=== PATIENT | male | born 1940 | race Caucasian/White ===

== ENCOUNTER → 2017-03-08 | Outpatient (CLI) | payer OTHER, MEDICARE ==
[~2017-03-08] MED LIST: ALBU1AER9 INH; ASPEC81 PO; ASTN; BECL0.3A INH; COEN100C3 PO; FRRS300 PO; FURO-85 PO; IPRA0.032 NAE; LEVO25TA5 PO; LOVA40TA4 PO; MAGN1TAB19 PO; METO25TA3 PO; MONT1TAB3 PO; NASOCORT PO; NITR0.4S UT; POTA10TA PO; WARF-280 PO
[2017-03-08 13:06] LABS: COMPLETE YES; EOS % 14.8 %; HEMATOCRIT 36.3 % (42-52); IG% 0.2 %; LYMPH % 19.6 %; LYMPH ABS # 1.17 K/uL (1.2-3.4); MEAN CELL VOLUME 85.6 fL (80-100); MEAN CORPUSCULAR HEMOGLOBIN 26.7 pg (25-34); MEAN CORPUSCULAR HGB CONC 31.1 g/dl (32-36); MEAN PLATELET VOLUME 8.7 fL (7.4-10.4); MONO % 10.2 %; NEUT % 55.2 %; PLATELET COUNT 164 K/uL (130-400); RED BLOOD COUNT 4.24 M/uL (4.7-6.1); WHITE BLOOD COUNT 5.96 K/uL (4.8-10.8)
[2017-03-08 13:35] LABS: ALT/SGPT 19 U/L (12-78); BLOOD UREA NITROGEN 32 mg/dl (7-18); BUN/CREATININE RATIO 24.8 (10-20); CARBON DIOXIDE 28 mmol/L (21-32); CHLORIDE 104 mmol/L (98-107); CHOLESTEROL 146 mg/dl (0-200); GLUCOSE 155 mg/dl (70-99); POTASSIUM 3.8 mmol/L (3.5-5.1); SODIUM 138 mmol/L (136-145); TRIGLYCERIDES 108 mg/dl (0-150); VERY LOW DENSITY LIPOPROT CALC 22 mg/dl
[2017-03-08 13:38] LABS: CALCIUM 8.8 mg/dl (8.5-10.1)
[2017-03-08 13:50] LABS: ESTIMATED AVERAGE GLUCOSE 154 mg/dl; HA1C FLAG Normal (Normal)
[2017-03-08 13:57] LABS: AST/SGOT 14 U/L (15-37); CHOLESTEROL/HDL RATIO 3.4; HDL CHOLESTEROL 43 mg/dl; LDL CHOLESTEROL CALCULATED 81 mg/dl; TOTAL IRON BINDING CAPACITY 220 mcg/dl (250-450)
== END ==
LOC: C.LABMFLN 15:33
PROVIDERS: ATTEND Family Medicine
DX: D64.9 Anemia, unspecified (principal); I25.10 Atherosclerotic heart disease of native coronary artery without angina pectoris; I48.91 Unspecified atrial fibrillation; E11.9 Type 2 diabetes mellitus without complications; I50.9 Heart failure, unspecified; E83.42 Hypomagnesemia; E03.9 Hypothyroidism, unspecified; Z12.5 Encounter for screening for malignant neoplasm of prostate

== ENCOUNTER → 2017-09-11 | Outpatient (CLI) | payer OTHER, MEDICARE ==
[2017-09-11 13:07] LABS: COMPLETE YES; EOS % 9.5 %; HEMATOCRIT 39.8 % (42-52); IG% 0.2 %; LYMPH % 19.5 %; LYMPH ABS # 1.03 K/uL (1.2-3.4); MEAN CELL VOLUME 86.5 fL (80-100); MEAN CORPUSCULAR HGB CONC 31.2 g/dl (32-36); MEAN PLATELET VOLUME 8.8 fL (7.4-10.4); MONO % 10.8 %; PLATELET COUNT 147 K/uL (130-400); WHITE BLOOD COUNT 5.28 K/uL (4.8-10.8)
[2017-09-11 13:12] LABS: ESTIMATED AVERAGE GLUCOSE 143 mg/dl; HA1C FLAG Normal (Normal)
[2017-09-11 13:59] LABS: BLOOD UREA NITROGEN 21 mg/dl (7-18); BUN/CREATININE RATIO 16.9 (10-20); CALCIUM 9.2 mg/dl (8.5-10.1); CARBON DIOXIDE 31 mmol/L (21-32); CHLORIDE 102 mmol/L (98-107); CREATININE 1.25 mg/dl (0.60-1.40); GLUCOSE 156 mg/dl (70-99); SODIUM 138 mmol/L (136-145)
== END | disposition home or self-care (01) ==
LOC: C.LABMFLN 08:28
PROVIDERS: ATTEND Family Medicine
DX: D64.9 Anemia, unspecified (principal); E11.9 Type 2 diabetes mellitus without complications; E03.9 Hypothyroidism, unspecified

== ENCOUNTER → 2017-10-10 | Outpatient (CLI) | payer OTHER, MEDICARE ==
[2017-10-10 18:27] LABS: COMPLETE YES; HEMATOCRIT 38.5 % (42-52); IG% 0.3 %; LYMPH ABS # 0.55 K/uL (1.2-3.4); MEAN CELL VOLUME 85.9 fL (80-100); MEAN CORPUSCULAR HEMOGLOBIN 27.2 pg (25-34); MEAN CORPUSCULAR HGB CONC 31.7 g/dl (32-36); MEAN PLATELET VOLUME 8.6 fL (7.4-10.4); MONO % 2.2 %; NEUT % 91.5 %; PLATELET COUNT 192 K/uL (130-400); RED BLOOD COUNT 4.48 M/uL (4.7-6.1); WHITE BLOOD COUNT 9.12 K/uL (4.8-10.8)
[2017-10-10 18:31] LABS: INR 2.3 (0.9-1.1); PROTHROMBIN TIME (PATIENT) 24.1 SECONDS (9.0-12.0)
== END | disposition home or self-care (01) ==
LOC: C.LABMFLN 15:41
PROVIDERS: ATTEND Family Medicine
DX: R04.0 Epistaxis (principal); R23.3 Spontaneous ecchymoses

== ENCOUNTER 2019-06-29 11:31 | Inpatient (IN) ==
[2019-06-29] MEDS ORDERED: ASPIRIN CHEW 324 MG PO STA (11:41)
[2019-06-29 12:02] LABS: Basophils # (auto) 0.01 K/uL (0-0.2); Basophils % (auto) 0.1 %; Eosinophils # (auto) 0.15 K/uL (0-0.5); Eosinophils % (auto) 1.4 %; Hematocrit (blood only) 39.1 % (42-52); Hemoglobin 12.1 g/dL (14.0-18.0); Immature Granulocytes # (auto) 0.11 K/uL (0.00-0.02); Lymphocytes # (auto) 1.37 K/uL (1.2-3.4); Lymphocytes % (auto) 12.5 %; Mean Corpuscular Hgb Conc 30.9 g/dL (32-36); Mean Corpuscular Volume 84.3 fL (80-100); Mean Platelet Volume 8.7 fL (7.4-10.4); Monocytes # (auto) 1.09 K/uL (0.11-0.59); Monocytes % (auto) 9.9 %; Neutrophils # (auto) 8.23 K/uL (1.4-6.5); Neutrophils % (auto) 75.1 %; Platelet Count 156 K/uL (130-400); RDW Coefficient of Variation 15.7 % (11.5-14.5); RDW Standard Deviation 47.7 fL (36.4-46.3); Red Blood Count 4.64 M/uL (4.7-6.1); White Blood Count 10.96 K/uL (4.8-10.8)
[2019-06-29 12:19] LABS: Albumin Level 2.9 gm/dl (3.4-5.0); Calcium 8.9 mg/dl (8.5-10.1); Creatinine Clr Calc Pharmacy 52.7 ml/min; Est GFR (African American) 65.6; Est GFR (Non-African American) 56.6; Magnesium 1.6 mg/dl (1.8-2.4); Potassium 3.5 mmol/L (3.5-5.1)
[2019-06-29 12:30] LABS: Albumin Globulin Ratio 0.8 (0.9-2); Bilirubin,Total 1.4 mg/dl (0.2-1); Globulin 3.9 gm/dl (2.5-4.0); Total Protein 6.8 gm/dl (6.4-8.2); Troponin I 0.082 ng/ml (0-0.045)
--- NOTE | 2019-06-29 12:36 | XRay Report ---
XR chest 2V routine CLINICAL HISTORY: Atypical chest pain COMPARISON STUDY: Noncontrast chest CT dated September 2018 FINDINGS: There are postsurgical changes of a midline sternotomy and bivalvular replacement. There is a left subclavian pacer/defibrillator present. The heart is enlarged. There is diffuse interstitial thickening. There is no lobar consolidation. There are no large pleural effusions.[There is a calcifi ed right upper lobe granuloma. IMPRESSION: Cardiomegaly and chronic interstitial thickening. No evidence of acute parenchymal consol idation. Electronically signed by: Arslan Queen M.D. 06/29/2019 12:35 PM
--- NOTE | 2019-06-29 12:53 | Emergency Department Note ---
Entered by Ana Frausto acting as a scribe for History of Present Illness General Chief complaint: Cardiac Assessment Time Seen by Provider: 06/29/19 11:36 Source: patient History of Present Illness Onset (ago): hour(s) 1 Location: chest Severity: similar to prior episodes Pain Consistency: + other (episode) Quality: + other (defibrillator discharge ) Associated symptoms: + other (positive now resolved abdominal pain); no shortness of breath The patient is a 79 year old male who presents to the Emergency Room with comp laints of an episode of defibrillator discharge that occurred about one hour prior to arrival. The patient states that this discharge is similar to a prior episode of discharge yesterday. He states that after the episode yesterday he went to the [facility] ED where he was told that his defibrillator discharged due to the patient being in Afib. The patient carlitos shortness of breath, and states that he had some now resolved abdominal pain prior to this episode. The patient states that he is on Coumadin and his level was 1.9 when leaving [facility] yesterday. Home Medications Home Medications Medication Instructions Recorded Confirmed Type nitroglycerin 0.4 mg sublingual 0.4 mg SL Q5M PRN #25 tab 06/17/19 06/29/19 Rx tablet potassium chloride ER 10 mEq 10 meq PO TID #270 tab 06/17/19 06/29/19 Rx tablet,extended release triamcinolone acetonide 0.1 % 1 appln TOPICAL BID PRN #80 gm 06/17/19 06/29/19 Rx topical cream warfarin 2.5 mg tablet 2.5 mg PO HS tab 06/23/19 06/29/19 History cefdinir 300 mg capsule 300 mg PO BID 5 Days #10 cap 06/27/19 06/29/19 Rx albuterol sulfate [ProAir HFA] 2 inh INHALATION DAILY PRN 06/29/19 06/29/19 History aspirin 81 mg PO QAM 06/29/19 06/29/19 History azelastine 2 sprays INTRANASAL DAILY PRN 06/29/19 06/29/19 History cetirizine 10 mg PO QAM 06/29/19 06/29/19 History coenzyme Q10 100 mg PO QAM 06/29/19 06/29/19 History ferrous sulfate 325 mg PO HS 06/29/19 06/29/19 History fluticasone furoate 1 puffs INHALATION DAILY PRN 06/29/19 06/29/19 History furosemide 20 mg PO DAILY PRN 06/29/19 06/29/19 History ipratropium-albuterol 3 ml INH QID PRN 06/29/19 06/29/19 History levothyroxine 75 mcg PO QAM 06/29/19 06/29/19 History lovastatin 40 mg PO HS 06/29/19 06/29/19 History magnesium oxide 400 mg PO QAM 06/29/19 06/29/19 History metformin 500 mg PO TIDM 06/29/19 06/29/19 History metoprolol succinate 12.5 mg PO HS 06/29/19 06/29/19 History metoprolol succinate 25 mg PO QAM 06/29/19 06/29/19 History prednisone 10 mg PO QAM 06/29/19 06/29/19 History pyridostigmine bromide 180 mg PO TID 06/29/19 06/29/19 History Allergies Allergy/AdvReac Type Severity Reaction Status Date / Time gabapentin Allergy Severe CONFUSION/D Verified 06/29/19 12:09 ISORIENTATI ON heparin Allergy Severe HIT Verified 06/29/19 12:09 Iodinated Contrast- Oral and Allergy Severe HIVES Verified 06/29/19 12:09 IV Dye Penicillins Allergy Intermediate HIVES Verified 06/29/19 12:09 prednisone Allergy Intermediate NAUSEA/VOMI Verified 06/29/19 12:09 TING shellfish derived Allergy Intermediate HIVES Verified 06/29/19 12:09 iodine Allergy Unknown TOLD BC OF Verified 06/29/19 12:09 IVP ALLERGY latex Allergy Verified 06/29/19 12:09 levofloxacin Allergy Verified 06/29/19 12:09 codeine AdvReac Unknown GI UPSET Verified 06/29/19 12:09 Latex2 -Systemic Allergic Allergy Intermediate ZEPEDA SKIN Uncoded 06/29/19 12:09 Response Past Med/Surg History Medical History Afib Surgical History History of aortic valve replacement History of appendectomy History of cholecystectomy History of excision of lesion face - malignant - 2.1-3cm Social History Preferred Language: Welsh marital status: Current Living Situation: Spouse Feels Safe at Home: Yes Smoking Status: Former smoker Hx Alcohol Use: Yes Review of Systems See HPI for pertinent positives & negatives. and A total of 10 systems reviewed and were otherwise negative Physical Exam Vital Signs Vital Signs - 24 hr 06/29/19 11:31 Temperature 36.6 C Temperature Source Oral Sepsis Recent Fever Within 48 Hours No Sepsis New/Unexplained Change in Mental Status No Sepsis Action Taken by Nursing No Action Required Pulse Rate 94 H Pulse Rhythm Regular Respiratory Rate 16 Respiratory Effort / Characteristics Non-Labored Respiratory Depth Normal Respiratory Pattern Regular Blood Pressure 139/94 Blood Pressure Mean 109 Pulse Oximetry 95 Oxygen Delivery Method Room Air GENERAL: He is oriented to person, place, and time. He appears well-developed and well-nourished. He does not appear distressed. HENT: Exam performed. - Head: Normocephalic and atraumatic. - Right Ear: External ear normal. No mastoid tenderness. - Left Ear: External ear normal. No mastoid tenderness. - Mouth/Throat: The oropharynx is clear and moist. No trismus in the jaw. No dental abscesses or uvula swelling. No oropharyngeal exudate or tonsillar abscesses. EYES: Conjunctivae and EOM are normal. Pupils are equal, round, and reactive to light. Right eye exhibits no discharge. Left eye exhibits no discharge. No scleral icterus. NECK: Normal range of motion. Neck supple. No JVD present. No spinous process tenderness present. No carotid bruit present. No rigidity. No tracheal deviation and normal range of motion present. No Brudzinski's sign and no Kernig's sign noted. CV: Normal rate, regular rhythm, normal heart sounds and intact distal pulses. There is no peripheral edema. Palpable radial pulses bue. PULM/CHEST: Effort normal and breath sounds normal. No respiratory distress. No stridor. He has no wheezes. He has no rales. - Chest Wall: He exhibits no tenderness. ABD: The abdomen is soft. Bowel sounds are normal. He has no distension. No mass is present. There is no tenderness. There is no rebound, no guarding, no Chaidez's sign and no tenderness at McBurney's point. Rovsig negative. MUSC/SKEL: Normal range of motion. There is no peripheral edema, tenderness or deformity. LYMPH: No cervical adenopathy. NEURO: He is alert and oriented to person, place, and time. He has normal strength. No cranial nerve deficit or sensory deficit. Coordination and gait normal. GCS eye subscore is 4. GCS verbal subscore is 5. GCS motor subscore is 6. Cerebellar tests wnl. SKIN: Skin is warm and dry. He is not diaphoretic. Ecchymosis over the bilateral upper and lower extremities. PSYCH: He has a normal mood and affect. Behavior is normal. Judgment and thought content normal. Course 1137: Past medical records reviewed. The patient was evaluated in room C9. A com plete history and physical exam was performed. 1211: George the renal case manager was able to access the results from [facility] yesterday. Per the note, [facility] spoke with a [employer] represe ntative who states that the patient had Afib which caused the shock. Lab work was performed which showed a troponin of 43 (the range is 0-22) and an INR of 1.96. 1232: The patient's vital signs are stable. His labs show a troponin of 0.082 which is thought to be due to the patient's defibrillator going off. I discussed the case with Dr. Menjivar Cardiology who states that the patient could be discharged and go up on the Metoprolol to 50mg Q AM and 25 mg Q PM, or the patient can be brought in for inpatient observation to further evaluate him. I discussed these options with the patient and his at bedside, and they both state that they prefer to be further evaluated as they do not feel safe with the patient going home. I discussed the case with Dr. N[facility] Hospitalist who accepts the patient for further evaluation. Administered Medications Discontinued Medications Aspirin (Aspirin) 324 mg PO NOW STA Stop: 06/29/19 11:42 Last Admin: 06/29/19 11:57 Dose: 243 mg Documented by: [id number] Medical Decision Making Medical Records Attestation: I reviewed the patient's medical records. Home Medications Current Medication List: was personally reviewed by me Laboratory Data Attestation: I reviewed the patient's lab results. Result diagrams: 06/29/19 11:47 06/29/19 11:47 Lab Results 06/29/19 06/29/19 Range/Units 11:47 11:47 WBC 10.96 H (4.8-10.8) K/uL RBC 4.64 L (4.7-6.1) M/uL Hgb 12.1 L (14.0-18.0) g/dL Hct 39.1 L (42-52) % MCV 84.3 (80-100) fL MCH 26.1 (25-34) pg MCHC 30.9 L (32-36) g/dL RDW Std Deviation 47.7 H (36.4-46.3) fL RDW Coeff of Jonathan 15.7 H (11.5-14.5) % Plt Count 156 (130-400) K/uL MPV 8.7 (7.4-10.4) fL Immature Gran % (Auto) 1.0 % Neut % (Auto) 75.1 % Lymph % (Auto) 12.5 % [place] % (Auto) 9.9 % Eos % (Auto) 1.4 % Baso % (Auto) 0.1 % Immature Gran # (Auto) 0.11 H (0.00-0.02) K/uL Neut # (Auto) 8.23 H (1.4-6.5) K/uL Lymph # (Auto) 1.37 (1.2-3.4) K/uL [place] # (Auto) 1.09 H (0.11-0.59) K/uL Eos # (Auto) 0.15 (0-0.5) K/uL Baso # (Auto) 0.01 (0-0.2) K/uL Sodium 143 (136-145) mmol/L Potassium 3.5 (3.5-5.1) mmol/L Chloride 107 (98-107) mmol/L Carbon Dioxide 32 (21-32) mmol/L Anion Gap 4.0 (3-11) BUN 25 H (7-18) mg/dl Creatinine 1.21 (0.6-1.4) mg/dl Est Cr Clr Drug Dosing 52.7 ml/min Est GFR ( Amer) 65.6 Est GFR (Non-Af Amer) 56.6 BUN/Creatinine Ratio 21.0 H (10-20) Glucose 121 H (70-99) mg/dl Calcium 8.9 (8.5-10.1) mg/dl Magnesium 1.6 L (1.8-2.4) mg/dl Total Bilirubin 1.4 H (0.2-1) mg/dl AST 30 (15-37) U/L ALT 76 (12-78) U/L Alkaline Phosphatase 68 (45-117) U/L Troponin I 0.082 H* (0-0.045) ng/ml Total Protein 6.8 (6.4-8.2) gm/dl Albumin 2.9 L (3.4-5.0) gm/dl Globulin 3.9 (2.5-4.0) gm/dl Albumin/Globulin Ratio 0.8 L (0.9-2) Lipase 316 (73-393) U/L Imaging Data Radiologist's Impression: Radiology results as stated below per my review and the radiologist's interpretation: XR chest 2V routine CLINICAL HISTORY: Atypical chest pain COMPARISON STUDY: Noncontrast chest CT dated September 2018 FINDINGS: There are postsurgical changes of a midline sternotomy and bivalvular replacement. There is a left subclavian pacer/defibrillator present. The heart is enlarged. There is diffuse interstitial thickening. There is no lobar consolidation. There are no large pleural effusions.[There is a calcified right upper lobe granuloma. IMPRESSION: Cardiomegaly and chronic interstitial thickening. No evidence of acute parenchymal consolidation. Electronically signed by: Arslan Queen M.D. 06/29/2019 12:35 PM ECG Data Attestation: I personally reviewed and interpreted this ECG as follows: Indication: other (arrhythmia) Rate (beats per minute): 94 Rhythm: other (paced rhythm ) Findings: + other (QRS 116; QTC 492) and + paced rhythm; no PAC, no PVC and no ectopy Blood Pressure Blood Pressure Findings: Elevated blood pressure Blood Pressure Disposition: further management by hospitalist FABI Narrative 1137: Past medical records reviewed. The patient was evaluated in room C9. A complete history and physical exam was performed. 1211: George the renal case manager was able to access the results from [facility] yesterday. Per the note, [facility] spoke with a [employer] regional sales representative who states that the patient had Afib which caused the shock. Lab work was performed which showed a troponin of 43 (the range is 0-22) and an INR of 1.96. 1232: The patient's vital signs are stable. His labs show a troponin of 0.082 which is thought to be due to the patient's defibrillator going off. I discussed the case with Dr. Menjivar Cardiology who states that the patient could be discharged and go up on the Metoprolol to 50mg Q AM and 25 mg Q PM, or the patient can be brought in for inpatient observation to further evaluate him. I discussed these options with the patient and his at bedside, and they both state that they prefer to be further evaluated as they do not feel safe with the patient going home. [facility] the patient for further evaluation. Impression & Plan Palpitations Discharge Plan Visit Data Chief Complaint: Cardiac Assessment ED Provider: Wally Meier Discharge Problem: Palpitations Patient Disposition: Being Evaluated by Hospitalist Forms Stand Alone Forms: My [facility] Prescriptions Prescriptions: No Action nitroglycerin 0.4 mg tablet, sublingual 0.4 mg SL Q5M PRN (Reason: chest pain) Qty: 25 RF: 3 potassium chloride 10 mEq tablet extended release 10 meq PO TID Qty: 270 RF: 3 triamcinolone acetonide 0.1 % cream 1 appln topical BID PRN (Reason: skin irritation) Qty: 80 RF: 11 warfarin 2.5 mg tablet 2.5 mg PO HS RF: 0 cefdinir 300 mg capsule 300 mg PO BID 5 Days Qty: 10 RF: 0 metoprolol succinate 25 mg tablet extended release 24 hr 12.5 mg PO HS RF: 0 albuterol sulfate [ProAir HFA] 90 mcg/actuation HFA aerosol inhaler 2 inh inhalation DAILY PRN (Reason: Shortness Of Breath Or Wheezing) RF: 0 metformin 500 mg tablet 500 mg PO TIDM RF: 0 prednisone 10 mg tablet 10 mg PO QAM RF: 0 ipratropium-albuterol 0.5 mg-3 mg(2.5 mg base)/3 mL solution for nebulization 3 ml INH QID PRN (Reason: Shortness Of Breath Or Wheezing) RF: 0 cetirizine 10 mg tablet 10 mg PO QAM RF: 0 lovastatin 40 mg tablet 40 mg PO HS RF: 0 aspirin 81 mg tablet,delayed release (DR/EC) 81 mg PO QAM RF: 0 magnesium oxide 400 mg (241.3 mg magnesium) tablet 400 mg PO QAM RF: 0 levothyroxine 50 mcg tablet 75 mcg PO QAM RF: 0 ferrous sulfate 325 mg (65 mg iron) tablet 325 mg PO HS RF: 0 pyridostigmine bromide 60 mg tablet 180 mg PO TID RF: 0 furosemide 20 mg tablet 20 mg PO DAILY PRN (Reason: Edema) RF: 0 metoprolol succinate 25 mg tablet extended release 24 hr 25 mg PO QAM RF: 0 azelastine 137 mcg (0.1 %) aerosol,spray 2 sprays intranasal DAILY PRN (Reason: Congestion) RF: 0 coenzyme Q10 100 mg capsule 100 mg PO QAM RF: 0 fluticasone furoate 100 mcg/actuation blister with device 1 puffs inhalation DAILY PRN (Reason: Shortness Of Breath Or Wheezing) RF: 0 Referrals Referrals: Thad Patrick MD [Primary Care Provider] - The scribe's documentation has been prepared under my direction and personally reviewed by me in its entirety. I confirm that the note above accurately reflects all work, treatment, procedures, and medical decision making performed by me.
[2019-06-29 13:34] LABS: INR 1.9 (0.9-1.1); Prothrombin Time 18.2 Seconds (9.0-12.0)
[2019-06-29] MEDS ORDERED: POTASSIUM CHLORIDE 20 MEQ TABCR PO STA (13:46)
[2019-06-29] MEDS ORDERED: WARFARIN SOD 1 MG TAB PO STA (13:50)
[2019-06-29] MEDS ORDERED: ALBUT/IPRATROP 3MG/0.5MG NEB 3 ML VIAL ONE (14:55)
[2019-06-29] MEDS: CETIRIZINE HCL 10 MG TABLET PO SCH (15:19)
[2019-06-29] MEDS: FLUTICASONE PROPIONATE NA SPR 16 GM BTL SCH (15:19)
--- NOTE | 2019-06-29 15:23 | History & Physical Report ---
Date of Service June 29, 2019 Assessment & Plan (1) Palpitations: Admit to PCU on telemetry Vital signs every 4 hours Continue ceftriaxone and azithromycin for pneumonia Consult cardiology for defibrillator discharges Neb treatments every 4 hours as needed Continue warfarin and to give another dose of warfarin to make patient therapeutic Patient would need to bridge with heparin Elevated troponin to 0.89 Patient reports no chest pain Trend down troponins with EKGs DVT prophylaxis heparin and warfarin CT of the head Full code Present on Admission?: Yes (2) Hypertension: Patient's blood pressure this time is little bit lower hold home medication Present on Admission?: Yes (3) Congestive heart failure: Continue furosemide 20 mg p.o. as needed TTE pending Continue nitroglycerin 0.4 mg sublingual Continue metoprolol succinate 12.5 mg p.o. nightly Continue metoprolol succinate 25 mg p.o. every morning Present on Admission?: Yes (4) COPD (chronic obstructive pulmonary disease): Continue ipratropium albuterol 4 times daily as needed, Continue fluticasone for rate 1 puff inhalation daily Continue cetirizine 10 mg p.o. every morning for seasonal allergies continue azelastine 2 sprays intranasally as needed Present on Admission?: Yes (5) Hyperlipidemia: Continue pravastatin 40 mg p.o. 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 Patient states that this discharge is similar to the prior episode of discharge yesterday. This reason patient went yesterday [facility] where he was told that his liver defibrillator discharges due to being in A. fib's. Patient is on warfarin. Patient denies shortness of breath and stated that he had some abdominal pain which resolved. Patient states that he is on Coumadin and his level is 1.9 when he left the lab was down yesterday. Patient also said that he is just recuperating from episode of pneumonia for which patient was at [facility] where he was treated for acute bronchitis. Patient was discharged on azithromycin and cefdinir for 5 days. He is still has 3 days of antibiotics to complete. Patient is denying fever chills chest pain shortness of breath abdominal pain frequency urgency melena hemoptysis. Labs are reviewed: White blood cell count of 10.96, hemoglobin 12.51, hematocrit 39.1 platelets 156, PT 18.2 INR 1.9, sodium 143, potassium 3.5, chloride 107, anion gap 4, BUN 25 creatinine 1.21 GFR 56, magnesium 1.6, bilirubin 1.4, AST 30 ALT 76 alkaline phosphatase 68, troponin 0.0 82 Albumin 2.9 globulin 3.9 lipase 316. Chest x-ray shows cardiomegaly and chronic interstitial thickening. No evidence of acute parenchymal consolidation. Decision was made to admit patient on telemetry for further evaluation and treatment. Allergies Allergy/AdvReac Type Severity Reaction Status Date / Time gabapentin Allergy Severe CONFUSION/D Verified 06/29/19 12:09 ISORIENTATI ON heparin Allergy Severe HIT Verified 06/29/19 12:09 Iodinated Contrast- Oral and Allergy Severe HIVES Verified 06/29/19 12:09 IV Dye Penicillins Allergy Intermediate HIVES Verified 06/29/19 12:09 prednisone Allergy Intermediate NAUSEA/VOMI Verified 06/29/19 12:09 TING shellfish derived Allergy Intermediate HIVES Verified 06/29/19 12:09 iodine Allergy Unknown TOLD BC OF Verified 06/29/19 12:09 IVP ALLERGY latex Allergy Verified 06/29/19 12:09 levofloxacin Allergy Verified 06/29/19 12:09 codeine AdvReac Unknown GI UPSET Verified 06/29/19 12:09 Latex2 -Systemic Allergic Allergy Intermediate ZEPEDA SKIN Uncoded 06/29/19 12:09 Response Home Medications Home Medications Medication Instructions Recorded Confirmed Type nitroglycerin 0.4 mg sublingual 0.4 mg SL Q5M PRN #25 tab 06/17/19 06/29/19 Rx tablet potassium chloride ER 10 mEq 10 meq PO TID #270 tab 06/17/19 06/29/19 Rx tablet,extended release triamcinolone acetonide 0.1 % 1 appln TOPICAL BID PRN #80 gm 06/17/19 06/29/19 Rx topical cream warfarin 2.5 mg tablet 2.5 mg PO HS tab 06/23/19 06/29/19 History cefdinir 300 mg capsule 300 mg PO BID 5 Days #10 cap 06/27/19 06/29/19 Rx albuterol sulfate [ProAir HFA] 2 inh INHALATION DAILY PRN 06/29/19 06/29/19 History aspirin 81 mg PO QAM 06/29/19 06/29/19 History azelastine 2 sprays INTRANASAL DAILY PRN 06/29/19 06/29/19 History cetirizine 10 mg PO QAM 06/29/19 06/29/19 History coenzyme Q10 100 mg PO QAM 06/29/19 06/29/19 History ferrous sulfate 325 mg PO HS 06/29/19 06/29/19 History fluticasone furoate 1 puffs INHALATION DAILY PRN 06/29/19 06/29/19 History furosemide 20 mg PO DAILY PRN 06/29/19 06/29/19 History ipratropium-albuterol 3 ml INH QID PRN 06/29/19 06/29/19 History levothyroxine 75 mcg PO QAM 06/29/19 06/29/19 History lovastatin 40 mg PO HS 06/29/19 06/29/19 History magnesium oxide 400 mg PO QAM 06/29/19 06/29/19 History metformin 500 mg PO TIDM 06/29/19 06/29/19 History metoprolol succinate 12.5 mg PO HS 06/29/19 06/29/19 History metoprolol succinate 25 mg PO QAM 06/29/19 06/29/19 History prednisone 10 mg PO QAM 06/29/19 06/29/19 History pyridostigmine bromide 180 mg PO TID 06/29/19 06/29/19 History Past Med/Surg History Medical History Afib Surgical History History of aortic valve replacement History of appendectomy History of cholecystectomy History of excision of lesion face - malignant - 2.1-3cm Social History Preferred Language: Nepalese marital status: Current Living Situation: Spouse Feels Safe at Home: Yes Smoking Status: Former smoker Hx Alcohol Use: Yes Review of Systems Review of Systems: All systems reviewed & are unremarkable except as noted in HPI & below Physical Exam Constitutional: WD/WN, vitals as above well developed and + frail appearing Eyes: PERRL, conjunctivae normal, anicteric sclerae ENMT: external ear and nose normal, oropharynx normal Neck: trachea midline, no thyromegaly Respiratory: Auscultation: + wheezes Cardiovascular: Rate/Rhythm: + irregularly irregular Heart Sounds: normal S1 and normal S2 Palpation: + palpable S3 Vessels: + JVD and dorsalis pedis pulses present Extremities: + pedal edema Chest (Breasts): normal inspection/palpation of breasts Gastrointestinal (Abdomen): normal bowel sounds, soft, nontender, no hepatosplenomegaly Musculoskeletal: no cyanosis or clubbing, extremities motor strength 5/5 Skin: no rashes, warm and dry Neurologic: patellar DTR's 2+ bilat, sensation intact Psychiatric: A+Ox3, euthymic affect Genitourinary: no testicular masses, no penis abnormality Lymphatic: no cervical or axillary lymphadenopathy Results & Data Vital Signs (Past 12 Hours) Vital Signs Temp Pulse Resp BP Pulse Ox 06/29/19 14:00 103 H 20 118/73 97 06/29/19 13:05 93 H 19 115/64 100 06/29/19 11:39 90 16 139/94 98 06/29/19 11:31 36.6 C 94 H 16 139/94 95 Code Status & VTE Plan Code Status Full code VTE Prophylaxis Plan VTE Prophylaxis will be ordered: Yes PG Care Time/CCT Total # of Minutes Spent Total Time Spent with Patient: Total time spent is greater than 50% in coordination of care (as documented) at patient's floor/unit and/or counseling patient:
[2019-06-29] MEDS ORDERED: FUROSEMIDE 20 MG TAB PO PRN (18:23)
[2019-06-29] MEDS ORDERED: NITROGLYCERIN SL 0.4 MG/TAB TAB SL PRN (18:23)
[2019-06-29] MEDS ORDERED: POLYETHYLENE (MIRALAX) 17 GM PACK PO PRN (18:23)
[2019-06-29] MEDS ORDERED: ALBUT/IPRATROP 3MG/0.5MG NEB 3 ML VIAL INH PRN (18:23)
[2019-06-29] MEDS ORDERED: TRIAMCINOLONE ACET 0.1% CR 15 GM TUBE TOP PRN (18:23)
[2019-06-29] MEDS ORDERED: ALBUTEROL HFA INHALER 8.5 GM INH PRN (18:23)
[2019-06-29] MEDS ORDERED: ACETAMINOPHEN 325 MG TAB PO PRN (18:23)
[2019-06-29] MEDS ORDERED: cefTRIAXone SODIUM 2,000 MG/70 ML BAG IV ONE (18:30)
[2019-06-29] MEDS ORDERED: PHARMACY GLYCEMIC MGMT CONSULT PRN (19:04)
[2019-06-29 19:06] LABS: Troponin I 0.065 ng/ml (0-0.045)
--- NOTE | 2019-06-29 19:52 | Consultation Report ---
DATE OF CONSULTATION: 06/29/2019 CONSULTATION REQUESTED BY: Dr. Meier. REASON FOR CONSULTATION: ICD alert. HISTORY OF PRESENT ILLNESS: The patient is a very pleasant 79-year-old gentleman who normally follows with Dr. Gonzalez of our Cardiology practice, who presents to [facility] Emergency Department on 06/29/2019 with a complaint of hearing his defibrillator siren go off. The patient states that he was at home today, going to the bathroom, having difficulty having a bowel movement when he heard a siren go off in his defibrillator. Luckily it did not shock him at that time, but his became concerned and brought him in the Emergency Department. They state that he has the same exact episode happened yesterday when he was sitting at home, watching television, again his defibrillator siren went off, but did not shock him. He was seen at [facility] at that time. He was found to be in AFib, but otherwise device interrogation was unremarkable and he was discharged to home. His were much more concerned that this has now happened a second time. Otherwise, he states he feels well. He was recently admitted to [facility] a week ago for an upper respiratory tract infection; however, he states he has been recovering from that. He was discharged on Omnicef and azithromycin. Otherwise, he denies any chest pain, worsening shortness of breath, palpitations, lightheadedness, dizziness or syncope. He has been compliant with all of his meds. PAST SURGICAL HISTORY: 1. Coronary artery bypass grafting in 2013, receiving a ALANIZ to the LAD along with aortic valve replacement with a 23 mm Mcdaniel bioprosthetic valve and a 27 mm bioprosthetic mitral valve along with closure of a patent foramen ovale, aortic endarterectomy and intraoperative radiofrequency ablation. 2. Bi-V ICD placement. 3. Esophageal dilatation. 4. Appendectomy. 5. Cholecystectomy. 6. Upper endoscopy. 7. Colonoscopies. MEDICAL ILLNESSES: 1. Myasthenia gravis, no longer on CellCept. 2. Coronary artery disease, status post coronary artery bypass grafting x1. 3. 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 4. History of pulmonary hypertension. 5. Aortic valve replacement. 6. Mitral valve replacement. 7. Postoperative atrial fibrillation with intraoperative maze procedure, previously on amiodarone. 8. Diabetes. 9. History of sepsis. 10. History of heparin-induced thrombocytopenia. FAMILY HISTORY: Noncontributory. SOCIAL HISTORY: The patient has remote tobacco use history. Denies any alcohol or recreational drug use. He is and lives at home with his . ALLERGIES: 1. GABAPENTIN. 2. HEPARIN. 3. CONTRAST. 4. PENICILLIN. 5. PREDNISONE. 6. SHELLFISH DERIVATIVES. 7. IODINE. 8. LASIX. 9. LEVOTHYROXINE. 10. CODEINE. MEDICATIONS AN OUTPATIENT: 1. Azithromycin 500 mg daily. 2. Omnicef 300 mg b.i.d. 3. Lasix 10 mg p.r.n. 4. Coumadin. 5. Potassium chloride 30 mEq daily. 6. Lovastatin 40 mg daily. 7. Prednisone 10 mg daily. 8. Pyridostigmine. 9. Metoprolol succinate 25 mg q.a.m., 12.5 mg q.p.m. 10. Aspirin 81 mg daily. 11. Levoxyl. 12. Iron. PHYSICAL EXAMINATION: VITALS: Temperature 36.6, pulse 93, respiratory rate 12, blood pressure 115/64. GENERAL: Awake, alert, oriented x3, in no acute distress. HEENT: Normocephalic, atraumatic. Pupils equal, round, reactive to light and accommodation. Extraocular muscles intact. Anicteric sclerae. Moist mucous membranes. NECK: No JVD, no bruit. CARDIOVASCULAR: Irregularly irregular with a 3/6 mid to late systolic ejection murmur greatest at the right sternal border second intercostal space. No rubs. PULMONARY: Clear to auscultation bilaterally. No rales, rhonchi or wheezing. ABDOMEN: Bowel sounds x4, soft. No rebound, guarding, tenderness. No organomegaly. EXTREMITIES: No clubbing, cyanosis or edema. +2 pedal pulses bilaterally. SKIN: Warm and dry. TEST RESULTS: A 12-lead EKG performed today independently reviewed at this time shows ventricularly paced rhythm with underlying atrial fibrillation and a QTC of 492 milliseconds. LABORATORY STUDIES OF SIGNIFICANCE: Sodium 145, potassium 3.5, BUN 25, creatinine 1.2. INR of 1.9. IMPRESSION: 1. Atrial fibrillation with rapid ventricular response. 2. Chronic borderline prolonged QT interval. 3. Myasthenia gravis. 4. Pulmonary hypertension. 5. Borderline hypotension. 6. History of aortic valve replacement. 7. History of mitral valve replacement. 8. Coronary artery disease. 9. PFO closure. RECOMMENDATIONS: It was my pleasure to see the patient in consultation today. The pathophysiology of atrial fibrillation and the high rates likely causing his ICD alarm were discussed with the patient and his at great length. They were counseled the most prudent course of action at this point will be to help reduce his heart rate and hopefully maintain sinus rhythm going forward. So to that end, we discussed the options of increasing metoprolol versus adding possible amiodarone. I counseled that the risk with the metoprolol will be for hypotension which has been an issue in the past and with the amiodarone, there is concern about prolonged QT interval especially while he is on antibiotics. After lengthy discussion with the patient and his , both agreed that they prefer to start amiodarone at this time, so amiodarone 400 mg 3 times a day will be started now. His potassium will be repleted and we will keep a very close eye on his QT interval. His INR has been 1.9 for 2 days. Should it not be above 2 tomorrow, then consideration may be given to possible transesophageal echocardiogram-guided cardioversion. The risks are significantly elevated given his history of myasthenia gravis and esophageal stricture and hopefully ERNESTINE will not be necessary. They are counseled that other antiarrhythmics are possible options however given his use in the past without any significant side effects is somewhat reassuring, but again they were counseled on possible QT prolongation, worsening of his pulmonary hypertension, cataract formation, liver dysfunction and again they agree with amiodarone therapy. Should his QT significantly prolong, then it may require to be discontinued and then consideration can be given to possible Tikosyn therapy in the future or possibly change his metoprolol to sotalol.
[2019-06-29] MEDS: DOXYCYCLINE HYCLATE 100 MG in DEXTROSE 5% 100 ML IV SCH (20:04)
[2019-06-29] MEDS: methylPREDNISolone 30 MG in SYRINGE 0 ML IV SCH (20:06)
[2019-06-29] MEDS: AMIODARONE 200 MG TAB PO SCH (20:11)
[2019-06-29] MEDS: LOVASTATIN 20 MG TAB PO SCH (20:12)
[2019-06-29] MEDS: FERROUS SULFATE 325 MG TAB PO SCH (20:23)
[2019-06-29] MEDS: POTASSIUM CHLORIDE 20 MEQ TABCR PO SCH (20:25)
[2019-06-29] MEDS: PYRIDOSTIGMINE BROMIDE 60 MG TAB PO SCH (20:26)
[2019-06-29] MEDS: FUROSEMIDE 20 MG in SYRINGE 0 ML IV SCH (20:27)
[2019-06-29] MEDS ORDERED: WARFARIN SOD 1 MG TAB PO ONE (20:30)
[2019-06-29] MEDS ORDERED: WARFARIN SOD 0.5 MG TAB PO ONE (20:30)
[2019-06-29] MEDS ORDERED: INSULIN GLARGINE SOLOSTAR 100 UNITS/ML 3 ML PEN SC SCH (21:00)
[2019-06-29] MEDS ORDERED: POTASSIUM CHLORIDE 10 MEQ TABCR PO SCH (21:00)
[2019-06-29] MEDS: INSULIN ASPART 100 UNITS/ML 3 ML PEN SC SCH ×2 (21:51→22:01)
[2019-06-29] MEDS: METOPROLOL SUCC 25MG EXT REL TAB PO SCH (21:52)
[2019-06-29] MEDS ORDERED: MAGNESIUM SULFATE / D5W 1 GM/100 ML BAG IV STA (22:30)
[2019-06-30 02:19] LABS: Albumin Globulin Ratio 0.7 (0.9-2); Albumin Level 2.7 gm/dl (3.4-5.0); BUN Creatinine Ratio 20.4 (10-20); Bilirubin,Total 0.8 mg/dl (0.2-1); Calcium 8.4 mg/dl (8.5-10.1); Creatinine Clr Calc Pharmacy 43.1 ml/min; Est GFR (African American) 51.4; Est GFR (Non-African American) 44.4; Globulin 3.7 gm/dl (2.5-4.0); Magnesium 1.9 mg/dl (1.8-2.4); Total Protein 6.4 gm/dl (6.4-8.2)
[2019-06-30 02:31] LABS: Beta-Hydroxybutyrate 3.12 mg/dl (0.2-2.81)
[2019-06-30 03:04] LABS: Potassium 4.7 mmol/L (3.5-5.1)
[2019-06-30] MEDS: methylPREDNISolone 30 MG in SYRINGE 0 ML IV SCH ×2 (04:24→18:00)
[2019-06-30] MEDS: LEVOTHYROXINE SODIUM 75 MCG TABLET PO SCH (04:24)
[2019-06-30 06:32] LABS: Eosinophils # (auto) 0.01 K/uL (0-0.5); Eosinophils % (auto) 0.1 %; Hematocrit (blood only) 39.4 % (42-52); Hemoglobin 12.1 g/dL (14.0-18.0); Immature Granulocytes # (auto) 0.08 K/uL (0.00-0.02); Mean Corpuscular Hgb Conc 30.7 g/dL (32-36); Mean Corpuscular Volume 83.7 fL (80-100); Mean Platelet Volume 8.8 fL (7.4-10.4); Monocytes # (auto) 0.25 K/uL (0.11-0.59); Monocytes % (auto) 3.2 %; Neutrophils # (auto) 6.71 K/uL (1.4-6.5); Neutrophils % (auto) 86.7 %; Platelet Count 154 K/uL (130-400); RDW Coefficient of Variation 15.5 % (11.5-14.5); Red Blood Count 4.71 M/uL (4.7-6.1); White Blood Count 7.75 K/uL (4.8-10.8)
[2019-06-30 06:52] LABS: INR 2.1 (0.9-1.1); Partial Thromboplastin Ratio 1.7; Prothrombin Time 20.5 Seconds (9.0-12.0)
[2019-06-30 06:55] LABS: Partial Thromboplastin Time 45.5 Seconds (21.0-31.0)
[2019-06-30] MEDS ORDERED: INSULIN GLARGINE SOLOSTAR 100 UNITS/ML 3 ML PEN SC ONE (07:15)
[2019-06-30] MEDS: AMIODARONE 200 MG TAB PO SCH ×3 (07:51→18:01)
[2019-06-30] MEDS: PYRIDOSTIGMINE BROMIDE 60 MG TAB PO SCH ×3 (07:53→20:09)
[2019-06-30] MEDS: METOPROLOL SUCC 25MG EXT REL TAB PO SCH ×2 (07:53→19:59)
[2019-06-30] MEDS: ASPIRIN 81 MG ECTAB PO SCH (07:53)
[2019-06-30] MEDS: FLUTICASONE PROPIONATE NA SPR 16 GM BTL SCH (07:54)
[2019-06-30] MEDS: MAGNESIUM OXIDE 400 MG TAB PO SCH (07:54)
[2019-06-30] MEDS: POTASSIUM CHLORIDE 20 MEQ TABCR PO SCH ×2 (07:54→20:08)
[2019-06-30] MEDS: FUROSEMIDE 20 MG in SYRINGE 0 ML IV SCH (07:55)
[2019-06-30] MEDS: DOXYCYCLINE HYCLATE 100 MG in DEXTROSE 5% 100 ML IV SCH ×2 (07:58→20:00)
[2019-06-30] MEDS: INSULIN ASPART 100 UNITS/ML 3 ML PEN SC SCH ×4 (08:04→20:34)
[2019-06-30] MEDS: CETIRIZINE HCL 10 MG TABLET PO SCH (08:07)
[2019-06-30] MEDS ORDERED: NON-FORMULARY MEDICATION (Coenzyme Q10 100 MG) PO SCH (09:00)
[2019-06-30] MEDS ORDERED: CETIRIZINE HCL 10 MG TABLET PO SCH (09:00)
--- NOTE | 2019-06-30 09:57 | Pharmacy Report ---
Pharmacy Glycemic Short Note 2 - Date of Service June 30, 2019 - Glycemic Short BSG Results (Last 24 hours): 06/29/19 06/29/19 06/30/19 11:47 18:46 01:30 Glucose 121 H 339 H* POC Glucose 189 H 06/30/19 07:42 Glucose POC Glucose 251 H OUTPATIENT ANTIDIABETIC REGIMEN: * Metformin 500mg PO BIDM * A1c = pending for 06/30/19 ASSESSMENT: * 79yo T2DM male with unknown degree of outpatient control - A1c pending * Pt is maintained on oral antidiabetic agents as an outpatient * Oral agents are not recommended for inpatient use d/t drug interactions, changing PO intake, and difficulty titrating for acute hyper/hypoglycemia. ADA recommends re-initiating outpatient oral agents 1-2 days prior to discharge if/when appropriate if they were held on admission. * Will hold oral agents for admission and utilize SQ basal bolus insulin regimen which is the recommended regimen for inpatient glycemic control. * Will initiate weight based, high stress insulin dosing for steroid induced hyperglycemia * Total daily steroid dose is > Solumedrol 80mg/day therefore, will use weight/stress = 3 dosing and taper with each step down in steroid dosing PLAN FOR INPATIENT GLYCEMIC CONTROL: * Hold outpatient oral diabetes medications * Basal insulin * Lantus 40 units SQ x 1 dose MARÍA (AM GLU overnight was 339 mg/dl), then * Lantus 20 units SQ BID. Will start 07/01/19 since patient also received 15 units of Lantus 06/29/19 PM * Bolus insulin * NovoLog per scale ACHS or Q6hrs while NPO. Additional checks + coverage overnight at 0000 & 0400 since additional Lantus not being given at 2100 * Goal Range: Low 120 mg/dL - High 160 mg/dL * Correction Factor: 20 mg/dL/unit * Nutritional / Prandial insulin per carb ratio of 1 unit per 7 grams CHO consumed
[2019-06-30] MEDS ORDERED: dilTIAZem HCl 5 MG/ML 5 ML VIAL IV STA (10:37)
[2019-06-30] MEDS: dilTIAZem HCl 125 MG in DEXTROSE 5% 100 ML IV SCH (11:35)
--- NOTE | 2019-06-30 12:08 | Cardiology Progress Note ---
Date of Service June 30, 2019 Assessment & Plan (1) Atrial fibrillation: rates remain elevated V pacing seen in 90's to 100's, may need to adjust rate response will have device interrogated by [employer] in AM luckily, QT is stable at 490 after 3 doses of amio bp remains relatively low but still with rvr cannot increase metoprolol would not change amio to IV given QT interval will start cardizem gtt for further rate control and hopeful chemical cardioversion INR was 1.9 for 2 days but now 2.1, physiologically impossible for thrombus formation in <72 hour, ERNESTINE not necessary cont coumadin (2) Congestive heart failure: stable (3) S/P AVR: stable (4) S/P MVR (mitral valve repair): stable (5) CAD (coronary artery disease): stable (6) Prolonged QT interval: stable at 490 ms remain on tele daily EKG's Subjective Pt seen and examined, states his device again sounded a warning indicator this AM (correlated with V paced rhythm in 90's on monitor). Some palpitations overnight, otherwise, denies cp, sob, lightheadedness or dizziness. tele reviewed: underlying afib with mostly V-pacing Review of Systems Review of Systems: All systems reviewed & are unremarkable except as noted in HPI & below Physical Exam Physical Exam: General: Awake, alert and oriented x 3. No acute distress. HEENT: Normocephalic, atraumatic. Pupils equal, round and reactive to light and accommodation. Extraocular muscles are intact. Anicteric sclera. Moist mucous membranes. Neck: No JVD. No bruit. Cardiovascular: irregularly irregular, unable to appreciate murmur, rub or gallop. Pulmonary: Clear to auscultation bilaterally. No rales, rhonchi, or wheezing. Abdomen: Bowel sounds x 4, soft. No rebound, guarding or tenderness. No organomegaly. Extremities: No clubbing, cyanosis or edema. +2 pedal pulses bilaterally. Skin: Warm and dry. Results & Data Vital Signs (Past 12 Hours) Vital Signs Temp Pulse Resp BP BP Pulse Ox 06/30/19 11:48 36.4 C L 77 18 124/69 96 06/30/19 07:43 36.4 C L 102 H 17 129/83 100 06/30/19 03:16 36.9 C 96 H 19 105/61 96 06/30/19 00:04 36.5 C 85 20 101/61 96
[2019-06-30] MEDS: ALBUT/IPRATROP 3MG/0.5MG NEB 3 ML VIAL NEB PRN (13:32)
--- NOTE | 2019-06-30 16:20 | Hospitalist Progress Note ---
Date of Service June 30, 2019 Assessment & Plan (1) Atrial fibrillation: with RVR, rates difficult to control over night discussed with Dr. Howell, [facility] cardiology will follow closely continue Amiodarone PO since QT is 490 start on Cardizem drip for rate control but also hope that he will convert to sinus rhythm continue on metoprolol if QT becomes further prolonged, would have to stop Amiodarone and use Digoxin INR is therapeutic today, can stop heparin, continue Coumadin daily (2) COPD (chronic obstructive pulmonary disease): mild exacerbation use Solu Medrol 30 q12, likely transition to low dose Prednisone in next 1-2 days use Doxycycline for atypical bacterial coverage Continue ipratropium albuterol 4 times daily as needed, Continue fluticasone for rate 1 puff inhalation daily Continue cetirizine 10 mg p.o. every morning for seasonal allergies continue azelastine 2 sprays intranasally as needed (3) Pneumonia: use Doxycycline since there will be no interaction with QT treat for 5 days, was on Cefdinir prior to admission treated last week at [facility] (4) Palpitations: due to afib with RVR no palpitations today (5) Hypertension: stable (6) Congestive heart failure: echo shows that EF is preserved, same as prior echo no further Lasix, appears euvolemic Continue nitroglycerin 0.4 mg sublingual Continue metoprolol succinate 12.5 mg p.o. nightly Continue metoprolol succinate 25 mg p.o. every morning (7) Hyperlipidemia: Continue pravastatin 40 mg p.o. every morning Pending lipid panel (8) Prolonged QT interval: monitor daily on Amiodarone chronically it is prolonged for this patient, usually in 500-520 range 490 on 06/30 if QT gets longer then will need to stop Amiodarone (9) CAD (coronary artery disease): no chest pain minimal elevated in troponin likely just demand ischemia in setting of RVR (10) S/P MVR (mitral valve repair): (11) S/P AVR: Subjective patient feeling better, had a rough night with rapid HR at times he says that he was in [facility] last week for pneumonia, treated with IV antibiotics for 5 days he says that his breathing is a lot better compared to last week when he was coughing non stop discussed the case with Dr. Howell since his QTc is 490 we will continue with Amiodarone will add Cardizem drip for rate control and hope that he converts to sinus rhythm patient would be high risk for ERNESTINE cardioversion due to esophageal stricture patient denies chest pain/pressure he is eating well, no fever or chills reviewed chart, reviewed labs updated his at the bedside Review of Systems Review of Systems: All systems reviewed & are unremarkable except as noted in HPI & below Constitutional: no fever, no chills, no sweats, no fatigue and no weakness Respiratory: + cough and + dyspnea on exertion; no dyspnea Cardiovascular: no chest pain and no edema Gastrointestinal: no abdominal pain, no nausea, no vomiting, no constipation and no diarrhea/loose stools Musculoskeletal: no back pain and no myalgia Physical Exam Constitutional: WD/WN, vitals as above Eyes: PERRL, conjunctivae normal, anicteric sclerae ENMT: external ear and nose normal, oropharynx normal Neck: trachea midline, no thyromegaly Respiratory: normal respiratory effort, lungs clear to auscultation Cardiovascular: Rate/Rhythm: + tachycardic and + irregularly irregular Heart Sounds: normal S1 and normal S2; no murmur Vessels: no JVD Extremities: no edema Gastrointestinal (Abdomen): normal bowel sounds, soft, nontender, no hepatosplenomegaly Musculoskeletal: no cyanosis or clubbing, extremities motor strength 5/5 Skin: no rashes, warm and dry Neurologic: patellar DTR's 2+ bilat, sensation intact and PERRL, EOMI, accommodation nl, no face palsy, no dysarthria Psychiatric: A+Ox3, euthymic affect Lymphatic: no cervical or axillary lymphadenopathy Results & Data Vital Signs (Past 12 Hours) Vital Signs Temp Pulse Resp BP Pulse Ox 06/30/19 15:05 36.8 C 72 17 91/53 L 96 06/30/19 13:33 71 16 97 06/30/19 11:48 36.4 C L 77 18 124/69 96 06/30/19 07:43 36.4 C L 102 H 17 129/83 100 Laboratory Results Laboratory Results - last 24 hr 06/29/19 06/29/19 06/29/19 18:31 18:31 18:46 WBC RBC Hgb Hct MCV MCH MCHC RDW Std Deviation RDW Coeff of Jonathan Plt Count MPV Immature Gran % (Auto) Neut % (Auto) Lymph % (Auto) Buchanan % (Auto) Eos % (Auto) Baso % (Auto) Immature Gran # (Auto) Neut # (Auto) Lymph # (Auto) Buchanan # (Auto) Eos # (Auto) Baso # (Auto) PT INR APTT PTT Ratio Sodium Potassium Chloride Carbon Dioxide Anion Gap BUN Creatinine Est Cr Clr Drug Dosing Est GFR ( Amer) Est GFR (Non-Af Amer) BUN/Creatinine Ratio Glucose POC Glucose 189 H Estimat Average Glucose Hemoglobin A1c Calcium Magnesium Total Bilirubin AST ALT Alkaline Phosphatase Troponin I 0.065 H* NT-Pro-B Natriuret Pep 22434 H Total Protein Albumin Globulin Albumin/Globulin Ratio Triglycerides Cholesterol LDL Cholesterol, Calc VLDL Cholesterol, Calc HDL Cholesterol Cholesterol/HDL Ratio Beta-Hydroxybutyric Acd Procalcitonin < 0.05 06/30/19 06/30/19 06/30/19 00:05 01:30 01:30 WBC RBC Hgb Hct MCV MCH MCHC RDW Std Deviation RDW Coeff of Jonathan Plt Count MPV Immature Gran % (Auto) Neut % (Auto) Lymph % (Auto) Buchanan % (Auto) Eos % (Auto) Baso % (Auto) Immature Gran # (Auto) Neut # (Auto) Lymph # (Auto) Buchanan # (Auto) Eos # (Auto) Baso # (Auto) PT INR APTT PTT Ratio Sodium 140 Potassium 4.7 D Chloride 104 Carbon Dioxide 27 Anion Gap 9.0 BUN 30 H Creatinine 1.48 H Est Cr Clr Drug Dosing 43.1 Est GFR ( Amer) 51.4 Est GFR (Non-Af Amer) 44.4 BUN/Creatinine Ratio 20.4 H Glucose 339 H* POC Glucose Estimat Average Glucose Pending Hemoglobin A1c Pending Calcium 8.4 L Magnesium 1.9 Total Bilirubin 0.8 D AST 25 ALT 64 Alkaline Phosphatase 69 Troponin I 0.059 H* NT-Pro-B Natriuret Pep Total Protein 6.4 Albumin 2.7 L Globulin 3.7 Albumin/Globulin Ratio 0.7 L Triglycerides 100 Cholesterol 114 LDL Cholesterol, Calc 48 VLDL Cholesterol, Calc 20 HDL Cholesterol 46 Cholesterol/HDL Ratio 3 Beta-Hydroxybutyric Acd 3.12 H Procalcitonin 06/30/19 06/30/19 06/30/19 06:20 06:20 06:20 WBC 7.75 RBC 4.71 Hgb 12.1 L Hct 39.4 L MCV 83.7 MCH 25.7 MCHC 30.7 L RDW Std Deviation 47.0 H RDW Coeff of Jonathan 15.5 H Plt Count 154 MPV 8.8 Immature Gran % (Auto) 1.0 Neut % (Auto) 86.7 Lymph % (Auto) 9.0 Buchanan % (Auto) 3.2 Eos % (Auto) 0.1 Baso % (Auto) 0.0 Immature Gran # (Auto) 0.08 H Neut # (Auto) 6.71 H Lymph # (Auto) 0.70 L Buchanan # (Auto) 0.25 Eos # (Auto) 0.01 Baso # (Auto) 0.00 PT 20.5 H INR 2.1 H APTT 45.5 H* PTT Ratio 1.7 Sodium Potassium Chloride Carbon Dioxide Anion Gap BUN Creatinine Est Cr Clr Drug Dosing Est GFR ( Amer) Est GFR (Non-Af Amer) BUN/Creatinine Ratio Glucose POC Glucose Estimat Average Glucose Hemoglobin A1c Calcium Magnesium Total Bilirubin AST ALT Alkaline Phosphatase Troponin I 0.049 H* NT-Pro-B Natriuret Pep Total Protein Albumin Globulin Albumin/Globulin Ratio Triglycerides Cholesterol LDL Cholesterol, Calc VLDL Cholesterol, Calc HDL Cholesterol Cholesterol/HDL Ratio Beta-Hydroxybutyric Acd Procalcitonin 06/30/19 06/30/19 07:42 11:42 WBC RBC Hgb Hct MCV MCH MCHC RDW Std Deviation RDW Coeff of Jonathan Plt Count MPV Immature Gran % (Auto) Neut % (Auto) Lymph % (Auto) Buchanan % (Auto) Eos % (Auto) Baso % (Auto) Immature Gran # (Auto) Neut # (Auto) Lymph # (Auto) Buchanan # (Auto) Eos # (Auto) Baso # (Auto) PT INR APTT PTT Ratio Sodium Potassium Chloride Carbon Dioxide Anion Gap BUN Creatinine Est Cr Clr Drug Dosing Est GFR ( Amer) Est GFR (Non-Af Amer) BUN/Creatinine Ratio Glucose POC Glucose 251 H 143 H Estimat Average Glucose Hemoglobin A1c Calcium Magnesium Total Bilirubin AST ALT Alkaline Phosphatase Troponin I NT-Pro-B Natriuret Pep Total Protein Albumin Globulin Albumin/Globulin Ratio Triglycerides Cholesterol LDL Cholesterol, Calc VLDL Cholesterol, Calc HDL Cholesterol Cholesterol/HDL Ratio Beta-Hydroxybutyric Acd Procalcitonin Medications Administered Current Inpatient Medications Acetaminophen (Tylenol) 650 mg PO Q4H PRN PRN Reason: Pain or Fever Stop: 07/29/19 18:22 Albuterol (Duoneb) 3 ml NEB Q4R PRN PRN Reason: shortness of breath Stop: 07/29/19 18:22 Last Admin: 06/30/19 13:32 Dose: 3 ml Documented by: Albuterol (Proair Hfa) 2 puffs INH DAILY PRN PRN Reason: Shortness Of Breath Or Wheezin Stop: 07/29/19 18:22 Amiodarone HCl (Cordarone) 400 mg PO TIDM [facility] Stop: 07/29/19 16:59 Last Admin: 06/30/19 12:17 Dose: 400 mg Documented by: Aspirin (Ecotrin Ectab) 81 mg PO QAM [facility] Stop: 07/30/19 08:59 Last Admin: 06/30/19 07:53 Dose: 81 mg Documented by: Cetirizine HCl (Zyrtec) 10 mg PO DAILY [facility] Stop: 07/29/19 14:59 Last Admin: 06/30/19 08:07 Dose: 10 mg Documented by: Ferrous Sulfate (Feosol) 325 mg PO HS [facility] Stop: 07/29/19 20:59 Last Admin: 06/29/19 20:23 Dose: 325 mg Documented by: Fluticasone Propionate (Flonase) 1 sprays NA DAILY [facility] Stop: 07/29/19 14:59 Last Admin: 06/30/19 07:54 Dose: 1 sprays Documented by: Furosemide (Lasix) 20 mg PO QAM [facility] Stop: 07/31/19 08:59 Doxycycline Hyclate 100 mg/ (Dextrose) 110 mls @ 50 mls/hr IV Q12H [facility] Stop: 07/06/19 19:59 Last Infusion: 06/30/19 10:15 Dose: Infused Documented by: Diltiazem HCl 125 mg/ Dextrose 125 mls @ 5 mls/hr IV .Q24H [facility]; Protocol Stop: 07/30/19 10:59 Last Titration: 06/30/19 16:04 Dose: 5 mg/hr, 5 mls/hr Documented by: Methylprednisolone 30 mg/ (Syringe) 0.48 mls @ 1.5 mls/min IV Q12H [facility] Stop: 07/02/19 15:59 Insulin Aspart (Novolog Flexpen) 0 units SC ACHS [facility] Stop: 07/29/19 18:59 Last Admin: 06/30/19 12:17 Dose: 6 units Documented by: Insulin Aspart (Novolog Flexpen) 0 units SC TODAY@0000,0400 [facility] Stop: 07/01/19 04:01 Insulin Glargine (Lantus Solostar Pen) 13 units SC BID [facility] Stop: 07/31/19 08:59 Levothyroxine Sodium (Synthroid) 75 mcg PO DAILYBB [facility] Stop: 07/30/19 06:29 Last Admin: 06/30/19 04:24 Dose: 75 mcg Documented by: Lovastatin (Mevacor) 40 mg PO [facility] Stop: 07/29/19 20:59 Last Admin: 06/29/19 20:12 Dose: 40 mg Documented by: [facility] ([facility]) [facility] Stop: 07/30/19 08:59 Last Admin: 06/30/19 07:54 Dose: 400 mg Documented by: Metoprolol Succinate (Toprol Xl) 12.5 mg PO [facility] Stop: 07/29/19 20:59 Last Admin: 06/29/19 21:52 Dose: 12.5 mg Documented by: Metoprolol Succinate (Toprol Xl) 25 mg PO [facility] Stop: 07/30/19 08:59 Last Admin: 06/30/19 07:53 Dose: 25 mg Documented by: Miscellaneous (Order Awaiting Action) 1 ea N/A QS [facility] Stop: 07/30/19 00:00 Last Admin: 06/30/19 07:50 Dose: Not Given Documented by: Miscellaneous (Order Awaiting Action) 1 ea N/A QS [facility] Stop: 07/30/19 00:00 Last Admin: 06/30/19 07:50 Dose: Not Given Documented by: Miscellaneous Information (Consult Glycemic Management Pharmacy) 1 ea N/A UD PRN PRN Reason: Consult Stop: 07/29/19 19:03 Nitroglycerin (Nitrostat) 0.4 mg SL Q5M PRN PRN Reason: chest pain Stop: 07/29/19 18:22 Polyethylene Glycol (Miralax Powder Packet) 17 gm PO DAILY PRN PRN Reason: Constipation Stop: 07/29/19 18:22 Potassium Chloride (Klor-Con M20) 40 meq PO BID [facility] Stop: 07/29/19 23:55 Last Admin: 06/30/19 07:54 Dose: 40 meq Documented by: Pyridostigmine Dickey (Mestinon) 60 mg PO TID [facility] Stop: 07/30/19 20:59 Triamcinolone Acetonide (Kenalog 0.1%) 1 appln TOP BID PRN PRN Reason: skin irritation Stop: 07/29/19 18:22 Warfarin Sodium (Coumadin) 2.5 mg PO DAILY@1600 [facility] Stop: 07/30/19 15:59 Zolpidem Tartrate (Ambien) 5 mg PO HS PRN PRN Reason: Sleep Stop: 07/29/19 18:22 PG Care Time/CCT Total # of Minutes Spent Total Time Spent with Patient: Total time spent is greater than 50% in coordination of care (as documented) at patient's floor/unit and/or counseling p atient:
[2019-06-30] MEDS ORDERED: ARNUITY ELLIPTA 100 MCG INH PRN (16:27)
[2019-06-30] MEDS: WARFARIN SOD 2.5 MG TAB PO SCH (17:59)
[2019-06-30] MEDS: FERROUS SULFATE 325 MG TAB PO SCH (20:08)
[2019-06-30] MEDS: LOVASTATIN 20 MG TAB PO SCH (20:09)
[2019-07-01] MEDS: INSULIN ASPART 100 UNITS/ML 3 ML PEN SC SCH ×7 (00:02→23:47)
[2019-07-01] MEDS: dilTIAZem HCl 125 MG in DEXTROSE 5% 100 ML IV SCH (02:15)
[2019-07-01] MEDS: methylPREDNISolone 30 MG in SYRINGE 0 ML IV SCH ×2 (04:14→16:05)
[2019-07-01] MEDS: ALBUT/IPRATROP 3MG/0.5MG NEB 3 ML VIAL NEB PRN ×3 (04:39→22:00)
[2019-07-01] MEDS: LEVOTHYROXINE SODIUM 75 MCG TABLET PO SCH (05:51)
[2019-07-01 06:08] LABS: Estimated Average Glucose 146 mg/dl; Hemoglobin A1C 6.7 % (4.5-5.6)
[2019-07-01 06:38] LABS: Hematocrit (blood only) 37.4 % (42-52); Hemoglobin 11.8 g/dL (14.0-18.0); Immature Granulocytes # (auto) 0.03 K/uL (0.00-0.02); Immature Granulocytes % (auto) 0.4 %; Lymphocytes # (auto) 0.71 K/uL (1.2-3.4); Lymphocytes % (auto) 9.2 %; Mean Corpuscular Hgb Conc 31.6 g/dL (32-36); Mean Corpuscular Volume 83.9 fL (80-100); Mean Platelet Volume 8.6 fL (7.4-10.4); Monocytes # (auto) 0.26 K/uL (0.11-0.59); Monocytes % (auto) 3.4 %; Neutrophils # (auto) 6.71 K/uL (1.4-6.5); Platelet Count 152 K/uL (130-400); RDW Coefficient of Variation 15.7 % (11.5-14.5); RDW Standard Deviation 47.7 fL (36.4-46.3); Red Blood Count 4.46 M/uL (4.7-6.1); White Blood Count 7.71 K/uL (4.8-10.8)
[2019-07-01 06:48] LABS: INR 2.5 (0.9-1.1); Partial Thromboplastin Ratio 1.5; Partial Thromboplastin Time 41.3 Seconds (21.0-31.0); Prothrombin Time 23.7 Seconds (9.0-12.0)
[2019-07-01 07:12] LABS: Albumin Level 3.1 gm/dl (3.4-5.0); Calcium 8.6 mg/dl (8.5-10.1); Creatinine Clr Calc Pharmacy 54.4 ml/min; Est GFR (African American) 68.3; Est GFR (Non-African American) 58.9; Potassium 4.3 mmol/L (3.5-5.1)
[2019-07-01 07:15] LABS: Albumin Globulin Ratio 0.8 (0.9-2); Bilirubin,Total 1.1 mg/dl (0.2-1); Globulin 3.7 gm/dl (2.5-4.0); Total Protein 6.8 gm/dl (6.4-8.2)
[2019-07-01] MEDS: POTASSIUM CHLORIDE 20 MEQ TABCR PO SCH ×2 (08:21→21:10)
[2019-07-01] MEDS: METOPROLOL SUCC 25MG EXT REL TAB PO SCH ×2 (08:21→21:11)
[2019-07-01] MEDS: ASPIRIN 81 MG ECTAB PO SCH (08:21)
[2019-07-01] MEDS: CETIRIZINE HCL 10 MG TABLET PO SCH (08:21)
[2019-07-01] MEDS: MAGNESIUM OXIDE 400 MG TAB PO SCH (08:21)
[2019-07-01] MEDS: FLUTICASONE PROPIONATE NA SPR 16 GM BTL SCH (08:22)
[2019-07-01] MEDS: FUROSEMIDE 20 MG TAB PO SCH (08:22)
[2019-07-01] MEDS: AMIODARONE 200 MG TAB PO SCH (08:23)
[2019-07-01] MEDS: PYRIDOSTIGMINE BROMIDE 60 MG TAB PO SCH ×3 (08:25→21:09)
[2019-07-01] MEDS: DOXYCYCLINE HYCLATE 100 MG in DEXTROSE 5% 100 ML IV SCH (08:28)
[2019-07-01] MEDS ORDERED: INSULIN GLARGINE SOLOSTAR 100 UNITS/ML 3 ML PEN SC SCH ×2 (09:00)
--- NOTE | 2019-07-01 10:45 | Pharmacy Report ---
Pharmacy Glycemic Short Note 2 - Date of Service July 01, 2019 - Glycemic Short BSG Results (Last 24 hours): 06/30/19 06/30/19 06/30/19 11:42 16:39 19:59 Glucose POC Glucose 143 H 119 H 319 H* 06/30/19 06/30/19 07/01/19 23:48 23:51 04:10 Glucose POC Glucose 330 H* 290 H 238 H 07/01/19 07/01/19 06:22 07:25 Glucose 196 H POC Glucose 215 H OUTPATIENT ANTIDIABETIC REGIMEN: * Metformin 500mg PO BIDM * A1c = 6.7% for 06/30/19 ASSESSMENT: 07/01: * Patient hyperglycemic overnight. Fasting BSG improved somewhat, although still elevated. I will continue with current basal scale as we have not yet seen the effects with current steroid dose. May consider increasing PM lantus dose if BSGs trend up again * I did empirically tighten novolog CF/CR this morning given post prandial HS hyperglycemia yesterday. However, lunch BSG elevated again so will tighten CR back to a weight based stress of 3. Lunch BSG may be somewhat falsely elevated given only 2.5 hrs (ideally 4 hours) between breakfast novolog coverage and lunch BSG. Will continue to monitor with steroid taper. 06/30 * 79yo T2DM male with unknown degree of outpatient control - A1c pending * Pt is maintained on oral antidiabetic agents as an outpatient * Oral agents are not recommended for inpatient use d/t drug interactions, changing PO intake, and difficulty titrating for acute hyper/hypoglycemia. ADA recommends re-initiating outpatient oral agents 1-2 days prior to discharge if/when appropriate if they were held on admission. * Will hold oral agents for admission and utilize SQ basal bolus insulin regimen which is the recommended regimen for inpatient glycemic control. * Will initiate weight based, high stress insulin dosing for steroid induced hyperglycemia * Total daily steroid dose is > Solumedrol 60mg/day, basal and novolog insulin adjusted accordingly PLAN FOR INPATIENT GLYCEMIC CONTROL: * Hold outpatient oral diabetes medications * Basal insulin * Lantus 13 units SQ this morning * Lantus 13 or 20 units this evening based on BSG * Bolus insulin * NovoLog per scale ACHS or Q6hrs while NPO. Additional checks + coverage overnight at 0000 & 0400 * Goal Range: Low 110 mg/dL - High 140 mg/dL * Correction Factor: 25 mg/dL/unit * Nutritional / Prandial insulin per carb ratio of 1 unit per 7 grams CHO consumed
--- NOTE | 2019-07-01 11:29 | Cardiology Progress Note ---
Date of Service July 01, 2019 Assessment & Plan (1) Atrial fibrillation: asymptomatic his initial concern was the high heart rate alarm from ICD he carries a hx of severe left atrial enlargement and MVR very, very low likelihood that sinus rhythm would be maintained even with cont'd amio and possible cardioversion pacer was set to VVI at 70, pt ambulated in hallway feeling well, aside from baseline fatigue given that his rate is now set and his lack of symptoms, will not attempt to a chieve sinus will d/c amio given lack of benefit and risk of QT prolongation pt will be treated with a rate control strategy cont coumadin cont metoprolol for underlying cardiomyopathy ok to d/c to home today or tomorrow per patient's comfort level (2) Congestive heart failure: stable (3) S/P AVR: stable (4) S/P MVR (mitral valve repair): stable (5) CAD (coronary artery disease): stable (6) Prolonged QT interval: only increased to 502 ms today but will d/c amio given lack of clinical benefit Subjective Pt seen and examined, states that he feels tired but that is his norm. Denies cardiac complaints of cp, sob, palpitations, lightheadedness or dizziness. No further ICD alarms. tele reviewed: afib with vpacing Review of Systems Review of Systems: All systems reviewed & are unremarkable except as noted in HPI & below Physical Exam Physical Exam: General: Awake, alert and oriented x 3. No acute distress. HEENT: Normocephalic, atraumatic. Pupils equal, round and reactive to light and accommodation. Extraocular muscles are intact. Anicteric sclera. Moist mucous membranes. Neck: No JVD. No bruit. Cardiovascular: irregularly irregular, unable to appreciate murmur, rub or gallop. Pulmonary: Clear to auscultation bilaterally. No rales, rhonchi, or wheezing. Abdomen: Bowel sounds x 4, soft. No rebound, guarding or tenderness. No organomegaly. Extremities: No clubbing, cyanosis or edema. +2 pedal pulses bilaterally. Skin: Warm and dry. Results & Data Vital Signs (Past 12 Hours) Vital Signs Temp Pulse Resp BP Pulse Ox 07/01/19 08:00 36.7 C 80 18 111/59 L 99 07/01/19 04:39 75 22 99 07/01/19 04:16 36.4 C L 73 20 119/71 100 06/30/19 23:38 36.6 C 74 22 94/58 L 97
[2019-07-01] MEDS ORDERED: guaiFENesin 600 MG TABCR PO SCH (12:45)
--- NOTE | 2019-07-01 13:21 | XRay Report ---
TWO VIEW CHEST CLINICAL HISTORY: Cough and dyspnea. FINDINGS: PA and lateral chest radiographs are compared to study dated 06/29/2019 and correlated with c hest CT dated 09/28/2018. The patient is status post midline sternotomy and cardiac valve surgery. A 3 -lead cardiac AICD is unchanged in position and partially obscures the left mid chest. The heart is e nlarged noting atherosclerotic calcification of the thoracic aorta. The pulmonary vasculature is nonc ongested. Emphysema and chronic interstitial thickening are similar to previous. There are trace pleu ral effusions with bibasilar scarring/atelectasis. Scattered calcified granulomas are observed. There is no pneumothorax. The skeletal structures are osteopenic. The bony thorax appears intact. Fusion h ardware is noted in the lower cervical spine. Cholecystectomy clips are seen in the right upper quadr ant. IMPRESSION: 1. Cardiomegaly and AICD. There is no radiographic evidence of congestive failure. 2. Emphysema and chronic interstitial thickening are similar to previous. 3. Trace pleural effusions. Electronically signed by: Thad Serrato M.D. 07/01/2019 1:20 PM
[2019-07-01] MEDS: ALBUTEROL HFA INHALER 8.5 GM INH SCH ×3 (13:35→21:10)
[2019-07-01] MEDS ORDERED: FUROSEMIDE 20 MG TAB PO ONE (14:15)
[2019-07-01] MEDS ORDERED: ONDANSETRON INJ 2 MG/ML 2 ML VIAL IV PRN (14:33)
[2019-07-01] MEDS ORDERED: ONDANSETRON INJ 2 MG/ML 2 ML VIAL ONE (14:35)
[2019-07-01] MEDS: WARFARIN SOD 2.5 MG TAB PO SCH (16:05)
[2019-07-01] MEDS ORDERED: AMIODARONE 200 MG TAB PO SCH (17:00)
--- NOTE | 2019-07-01 20:58 | Hospitalist Progress Note ---
Date of Service July 01, 2019 Assessment & Plan (1) Atrial fibrillation: pacemaker adjustments performed today during interrogation. v-rate now 70 at all times. amiodarone will be stopped due to prolonged QTc interval. remains on coumadin. cont metoprolol succinate BID. appreciate cardiology input. (2) COPD (chronic obstructive pulmonary disease): with exacerbation. 09/2018 CT chest with pulmonary fibrosis. cough/congestion continue to be his main complaints. remains on solumedrol - leave as is for now. repeat cxr today. transition doxy to PO. consider repeat chest CT if he fails to improve. will schedule albuterol qid. incentive joel, mucinex, flutter valve. (3) Hypertension: stable, controlled (4) Congestive heart failure: either euvolemic or modestly hypervolemic today weight is about 3 pounds above baseline give additional dose of lasix today (PO) repeat exam/labs am cont beta mary (5) Hyperlipidemia: Continue pravastatin (6) Prolonged QT interval: due to such amiodarone to be discontinued (7) CAD (coronary artery disease): elevated troponin likely myocardial demand ischemia in setting of rapid a.fib no ACS (8) S/P MVR (mitral valve repair): noted (9) S/P AVR: noted (10) Hypothyroidism: TSH wnl cont synthroid (11) Myasthenia gravis: cont pyridostimine cont steroids no flare at this time (12) DM w/o complication type II, uncontrolled: pharmacy managing; appreciate recs resume oral agents at discharge (13) DVT prophylaxis: coumadin updated at bedside d/c home tomorrow? Subjective tele - runs of a.fib with ventricular pacing. patient's main complaint is that of ongoing chest symptoms - orthopnea, PND, cough, sputum production, wheezing. states he was diagnosed many years ago with asthma; was a smoker briefly early in life but his was a former heavy smoker. he continues with VENTURA but o2 sats are very normal in the upper 90s. baseline weight is about 165 pounds. eating well. reports taking prednisone 10mg daily for myasthenia gravis. Review of Systems Constitutional: no fever and no chills Respiratory: + cough, + chest congestion, + dyspnea on exertion, + sputum production and + wheezing Cardiovascular: no chest pain Gastrointestinal: no abdominal pain and no nausea Physical Exam Constitutional: well developed and well nourished; no acute distress ENMT: external ear and nose normal, oropharynx normal Respiratory: Auscultation: + crackles and + wheezes (left lung) Cardiovascular: Rate/Rhythm: regular rate and regular rhythm Heart Sounds: normal S1, normal S2 and + murmur (1-2/6 LSB) Vessels: + JVD Extremities: no edema Gastrointestinal (Abdomen): normal bowel sounds, soft, nontender, no hepatosplenomegaly Psychiatric: A+Ox3, euthymic affect Results & Data Vital Signs (Past 12 Hours) Vital Signs Temp Pulse Resp BP BP Pulse Ox 07/01/19 19:56 36.5 C 84 18 120/76 98 07/01/19 15:02 36.6 C 104 H 20 96/43 L 96 07/01/19 14:19 79 24 100 07/01/19 11:36 36.5 C 73 18 119/84 99 Laboratory Results Laboratory Results - last 24 hr 06/30/19 06/30/19 06/30/19 01:30 23:48 23:51 WBC RBC Hgb Hct MCV MCH MCHC RDW Std Deviation RDW Coeff of Jonathan Plt Count MPV Immature Gran % (Auto) Neut % (Auto) Lymph % (Auto) [place] % (Auto) Eos % (Auto) Baso % (Auto) Immature Gran # (Auto) Neut # (Auto) Lymph # (Auto) [place] # (Auto) Eos # (Auto) Baso # (Auto) PT INR APTT PTT Ratio Sodium Potassium Chloride Carbon Dioxide Anion Gap BUN Creatinine Est Cr Clr Drug Dosing Est GFR ( Amer) Est GFR (Non-Af Amer) BUN/Creatinine Ratio Glucose POC Glucose 330 H* 290 H Estimat Average Glucose 146 Hemoglobin A1c 6.7 H Calcium Total Bilirubin AST ALT Alkaline Phosphatase Total Protein Albumin Globulin Albumin/Globulin Ratio 07/01/19 07/01/19 07/01/19 04:10 06:22 06:22 WBC 7.71 RBC 4.46 L Hgb 11.8 L Hct 37.4 L MCV 83.9 MCH 26.5 MCHC 31.6 L RDW Std Deviation 47.7 H RDW Coeff of Jonathan 15.7 H Plt Count 152 MPV 8.6 Immature Gran % (Auto) 0.4 Neut % (Auto) 87.0 Lymph % (Auto) 9.2 [place] % (Auto) 3.4 Eos % (Auto) 0.0 Baso % (Auto) 0.0 Immature Gran # (Auto) 0.03 H Neut # (Auto) 6.71 H Lymph # (Auto) 0.71 L [place] # (Auto) 0.26 Eos # (Auto) 0.00 Baso # (Auto) 0.00 PT 23.7 H INR 2.5 H APTT 41.3 H PTT Ratio 1.5 Sodium Potassium Chloride Carbon Dioxide Anion Gap BUN Creatinine Est Cr Clr Drug Dosing Est GFR ( Amer) Est GFR (Non-Af Amer) BUN/Creatinine Ratio Glucose POC Glucose 238 H Estimat Average Glucose Hemoglobin A1c Calcium Total Bilirubin AST ALT Alkaline Phosphatase Total Protein Albumin Globulin Albumin/Globulin Ratio 07/01/19 07/01/19 07/01/19 06:22 07:25 11:04 WBC RBC Hgb Hct MCV MCH MCHC RDW Std Deviation RDW Coeff of Jonathan Plt Count MPV Immature Gran % (Auto) Neut % (Auto) Lymph % (Auto) [place] % (Auto) Eos % (Auto) Baso % (Auto) Immature Gran # (Auto) Neut # (Auto) Lymph # (Auto) [place] # (Auto) Eos # (Auto) Baso # (Auto) PT INR APTT PTT Ratio Sodium 140 Potassium 4.3 Chloride 106 Carbon Dioxide 27 Anion Gap 7.0 BUN 33 H Creatinine 1.17 D Est Cr Clr Drug Dosing 54.4 Est GFR ( Amer) 68.3 Est GFR (Non-Af Amer) 58.9 BUN/Creatinine Ratio 28.0 H Glucose 196 H POC Glucose 215 H 358 H* Estimat Average Glucose Hemoglobin A1c Calcium 8.6 Total Bilirubin 1.1 H AST 168 H ALT 168 H Alkaline Phosphatase 74 Total Protein 6.8 Albumin 3.1 L Globulin 3.7 Albumin/Globulin Ratio 0.8 L 07/01/19 07/01/19 07/01/19 11:06 16:32 20:35 WBC RBC Hgb Hct MCV MCH MCHC RDW Std Deviation RDW Coeff of Jonathan Plt Count MPV Immature Gran % (Auto) Neut % (Auto) Lymph % (Auto) [place] % (Auto) Eos % (Auto) Baso % (Auto) Immature Gran # (Auto) Neut # (Auto) Lymph # (Auto) [place] # (Auto) Eos # (Auto) Baso # (Auto) PT INR APTT PTT Ratio Sodium Potassium Chloride Carbon Dioxide Anion Gap BUN Creatinine Est Cr Clr Drug Dosing Est GFR ( Amer) Est GFR (Non-Af Amer) BUN/Creatinine Ratio Glucose POC Glucose 358 H* 229 H 188 H Estimat Average Glucose Hemoglobin A1c Calcium Total Bilirubin AST ALT Alkaline Phosphatase Total Protein Albumin Globulin Albumin/Globulin Ratio PG Care Time/CCT Total # of Minutes Spent Total Time Spent with Patient: Total time spent is greater than 50% in coordination of care (as documented) at patient's floor/unit and/or counseling patient: (1) CAD (coronary artery disease) Coronary Disease-Associated Artery/Lesion type: [place] artery [place] vs. transplanted heart: [place] heart Associated angina: without angina Qualified Code(s): I25.10 - Atherosclerotic heart disease of [place] coronary artery without angina pectoris (2) Congestive heart failure Heart failure type: diastolic Heart failure chronicity: chronic Qualified Code(s): I50.32 - Chronic diastolic (congestive) heart failure (3) Atrial fibrillation Atrial fibrillation type: permanent Qualified Code(s): I48.2 - Chronic atrial fibrillation (4) Hyperlipidemia Hyperlipidemia type: mixed hyperlipidemia Qualified Code(s): E78.2 - Mixed hyperlipidemia (5) COPD (chronic obstructive pulmonary disease) COPD type: unspecified COPD Qualified Code(s): J44.9 - Chronic obstructive pulmonary disease, unspecified (6) Hypertension Hypertension type: essential hypertension Qualified Code(s): I10 - Essential (primary) hypertension (7) Hypothyroidism Hypothyroidism type: acquired Qualified Code(s): E03.9 - Hypothyroidism, unspecified (8) DM w/o complication type II, uncontrolled Glycemic state: with hyperglycemia Qualified Code(s): E11.65 - Type 2 diabetes mellitus with hyperglycemia
[2019-07-01] MEDS: DOXYCYCLINE HYCLATE 100 MG CAP PO SCH (21:07)
[2019-07-01] MEDS: LOVASTATIN 20 MG TAB PO SCH (21:07)
[2019-07-01] MEDS: FERROUS SULFATE 325 MG TAB PO SCH (21:08)
[2019-07-01] MEDS: INSULIN GLARGINE SOLOSTAR 100 UNITS/ML 3 ML PEN SC SCH (21:20)
[2019-07-02] MEDS: INSULIN ASPART 100 UNITS/ML 3 ML PEN SC SCH ×5 (03:31→21:23)
[2019-07-02] MEDS: methylPREDNISolone 30 MG in SYRINGE 0 ML IV SCH (03:31)
[2019-07-02 04:56] LABS: Hematocrit (blood only) 36.8 % (42-52); Hemoglobin 11.2 g/dL (14.0-18.0); Immature Granulocytes # (auto) 0.05 K/uL (0.00-0.02); Immature Granulocytes % (auto) 0.4 %; Lymphocytes # (auto) 0.63 K/uL (1.2-3.4); Lymphocytes % (auto) 5.2 %; Mean Corpuscular Hgb Conc 30.4 g/dL (32-36); Mean Platelet Volume 8.5 fL (7.4-10.4); Monocytes # (auto) 0.59 K/uL (0.11-0.59); Monocytes % (auto) 4.8 %; Neutrophils % (auto) 89.6 %; Platelet Count 165 K/uL (130-400); RDW Coefficient of Variation 15.7 % (11.5-14.5); RDW Standard Deviation 48.5 fL (36.4-46.3); Red Blood Count 4.33 M/uL (4.7-6.1); White Blood Count 12.17 K/uL (4.8-10.8)
[2019-07-02 05:06] LABS: INR 3.5 (0.9-1.1); Prothrombin Time 32.8 Seconds (9.0-12.0)
[2019-07-02 05:22] LABS: Albumin Level 2.9 gm/dl (3.4-5.0); BUN Creatinine Ratio 27.5 (10-20); Calcium 8.1 mg/dl (8.5-10.1); Est GFR (African American) 70.5; Est GFR (Non-African American) 60.8; Magnesium 1.9 mg/dl (1.8-2.4); Potassium 4.6 mmol/L (3.5-5.1)
[2019-07-02 05:25] LABS: Albumin Globulin Ratio 0.8 (0.9-2); Bilirubin,Total 1.1 mg/dl (0.2-1); Globulin 3.6 gm/dl (2.5-4.0); Total Protein 6.5 gm/dl (6.4-8.2)
[2019-07-02] MEDS: LEVOTHYROXINE SODIUM 75 MCG TABLET PO SCH (05:54)
[2019-07-02] MEDS: FLUTICASONE PROPIONATE NA SPR 16 GM BTL SCH (07:31)
[2019-07-02] MEDS: ALBUTEROL HFA INHALER 8.5 GM INH SCH ×4 (07:31→21:27)
[2019-07-02] MEDS: PYRIDOSTIGMINE BROMIDE 60 MG TAB PO SCH ×3 (07:32→21:26)
[2019-07-02] MEDS: METOPROLOL SUCC 25MG EXT REL TAB PO SCH ×2 (07:32→21:27)
[2019-07-02] MEDS: FUROSEMIDE 20 MG TAB PO SCH (07:32)
[2019-07-02] MEDS: POTASSIUM CHLORIDE 20 MEQ TABCR PO SCH (07:32)
[2019-07-02] MEDS: ASPIRIN 81 MG ECTAB PO SCH (07:33)
[2019-07-02] MEDS: INSULIN GLARGINE SOLOSTAR 100 UNITS/ML 3 ML PEN SC SCH ×2 (07:33→21:20)
[2019-07-02] MEDS: DOXYCYCLINE HYCLATE 100 MG CAP PO SCH ×2 (07:33→21:29)
[2019-07-02] MEDS: MAGNESIUM OXIDE 400 MG TAB PO SCH (07:33)
[2019-07-02] MEDS: CETIRIZINE HCL 10 MG TABLET PO SCH (07:33)
[2019-07-02] MEDS: ALBUT/IPRATROP 3MG/0.5MG NEB 3 ML VIAL NEB PRN (08:49)
[2019-07-02] MEDS ORDERED: dilTIAZem HCL 30 MG TAB PO STA (09:44)
--- NOTE | 2019-07-02 10:39 | Ultrasound Report ---
US gallbladder CLINICAL HISTORY: abnormal LFTs COMPARISON STUDY: No previous studies for comparison. FINDINGS: Borderline dilatation of the common bile duct is likely related to cholecystectomy. [place] ing of hepatic echotexture is noted. No hepatic lesions are identified although sensitivity is dimini shed given suboptimal penetration. The pancreas is obscured by overlying bowel gas. There is no right hydronephrosis. IMPRESSION: 1. Coarsening of hepatic echotexture suggestive of cirrhosis. No hepatic lesions identified although sensitivity diminished on this exam. 2. Borderline dilatation of the common bile duct which is likely related to previous cholecystectomy. 3. Obscured pancreas. Electronically signed by: Martin Hoffmann M.D. 07/02/2019 10:38 AM
--- NOTE | 2019-07-02 13:28 | Cardiology Progress Note ---
Date of Service July 02, 2019 Assessment & Plan (1) Atrial fibrillation: asymptomatic his initial concern was the high heart rate alarm from ICD that alarm is to indicated that he is in afib patient will now permanently be in afib so alarm was d/c'ed will cont metoprolol and coumadin will d/c to home with a trial of cardizem to see if lower rates will increase % of Biventricular pacing ok to d/c to home from cardiac standpoint (2) Congestive heart failure: stable (3) S/P AVR: stable (4) S/P MVR (mitral valve repair): stable (5) CAD (coronary artery disease): stable (6) Prolonged QT interval: only increased to 502 ms today but will d/c amio given lack of clinical benefit Subjective Pt seen and examined, states alarm went off again this AM, again asymptomatic. Correlated with afib rvr on monitor. Discussed with device rep, this is the ICD alarm notifying that he is in afib. States he feels tired and dyspnic with activity but this is his baseline. tele reviewed: afib with rvr and v-pacing Review of Systems Review of Systems: All systems reviewed & are unremarkable except as noted in HPI & below Physical Exam Physical Exam: General: Awake, alert and oriented x 3. No acute distress. HEENT: Normocephalic, atraumatic. Pupils equal, round and reactive to light and accommodation. Extraocular muscles are intact. Anicteric sclera. Moist mucous membranes. Neck: No JVD. No bruit. Cardiovascular: irregularly irregular, unable to appreciate murmur, rub or gallop. Pulmonary: Clear to auscultation bilaterally. No rales, rhonchi, or wheezing. Abdomen: Bowel sounds x 4, soft. No rebound, guarding or tenderness. No organomegaly. Extremities: No clubbing, cyanosis or edema. +2 pedal pulses bilaterally. Skin: Warm and dry. Results & Data Vital Signs (Past 12 Hours) Vital Signs Temp Pulse Resp BP Pulse Ox 07/02/19 11:11 36.5 C 89 17 115/81 99 07/02/19 08:52 111 H 18 95 07/02/19 07:25 36.7 C 107 H 17 136/83 100 07/02/19 03:22 36.6 C 104 H 16 110/80 100 (1) Atrial fibrillation Atrial fibrillation type: permanent Qualified Code(s): I48.2 - Chronic atrial fibrillation (2) Congestive heart failure Heart failure type: diastolic Heart failure chronicity: chronic Qualified Code(s): I50.32 - Chronic diastolic (congestive) heart failure (3) CAD (coronary artery disease) Coronary Disease-Associated Artery/Lesion type: [place] artery [place] vs. transplanted heart: [place] heart Associated angina: without angina Qualified Code(s): I25.10 - Atherosclerotic heart disease of [place] coronary artery without angina pectoris
[2019-07-02] MEDS: dilTIAZem HCL 120 MG CAPCR PO SCH (14:48)
--- NOTE | 2019-07-02 17:13 | Pulmonary Consultation ---
Date of Consultation July 02, 2019 Assessment & Plan (1) Pulmonary fibrosis determined by high resolution computed tomography: The patient has shortness of breath, prior CAT scan suggesting some pulmonary fibrosis, chronic cough, and pulmonary hypertension. It is suspected that the pulmonary hypertension might well be related to all of his various cardiac problems including the valvular heart disease. He does have rales on exam. It is difficult to determine if these are cardiac or noncardiac related. I am suggesting the followin. We will do some evaluations regarding interstitial lung disease. We will order some labs including sed rate, LARS, RA, BATSHEVA, and TB Gold interferon in light of the granuloma noted on the CAT scan. 2. I will want to arrange for complete pulmonary function testing as well as an office follow-up with me. 3. We will arrange for a CAT scan of the chest to be done without contrast. We will do this as an outpatient shortly before the office visit. 4. The patient should have a two-step before discharge 5. Would likely taper the prednisone off fairly readily. (2) Shortness of breath: (3) Pulmonary hypertension: History of Present Illness Attending Physician: Marquis Britton History of Present Illness Pulmonary consultation is requested regarding shortness of breath and history of fibrotic lung disease. The patient is a 79-year-old male who has a history of numerous medical problems. In 2013 he had coronary artery bypass graft, aortic valve replacement, mitral valve replacement, closing of patent foramen ovale, aortic endarterectomy, and radiofrequency ablation, all-in-one procedure peer he states that since that time he in general has had increased shortness of breath and increased cough. He coughs every day. It has been increased more recently. His cough is productive of mucus which is clear or sometimes white. It usually is thin. He was hospitalized at [facility] from 06/22/2019 until 06/26/2019. At that time he had fever and shortness of breath. I am not certain if he had pneumonia or what the official diagnosis was. On 06/28/2019 he went back to [place] because his defibrillator was making noises. It happened again the following day and he was then referred over to the emergency room here. The patient had been on amiodarone for about 2 years in the past. Subsequently had been stopped for at least 2 years. During this hospital stay he was given some amiodarone for a few days and then stopped. This was being utilized for his recurrent atrial fibrillation. He also has a history of pulmonary hypertension. In the 1980s he was told of a diagnosis of asthma. He has never had pulmonary function testing done. The patient does complain of shortness of breath. He states he stays active. I had difficulty determining exactly how much activity he can tolerate. He has been prescribed in the past and albuterol HFA inhaler. Subsequently he was prescribed Arnuity Ellipta. He does not use either of these regularly. He was diagnosed with myasthenia gravis later in the year in 2018. He was maintained on Mestinon as well as CellCept. The CellCept was stopped recently. The patient believes the myasthenia was precipitated by the Shingrix vaccine. His symptoms began within a day or 2 of receiving the vaccine. The patient had a CAT scan of the chest done 09/28/2018. This showed subpleural reticular opacities with interlobular septal thickening. Focal cystic changes were noted at the right apex. There were mild diffuse groundglass densities in the upper lobes. There was a 5 mm nodule in the superior segment of the lingula. There was also a granuloma noted in the right upper lobe. The patient has had no significant pets over the years. 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 He may have had small quantities of asbestos exposure with one job many years ago for about 2-1/2 years. There was known to be some asbestos pipes in the building apparently. He has had no silicosis exposure and no other significant dust fumes or chemicals. The patient himself smoked very minimally. He averaged 2 or 3 cigarettes/day for about 10 years and has not smoked since 1981. He did have secondhand smoke from his parents and from his . Allergies Allergy/AdvReac Type Severity Reaction Status Date / Time gabapentin Allergy Severe CONFUSION/D Verified 06/29/19 12:09 ISORIENTATI ON heparin Allergy Severe HIT Verified 06/29/19 12:09 Iodinated Contrast- Oral and Allergy Severe HIVES Verified 06/29/19 12:09 IV Dye Penicillins Allergy Intermediate HIVES Verified 06/29/19 12:09 prednisone Allergy Intermediate NAUSEA/VOMI Verified 06/29/19 12:09 TING shellfish derived Allergy Intermediate HIVES Verified 06/29/19 12:09 iodine Allergy Unknown TOLD OF Verified 06/29/19 12:09 IVP ALLERGY latex Allergy Verified 06/29/19 12:09 levofloxacin Allergy Verified 06/29/19 12:09 codeine AdvReac Unknown GI UPSET Verified 06/29/19 12:09 Latex2 -Systemic Allergic Allergy Intermediate ZEPEDA SKIN Uncoded 06/29/19 12:09 Response Home Medications Home Medications Medication Instructions Recorded Confirmed Type nitroglycerin 0.4 mg sublingual 0.4 mg SL Q5M PRN #25 tab 06/17/19 06/29/19 Rx tablet potassium chloride ER 10 mEq 10 meq PO TID #270 tab 06/17/19 06/29/19 Rx tablet,extended release triamcinolone acetonide 0.1 % 1 appln TOPICAL BID PRN #80 gm 06/17/19 06/29/19 Rx topical cream warfarin 2.5 mg tablet 2.5 mg PO HS tab 06/23/19 06/29/19 History albuterol sulfate [ProAir HFA] 2 inh INHALATION DAILY PRN 06/29/19 06/29/19 History aspirin 81 mg PO QAM 06/29/19 06/29/19 History azelastine 2 sprays INTRANASAL DAILY PRN 06/29/19 06/29/19 History cetirizine 10 mg PO QAM 06/29/19 06/29/19 History coenzyme Q10 100 mg PO QAM 06/29/19 06/29/19 History ferrous sulfate 325 mg PO HS 06/29/19 06/29/19 History fluticasone furoate 1 puffs INHALATION DAILY PRN 06/29/19 06/29/19 History furosemide 20 mg PO DAILY PRN 06/29/19 06/29/19 History ipratropium-albuterol 3 ml INH QID PRN 06/29/19 06/29/19 History levothyroxine 75 mcg PO QAM 06/29/19 06/29/19 History lovastatin 40 mg PO HS 06/29/19 06/29/19 History magnesium oxide 400 mg PO QAM 06/29/19 06/29/19 History metformin 500 mg PO TIDM 06/29/19 06/29/19 History metoprolol succinate 12.5 mg PO HS 06/29/19 06/29/19 History metoprolol succinate 25 mg PO QAM 06/29/19 06/29/19 History prednisone 10 mg PO QAM 06/29/19 06/29/19 History pyridostigmine bromide 180 mg PO TID 06/29/19 06/29/19 History Patient History Medical History Afib Surgical History History of aortic valve replacement History of appendectomy History of cholecystectomy History of excision of lesion face - malignant - 2.1-3cm Social History Preferred Language: Divehi Communication Ability: Effective Fourth Hand Required: Yes Beliefs That Will Affect Care: None marital status: Current Living Situation: Spouse Feels Safe at Home: Yes Safety Concerns: Feels Safe At This Time Smoking Status: Former smoker Hx Alcohol Use: No Review of Systems Review of Systems: General: Energy level is fair. It is not as good as it had been in the past. He said mild weight loss, perhaps 10 pounds in the past 1 year. He feels it is appetite is not that good but he tries to eat well. Neurologic: Generalized weakness in part related to myasthenia gravis. Ophthalmic: Had symptoms related to myasthenia. ENT: The patient feels at times that he has postnasal drip. He frequently has to clear his throat. I asked him if he thought it was possible that he may be just pulling his saliva in the back of his throat and he said he has thought of that. Cardiac: Denies chest pains. He does have arrhythmia as noted. Pulmonary: As noted in history of present illness GI: Denies reflux or bowel complaints : Denies complaints Musculoskeletal: Significant joint pains mainly in the hands. He states he does have arthritis. He has previously had neck surgery with a plate in his cervical spine and he has some discomfort related to that. He has had prior rhizotomy on his back for long-term problems. Dermatologic: No rashes Endocrine: No lymphadenopathy Physical Exam Physical Exam: Patient is a 79-year-old male who was cooperative alert and oriented. He appeared in no distress. Weight is 75.2 kg. BMI 23.1. Pupils were reactive. Nares clear. Mouth exam unremarkable. No erythema or exudate noted. Palpation of the neck reveals no lymph nodes. Neck veins were distended somewhat. Vascular pulsations were prominent. Cardiac rate 75/min. Rhythm irregular. Blood pressure 116/58. There is a large scar in the anterior chest from prior surgery. There is a defibrillator noted in the left upper anterior chest. The chest was of normal expansion. Lung garcia were generally showing good breath sounds. Rales were heard at the bases greater on the left than the right. These tend to be dry. Respiratory rate 20. Saturation 98% on room air at rest. Inspection of the abdomen reveals multiple scars from prior surgeries. Bowel sounds normal. No tenderness to palpation or masses. Extremities showed no cyanosis clubbing or edema. 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 There was mild brown skin discoloration to the lower extremities. Results & Data Vital Signs (Past 12 Hours) Vital Signs Temp Pulse Resp BP Pulse Ox 07/02/19 15:23 36.8 C 75 18 116/58 L 100 07/02/19 14:34 99 07/02/19 11:11 36.5 C 89 17 115/81 99 07/02/19 08:52 111 H 18 95 07/02/19 07:25 36.7 C 107 H 17 136/83 100 Laboratory Results White blood cell count today 12.17. Hemoglobin 11.2. Platelets 165,000. INR today 3.5. Electrolytes show sodium 142 potassium 4.6 chloride 106 bicarb 28. BUN 31 with a creatinine of 1.14. Calcium is 8.1. Total bilirubin elevated at 1.1. AST elevated 353. ALT elevated 443. Alk phos normal at 71 total protein 6.5 with albumin 2.9. proBNP was elevated at 12,013. Diagnostic Findings Ultrasound of the gallbladder showed coarsening of hepatic echotexture suggestive of cirrhosis. Chest x-ray showed cardiomegaly, presence of AICD, no evidence of definite congestive heart failure, and emphysema and interstitial thickening were reported. I was not totally convinced about the emphysema. PG Care Time/CCT Total # of Minutes Spent Total Time Spent with Patient: Total time spent is greater than 50% in coordination of care (as documented) at patient's floor/unit and/or counseling patient:
[2019-07-02] MEDS: FERROUS SULFATE 325 MG TAB PO SCH (21:27)
--- NOTE | 2019-07-02 22:09 | Hospitalist Progress Note ---
Date of Service July 02, 2019 Assessment & Plan (1) Pulmonary fibrosis determined by high resolution computed tomography: CT 09/2018 with concerns for pulmonary fibrosis. He reports worsening VENTURA and cough for 1-2 years. I suspect his pulmonary symptoms are due to the pulm. fibrosis seen on CT. x-rays since September continue to show interstitial infiltrates. I consulted Dr Gilbert from pulmonary for his opinion & recs. He likely has had an exacerbation of his chronic lung disease over the last few weeks. stop IV steroids. change to PO prednisone in am. finish doxy course. cont inhalers. (2) Abnormal LFTs: acute, in the last 3 days. amiodarone induced? amiodarone now stopped. holding statin. RUQ u/s with findings concerning for early cirrhosis. CT of chest in 09/2018 showed concerns for chronic liver disease as well. Check hepB, C in am. etiology of chronic liver issues?? consider outpt GI followup repeat LFTs am (3) Pulmonary hypertension: due to developing pulmonary fibrosis? other? likely contributing to VENTURA (4) Atrial fibrillation: pacemaker adjustments performed yesterday and today. amiodarone stopped due to prolonged QTc interval. remains on coumadin. cont metoprolol succinate BID. CCB also added by cardiology today. appreciate cardiology input. (5) COPD (chronic obstructive pulmonary disease): with exacerbation. 09/2018 CT chest with pulmonary fibrosis. see discussion above in "PF determined by CT". cough/congestion continue to be his main complaints. continue scheduled albuterol qid. incentive joel, flutter valve. needs PFTs and pulmonary f/u post-discharge. (6) Hypertension: stable, controlled (7) Congestive heart failure: acute/chronic diastolic CHF gave extra lasix yesterday -- exam improved, feels a little better; BUN and Cr stable no additional lasix today (8) Hyperlipidemia: Hold statin due to abnormal LFTs (9) Prolonged QT interval: due to such amiodarone discontinued (10) CAD (coronary artery disease): elevated troponin likely myocardial demand ischemia in setting of rapid a.fib no ACS (11) S/P MVR (mitral valve repair): noted (12) S/P AVR: noted (13) Hypothyroidism: TSH wnl cont synthroid (14) Myasthenia gravis: cont pyridostimine cont steroids no flare at this time takes chronic prednisone 10mg/day was on cellcept up until several weeks ago followed by [facility] in [place] (15) DM w/o complication type II, uncontrolled: pharmacy managing; appreciate recs resume oral agents at discharge (16) DVT prophylaxis: coumadin but hold due to INR 3.5 today INR in am updated at bedside extensively d/c home tomorrow if LFTs stable/improving Subjective patient feels pretty good today mild cough with "mucous" production but no different from baseline still has VENTURA but no worse than baseline tele with runs of a.fib eating well patient denies h/o etoh use denies any extensive smoking history Review of Systems Constitutional: no fever and no chills Respiratory: + cough, + dyspnea on exertion and + sputum production Cardiovascular: no chest pain Gastrointestinal: no abdominal pain, no nausea and no vomiting Physical Exam Constitutional: well developed and well nourished; no acute distress ENMT: external ear and nose normal, oropharynx normal Respiratory: no respiratory distress Auscultation: + crackles (bases); no wheezes Cardiovascular: Rate/Rhythm: regular rate and regular rhythm Heart Sounds: normal S1, normal S2 and + murmur (1-2/6 LSB) Vessels: + JVD Extremities: no edema Gastrointestinal (Abdomen): normal bowel sounds, soft, nontender, no hepatosplenomegaly Psychiatric: A+Ox3, euthymic affect Results & Data Vital Signs (Past 12 Hours) Vital Signs Temp Pulse Resp BP Pulse Ox 07/02/19 19:36 36.8 C 92 H 20 97/65 L 96 07/02/19 15:23 36.8 C 75 18 116/58 L 100 07/02/19 14:34 99 07/02/19 11:11 36.5 C 89 17 115/81 99 Laboratory Results Laboratory Results - last 24 hr 07/01/19 07/02/19 07/02/19 23:37 03:28 04:39 WBC 12.17 H RBC 4.33 L Hgb 11.2 L Hct 36.8 L MCV 85.0 MCH 25.9 MCHC 30.4 L RDW Std Deviation 48.5 H RDW Coeff of Jonathan 15.7 H Plt Count 165 MPV 8.5 Immature Gran % (Auto) 0.4 Neut % (Auto) 89.6 Lymph % (Auto) 5.2 Pettis % (Auto) 4.8 Eos % (Auto) 0.0 Baso % (Auto) 0.0 Immature Gran # (Auto) 0.05 H Neut # (Auto) 10.90 H Lymph # (Auto) 0.63 L Pettis # (Auto) 0.59 Eos # (Auto) 0.00 Baso # (Auto) 0.00 PT INR Sodium Potassium Chloride Carbon Dioxide Anion Gap BUN Creatinine Est Cr Clr Drug Dosing Est GFR ( Amer) Est GFR (Non-Af Amer) BUN/Creatinine Ratio Glucose POC Glucose 155 H 128 H Calcium Magnesium Total Bilirubin AST ALT Alkaline Phosphatase Total Protein Albumin Globulin Albumin/Globulin Ratio 07/02/19 07/02/19 07/02/19 04:39 04:39 07:23 WBC RBC Hgb Hct MCV MCH MCHC RDW Std Deviation RDW Coeff of Jonathan Plt Count MPV Immature Gran % (Auto) Neut % (Auto) Lymph % (Auto) Pettis % (Auto) Eos % (Auto) Baso % (Auto) Immature Gran # (Auto) Neut # (Auto) Lymph # (Auto) Pettis # (Auto) Eos # (Auto) Baso # (Auto) PT 32.8 H INR 3.5 H Sodium 142 Potassium 4.6 Chloride 106 Carbon Dioxide 28 Anion Gap 8.0 BUN 31 H Creatinine 1.14 Est Cr Clr Drug Dosing 56.0 Est GFR ( Amer) 70.5 Est GFR (Non-Af Amer) 60.8 BUN/Creatinine Ratio 27.5 H Glucose 124 H POC Glucose 121 H Calcium 8.1 L Magnesium 1.9 Total Bilirubin 1.1 H AST 353 H ALT 443 H Alkaline Phosphatase 71 Total Protein 6.5 Albumin 2.9 L Globulin 3.6 Albumin/Globulin Ratio 0.8 L 07/02/19 07/02/19 07/02/19 11:08 16:27 20:13 WBC RBC Hgb Hct MCV MCH MCHC RDW Std Deviation RDW Coeff of Jonathan Plt Count MPV Immature Gran % (Auto) Neut % (Auto) Lymph % (Auto) Pettis % (Auto) Eos % (Auto) Baso % (Auto) Immature Gran # (Auto) Neut # (Auto) Lymph # (Auto) Pettis # (Auto) Eos # (Auto) Baso # (Auto) PT INR Sodium Potassium Chloride Carbon Dioxide Anion Gap BUN Creatinine Est Cr Clr Drug Dosing Est GFR ( Amer) Est GFR (Non-Af Amer) BUN/Creatinine Ratio Glucose POC Glucose 179 H 155 H 235 H Calcium Magnesium Total Bilirubin AST ALT Alkaline Phosphatase Total Protein Albumin Globulin Albumin/Globulin Ratio PG Care Time/CCT Total # of Minutes Spent Total Time Spent with Patient: Total time spent is greater than 50% in coordination of care (as documented) at patient's floor/unit and/or counseling patient: (1) CAD (coronary artery disease) Associated angina: without angina Coronary Disease-Associated Artery/Lesion type: [place] artery [place] vs. transplanted heart: [place] heart Qualified Code(s): I25.10 - Atherosclerotic heart disease of [place] coronary artery without angina pectoris (2) Congestive heart failure Heart failure chronicity: acute on chronic Heart failure type: diastolic Qualified Code(s): I50.33 - Acute on chronic diastolic (congestive) heart failure (3) Atrial fibrillation Atrial fibrillation type: permanent Qualified Code(s): I48.2 - Chronic atrial fibrillation (4) Hyperlipidemia Hyperlipidemia type: mixed hyperlipidemia Qualified Code(s): E78.2 - Mixed hyperlipidemia (5) Hypothyroidism Hypothyroidism type: acquired Qualified Code(s): E03.9 - Hypothyroidism, unspecified (6) COPD (chronic obstructive pulmonary disease) COPD type: unspecified COPD Qualified Code(s): J44.9 - Chronic obstructive pulmonary disease, unspecified (7) Hypertension Hypertension type: essential hypertension Qualified Code(s): I10 - Essential (primary) hypertension (8) DM w/o complication type II, uncontrolled Glycemic state: with hyperglycemia Qualified Code(s): E11.65 - Type 2 diabetes mellitus with hyperglycemia
[2019-07-03] MEDS: ZOLPIDEM TARTRATE 5 MG TAB PO PRN ×2 (00:08→20:54)
[2019-07-03] MEDS: LEVOTHYROXINE SODIUM 75 MCG TABLET PO SCH (06:22)
[2019-07-03] MEDS ORDERED: CARBOHYDRATES FOR HYPOGLYCEMIA PO PRN (07:15)
[2019-07-03 07:41] LABS: INR 2.8 (0.9-1.1); Prothrombin Time 26.5 Seconds (9.0-12.0)
[2019-07-03 08:16] LABS: Albumin Globulin Ratio 0.8 (0.9-2); Albumin Level 3.1 gm/dl (3.4-5.0); BUN Creatinine Ratio 27.6 (10-20); Bilirubin,Total 1.2 mg/dl (0.2-1); Calcium 8.5 mg/dl (8.5-10.1); Creatinine Clr Calc Pharmacy 46.9 ml/min; Est GFR (Non-African American) 49.1; Globulin 3.8 gm/dl (2.5-4.0); Total Protein 6.9 gm/dl (6.4-8.2)
[2019-07-03 08:30] LABS: Hepatitis B Surface Antigen Neg (Neg)
[2019-07-03 08:58] LABS: Hepatitis C IgG 13Yrs+Old_Rflx Neg (Neg)
[2019-07-03] MEDS: DOXYCYCLINE HYCLATE 100 MG CAP PO SCH ×2 (09:34→19:38)
[2019-07-03] MEDS: dilTIAZem HCL 120 MG CAPCR PO SCH (09:34)
[2019-07-03] MEDS: POTASSIUM CHLORIDE 20 MEQ TABCR PO SCH (09:34)
[2019-07-03] MEDS: CETIRIZINE HCL 10 MG TABLET PO SCH (09:34)
[2019-07-03] MEDS: FUROSEMIDE 20 MG TAB PO SCH (09:34)
[2019-07-03] MEDS: METOPROLOL SUCC 25MG EXT REL TAB PO SCH ×2 (09:35→19:38)
[2019-07-03] MEDS: ASPIRIN 81 MG ECTAB PO SCH (09:35)
[2019-07-03] MEDS: MAGNESIUM OXIDE 400 MG TAB PO SCH (09:35)
[2019-07-03] MEDS: predniSONE 20 MG TAB PO SCH (09:35)
[2019-07-03] MEDS: INSULIN GLARGINE SOLOSTAR 100 UNITS/ML 3 ML PEN SC SCH (09:36)
[2019-07-03] MEDS: PYRIDOSTIGMINE BROMIDE 60 MG TAB PO SCH ×3 (09:36→19:38)
[2019-07-03] MEDS: FLUTICASONE PROPIONATE NA SPR 16 GM BTL SCH (09:36)
[2019-07-03] MEDS: ALBUTEROL HFA INHALER 8.5 GM INH SCH ×4 (09:37→19:36)
[2019-07-03] MEDS: INSULIN ASPART 100 UNITS/ML 3 ML PEN SC SCH ×4 (09:38→20:43)
[2019-07-03] MEDS: ALBUT/IPRATROP 3MG/0.5MG NEB 3 ML VIAL NEB PRN (10:18)
--- NOTE | 2019-07-03 10:40 | Cardiology Progress Note ---
Date of Service July 03, 2019 Assessment & Plan (1) Atrial fibrillation: asymptomatic his initial concern was the high heart rate alarm from ICD that alarm is to indicated that he is in afib patient will now permanently be in afib so alarm was d/c'ed will cont metoprolol and coumadin will d/c to home with a trial of cardizem to see if lower rates will increase % of Biventricular pacing ok to d/c to home from cardiac standpoint (2) Congestive heart failure: will restart daily lasix increase as ne (3) S/P AVR: stable (4) S/P MVR (mitral valve repair): stable (5) CAD (coronary artery disease): stable (6) Prolonged QT interval: present at baseline with a history of maintaining 490-520 ms without antiarrhythmic amio discontinued does have a history of tolerating amio previously, though Subjective Pt seen and examined, states that he feels well today after a good nights sleep. No further ICD alarms. Denies cp, sob, palpitations, lightheadedness or dizziness. tele reviewed: afib with occasional V pacing Review of Systems Review of Systems: All systems reviewed & are unremarkable except as noted in HPI & below Physical Exam Physical Exam: General: Awake, alert and oriented x 3. No acute distress. HEENT: Normocephalic, atraumatic. Pupils equal, round and reactive to light and accommodation. Extraocular muscles are intact. Anicteric sclera. Moist mucous membranes. Neck: No JVD. No bruit. Cardiovascular: irregularly irregular, unable to appreciate murmur, rub or gallop. Pulmonary: Clear to auscultation bilaterally. No rales, rhonchi, or wheezing. Abdomen: Bowel sounds x 4, soft. No rebound, guarding or tenderness. No org anomegaly. Extremities: No clubbing, cyanosis or edema. +2 pedal pulses bilaterally. Skin: Warm and dry. Results & Data Vital Signs (Past 12 Hours) Vital Signs Temp Pulse Resp BP Pulse Ox Pulse Ox 07/03/19 10:19 71 17 98 07/03/19 03:05 36.7 C 67 18 120/69 93 07/02/19 23:00 36.6 C 75 16 109/62 96 96 (1) Atrial fibrillation Atrial fibrillation type: permanent Qualified Code(s): I48.2 - Chronic atrial fibrillation (2) Congestive heart failure Heart failure type: diastolic Heart failure chronicity: acute on chronic Qualified Code(s): I50.33 - Acute on chronic diastolic (congestive) heart failure (3) CAD (coronary artery disease) Coronary Disease-Associated Artery/Lesion type: [place] artery [place] vs. transplanted heart: [place] heart Associated angina: without angina Qualified Code(s): I25.10 - Atherosclerotic heart disease of [place] coronary artery without angina pectoris
--- NOTE | 2019-07-03 15:05 | Pharmacy Report ---
Pharmacy Glycemic Short Note 2 - Date of Service July 03, 2019 - Glycemic Short BSG Results (Last 24 hours): 07/02/19 07/02/19 07/03/19 16:27 20:13 07:03 Glucose 46 L* POC Glucose 155 H 235 H 07/03/19 07/03/19 07/03/19 07:10 07:31 11:16 Glucose POC Glucose 57 L* 70 90 OUTPATIENT ANTIDIABETIC REGIMEN: * Metformin 500mg PO BIDM * A1c = 6.7% for 06/30/19 ASSESSMENT: 07/03 * Patient received 49 units of insulin yesterday, 26 units basal, 23 prandial/correction * Hypoglycemic on fasting this morning, reduced lantus dose to 7 units (would be ~20 units throughout day as 13 units given last night), holding tonight's lantus dose in attempt to do QAM dosing and do not anticipate need overnight, steroids were also reduced down to prednisone 40 mg qam- which would have move effects on prandial BSGs * Continuing current novolog parameters for now 07/01: * Patient hyperglycemic overnight. Fasting BSG improved somewhat, although still elevated. I will continue with current basal scale as we have not yet seen the effects with current steroid dose. May consider increasing PM lantus dose if BSGs trend up again * I did empirically tighten novolog CF/CR this morning given post prandial HS hyperglycemia yesterday. However, lunch BSG elevated again so will tighten CR back to a weight based stress of 3. Lunch BSG may be somewhat falsely elevated given only 2.5 hrs (ideally 4 hours) between breakfast novolog coverage and lunch BSG. Will continue to monitor with steroid taper. 06/30 * 79yo T2DM male with unknown degree of outpatient control - A1c pending * Pt is maintained on oral antidiabetic agents as an outpatient * Oral agents are not recommended for inpatient use d/t drug interactions, changing PO intake, and difficulty titrating for acute hyper/hypoglycemia. ADA recommends re-initiating outpatient oral agents 1-2 days prior to discharge if/when appropriate if they were held on admission. * Will hold oral agents for admission and utilize SQ basal bolus insulin regimen which is the recommended regimen for inpatient glycemic control. * Will initiate weight based, high stress insulin dosing for steroid induced hyperglycemia * Total daily steroid dose is > Solumedrol 60mg/day, basal and novolog insulin adjusted accordingly PLAN FOR INPATIENT GLYCEMIC CONTROL: * Hold outpatient oral diabetes medications * Basal insulin * Lantus 7 units SQ this morning * Bolus insulin * NovoLog per scale ACHS or Q6hrs while NPO. Additional checks + coverage overnight at 0000 & 0400 * Goal Range: Low 110 mg/dL - High 140 mg/dL * Correction Factor: 30 mg/dL/unit * Nutritional / Prandial insulin per carb ratio of 1 unit per 10 grams CHO consumed
--- NOTE | 2019-07-03 15:23 | Pulmonology Progress Note ---
Date of Service July 03, 2019 Assessment & Plan (1) Pulmonary fibrosis determined by high resolution computed tomography: Case was discussed with Dr. Britton and also with the GI consultants. Our plan is as follows: 1. Await results of other lab tests ordered. 2. We will arrange for an outpatient CAT scan to be done without contrast in approximately 1 month. 3. We will arrange for a follow-up in the office along with pulmonary function testing. 4. Would taper the prednisone down to the patient's maintenance dose of 10 mg daily. 5. For completeness do a two-step prior to discharge. Subjective The patient offers no complaints. He has had very mild cough. The amount of sputum has decreased. He has not had any shortness of breath today. Physical Exam Physical Exam: The patient is a 79-year-old male who was cooperative alert and oriented. He was in no distress. Weight today 75.8 kg. Temperature 36.9. ENT exam unchanged from yesterday. Cardiac rate 72/min. Rhythm irregular. Blood pressure 106/58. There is a defibrillator noted in the left upper anterior chest. Auscultation of the lung garcia again reveals rales heard at the bases greater on the left than the right. Respiratory rate 18. Saturation 98% on room air at rest. He did not cough during this exam. Extremities showed no cyanosis clubbing or edema. Results & Data Vital Signs (Past 12 Hours) Vital Signs Temp Pulse Pulse Resp BP Pulse Ox 07/03/19 12:25 36.9 C 72 18 106/58 L 98 07/03/19 10:19 71 17 98 07/03/19 08:00 70 Laboratory Results Sed rate is normal at 6. INR today 2.8. Bilirubin today 1.2 and previously was 1.1. AST today 172 and previously was 353. ALT today 501 and previously was 443. Other labs are still pending including LARS, RA, BATSHEVA, and TB Gold. PG Care Time/CCT Total # of Minutes Spent Total Time Spent with Patient: Total time spent is greater than 50% in coordination of care (as documented) at patient's floor/unit and/or counseling patient:
--- NOTE | 2019-07-03 16:26 | Ultrasound Report ---
US duplex portal hepatic veins CLINICAL HISTORY: 79 years-old Male presenting with check hepatic vascular flow. TECHNIQUE: Real-time grayscale and color and spectral Doppler ultrasound imaging of the liver was per formed. COMPARISON: None. FINDINGS: Liver: Heterogeneous echotexture. Vasculature: Portal veins: Main portal vein with normal antegrade flow with gentle undulating waveforms. Peak [place] 34 cm/s. Right and left portal veins with normal directional flow. Hepatic arteries: Proper hepatic artery with high resistance waveform suspected with decreased diasto lic flow. Peak systolic velocity 38 cm/s. Hepatic veins: Right, middle, and left hepatic veins with normal triphasic waveforms. Splenic vein: Patent. IVC: Patent. Biliary: No gross intrahepatic biliary ductal dilatation. Gallbladder: Not interrogated. Ascites: None. Other: None. IMPRESSION: 1. Patent hepatic vasculature. 2. Suspected high resistance hepatic arterial waveforms. This is nonspecific and can be seen in the setting of the postprandial state, advanced patient age, diffuse peripheral microvascular disease, ch ronic hepatocellular disease, and multiple other etiologies. Electronically signed by: Wiliam Caruso M.D. 07/03/2019 4:24 PM
[2019-07-03] MEDS: POLYETHYLENE (MIRALAX) 17 GM PACK PO SCH (16:34)
[2019-07-03] MEDS: NYSTATIN SUSP 500,000 U/5 ML UDC PO SCH ×2 (16:34→19:38)
[2019-07-03] MEDS: DOCUSATE SODIUM/SENNA 50/8.6MG TAB PO SCH (16:34)
[2019-07-03 17:19] LABS: Ferritin 1132.7 ng/ml (8-388)
--- NOTE | 2019-07-03 17:32 | Gastrointestinal Consultation ---
Date of Consultation July 03, 2019 Assessment & Plan (1) Abnormal LFTs: (2) Cirrhosis: Pt is a 79 y/o male currently admitted for CHF/COPD exacerbation seen for elevated LFTs and cirrhotic appearing liver on u/s. He has a complicated cardiac dz hx including CHF, Afib previously on Amiodarone. Amiodarone had been stopped for 2 yrs but restarted while he's admitted. This seems to cause his LFT elevation as when this med was stopped, LFTs start to trend down. Unclear etiology of cirrhosis but may be related to congestive hepatopathy vs Amiodarone use. - Check hepatic duplex for portal vasculature flow - Unable to obtain MRCP given he has defibrillator, may consider EUS if LFTs r emains elevated. - Check AIH, acute hepatitis serologies, A1A, ceruloplasmin, iron indices, celiac panel - Will help set up Fibroscan to quantify fibrosis vs cirrhosis and outpt GI clinic f/u upon pt's DC - Trend LFTs, avoid hepatotoxic meds Supervising Physician Co-Signing Physician Notes I performed a history and physical examination of the patient, including specifically on physical exam - soft, nontender abdomen. I have discussed the patient's management with Yamila. Please refer to the nurse practitioner's note for the documented findings and plan of care. 79 Male patient, had normal LFTs on admission then hepatocellular injury after starting Amiodarone. Now stopped and AST trended down which is usually the first to improve. Would avoid using Amiodarone in the future. LFTs pattern also could be related to congestive hepatopathy from his arrhythmia. Obtain Duplex to check the flow direction. Given prior cholecystectomy, may consider EUS if LFTs remains elevated. History of Present Illness Reason for Consultation: Elevated LFTs, cirrhosis on abd imaging Requesting Physician: Dr. Marquis Dawson Attending Physician: Dr. Surinder Melo History of Present Illness Pt is a 79 y/o male w hx of pulmonary HTN, pulmonary fibrosis, COPD, CHF, HTN, CAD, Afib s/p defibrillator placement, s/p MVR, AVR admitted for CHF/COPD exacerbation; seen for elevated LFTs and suspected cirrhosis on imaging study. He currently denies any SOB, CP. Denies symptoms of jaundice, abd pain, n/v, bowel habit changes, leg edema or signs of GI bleeding. He was on Amiodarone for 2 yrs, stopped for 2 yrs and recently restarted while admitted. His LFTs were normal prior to admission , but start to increase till peaked yesterday. Amiodarone stopped yesterday and LFTs are trending down. It is noted however on his gallbladder u/s that his liver may appear to be cirrhotic. He denies any known hx of liver diseases, autoimmune/hereditary liver conditions. He denies ETOH, tobacco abuses, illicit drugs, tattoos , body piercing. Allergies Allergy/AdvReac Type Severity Reaction Status Date / Time gabapentin Allergy Severe CONFUSION/D Verified 06/29/19 12:09 ISORIENTATI ON heparin Allergy Severe HIT Verified 06/29/19 12:09 Iodinated Contrast- Oral and Allergy Severe HIVES Verified 06/29/19 12:09 IV Dye Penicillins Allergy Intermediate HIVES Verified 06/29/19 12:09 prednisone Allergy Intermediate NAUSEA/VOMI Verified 06/29/19 12:09 TING shellfish derived Allergy Intermediate HIVES Verified 06/29/19 12:09 iodine Allergy Unknown TOLD BC OF Verified 06/29/19 12:09 IVP ALLERGY latex Allergy Verified 06/29/19 12:09 levofloxacin Allergy Verified 06/29/19 12:09 codeine AdvReac Unknown GI UPSET Verified 06/29/19 12:09 Latex2 -Systemic Allergic Allergy Intermediate ZEPEDA SKIN Uncoded 06/29/19 12:09 Response Home Medications Home Medications Medication Instructions Recorded Confirmed Type nitroglycerin 0.4 mg sublingual 0.4 mg SL Q5M PRN #25 tab 06/17/19 06/29/19 Rx tablet potassium chloride ER 10 mEq 10 meq PO TID #270 tab 06/17/19 06/29/19 Rx tablet,extended release triamcinolone acetonide 0.1 % 1 appln TOPICAL BID PRN #80 gm 06/17/19 06/29/19 Rx topical cream warfarin 2.5 mg tablet 2.5 mg PO HS tab 06/23/19 06/29/19 History albuterol sulfate [ProAir HFA] 2 inh INHALATION DAILY PRN 06/29/19 06/29/19 History aspirin 81 mg PO QAM 06/29/19 06/29/19 History azelastine 2 sprays INTRANASAL DAILY PRN 06/29/19 06/29/19 History cetirizine 10 mg PO QAM 06/29/19 06/29/19 History coenzyme Q10 100 mg PO QAM 06/29/19 06/29/19 History ferrous sulfate 325 mg PO HS 06/29/19 06/29/19 History fluticasone furoate 1 puffs INHALATION DAILY PRN 06/29/19 06/29/19 History furosemide 20 mg PO DAILY PRN 06/29/19 06/29/19 History ipratropium-albuterol 3 ml INH QID PRN 06/29/19 06/29/19 History levothyroxine 75 mcg PO QAM 06/29/19 06/29/19 History lovastatin 40 mg PO HS 06/29/19 06/29/19 History magnesium oxide 400 mg PO QAM 06/29/19 06/29/19 History metformin 500 mg PO TIDM 06/29/19 06/29/19 History metoprolol succinate 12.5 mg PO HS 06/29/19 06/29/19 History metoprolol succinate 25 mg PO QAM 06/29/19 06/29/19 History prednisone 10 mg PO QAM 06/29/19 06/29/19 History pyridostigmine bromide 180 mg PO TID 06/29/19 06/29/19 History Patient History Medical History Afib Surgical History History of aortic valve replacement History of appendectomy History of cholecystectomy History of excision of lesion face - malignant - 2.1-3cm Social History Preferred Language: Slovenian Communication Ability: Effective [employer] Lecturer Required: Yes Beliefs That Will Affect Care: None marital status: Current Living Situation: Spouse Feels Safe at Home: Yes Smoking Status: Former smoker Hx Alcohol Use: No Review of Systems Review of Systems: All systems reviewed & are unremarkable except as noted in HPI & below Physical Exam Constitutional: WD/WN, vitals as above well groomed, cooperative and comfortable Eyes: PERRL, conjunctivae normal, anicteric sclerae ENMT: external ear and nose normal, oropharynx normal Respiratory: no respiratory distress and does not use accessory muscles Auscultation: + diminished lung sounds Cardiovascular: Heart Sounds: + murmur Gastrointestinal (Abdomen): normal bowel sounds, soft, nontender, no hepatosplenomegaly Skin: no rashes, warm and dry no jaundice Neurologic: Motor/Sensory: no asterixis Psychiatric: A+Ox3, euthymic affect Lymphatic: no lymphedema Results & Data Vital Signs (Past 12 Hours) Vital Signs Temp Pulse Pulse Resp BP Pulse Ox 07/03/19 17:13 36.6 C 70 18 120/57 L 99 07/03/19 12:25 36.9 C 72 18 106/58 L 98 07/03/19 10:19 71 17 98 07/03/19 08:00 70
[2019-07-03] MEDS: FERROUS SULFATE 325 MG TAB PO SCH (19:38)
--- NOTE | 2019-07-03 20:16 | Hospitalist Progress Note ---
Date of Service July 03, 2019 Assessment & Plan (1) Pulmonary fibrosis determined by high resolution computed tomography: CT 09/2018 with concerns for pulmonary fibrosis. He reports worsening VENTURA and cough for 1-2 years. I suspect his pulmonary symptoms are due to the pulm. fibrosis seen on CT. x-rays since September continue to show interstitial infiltrates. I consulted Dr Gilbert from pulmonary for his opinion & recs - much appreciated. Work-up for the PF in process. Will need outpatient PFTs and repeat CT chest. He likely has had an exacerbation of his chronic lung disease over the last few weeks. This is improved. Stop doxy -- has had 10+ days of abx. Prednisone 40mg today, then 40mg tomorrow, then start weaning back to his usual 10mg/day dosing. (2) Cirrhosis: [facility] GI consult appreciated. Imaging suggests cirrhosis. Hep B, C negative. Portal doppler pending. Other labs pending for work-up of this. Leading possibilities -- cardiac cirrhosis, amiodarone induced cirrhosis (had been on amiodarone in the past for 1-2 years). (3) Abnormal LFTs: acute, in the last few days. amiodarone induced? amiodarone now stopped. holding statin. RUQ u/s with findings concerning for early cirrhosis. CT of chest in 09/2018 showed concerns for chronic liver disease as well. LFTs are starting to plateau and improve. Repeat LFTs am. Appreciate [facility] consult. (4) Pulmonary hypertension: due to developing pulmonary fibrosis? due to valvular heart disease/CHF? combination? likely contributing to VENTURA (5) Atrial fibrillation: pacemaker adjustments performed several times this admission due to warning signals given by the device (which was indicating when he was in rapid a.fib). amiodarone stopped due to prolonged QTc interval. and amiodarone may have caused rise in transaminases. remains on coumadin. cont metoprolol succinate BID. CCB also added by cardiology. appreciate cardiology input. (6) COPD (chronic obstructive pulmonary disease): does patient have COPD?? or does he simply have PF/ILD? 09/2018 CT chest with pulmonary fibrosis. see discussion above in "PF determined by CT". cough/congestion continue to be his main complaints. continue scheduled albuterol qid. incentive joel, flutter valve. needs PFTs and pulmonary f/u post-discharge. (7) Hypertension: stable, controlled (8) Congestive heart failure: acute/chronic diastolic CHF compensated today acute component resolved cont lasix cont BB (9) Hyperlipidemia: Holding statin due to abnormal LFTs (10) Prolonged QT interval: due to such amiodarone discontinued (11) CAD (coronary artery disease): elevated troponin at admission likely myocardial demand ischemia in setting of rapid a.fib no ACS (12) S/P MVR (mitral valve repair): noted (13) S/P AVR: noted (14) Hypothyroidism: TSH wnl cont synthroid (15) Myasthenia gravis: cont pyridostimine cont steroids no flare at this time takes chronic prednisone 10mg/day was on cellcept up until several weeks ago followed by [facility] in [place] (16) DM w/o complication type II, uncontrolled: pharmacy managing; appreciate recs resume oral agents at discharge (17) Constipation: add miralax and senna/colace (18) Candidiasis of mouth and esophagus: nystatin 5cc qid x 10 days (19) DVT prophylaxis: coumadin INR in am updated at bedside extensively d/c home tomorrow if LFTs cont to improve Subjective tele - runs of a.fib, pacing feels good walking the hallways with mild VENTURA only (which is at baseline) mild cough no dyspnea at rest eating well feeling good Review of Systems Constitutional: no fever and no chills Respiratory: + sputum production; no change in sputum Cardiovascular: no chest pain Gastrointestinal: + constipation; no abdominal pain, no nausea and no vomiting Physical Exam Constitutional: well developed and well nourished; no acute distress ENMT: Mouth: + oral mucosal abnormality (thrush plaques tongue) Respiratory: no respiratory distress Auscultation: + crackles (bases); no wheezes Cardiovascular: Rate/Rhythm: regular rate and regular rhythm Heart Sounds: normal S1, normal S2 and + murmur (1-2/6 LSB) Vessels: + JVD Extremities: no edema Gastrointestinal (Abdomen): normal bowel sounds, soft, nontender, no hepatosplenomegaly Psychiatric: A+Ox3, euthymic affect Results & Data Vital Signs (Past 12 Hours) Vital Signs Temp Pulse Resp BP Pulse Ox 07/03/19 19:15 36.9 C 71 98 H 108/63 80 L 07/03/19 17:13 36.6 C 70 18 120/57 L 99 07/03/19 12:25 36.9 C 72 18 106/58 L 98 07/03/19 10:19 71 17 98 Laboratory Results Laboratory Results - last 24 hr 07/02/19 07/03/19 07/03/19 20:13 07:03 07:03 ESR 6 PT INR Sodium Potassium Chloride Carbon Dioxide Anion Gap BUN Creatinine Est Cr Clr Drug Dosing Est GFR ( Amer) Est GFR (Non-Af Amer) BUN/Creatinine Ratio Glucose POC Glucose 235 H Calcium Iron TIBC Transferrin Transferrin % Sat Ferritin Total Bilirubin AST ALT Alkaline Phosphatase Total Protein Total Protein (PEP) Albumin Albumin (PEP) Globulin Albumin/Globulin Ratio Lusmj-8-Cynkuuwnu Gkwrc-4-Zowgucqzw Otou-1-Povylxcv Lhyg-3-Pmkmhlys Gamma Globulins Monoclonal Peak 3 Ser Monoclonl Protein Ser Monoclonal Prot 2 PEP Interpretation Ctqnu-9-Exogghyvkxu Ceruloplasmin Angiotensin Convert Enz Pending IgA Rheumatoid Factor Pending LARS Screen Pending SS-A/Ro Antibody Pending SS-B/La Antibody Pending Sm ([place]) Antibody Pending CHURN DRILLER Antibody Pending Scl-70 Scleroderma Ab Pending Anti-ds DNA (Crithidia) Pending Anti-Centromere Ab Pending Anti-Mitochondrial Ab Anti-Smooth Muscle Ab Tiss Transglutamin IgA Celiac Disease Interp Complement C3 Pending Complement C4 Pending Performing Site Pending Hepatitis A IgM Ab Hep Bs Antigen Hepatitis C Antibody TB Test (QFT) Gold Plus TB Test (QFT) Nil TB Test Mitogen - Nil TB Test Ag - Nil 1 TB Test Ag - Nil 2 07/03/19 07/03/19 07/03/19 07:03 07:03 07:03 ESR PT 26.5 H INR 2.8 H Sodium 141 Potassium 4.0 Chloride 105 Carbon Dioxide 30 Anion Gap 5.0 BUN 38 H Creatinine 1.36 Est Cr Clr Drug Dosing 46.9 Est GFR ( Amer) 57.0 Est GFR (Non-Af Amer) 49.1 BUN/Creatinine Ratio 27.6 H Glucose 46 L* POC Glucose Calcium 8.5 Iron TIBC Transferrin Transferrin % Sat Ferritin Total Bilirubin 1.2 H AST 172 H ALT 501 H Alkaline Phosphatase 79 Total Protein 6.9 Total Protein (PEP) Albumin 3.1 L Albumin (PEP) Globulin 3.8 Albumin/Globulin Ratio 0.8 L Ftwxr-8-Ogcvwmvxh Rlxgm-5-Fiemumxbj Rtra-1-Uvxegmxc Ppfp-7-Bmzfwnja Gamma Globulins Monoclonal Peak 3 Ser Monoclonl Protein Ser Monoclonal Prot 2 PEP Interpretation Bpdla-7-Drunczkepvu Ceruloplasmin Angiotensin Convert Enz IgA Rheumatoid Factor LARS Screen SS-A/Ro Antibody SS-B/La Antibody Sm ([place]) Antibody CHURN DRILLER Antibody Scl-70 Scleroderma Ab Anti-ds DNA (Crithidia) Anti-Centromere Ab Anti-Mitochondrial Ab Anti-Smooth Muscle Ab Tiss Transglutamin IgA Celiac Disease Interp Complement C3 Complement C4 Performing Site Hepatitis A IgM Ab Hep Bs Antigen Hepatitis C Antibody TB Test (QFT) Gold Plus Pending TB Test (QFT) Nil Pending TB Test Mitogen - Nil Pending TB Test Ag - Nil 1 Pending TB Test Ag - Nil 2 Pending 07/03/19 07/03/19 07/03/19 07:03 07:10 07:31 ESR PT INR Sodium Potassium Chloride Carbon Dioxide Anion Gap BUN Creatinine Est Cr Clr Drug Dosing Est GFR ( Amer) Est GFR (Non-Af Amer) BUN/Creatinine Ratio Glucose POC Glucose 57 L* 70 Calcium Iron TIBC Transferrin Transferrin % Sat Ferritin Total Bilirubin AST ALT Alkaline Phosphatase Total Protein Total Protein (PEP) Albumin Albumin (PEP) Globulin Albumin/Globulin Ratio Mezqm-1-Jxbgqtftk Zajva-7-Mobcguvch Tani-1-Ierkvjxs Kxit-3-Hsnyxmib Gamma Globulins Monoclonal Peak 3 Ser Monoclonl Protein Ser Monoclonal Prot 2 PEP Interpretation Juklr-5-Iaagmgmgvap Ceruloplasmin Angiotensin Convert Enz IgA Rheumatoid Factor LARS Screen SS-A/Ro Antibody SS-B/La Antibody Sm ([place]) Antibody [place]URN DRILLER Antibody Scl-70 Scleroderma Ab Anti-ds DNA (Crithidia) Anti-Centromere Ab Anti-Mitochondrial Ab Anti-Smooth Muscle Ab Tiss Transglutamin IgA Celiac Disease Interp Complement C3 Complement C4 Performing Site Hepatitis A IgM Ab Hep Bs Antigen Neg Hepatitis C Antibody Neg TB Test (QFT) Gold Plus TB Test (QFT) Nil TB Test Mitogen - Nil TB Test Ag - Nil 1 TB Test Ag - Nil 2 07/03/19 07/03/19 07/03/19 11:16 16:20 16:21 ESR PT INR Sodium Potassium Chloride Carbon Dioxide Anion Gap BUN Creatinine Est Cr Clr Drug Dosing Est GFR ( Amer) Est GFR (Non-Af Amer) BUN/Creatinine Ratio Glucose POC Glucose 90 176 H Calcium Iron 46 TIBC 243 L Transferrin 185 L Transferrin % Sat 18 L Ferritin 1132.7 H Total Bilirubin AST ALT Alkaline Phosphatase Total Protein Total Protein (PEP) Albumin Albumin (PEP) Globulin Albumin/Globulin Ratio Xpdyx-8-Whocfsnwk Ntxsl-0-Eerkgivuk Ikag-8-Itzemesv Vogj-2-Ezcekkqm Gamma Globulins Monoclonal Peak 3 Ser Monoclonl Protein Ser Monoclonal Prot 2 PEP Interpretation Tlntw-6-Mscoiezhqpt Ceruloplasmin Angiotensin Convert Enz IgA Rheumatoid Factor LARS Screen SS-A/Ro Antibody SS-B/La Antibody Sm ([place]) Antibody [place] DRILLER Antibody Scl-70 Scleroderma Ab Anti-ds DNA (Crithidia) Anti-Centromere Ab Anti-Mitochondrial Ab Anti-Smooth Muscle Ab Tiss Transglutamin IgA Celiac Disease Interp Complement C3 Complement C4 Performing Site Hepatitis A IgM Ab Hep Bs Antigen Hepatitis C Antibody TB Test (QFT) Gold Plus TB Test (QFT) Nil TB Test Mitogen - Nil TB Test Ag - Nil 1 TB Test Ag - Nil 2 07/03/19 07/03/19 07/03/19 16:21 20:08 20:09 ESR PT INR Sodium Potassium Chloride Carbon Dioxide Anion Gap BUN Creatinine Est Cr Clr Drug Dosing Est GFR ( Amer) Est GFR (Non-Af Amer) BUN/Creatinine Ratio Glucose POC Glucose 308 H* 290 H Calcium Iron TIBC Transferrin Transferrin % Sat Ferritin Total Bilirubin AST ALT Alkaline Phosphatase Total Protein Total Protein (PEP) Pending Albumin Albumin (PEP) Pending Globulin Albumin/Globulin Ratio Klpku-8-Odrgazejp Pending Skhvr-2-Cjzldbyol Pending Uryh-6-Iwmbouyp Pending Iqqz-6-Upyqbxrz Pending Gamma Globulins Pending Monoclonal Peak 3 Pending Ser Monoclonl Protein Pending Ser Monoclonal Prot 2 Pending PEP Interpretation Pending Xylhs-0-Xiwcrhothpe Pending Ceruloplasmin Pending Angiotensin Convert Enz IgA Pending Rheumatoid Factor LARS Screen Pending SS-A/Ro Antibody SS-B/La Antibody Sm ([place]) Antibody CHURN DRILLER Antibody Scl-70 Scleroderma Ab Anti-ds DNA (Crithidia) Anti-Centromere Ab Anti-Mitochondrial Ab Pending Anti-Smooth Muscle Ab Pending Tiss Transglutamin IgA Pending Celiac Disease Interp Pending Complement C3 Complement C4 Performing Site Hepatitis A IgM Ab Pending Hep Bs Antigen Hepatitis C Antibody TB Test (QFT) Gold Plus TB Test (QFT) Nil TB Test Mitogen - Nil TB Test Ag - Nil 1 TB Test Ag - Nil 2 PG Care Time/CCT Total # of Minutes Spent Total Time Spent with Patient: Total time spent is greater than 50% in coordination of care (as documented) at patient's floor/unit and/or counseling patient: (1) CAD (coronary artery disease) Associated angina: without angina Coronary Disease-Associated Artery/Lesion type: samish artery [place] vs. transplanted heart: samish heart Qualified Code(s): I25.10 - Atherosclerotic heart disease of samish coronary artery without angina pectoris (2) Congestive heart failure Heart failure chronicity: acute on chronic Heart failure type: diastolic Qualified Code(s): I50.33 - Acute on chronic diastolic (congestive) heart failure (3) Atrial fibrillation Atrial fibrillation type: permanent Qualified Code(s): I48.2 - Chronic atrial fibrillation (4) Hyperlipidemia Hyperlipidemia type: mixed hyperlipidemia Qualified Code(s): E78.2 - Mixed hyperlipidemia (5) Hypothyroidism Hypothyroidism type: acquired Qualified Code(s): E03.9 - Hypothyroidism, unspecified (6) COPD (chronic obstructive pulmonary disease) COPD type: unspecified COPD Qualified Code(s): J44.9 - Chronic obstructive pulmonary disease, unspecified (7) Hypertension Hypertension type: essential hypertension Qualified Code(s): I10 - Essential (primary) hypertension (8) DM w/o complication type II, uncontrolled Glycemic state: with hyperglycemia Qualified Code(s): E11.65 - Type 2 diabetes mellitus with hyperglycemia (9) Constipation Constipation type: other constipation type Qualified Code(s): K59.09 - Other constipation (10) Cirrhosis Hepatic cirrhosis type: other cirrhosis Qualified Code(s): K74.69 - Other cirrhosis of liver
[2019-07-04] MEDS: INSULIN ASPART 100 UNITS/ML 3 ML PEN SC SCH ×4 (00:17→12:16)
[2019-07-04] MEDS: LEVOTHYROXINE SODIUM 75 MCG TABLET PO SCH (06:01)
[2019-07-04 06:49] LABS: INR 2.2 (0.9-1.1); Prothrombin Time 21.6 Seconds (9.0-12.0)
[2019-07-04 07:12] LABS: Albumin Level 2.9 gm/dl (3.4-5.0); BUN Creatinine Ratio 27.3 (10-20); Creatinine Clr Calc Pharmacy 44.9 ml/min; Est GFR (African American) 54.1; Est GFR (Non-African American) 46.6; Potassium 4.5 mmol/L (3.5-5.1)
[2019-07-04 07:15] LABS: Bilirubin,Total 1.2 mg/dl (0.2-1); Total Protein 5.9 gm/dl (6.4-8.2)
[2019-07-04] MEDS: FLUTICASONE PROPIONATE NA SPR 16 GM BTL SCH (07:49)
[2019-07-04] MEDS: METOPROLOL SUCC 25MG EXT REL TAB PO SCH (08:38)
[2019-07-04] MEDS: dilTIAZem HCL 120 MG CAPCR PO SCH (08:40)
[2019-07-04] MEDS: ASPIRIN 81 MG ECTAB PO SCH (08:41)
[2019-07-04] MEDS: POTASSIUM CHLORIDE 20 MEQ TABCR PO SCH (08:41)
[2019-07-04] MEDS: MAGNESIUM OXIDE 400 MG TAB PO SCH (08:42)
[2019-07-04] MEDS: FUROSEMIDE 20 MG TAB PO SCH (08:42)
[2019-07-04] MEDS: PYRIDOSTIGMINE BROMIDE 60 MG TAB PO SCH ×2 (08:43→13:58)
[2019-07-04] MEDS: POLYETHYLENE (MIRALAX) 17 GM PACK PO SCH (08:45)
[2019-07-04] MEDS: predniSONE 20 MG TAB PO SCH (08:46)
[2019-07-04] MEDS: NYSTATIN SUSP 500,000 U/5 ML UDC PO SCH ×2 (08:46→12:16)
[2019-07-04] MEDS: ALBUTEROL HFA INHALER 8.5 GM INH SCH ×2 (08:47→12:17)
[2019-07-04] MEDS: DOCUSATE SODIUM/SENNA 50/8.6MG TAB PO SCH (08:48)
[2019-07-04] MEDS: CETIRIZINE HCL 10 MG TABLET PO SCH (08:49)
[2019-07-04] MEDS ORDERED: NovoLIN-N (NPH) PER UNIT CHARGE SQ SCH (09:00)
--- NOTE | 2019-07-04 12:44 | Cardiology Progress Note ---
Date of Service July 04, 2019 Assessment & Plan (1) Atrial fibrillation: asymptomatic his initial concern was the high heart rate alarm from ICD that alarm is to indicated that he is in afib patient will now permanently be in afib so alarm was d/c'ed will cont metoprolol and coumadin will d/c to home with a trial of cardizem to see if lower rates will increase % of Biventricular pacing ok to d/c to home from cardiac standpoint (2) Congestive heart failure: will restart daily lasix increase as necessary (3) S/P AVR: stable (4) S/P MVR (mitral valve repair): stable (5) CAD (coronary artery disease): stable (6) Prolonged QT interval: present at baseline with a history of maintaining 490-520 ms without antiarrhythmic amio discontinued does have a history of tolerating amio previously, though Subjective Pt seen and examined, states that he feels well after a good nights sleep. Denies cp, sob, palpitations, lightheadedness or dizziness. tele reviewed: afib with occasional vpacing Review of Systems Review of Systems: All systems reviewed & are unremarkable except as noted in HPI & below Physical Exam Physical Exam: General: Awake, alert and oriented x 3. No acute distress. HEENT: Normocephalic, atraumatic. Pupils equal, round and reactive to light and accommodation. Extraocular muscles are intact. Anicteric sclera. Moist mucous membranes. Neck: No JVD. No bruit. Cardiovascular: irregularly irregular, unable to appreciate murmur, rub or gallop. Pulmonary: Clear to auscultation bilaterally. No rales, rhonchi, or wheezing. Abdomen: Bowel sounds x 4, soft. No rebound, guarding or tenderness. No organomegaly. Extremities: No clubbing, cyanosis or edema. +2 pedal pulses bilaterally. Skin: Warm and dry. Results & Data Vital Signs (Past 12 Hours) Vital Signs Temp Pulse Pulse Pulse Pulse Pulse Resp 07/04/19 09:29 76 70 73 07/04/19 08:38 37.1 C 70 17 07/04/19 06:20 71 07/04/19 04:18 36.6 C 70 16 Resp Resp Resp BP BP Pulse Ox Pulse Ox 07/04/19 09:29 20 20 18 96 07/04/19 08:38 109/57 L 84/54 L 98 07/04/19 06:20 07/04/19 04:18 110/57 L 99 Pulse Ox Pulse Ox 07/04/19 09:29 98 98 07/04/19 08:38 07/04/19 06:20 07/04/19 04:18 (1) Atrial fibrillation Atrial fibrillation type: permanent Qualified Code(s): I48.2 - Chronic atrial fibrillation (2) Congestive heart failure Heart failure type: diastolic Heart failure chronicity: acute on chronic Qualified Code(s): I50.33 - Acute on chronic diastolic (congestive) heart failure (3) CAD (coronary artery disease) Coronary Disease-Associated Artery/Lesion type: ambler artery Elem vs. transplanted heart: ambler heart Associated angina: without angina Qualified Code(s): I25.10 - Atherosclerotic heart disease of ambler coronary artery without angina pectoris
--- NOTE | 2019-07-04 12:52 | Gastroenterology Progress Note ---
Date of Service July 04, 2019 Assessment & Plan (1) Abnormal LFTs: (2) Cirrhosis: Pt is a 79 y/o male currently admitted for CHF/COPD exacerbation seen for elevated LFTs and cirrhotic appearing liver on u/s. He has a complicated cardiac dz hx including CHF, Afib previously on Amiodarone. Amiodarone had been stopped for 2 yrs but restarted while he's admitted. LFTs trending down since Amiodarone stopped; thus likely med related reaction. - Check hepatic duplex for portal vasculature flow -> patent portal flows; high resistance waveform - Unable to obtain MRCP given he has defibrillator, may consider EUS if LFTs remains elevated. - F/UAIH, acute hepatitis serologies, A1A, ceruloplasmin, iron indices, celiac panel - Trend LFTs, avoid hepatotoxic meds - No contraindication for DC home from GI standpoint. We have set up F/U GI visit on 07/16/19 8:30am at [facility]. Unfortunately unable to obtain Fibroscan given his defibrillator status but can possibly obtain Fibrosure bloodtest in outpt setting to help quantify fibrosis Supervising Physician Co-Signing Physician Notes I performed a history and physical examination of the patient, including specifically on physical exam - soft, nontender abdomen. I have discussed the patient's management with Yamila. Please refer to the nurse practitioner's note for the documented findings and plan of care. Transaminases trending down. Follow up in GI clinic as OP. Subjective Pt feels well, denies any CP, SOB, abd pain, n/v. LFTs noted to be improving Review of Systems Review of Systems: All systems reviewed & are unremarkable except as noted in HPI & below Physical Exam Constitutional: WD/WN, vitals as above well groomed, cooperative and comfortable Eyes: PERRL, conjunctivae normal, anicteric sclerae ENMT: external ear and nose normal, oropharynx normal Respiratory: no respiratory distress and does not use accessory muscles Auscultation: + diminished lung sounds Cardiovascular: Heart Sounds: + murmur Gastrointestinal (Abdomen): normal bowel sounds, soft, nontender, no hepatosplenomegaly Skin: no rashes, warm and dry no jaundice Psychiatric: A+Ox3, euthymic affect Lymphatic: no lymphedema Results & Data Vital Signs (Past 12 Hours) Vital Signs Temp Pulse Pulse Pulse Pulse Pulse Resp 07/04/19 09:29 76 70 73 07/04/19 08:38 37.1 C 70 17 07/04/19 06:20 71 07/04/19 04:18 36.6 C 70 16 Resp Resp Resp BP BP Pulse Ox Pulse Ox 07/04/19 09:29 20 20 18 96 07/04/19 08:38 109/57 L 84/54 L 98 07/04/19 06:20 07/04/19 04:18 110/57 L 99 Pulse Ox Pulse Ox 07/04/19 09:29 98 98 07/04/19 08:38 07/04/19 06:20 07/04/19 04:18 (1) Cirrhosis Hepatic cirrhosis type: other cirrhosis Qualified Code(s): K74.69 - Other cirrhosis of liver
--- NOTE | 2019-07-04 14:12 | Discharge Summary ---
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 By his report the device had been making this sound for the last 2 days. The device did NOT actually discharge a shock at any time. Additionally the patient also said that he was just hospitalized for an episode of pneumonia at [facility] within the last week. Patient was discharged on azithromycin and cefdinir for 5 days. He is still had 3 days of antibiotics to complete. Patient denied any fever, chills, chest pain, shortness of breath, abdominal pain, frequency, urgency, melena, hemoptysis. At time of presentation Chest x-ray showed cardiomegaly and chronic interstitial thickening. No evidence of acute parenchymal consolidation. Principal Diagnosis rapid a.fib - improved Discharge Exam Constitutional well developed and well nourished; no acute distress ENMT external ear and nose normal, oropharynx normal Mouth: + oral mucosal abnormality (thrush plaques tongue/oral mucosa - improved) Respiratory no respiratory distress Auscultation: + crackles (bases); no wheezes Cardiovascular Rate/Rhythm: regular rate and regular rhythm Heart Sounds: normal S1, normal S2 and + murmur (1-2/6 LSB) Vessels: + JVD Extremities: no edema Gastrointestinal (Abdomen) normal bowel sounds, soft, nontender, no hepatosplenomegaly Psychiatric A+Ox3, euthymic affect Discharge Data Allergies Allergy/AdvReac Type Severity Reaction Status Date / Time gabapentin Allergy Severe CONFUSION/D Verified 06/29/19 12:09 ISORIENTATI ON heparin Allergy Severe HIT Verified 06/29/19 12:09 Iodinated Contrast Media Allergy Severe HIVES Verified 06/29/19 12:09 Penicillins Allergy Intermediate HIVES Verified 06/29/19 12:09 prednisone Allergy Intermediate NAUSEA/VOMI Verified 06/29/19 12:09 TING shellfish derived Allergy Intermediate HIVES Verified 06/29/19 12:09 iodine Allergy Unknown TOLD BC OF Verified 06/29/19 12:09 IVP ALLERGY latex Allergy Verified 06/29/19 12:09 levofloxacin Allergy Verified 06/29/19 12:09 codeine AdvReac Unknown GI UPSET Verified 06/29/19 12:09 Latex2 -Systemic Allergic Allergy Intermediate ZEPEDA SKIN Uncoded 06/29/19 12:09 Response Consultations 1. [facility] Cardiology - 2. [facility] Pulmonology 3. [facility] Gastroenterology 4. PT 5. delicatessen clerk Ordered Studies 1. gall bladder u/s- IMPRESSION: 1. Coarsening of hepatic echotexture suggestive of cirrhosis. No hepatic lesions identified although sensitivity diminished on this exam. 2. Borderline dilatation of the common bile duct which is likely related to previous cholecystectomy. 3. Obscured pancreas. 2. portal vein doppler - IMPRESSION: 1. Patent hepatic vasculature. 2. Suspected high resistance hepatic arterial waveforms. This is nonspecific and can be seen in the setting of the postprandial state, advanced patient age, diffuse peripheral microvascular disease, chronic hepatocellular disease, and multiple other etiologies. 3. echocardiogram - * EF 45-50% * grade 3 diastolic dysfunction * bioprosthetic aortic valve and bioprosthetic mitral valve * both bioprosthetic valves have normal gradients * moderate tricuspid regurgitation * pulmonary HTN; pressure 57mmHg * septal, inferior, posterior, and lateral wall hypokinesis to akinesis Hospital Course (1) Pulmonary fibrosis determined by high resolution computed tomography: CT 09/2018 with concerns for pulmonary fibrosis. He reports worsening VENTURA and cough for 1-2 years. I suspect his pulmonary symptoms are due to the pulm. fibrosis seen on CT. x-rays since September continue to show interstitial infiltrates. I consulted Dr Gilbert from pulmonary for his opinion & recs - much appreciated. Work-up for the PF in process. Will need outpatient PFTs and repeat CT chest. He likely has had an exacerbation of his chronic lung disease over the last few weeks. This is improved. Stop doxy -- has had 10+ days of abx. Prednisone 40mg today, then 40mg tomorrow, then start weaning back to his usual 10mg/day dosing. (2) Cirrhosis: [facility] GI consult appreciated. Imaging suggests cirrhosis. Hep B, C negative. Portal doppler pending. Other labs pending for work-up of this. Leading possibilities -- cardiac cirrhosis, amiodarone induced cirrhosis (had been on amiodarone in the past for 1-2 years). (3) Abnormal LFTs: acute, in the last few days. amiodarone induced? amiodarone now stopped. holding statin. RUQ u/s with findings concerning for early cirrhosis. CT of chest in 09/2018 showed concerns for chronic liver disease as well. LFTs are starting to plateau and improve. Repeat LFTs am. [facility]. (4) Pulmonary hypertension: due to developing pulmonary fibrosis? due to valvular heart disease/CHF? combination? likely contributing to VENTURA (5) Atrial fibrillation: pacemaker adjustments performed several times this admission due to warning signals given by the device (which was indicating when he was in rapid a.fib). amiodarone stopped due to prolonged QTc interval. and amiodarone may have caused rise in transaminases. remains on coumadin. cont metoprolol succinate BID. CCB also added by cardiology. appreciate cardiology input. (6) COPD (chronic obstructive pulmonary disease): does patient have COPD?? or does he simply have PF/ILD? 09/2018 CT chest with pulmonary fibrosis. see discussion above in "PF determined by CT". cough/congestion continue to be his main complaints. continue scheduled albuterol qid. incentive joel, flutter valve. needs PFTs and pulmonary f/u post-discharge. (7) Hypertension: stable, controlled (8) Congestive heart failure: acute/chronic diastolic CHF compensated today acute component resolved cont lasix cont BB (9) Hyperlipidemia: Holding statin due to abnormal LFTs (10) Prolonged QT interval: due to such amiodarone discontinued (11) CAD (coronary artery disease): elevated troponin at admission likely myocardial demand ischemia in setting of rapid a.fib no ACS (12) S/P MVR (mitral valve repair): noted (13) S/P AVR: noted (14) Hypothyroidism: TSH wnl cont synthroid (15) Myasthenia gravis: cont pyridostimine cont steroids no flare at this time takes chronic prednisone 10mg/day was on cellcept up until several weeks ago followed by [facility] in [place] (16) DM 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 a.fib - improved control. 2. pacemaker adjustments made while hospitalized. 3. abnormal liver function tests - improving; suspected to be from amiodarone. 4. concern for cirrhosis of the liver - etiology uncertain. 5. concern for pulmonary fibrosis - follow-up needed. Goals: 1. improve a.fib control 2. adjust pacemaker 3. work-up the possible pulmonary fibrosis and cirrhosis 4. improve the breathing/shortness of breath Activity: Resume your previous activity Activity Comment: as tolerated Non-emergency contact: Primary Care Provider, Paper Novelty Maker, Honey Liquefier and Production Control Technologist Call non-emergency contact if: you have any medication questions, your symptoms worsen and you have a fever Follow-up/Referrals: Thad Patrick MD [Primary Care Provider] - 07/12/19 11:30 am (Please, follow up with Dr. Patrick on MondayJuly 12 at 11:30 am. *If you need to change this appointment, call the office at [phone].) Ran Gilbert, [Physician] - (see Dr Gilbert - [facility] pulmonary - within 2-4 weeks ) Ra Gonzalez MD [Family Provider] - 07/11/19 (see Dr Gonzalez as scheduled ) Yamila Renee [Nurse Practitioner] - 07/16/19 8:15 am (please see [facility] at the [facility] ) Diet: Carb Consistent or DM2 and Heart Healthy Fluids: 1800ml (7 cups) Addtl Attending Provider Instructions: You were treated for a host of problems including your pacemaker device alarming, a.fib, cough, etc. All issues improved while hospitalized. There is concern for a liver problem as well as possible pulmonary fibrosis. You were seen by the truck headlight assembler, cutter barrel drum, and gypsum roofer. You will need follow-up with each specialist. Recommendations - 1. please take lasix (furosemide) 20mg every morning starting TOMORROW. Continue the daily lasix until you see Dr Gonzalez from cardiology. 2. START cardizem CD for your a.fib and take daily. First dose TOMORROW morning. Side effects - constipation, swelling in your feet. 3. prednisone taper - take as follows - take 30mg daily x 2 days, then 20mg daily x 2 days, then resume 10mg once daily thereafter. This is for your breathing. 4. nystatin solution - 5cc swish and spit 4 times a day for 7 days then stop. 5. please HOLD your lovastatin until cleared by the gypsum roofer to resume it. 6. avoid tylenol until cleared by your doctors to use it again. 7. avoid alcohol. 8. please check your weight every morning after using the toilet. Call your doctors if you gain more than 2-3 pounds in 1-2 days or 5 pounds over 3 days. 9. follow-up -- see separate section 10. congestive heart failure instructions -- Call 911 and go to the Emergency Room if: * You have tightness or pain in your chest that does not go away with rest or Nitroglycerin * You are very short of breath even with rest Call your doctor if any of the following symptoms or problems start or get worse: * Shortness of breath or difficulty breathing * Wake up at night short of breath * Chest pain * Cough * Swelling of your hands, fee, or legs * More fatigued or tired with your normal activity * Palpitations - sudden fast heart beats WEIGHT * Weigh yourself every morning after using the bathroom. * Use the same scale. * Wear the same amount of clothing. * Write your weight down on your chart. * Call your doctor if you gain more than 2-3 pounds in 1-2 days. MEDICATIONS * Use this discharge instruction sheet for instructions. * Take your medications at the time your doctor ordered. * Do not skip a dose of your medicines. * If you miss a dose of medicine, take as soon as possible, but DO NOT DOUBLE A DOSE. * Read your medicine information when you get home. * Know all of the side effects of your medicine. * Call your doctor's office if you have any side effects. * Be sure all of your doctors know what medicine and herbs you take (including cold, flu, and herbal medicine). * Pain Medicine: If you do not get relief from your pain, please call your doctor for help. Take the following with you to your follow-up doctor appointments: * Weight Chart * Medication List * List of questions Do not drink excessive alcohol, beer or wine. Return to [facility] if -- * you have fever over 100.5 degrees * you have worsening shortness of breath or chest pain * you have severe diarrhea * you have excessive fluid weight gain * any other concerns Pending Studies at Discharge: Yes Studies:: lab tests for work-up of possible pulmonary fibrosis and cirrhosis Stand-Alone Forms: [facility] Medications and DC Order Prescriptions: New nystatin 100,000 unit/mL Suspension 5 ml PO QID 7 Days Qty: 150 RF: 0 diltiazem HCl 120 mg Capsule,Extended Release 24hr 120 mg PO QAM Qty: 30 RF: 5 Continued nitroglycerin 0.4 mg tablet, sublingual 0.4 mg SL Q5M PRN (Reason: chest pain) Qty: 25 RF: 3 potassium chloride 10 mEq tablet extended release 10 meq PO TID Qty: 270 RF: 3 triamcinolone acetonide 0.1 % cream 1 appln topical BID PRN (Reason: skin irritation) Qty: 80 RF: 11 warfarin 2.5 mg tablet 2.5 mg PO HS RF: 0 metoprolol succinate 25 mg tablet extended release 24 hr 12.5 mg PO HS RF: 0 albuterol sulfate [ProAir HFA] 90 mcg/actuation HFA aerosol inhaler 2 inh inhalation DAILY PRN (Reason: Shortness Of Breath Or Wheezing) RF: 0 prednisone 10 mg tablet 10 mg PO QAM RF: 0 ipratropium-albuterol 0.5 mg-3 mg(2.5 mg base)/3 mL solution for nebulization 3 ml INH QID PRN (Reason: Shortness Of Breath Or Wheezing) RF: 0 cetirizine 10 mg tablet 10 mg PO QAM RF: 0 aspirin 81 mg tablet,delayed release (DR/EC) 81 mg PO QAM RF: 0 magnesium oxide 400 mg (241.3 mg magnesium) tablet 400 mg PO QAM RF: 0 ferrous sulfate 325 mg (65 mg iron) tablet 325 mg PO HS RF: 0 metoprolol succinate 25 mg tablet extended release 24 hr 25 mg PO QAM RF: 0 azelastine 137 mcg (0.1 %) aerosol,spray 2 sprays intranasal DAILY PRN (Reason: Congestion) RF: 0 coenzyme Q10 100 mg capsule 100 mg PO QAM RF: 0 fluticasone furoate 100 mcg/actuation blister with device 1 puffs inhalation DAILY PRN (Reason: Shortness Of Breath Or Wheezing) RF: 0 Changed pyridostigmine bromide 60 mg tablet 60 mg PO TID Qty: 90 RF: 0 furosemide 20 mg tablet 20 mg PO DAILY Qty: 30 RF: 0 Discontinued lovastatin 40 mg tablet 40 mg PO HS RF: 0 No Action levothyroxine 50 mcg tablet 75 mcg PO QAM Qty: 135 RF: 3 metformin 500 mg tablet 500 mg PO TID Qty: 270 RF: 3 Discharge Orders: Discharge Order (Routine); Ordered 07/04/19 Ordered By: Marquis Britton Admission Data Admit Date/Time: 06/29/19 16:02 Attending Provider: Marquis Britton Admit Provider: Elyssa Nunes Primary Care Provider: Thad Patrick Other Providers: Demetrio Howell ; Ran Gilbert ; Surinder Melo Other Interventions: Discharge Summary Assessment (RN) Last Done: 07/04/19 12:55 DC Date/Time DO NOT enter until pt leaves facility: 07/04/19 14:41
[2019-07-05 09:00] LABS: Quantiferon Mitogen-NIL >10.00 IU/ML; Quantiferon NIL 0.03 IU/ML; Quantiferon TB Gold Plus NEGATIVE (NEGATIVE)
[2019-07-05] MEDS ORDERED: VANCOMYCIN TROUGH ONE (17:30)
[2019-07-07 02:18] LABS: Angiotensin Converting Enzyme 13 U/L (9-67); Anti Nuclear Antibody Screen NEGATIVE (NEGATIVE); Anti-Centromere Ab <1.0 NEG AI (<1.0 NEG); Anti-SS-A <1.0 NEG AI (<1.0 NEG); Anti-SS-B <1.0 NEG AI (<1.0 NEG); Complement C3 91 MG/DL (82-185); DNA ds Crithidia NEGATIVE (NEGATIVE); RNP Antibody <1.0 NEG AI (<1.0 NEG); Rheumatoid Factor < 14 IU/ML (<14); Scleroderma Anti Scl-70 Ab <1.0 NEG AI (<1.0 NEG); Sm Antibody <1.0 NEG AI (<1.0 NEG)
[2019-07-09 15:22] LABS: Albumin 3.7 G/DL (3.8-4.8); Alpha 1 Antitrypsin 138 MG/DL (83-199); Alpha 1 Globulin 0.3 G/DL (0.2-0.3); Alpha 2 Globulin 0.7 G/DL (0.5-0.9); Anti Nuclear Antibody Screen NEGATIVE (NEGATIVE); Beta-1-Globulin 0.4 G/DL (0.4-0.6); Beta-2-Globulin 0.2 G/DL (0.2-0.5); Ceruloplasmin 28 MG/DL (18-36); Gamma Globulin 1.1 G/DL (0.8-1.7); IgA Serum 126 mg/dL (20-320); Monoclonal Protein Band 1 0.7 G/DL (NOT DETECTED); Monoclonal Protein Band 2 DNR G/DL (NOT DETECTED); Monoclonal Protein Band 3 DNR G/DL (NOT DETECTED); Tis Trans IgA 1 U/mL (<4); Total Protein 6.3 G/DL (6.2-8.3)
== END 2019-07-04 14:41 | disposition home health service (06) | DRG 308 ==
LOC: ED 11:31 → SUATTDRO 16:02 → 2E 16:02

== ENCOUNTER 2019-11-25 07:39 | Inpatient (IN) ==
[2019-11-25 11:45] LABS: Basophils # (auto) 0.01 K/uL (0-0.2); Basophils % (auto) 0.1 %; Eosinophils # (auto) 0.15 K/uL (0-0.5); Eosinophils % (auto) 1.8 %; Hematocrit (blood only) 38.8 % (42-52); Hemoglobin 12.1 g/dL (14.0-18.0); Immature Granulocytes # (auto) 0.08 K/uL (0.00-0.02); Lymphocytes # (auto) 1.87 K/uL (1.2-3.4); Lymphocytes % (auto) 22.3 %; Mean Corpuscular Hemoglobin 25.6 pg (25-34); Mean Platelet Volume 8.4 fL (7.4-10.4); Monocytes # (auto) 0.92 K/uL (0.11-0.59); Neutrophils # (auto) 5.34 K/uL (1.4-6.5); Neutrophils % (auto) 63.8 %; Platelet Count 131 K/uL (130-400); RDW Coefficient of Variation 15.8 % (11.5-14.5); RDW Standard Deviation 47.6 fL (36.4-46.3); Red Blood Count 4.73 M/uL (4.7-6.1); White Blood Count 8.37 K/uL (4.8-10.8)
[2019-11-25 11:46] LABS: Mean Corpuscular Hgb Conc 31.2 g/dL (32-36)
[2019-11-25 11:53] LABS: INR 2.2 (0.9-1.1); Prothrombin Time 21.7 Seconds (9.0-12.0)
[2019-11-25 12:04] LABS: Albumin Level 2.9 gm/dl (3.4-5.0); BUN Creatinine Ratio 29.9 (10-20); Calcium 8.7 mg/dl (8.5-10.1); Creatinine Clr Calc Pharmacy 60.6 ml/min; Est GFR (African American) 80.6; Est GFR (Non-African American) 69.6; Magnesium 1.6 mg/dl (1.8-2.4); Potassium 4.1 mmol/L (3.5-5.1)
[2019-11-25 12:07] LABS: Albumin Globulin Ratio 0.9 (0.9-2); Globulin 3.1 gm/dl (2.5-4.0)
[2019-11-25] MEDS ORDERED: PHARMACY GLYCEMIC MGMT CONSULT SCH (12:30)
[2019-11-25] MEDS ORDERED: GLUCOSE 40% GEL 15 GM TUBE PO PRN (12:45)
[2019-11-25] MEDS ORDERED: GLUCAGON FOR INJ 1 MG VIAL IM PRN (12:45)
[2019-11-25] MEDS ORDERED: GLUCOSE 10 TABS/TUBE PO PRN (12:45)
[2019-11-25] MEDS ORDERED: DEXTROSE 50% 50 ML SYRINGE IV PRN (12:45)
[2019-11-25] MEDS ORDERED: CARBOHYDRATES FOR HYPOGLYCEMIA PO PRN (12:45)
--- NOTE | 2019-11-25 12:46 | Pharmacy Report ---
Pharmacy Glycemic Short Note 2 - Date of Service November 25, 2019 - Glycemic Short BSG Results (Last 24 hours): 11/25/19 11:30 Glucose 135 H OUTPATIENT ANTIDIABETIC REGIMEN: * Metformin 500mg PO TID * A1c = 7.8% 11/04/19 ASSESSMENT: * Type 2 diabetic admitted for dofetilide initiation / monitoring * Patient will be NPO after midnight * Will initiate basal / bolus SQ orders based upon weight and mild-moderate st ress level PLAN FOR INPATIENT GLYCEMIC CONTROL: * Hold outpatient oral diabetes medications (metformin) * Basal insulin * Lantus SQ BID * 0 units if BSG less than 140 * 7 units if BSG greater than 140 * Bolus insulin * NovoLog per scale ACHS or Q6hrs while NPO * Goal Range: Low 110 mg/dL - High 140 mg/dL * Correction Factor: 30 mg/dL/unit * Nutritional / Prandial insulin per carb ratio of 1 unit per 10 grams CHO consumed PLAN FOR DISCHARGE: * to be determined.
--- NOTE | 2019-11-25 12:55 | History & Physical Report ---
Date of Service November 25, 2019 Assessment & Plan (1) Atrial fibrillation: The patient has a history of chronic biventricular pacing. A rhythm strip was obtained this morning personally on 11/25/2019 at 11:33 AM which included 4 beats demonstrating his algaaciq QRS duration along with a heart rate of 75 bpm. The measured QT intervals 380 ms, and the corrected QT interval is 420 ms. Utilizing the patient's age of [age] years old, his weight is 74 kg, and his creatinine of 1.02 mg/dL, his calculated GFR per the Cockcroft-Gault equation was 61.46 mL/min. Therefore per the product insert, the appropriate initiation dose for dofetilide for him would be 500 mcg every 12 hours. Because he is receiving his first dose at just after 12 noon today, I am going to start him at a lower first dose of 250 mcg, and as tolerated we will plan to administer the 500 mcg dose this evening at 9 PM. EKG tracings are planned for 2 hours after each dose, although his biventricular paced rhythm will likely limit the utility of this. The patient's INR today is within the therapeutic range of 2.2. His most recent INR previous to this had been on 10/21/2019 and was 3.7. He has been on chronic anticoagulation due to his underlying atrial fibrillation. We will plan on proceeding with direct-current cardioversion tomorrow and he has been made n.p.o. after midnight. His prior to hospital dosing of metformin has been held, and I have consulted the pharmacy team for help with glycemic control while he is an inpatient. The plan was discussed with the patient's nurse. Although he is in ICU room 102 right now, that is because he is a telemetry overflow, and anticipate you move up to the second floor to the PCU soon pending availability of a telemetry bed. History of Present Illness Primary Care Provider: Thad Patrick MD Kaiden Mendez is a 79 year old male who presents today for planned direct admission for initiation of the antiarrhythmic medication dofetilide for treatment of recurrent symptomatic persistent atrial fibrillation and atrial flutter. The patient's primary pulping machine operator is Dr. Gonzalez of our practice he also follows with Dr. Tiarra Levine of [facility] electrophysiology He has a complex cardiac history that includes coronary heart disease with coronary artery bypass grafting in 2013 along with receiving a bioprosthetic aortic valve replacement at that time. He also underwent intraoperative radiofrequency epicardial MAZE at the time of the surgery . A patent foramen ovale was surgically closed at the time of the cardiac surgery in 2013, per review of the operative report, the left atrial appendage was not ligated. Patient also has history of implantation of a Medtronic biventricular dual- chamber pacemaker/ AICD performed in 2013. The most recent interrogation having been performed on 11/18/2019 revealed that he was ventricular paced 47.5% of the time. He had been ill with pneumonia in May, at which time he reverted to atrial fibrillation and has remained in atrial fibrillation in the interim. He had other recurrences of atrial fibrillation 4-1/2 years ago as well as in Feb, 2019 after both of which sinus rhythm was restored after successful direct- current cardioversion. The patient has noted ongoing tiredness and lack of endurance. His ventricular rates have been well controlled but his percentage of therapeutic biventricular pacing has decreased. His most recent left ventricular ejection fraction is measured by echocardiogram has been 50%, and therefore it is been felt that his lack of endurance is not due to progression of his cardiomyopathy but due to the underlying atrial fibrillation. He had previously been on amiodarone but this was previously discontinued due to concerns of allergy, and he also has a documented allergy to iodinated radiographic contrast and heparin Past Cardiac History: 1.Coronary artery bypass grafting 04/23/2014 receiving surgical revascularization of multivessel coronary disease, a ALANIZ graft to LAD and an associated valve replacement receiving a 23 mm Mcdaniel bioprosthesis in aortic valve position and 27 mm bioprosthesis in the mitral valve position with closure of patent foramen ovale, aortic endarterectomy, and intraoperative radiofrequency ablation. 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 Medtronic 5 D TT BB 1 D 4 3.Paroxysmal atrial fibrillationStatus post synchronized electrical cardioversion November 16, 2018 for recurrence of atrial fibrillation with subsequent recurrence during recent hospitalization and acute illness . On therapeutic anticoagulation 4. Myasthenia gravis 5. Hospitalization June 22, 2019 for acute sepsis, culture negative, complicated by lapse into atrial fibrillation 6. Variable degree of pulmonary hypertension by echocardiographic measurements Allergies Allergy/AdvReac Type Severity Reaction Status Date / Time gabapentin Allergy Severe CONFUSION/D Verified 11/06/19 09:11 ISORIENTATI ON heparin Allergy Severe HIT Verified 11/06/19 09:11 Iodinated Contrast Media Allergy Severe HIVES Verified 11/06/19 09:11 prednisone Allergy Intermediate NAUSEA/VOMI Verified 11/06/19 09:11 TING shellfish derived Allergy Intermediate HIVES Verified 11/06/19 09:11 iodine Allergy Unknown TOLD BC OF Verified 11/06/19 09:11 IVP ALLERGY amiodarone Allergy Verified 11/06/19 09:11 latex Allergy Verified 11/06/19 09:11 levofloxacin Allergy Verified 11/06/19 09:11 Penicillins AdvReac Mild Possible Verified 11/06/19 09:11 to use this medication, see comments codeine AdvReac Unknown GI UPSET Verified 11/06/19 09:11 Home Medications Home Medications Medication Instructions Recorded Confirmed Type nitroglycerin 0.4 mg sublingual 0.4 mg SL Q5M PRN #25 tab 06/17/19 11/25/19 Rx tablet warfarin 2.5 mg tablet 2.5 mg PO HS tab 06/23/19 11/25/19 History aspirin 81 mg PO QAM 06/29/19 11/25/19 History coenzyme Q10 100 mg PO QAM 06/29/19 11/25/19 History prednisone 10 mg PO QAM 06/29/19 11/25/19 History pyridostigmine bromide 60 mg PO TID #90 tab 07/04/19 11/25/19 Rx levothyroxine 50 mcg tablet 75 mcg PO QAM #135 tab 07/08/19 11/25/19 Rx cetirizine 10 mg tablet 10 mg PO BID tab 07/12/19 11/25/19 History metoprolol succinate 25 mg 25 mg .ROUTE BID tab 07/12/19 11/25/19 History tablet,extended release 24 hr ipratropium bromide 42 mcg (0.06 2 spray INTNAS TID #15 ml 08/16/19 11/25/19 Rx %) nasal spray mycophenolate mofetil 500 mg tablet 500 mg PO BID 08/19/19 11/25/19 History spironolactone 25 mg tablet 12.5 mg PO DAILY tab 09/03/19 11/25/19 History furosemide 20 mg tablet 20 mg PO .COMPLEX tab 11/06/19 11/25/19 History ipratropium-albuterol 3 ml INHALATION QID 11/25/19 11/25/19 History metformin 500 mg PO TID 11/25/19 11/25/19 History potassium chloride 10 meq PO TID 11/25/19 11/25/19 History Past Med/Surg History Medical History Afib Allergic rhinitis (Acute) Asthma, mild intermittent (Acute) Atrial fibrillation, persistent (Acute) CAD (coronary artery disease) Candidiasis of mouth and esophagus Chronic rhinitis (Acute) Congestive heart failure (CHF) (Acute) 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) Elevated PSA (Acute) GERD (gastroesophageal reflux disease) (Acute) History of basal cell carcinoma (Inactive) History of SCC (squamous cell carcinoma) of skin (Inactive) Hyperlipidemia (Acute) Hypertension Hypomagnesemia (Acute) Hypothyroidism (Acute) Mitral valve disorder (Acute) Myasthenia gravis (Acute) Pulmonary fibrosis determined by high resolution computed tomography Squamous cell skin cancer (Inactive) Surgical History History of aortic valve replacement History of appendectomy History of cholecystectomy History of excision of lesion face - malignant - 2.1-3cm S/P MVR (mitral valve repair) Family History Father Brain tumor Mother Lung disease Sister Breast cancer Myocardial infarction Other Lung cancer Social History Preferred Language: Spanish Communication Ability: Effective Apple Thinner Required: No Beliefs That Will Affect Care: None marital status: Current Living Situation: Spouse current occupational status: retired Feels Safe at Home: Yes Smoking Status: Former smoker Age Started Using Tobacco: 17 ; Age Quit Using Tobacco: 32 ; Cigarettes Per Day: 1-2 ; Second Hand Exposure: No ; Hx Alcohol Use: No Hx Substance Use: No Childhood Exposure to Second-Hand Smoke: Yes caffeine: Yes (coffee, tea ) Dental Care, Regularly: Yes Physical Activity Frequency: 3-4 Times per Week Seatbelt Use: always Sunscreen Use: Yes Review of Systems Review of Systems: All systems reviewed & are unremarkable except as noted in HPI & below Physical Exam Physical Exam: Temp Pulse Resp BP Pulse Ox 36.6 C 72 17 125/65 100 11/25/19 10:15 11/25/19 10:15 11/25/19 10:15 11/25/19 10:15 11/25/19 10:15 Constitutional: WD/WN, vitals as above Respiratory: normal respiratory effort, lungs clear to auscultation Cardiovascular: RRR, no murmur, no edema Gastrointestinal (Abdomen): normal bowel sounds, soft, nontender, no hepatosplenomegaly Neurologic: PERRL, EOMI, accommodation nl, no face palsy, no dysarthria Results & Data Vital Signs (Past 12 Hours) Vital Signs Temp Pulse Pulse Resp BP BP Pulse Ox 11/25/19 10:15 36.6 C 72 17 126/73 125/65 100 11/25/19 10:07 66 20 Laboratory Results Cardiac Enzymes 11/25/19 Range/Units 11:30 AST 16 (15-37) U/L Coagulation 11/25/19 Range/Units 11:30 PT 21.7 H (9.0-12.0) Seconds CBC 11/25/19 Range/Units 11:30 WBC 8.37 (4.8-10.8) K/uL RBC 4.73 (4.7-6.1) M/uL Hgb 12.1 L (14.0-18.0) g/dL Hct 38.8 L (42-52) % Plt Count 131 (130-400) K/uL Neut # (Auto) 5.34 (1.4-6.5) K/uL Lymph # (Auto) 1.87 (1.2-3.4) K/uL [place] # (Auto) 0.92 H (0.11-0.59) K/uL Eos # (Auto) 0.15 (0-0.5) K/uL Baso # (Auto) 0.01 (0-0.2) K/uL Comprehensive Metabolic Panel 11/25/19 Range/Units 11:30 Sodium 141 (136-145) mmol/L Potassium 4.1 (3.5-5.1) mmol/L Chloride 107 (98-107) mmol/L Carbon Dioxide 30 (21-32) mmol/L BUN 30 H (7-18) mg/dl Creatinine 1.02 (0.6-1.4) mg/dl Glucose 135 H (70-99) mg/dl Calcium 8.7 (8.5-10.1) mg/dl AST 16 (15-37) U/L ALT 32 (12-78) U/L Alkaline Phosphatase 52 (45-117) U/L Total Protein 6.0 L (6.4-8.2) gm/dl Albumin 2.9 L (3.4-5.0) gm/dl Intake and Output 11/24/19 11/25/19 11/25/19 22:59 06:59 14:59 Other: Weight 74.1 kg Patient Weight 11/26/19 06:59 Weight 74.1 kg Diagnostic Findings EKG performed 11/25/2019 at 11:40 AM revealed ventricular paced rhythm with underlying atrial fibrillation at 70 bpm. INR : 2.2 Code Status & VTE Plan VTE Prophylaxis Plan VTE Prophylaxis will be ordered: Yes (1) Atrial fibrillation Atrial fibrillation type: permanent Qualified Code(s): I48.2 - Chronic atrial fibrillation
--- NOTE | 2019-11-25 12:56 | Electrocardiogram Report ---
Test Reason : Blood Pressure : / mmHG Vent. Rate : 070 BPM Atrial Rate : 288 BPM P-R Int : 000 ms QRS Dur : 180 ms QT Int : 492 ms P-R-T Axes : 000 -85 081 degrees QTc Int : 531 ms Ventricular-paced rhythm Abnormal ECG When compared with ECG of 01-JUL-2019 08:17, Vent. rate has decreased BY 9 BPM Confirmed by Richard Thompson ([id number]) on 11/25/2019 12:56:03 PM Referred By: Kaiden Houser Confirmed By:Richard Thompson
[2019-11-25] MEDS ORDERED: DOFETILIDE 125 MCG CAPSULE PO ONE (13:00)
[2019-11-25] MEDS ORDERED: MAGNESIUM SULFATE / D5W 1 GM/100 ML BAG IV ONE (13:15)
--- NOTE | 2019-11-25 13:28 | Anesthesiology Consultation ---
Date of Service November 25, 2019 Assessment & Plan (1) Encounter for pre-operative examination: Chart Review Chart Review: Acceptable Risk for Surgery History Surgery Operation Date: 11/26/19 07:45 Proposed Procedures p Cardioversion Yardage Caller w/Anesthesia - Kaiden Houser DO Height/Weight Height: 5 ft 10 in Weight: 74.1 kg Allergies Allergy/AdvReac Type Severity Reaction Status Date / Time gabapentin Allergy Severe CONFUSION/D Verified 11/06/19 09:11 ISORIENTATI ON heparin Allergy Severe HIT Verified 11/06/19 09:11 Iodinated Contrast Media Allergy Severe HIVES Verified 11/06/19 09:11 prednisone Allergy Intermediate NAUSEA/VOMI Verified 11/06/19 09:11 TING shellfish derived Allergy Intermediate HIVES Verified 11/06/19 09:11 iodine Allergy Unknown TOLD BC OF Verified 11/06/19 09:11 IVP ALLERGY amiodarone Allergy Verified 11/06/19 09:11 latex Allergy Verified 11/06/19 09:11 levofloxacin Allergy Verified 11/06/19 09:11 Penicillins AdvReac Mild Possible Verified 11/06/19 09:11 to use this medication, see comments codeine AdvReac Unknown GI UPSET Verified 11/06/19 09:11 Medications Home Medications Medication Instructions Recorded Confirmed Last Taken nitroglycerin 0.4 mg sublingual 0.4 mg SL Q5M PRN #25 tab 06/17/19 11/25/19 Unknown tablet warfarin 2.5 mg tablet 2.5 mg PO HS tab 06/23/19 11/25/19 11/24/19 21:00 aspirin 81 mg PO QAM 06/29/19 11/25/19 11/25/19 09:00 coenzyme Q10 100 mg PO QAM 06/29/19 11/25/19 11/25/19 09:00 prednisone 10 mg PO QAM 06/29/19 11/25/19 11/24/19 09:00 pyridostigmine bromide 60 mg PO TID #90 tab 07/04/19 11/25/19 11/25/19 09:00 levothyroxine 50 mcg tablet 75 mcg PO QAM #135 tab 07/08/19 11/25/19 11/25/19 09:00 cetirizine 10 mg tablet 10 mg PO BID tab 07/12/19 11/25/19 11/25/19 09:00 metoprolol succinate 25 mg 25 mg .ROUTE BID tab 07/12/19 11/25/19 11/25/19 09:00 tablet,extended release 24 hr ipratropium bromide 42 mcg (0.06 2 spray INTNAS TID #15 ml 08/16/19 11/25/19 11/25/19 09:00 %) nasal spray mycophenolate mofetil 500 mg tablet 500 mg PO BID 08/19/19 11/25/19 11/24/19 21:00 spironolactone 25 mg tablet 12.5 mg PO DAILY tab 09/03/19 11/25/19 11/25/19 09:00 furosemide 20 mg tablet 20 mg PO .COMPLEX tab 11/06/19 11/25/19 11/24/19 12:00 ipratropium-albuterol 3 ml INHALATION QID 11/25/19 11/25/19 Unknown metformin 500 mg PO TID 11/25/19 11/25/19 11/24/19 21:00 potassium chloride 10 meq PO TID 11/25/19 11/25/19 11/25/19 09:00 Past Medical History Medical History Afib Allergic rhinitis (Acute) Asthma, mild intermittent (Acute) Atrial fibrillation, persistent (Acute) CAD (coronary artery disease) Candidiasis of mouth and esophagus Chronic rhinitis (Acute) Congestive heart failure (CHF) (Acute) 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) Elevated PSA (Acute) GERD (gastroesophageal reflux disease) (Acute) History of basal cell carcinoma (Inactive) History of SCC (squamous cell carcinoma) of skin (Inactive) Hyperlipidemia (Acute) Hypertension Hypomagnesemia (Acute) Hypothyroidism (Acute) Mitral valve disorder (Acute) Myasthenia gravis (Acute) Pulmonary fibrosis determined by high resolution computed tomography Squamous cell skin cancer (Inactive) Past Family History Family History Father Brain tumor Mother Lung disease Sister Breast cancer Myocardial infarction Other Lung cancer Past Surgical History Surgical History History of aortic valve replacement History of appendectomy History of cholecystectomy History of excision of lesion face - malignant - 2.1-3cm S/P MVR (mitral valve repair) Social History Smoking Status: Former smoker Smoking cigarettes per day: 1-2 Smoking End Date: 1981 Hx Alcohol Use: No Hx Substance Use: No Physical Exam Vital Signs Last Vital Signs Temp 36.6 C 11/25/19 10:15 Pulse 72 11/25/19 10:15 Resp 17 11/25/19 10:15 BP 125/65 11/25/19 10:15 Pulse Ox 100 11/25/19 10:15 Testing Laboratory Results 11/25/19 11:30 11/25/19 11:30 PT 21.7 Seconds (9.0-12.0) H 11/25/19 11:30 INR 2.2 (0.9-1.1) H 11/25/19 11:30 Echocardiogram Date: 06/30/19 EF: 45-50% biventricular pacer defibrillator normally functioning avr and mvr evidence pulmonary hypertension
[2019-11-25] MEDS: FUROSEMIDE 20 MG TAB PO SCH (14:00)
[2019-11-25] MEDS: POTASSIUM CHLORIDE 10 MEQ TABCR PO SCH ×2 (14:00→20:59)
[2019-11-25] MEDS: IPRATROPIUM BROMIDE NASAL SPRAY 0.06% 15ML SCH ×2 (14:01→21:00)
[2019-11-25] MEDS: ALBUT/IPRATROP 3MG/0.5MG NEB 3 ML VIAL INH SCH ×2 (15:17→19:24)
[2019-11-25] MEDS ORDERED: PYRIDOSTIGMINE BROMIDE 60 MG TAB PO ONE (16:49)
[2019-11-25] MEDS: INSULIN ASPART 100 UNITS/ML 3 ML PEN SC SCH ×2 (17:13→21:26)
[2019-11-25] MEDS ORDERED: NITROGLYCERIN SL 0.4 MG/TAB TAB SL PRN (17:16)
[2019-11-25] MEDS: CETIRIZINE HCL 10 MG TABLET PO SCH (20:58)
[2019-11-25] MEDS: METOPROLOL SUCC 25MG EXT REL TAB PO SCH (20:59)
[2019-11-25] MEDS: DOFETILIDE 125 MCG CAPSULE PO SCH (20:59)
[2019-11-25] MEDS: MYCOPHENOLATE MOFETIL 250 MG CAP PO SCH (21:00)
[2019-11-25] MEDS ORDERED: WARFARIN SOD 2.5 MG TAB PO SCH (21:00)
[2019-11-25] MEDS: PYRIDOSTIGMINE BROMIDE 60 MG TAB PO SCH (21:00)
[2019-11-25] MEDS: INSULIN GLARGINE SOLOSTAR 100 UNITS/ML 3 ML PEN SC SCH (21:26)
[2019-11-25] MEDS: ACETAMINOPHEN 325 MG TAB PO PRN (23:31)
[2019-11-26] MEDS: LEVOTHYROXINE SODIUM 75 MCG TABLET PO SCH (05:44)
[2019-11-26 06:37] LABS: Prothrombin Time 19.1 Seconds (9.0-12.0)
[2019-11-26] MEDS: ALBUT/IPRATROP 3MG/0.5MG NEB 3 ML VIAL INH SCH (06:54)
[2019-11-26 07:00] LABS: BUN Creatinine Ratio 27.6 (10-20); Calcium 8.5 mg/dl (8.5-10.1); Creatinine Clr Calc Pharmacy 53.3 ml/min; Est GFR (Non-African American) 59.6; Magnesium 1.7 mg/dl (1.8-2.4)
--- NOTE | 2019-11-26 07:17 | Cardiology Progress Note ---
Date of Service November 26, 2019 Assessment & Plan (1) Atrial fibrillation, persistent: INR is 2 today, 2.2 yesterday. Chemistry panel reveals stable findings, with stable electrolytes and stable renal function. No ventricular arrhythmias noted since starting dofetilide. Plan to proceed with DCCV this am. (2) Myasthenia gravis: Continue home doses of Cellcept, prednisione,Mestinon. Subjective Patient felt well overnight. He has received first two doses of dofetilide. EKG performed post dose last evening and telemetry from overnight reviewed. He remains in a rate controlled atrial fibrillation with frequent ventricular pacing, occasional [place] beats and fusion beats. This makes calculating his intrinsic QTc challenging , however, per my review I believe that even taking fusion beats in to account the QTc is 499 ms as most which is acceptable. Review of Systems Review of Systems: All systems reviewed & are unremarkable except as noted in HPI & below Physical Exam Physical Exam: Temp Pulse Resp BP Pulse Ox 36.3 C L 78 18 100/53 L 97 11/26/19 03:16 11/26/19 03:16 11/26/19 03:16 11/26/19 03:16 11/26/19 03:16 Constitutional: WD/WN, vitals as above Respiratory: normal respiratory effort, lungs clear to auscultation Cardiovascular: Rate/Rhythm: regular rhythm Heart Sounds: + murmur (I/ SM) Vessels: no JVD Extremities: no edema Gastrointestinal (Abdomen): normal bowel sounds, soft, nontender, no hepatosplenomegaly Skin: no rashes, warm and dry Neurologic: PERRL, EOMI, accommodation nl, no face palsy, no dysarthria Results & Data Vital Signs (Past 12 Hours) Vital Signs Temp Pulse Pulse Resp BP BP Pulse Ox 11/26/19 03:16 36.3 C L 78 18 100/53 L 97 11/26/19 00:00 77 11/25/19 23:57 36.9 C 78 18 122/71 95 11/25/19 19:46 36.6 C 71 18 111/56 L 96 Laboratory Results Cardiac Enzymes 11/25/19 Range/Units 11:30 AST 16 (15-37) U/L Coagulation 11/25/19 11/26/19 Range/Units 11:30 05:34 PT 21.7 H 19.1 H (9.0-12.0) Seconds CBC 11/25/19 Range/Units 11:30 WBC 8.37 (4.8-10.8) K/uL RBC 4.73 (4.7-6.1) M/uL Hgb 12.1 L (14.0-18.0) g/dL Hct 38.8 L (42-52) % Plt Count 131 (130-400) K/uL Neut # (Auto) 5.34 (1.4-6.5) K/uL Lymph # (Auto) 1.87 (1.2-3.4) K/uL [place] # (Auto) 0.92 H (0.11-0.59) K/uL Eos # (Auto) 0.15 (0-0.5) K/uL Baso # (Auto) 0.01 (0-0.2) K/uL Comprehensive Metabolic Panel 11/25/19 11/26/19 Range/Units 11:30 05:34 Sodium 141 140 (136-145) mmol/L Potassium 4.1 4.0 (3.5-5.1) mmol/L Chloride 107 107 (98-107) mmol/L Carbon Dioxide 30 28 (21-32) mmol/L BUN 30 H 32 H (7-18) mg/dl Creatinine 1.02 1.16 (0.6-1.4) mg/dl Glucose 135 H 104 H (70-99) mg/dl Calcium 8.7 8.5 (8.5-10.1) mg/dl AST 16 (15-37) U/L ALT 32 (12-78) U/L Alkaline Phosphatase 52 (45-117) U/L Total Protein 6.0 L (6.4-8.2) gm/dl Albumin 2.9 L (3.4-5.0) gm/dl Intake and Output 11/25/19 11/26/19 11/26/19 22:59 06:59 14:59 Intake Total 370 / 1260 550 / 1260 Output Total 1050 / 2200 1150 / 2200 Balance -680 / -940 -600 / -940 Intake: Oral 370 / 1160 550 / 1160 Output: Urine 1050 / 2200 1150 / 2200 Other: Weight 74.2 kg Diagnostic Findings EKG and telemetry as noted in subjective. Medications Administered Current Inpatient Medications Acetaminophen (Tylenol) 650 mg PO Q4H PRN PRN Reason: Pain or Fever Stop: 12/25/19 23:23 Last Admin: 11/25/19 23:31 Dose: 650 mg Documented by: Albuterol (Duoneb) 3 ml INH QIDR [facility] Stop: 12/25/19 14:59 Last Admin: 11/26/19 06:54 Dose: Not Given Documented by: Aspirin (Ecotrin Ectab) 81 mg PO QAM [facility] Stop: 12/26/19 08:59 Cetirizine HCl (Zyrtec) 10 mg PO BID [facility] Stop: 12/25/19 20:59 Last Admin: 11/25/19 20:58 Dose: 10 mg Documented by: Dextrose (Dextrose 50%) 25 - 50 ml IV UD PRN; Protocol PRN Reason: Hypoglycemia Protocol Stop: 12/25/19 12:44 Dofetilide (Tikosyn) 500 mcg PO BID [facility] Stop: 12/25/19 20:59 Last Admin: 11/25/19 20:59 Dose: 500 mcg Documented by: Furosemide (Lasix) 20 mg PO MoWeFr@0900 [facility] Stop: 12/25/19 13:29 Last Admin: 11/25/19 14:00 Dose: 20 mg Documented by: Furosemide (Lasix) 10 mg PO SuTuThSa@0900 [facility] Stop: 12/26/19 08:59 Glucagon (Glucagen) 1 mg IM UD PRN; Protocol PRN Reason: Hypoglycemia Protocol Stop: 12/25/19 12:44 Glucose (Glucose 40%) 15 - 30 gm PO UD PRN; Protocol PRN Reason: Hypoglycemia Protocol Stop: 12/25/19 12:44 Glucose (Dex4 Glucose) 4 - 8 tabs PO UD PRN; Protocol PRN Reason: Hypoglycemia Protocol Stop: 12/25/19 12:44 Insulin Aspart (Novolog Flexpen) 0 units SC ACHS [facility]; Protocol Stop: 12/25/19 16:29 Last Admin: 11/25/19 21:26 Dose: 3 units Documented by: Insulin Glargine (Lantus Solostar Pen) 0 units SC BID [facility]; Protocol Stop: 12/25/19 20:59 Last Admin: 11/25/19 21:26 Dose: 7 units Documented by: Ipratropium [place] (Atrovent Nasal [place] 0.06%) 2 sprays NA TID [facility] Stop: 12/25/19 13:59 Last Admin: 11/25/19 21:00 Dose: Not Given Documented by: Levothyroxine Sodium (Synthroid) 75 mcg PO DAILYBB [facility] Stop: 12/26/19 06:29 Last Admin: 11/26/19 05:44 Dose: 75 mcg Documented by: Metoprolol Succinate (Toprol Xl) 25 mg PO BID [facility] Stop: 12/25/19 20:59 Last Admin: 11/25/19 20:59 Dose: 25 mg Documented by: Miscellaneous (Carbohydrates For Hypoglycemia) 15 - 30 gm PO UD PRN PRN Reason: Hypoglycemia Treatment Stop: 12/25/19 12:44 Miscellaneous Information (Consult Glycemic Management Pharmacy) 1 ea N/A UD [facility] Stop: 12/25/19 12:29 Mycophenolate Mofetil (Cellcept) 500 mg PO BID [facility] Stop: 12/25/19 20:59 Last Admin: 11/25/19 21:00 Dose: 500 mg Documented by: Nitroglycerin (Nitrostat) 0.4 mg SL Q5M PRN PRN Reason: chest pain Stop: 12/25/19 17:15 Potassium Chloride (Klor-Con M10) 10 meq PO TID [facility] Stop: 12/25/19 13:59 Last Admin: 11/25/19 20:59 Dose: 10 meq Documented by: Prednisone (Prednisone) 10 mg PO QAM [facility] Stop: 12/26/19 08:59 Pyridostigmine [place] (Mestinon) 60 mg PO TID [facility] Stop: 12/25/19 20:59 Last Admin: 11/25/19 21:00 Dose: 60 mg Documented by: Spironolactone (Aldactone) 12.5 mg PO DAILY [facility] Stop: 12/26/19 08:59 Warfarin Sodium (Coumadin) 2.5 mg PO HS [facility] Stop: 12/25/19 20:59 Last Admin: 11/25/19 20:58 Dose: 2.5 mg Documented by:
[2019-11-26] MEDS ORDERED: LIDOCAINE HCL 2% 2 ML VIAL/AMP(20MG/ML) INFIL ONE (07:22)
[2019-11-26] MEDS ORDERED: PROPOFOL IV EMULSION 10 MG/ML 20 ML VIAL IV ONE (07:22)
[2019-11-26] MEDS ORDERED: ALBUT/IPRATROP 3MG/0.5MG NEB 3 ML VIAL INH PRN (07:51)
--- NOTE | 2019-11-26 07:54 | Operative Report ---
Post Operative Report Pre & Post Diagnosis Preprocedure diagnosis: Symptomatic atrial fibrillation Post procedure diagnosis: Successful conversion to sinus rhythm Operation Date: 11/26/19 07:45 I identified the patient and participated in the time-out.: Yes Procedure Operation Date: 11/26/19 07:45 Actual Procedures p Cardioversion - Kaiden Houser DO After informed consent was obtained and a time out was performed the patient was sedated with the assistance of the anesthesia service receiving 50 mg of IV propofol and 5 mg of IV lidocaine. Patient underwent synchronized direct current cardioversion receiving one dose of 200 J with successful conversion to sinus rhythm with ventricular paced QRS complexes. Sinus rhythm confirmed using Nivela Device programer. Patient tolerated procedure well. Vitals remained stable. Surgeon Kaiden Houser DO Animal Nursery Worker none Estimated Blood Loss 0 Findings Consistent with Post-Op Diagnosis Specimens none Complications none Indications Symptomatic persistent atrial fibrillation. Description of Procedure as above. I attest to the content of the Intraoperative Record and any orders documented therein. Any exceptions are noted below.
--- NOTE | 2019-11-26 07:59 | Cardioversion ---
Date of Service November 26, 2019 Electrical Cardioversion Rpt Electrical Cardioversion Report Pre & Post Diagnosis Preprocedure diagnosis: Symptomatic atrial fibrillation Post procedure diagnosis: Successful conversion to sinus rhythm Operation Date: 11/26/19 07:45 Procedure Operation Date: 11/26/19 07:45 Actual Procedures p Cardioversion - Kaiden Houser DO After informed consent was obtained and a time out was performed the patient was sedated with the assistance of the anesthesia service receiving 50 mg of IV propofol and 5 mg of IV lidocaine. Patient underwent synchronized direct current cardioversion receiving one dose of 200 J with successful conversion to sinus rhythm with ventricular paced QRS complexes. Sinus rhythm confirmed using Musicraiser Device programer. Patient tolerated procedure well. Vitals remained stable. Surgeon Kaiden Houser DO Technical Sales Engineer none Estimated Blood Loss 0 Findings Consistent with Post-Op Diagnosis Specimens none Complications none Indications Symptomatic persistent atrial fibrillation. Description of Procedure as above. I attest to the content of the Intraoperative Record and any orders documented therein. Any exceptions are noted below. Plan: Patient to remain in hospital for continued Dofetilide loading, Kimberlee for 500 mcg this am.
--- NOTE | 2019-11-26 08:03 | Anesthesiology Progress Note ---
Date of Service November 26, 2019 Anesthesia Post Procedure Vital Signs Vital Signs: Temp Pulse Pulse Resp BP BP BP 11/26/19 03:16 36.3 C L 78 18 100/53 L 11/26/19 00:00 77 11/25/19 23:57 36.9 C 78 18 122/71 11/25/19 19:46 36.6 C 71 18 111/56 L 11/25/19 17:18 36.8 C 92 H 27 H 99/50 L 11/25/19 15:17 70 18 11/25/19 15:00 70 14 110/63 11/25/19 14:49 70 15 110/63 11/25/19 14:00 74 24 11/25/19 12:00 70 24 11/25/19 10:15 36.6 C 72 17 126/73 125/65 11/25/19 10:07 66 20 Pulse Ox 11/26/19 03:16 97 11/26/19 00:00 11/25/19 23:57 95 11/25/19 19:46 96 11/25/19 17:18 99 11/25/19 15:17 97 11/25/19 15:00 98 11/25/19 14:49 11/25/19 14:00 11/25/19 12:00 11/25/19 10:15 100 11/25/19 10:07 Transfer of Care Handoff Completed per policy Notes Mental Status: alert / awake / arousable and participated in evaluation Nausea / Vomiting: adequately controlled Pain: adequately controlled Airway Patency, RR, SpO2: stable & adequate BP & HR: stable & adequate Hydration State: stable & adequate Anesthetic Complications: no major complications apparent and Pt Satisfied with anesthetic care
[2019-11-26] MEDS: IPRATROPIUM BROMIDE NASAL SPRAY 0.06% 15ML SCH ×3 (08:28→20:39)
[2019-11-26] MEDS: MYCOPHENOLATE MOFETIL 250 MG CAP PO SCH ×2 (08:29→20:37)
[2019-11-26] MEDS: ASPIRIN 81 MG ECTAB PO SCH (08:29)
[2019-11-26] MEDS: SPIRONOLACTONE 25 MG TAB PO SCH (08:29)
[2019-11-26] MEDS: CETIRIZINE HCL 10 MG TABLET PO SCH ×2 (08:29→21:23)
[2019-11-26] MEDS: POTASSIUM CHLORIDE 10 MEQ TABCR PO SCH ×3 (08:30→20:36)
[2019-11-26] MEDS: PYRIDOSTIGMINE BROMIDE 60 MG TAB PO SCH ×3 (08:30→20:35)
[2019-11-26] MEDS: METOPROLOL SUCC 25MG EXT REL TAB PO SCH ×2 (08:30→20:35)
[2019-11-26] MEDS: FUROSEMIDE 20 MG TAB PO SCH (08:30)
[2019-11-26] MEDS: predniSONE 10 MG TABLET PO SCH (08:30)
[2019-11-26] MEDS: INSULIN ASPART 100 UNITS/ML 3 ML PEN SC SCH ×4 (08:35→20:39)
[2019-11-26] MEDS: INSULIN GLARGINE SOLOSTAR 100 UNITS/ML 3 ML PEN SC SCH ×2 (08:38→20:34)
[2019-11-26] MEDS: DOFETILIDE 125 MCG CAPSULE PO SCH ×2 (08:59→20:39)
[2019-11-26] MEDS ORDERED: NON-FORMULARY MEDICATION (Coenzyme Q10 100 MG) PO SCH (09:00)
--- NOTE | 2019-11-26 12:15 | Electrocardiogram Report ---
Test Reason : Blood Pressure : / mmHG Vent. Rate : 085 BPM Atrial Rate : 220 BPM P-R Int : 000 ms QRS Dur : 118 ms QT Int : 420 ms P-R-T Axes : 000 024 185 degrees QTc Int : 499 ms Probable Atrial flutter with variable A-V block Biventricular pacemaker detected Abnormal ECG When compared with ECG of 25-NOV-2019 11:40, Vent. rate has increased BY 15 BPM Confirmed by Richard Thompson ([id number]) on 11/26/2019 12:14:59 PM Referred By: Kaiden Houser Confirmed By:Richard Thompson
--- NOTE | 2019-11-26 12:30 | Electrocardiogram Report ---
Test Reason : Blood Pressure : / mmHG Vent. Rate : 070 BPM Atrial Rate : 067 BPM P-R Int : 000 ms QRS Dur : 184 ms QT Int : 538 ms P-R-T Axes : -19 -84 070 degrees QTc Int : 581 ms Ventricular-paced rhythm Biventricular pacemaker detected Abnormal ECG When compared with ECG of 25-NOV-2019 23:11, (unconfirmed) Vent. rate has decreased BY 15 BPM Confirmed by Richard Thompson ([id number]) on 11/26/2019 12:30:37 PM Referred By: Kaiden Houser Confirmed By:Richard Thompson
--- NOTE | 2019-11-26 12:42 | Electrocardiogram Report ---
Test Reason : Blood Pressure : / mmHG Vent. Rate : 077 BPM Atrial Rate : 077 BPM P-R Int : 146 ms QRS Dur : 180 ms QT Int : 526 ms P-R-T Axes : 111 268 082 degrees QTc Int : 595 ms AV dual-paced rhythm Atrial sensing, ventricular pacing Abnormal ECG When compared with ECG of 26-NOV-2019 07:52, (unconfirmed) Vent. rate has increased BY 7 BPM Confirmed by Richard Thompson ([id number]) on 11/26/2019 12:41:33 PM Referred By: Kaiden Houser Confirmed By:Richard Thompson
[2019-11-26] MEDS ORDERED: MAGNESIUM OXIDE 400 MG TAB PO ONE (14:08)
--- NOTE | 2019-11-26 14:14 | Communication Note ---
Date of Service: November 26, 2019 Patient reassessed. Device setting mode changed from VVIR to dual chamber / bi V. Atrial therapies activated. Pt remains in SR. Notes ongoing leg cramps. This was not present prior to hospital stay. Also note diarrhea, which is a potential side effect of Dofetilide. Perhaps leg cramps also related to the Dofetilide. Plan: Burton normal saline IV x 500 ml. Start oral Magnesium supplementation. Reduce Dofetilide down to 250 Mcg BID. Repeat electrolytes in am.
[2019-11-26] MEDS ORDERED: SODIUM CHLORIDE 0.9% 500 ML IV SCH (14:15)
[2019-11-26] MEDS: WARFARIN SOD 4 MG TAB PO SCH (15:57)
[2019-11-26] MEDS: ACETAMINOPHEN 325 MG TAB PO PRN (20:33)
[2019-11-26] MEDS: MAGNESIUM OXIDE 400 MG TAB PO SCH (20:38)
[2019-11-27] MEDS: LEVOTHYROXINE SODIUM 75 MCG TABLET PO SCH (05:30)
[2019-11-27 06:06] LABS: INR 2.1 (0.9-1.1); Prothrombin Time 20.6 Seconds (9.0-12.0)
[2019-11-27 06:37] LABS: BUN Creatinine Ratio 26.2 (10-20); Calcium 8.5 mg/dl (8.5-10.1); Creatinine Clr Calc Pharmacy 67.2 ml/min; Est GFR (African American) 91.4; Est GFR (Non-African American) 78.8; Magnesium 1.9 mg/dl (1.8-2.4); Potassium 3.8 mmol/L (3.5-5.1)
[2019-11-27] MEDS: ASPIRIN 81 MG ECTAB PO SCH (07:56)
[2019-11-27] MEDS: MYCOPHENOLATE MOFETIL 250 MG CAP PO SCH ×2 (07:56→21:00)
[2019-11-27] MEDS: SPIRONOLACTONE 25 MG TAB PO SCH (07:57)
[2019-11-27] MEDS: POTASSIUM CHLORIDE 10 MEQ TABCR PO SCH ×3 (07:57→20:59)
[2019-11-27] MEDS: predniSONE 10 MG TABLET PO SCH (07:57)
[2019-11-27] MEDS: FUROSEMIDE 20 MG TAB PO SCH (07:57)
[2019-11-27] MEDS: METOPROLOL SUCC 25MG EXT REL TAB PO SCH ×2 (07:57→21:00)
[2019-11-27] MEDS: IPRATROPIUM BROMIDE NASAL SPRAY 0.06% 15ML SCH ×3 (07:57→20:56)
[2019-11-27] MEDS: MAGNESIUM OXIDE 400 MG TAB PO SCH ×2 (07:58→20:59)
[2019-11-27] MEDS: PYRIDOSTIGMINE BROMIDE 60 MG TAB PO SCH ×3 (07:58→21:00)
[2019-11-27] MEDS: CETIRIZINE HCL 10 MG TABLET PO SCH ×2 (07:59→21:01)
[2019-11-27] MEDS: INSULIN ASPART 100 UNITS/ML 3 ML PEN SC SCH ×4 (08:00→20:56)
[2019-11-27] MEDS ORDERED: NovoLIN-N (NPH) PER UNIT CHARGE SQ ONE (08:30)
[2019-11-27] MEDS ORDERED: INSULIN GLARGINE SOLOSTAR 100 UNITS/ML 3 ML PEN SC SCH (09:00)
[2019-11-27] MEDS: DOFETILIDE 125 MCG CAPSULE PO SCH ×2 (09:05→20:59)
--- NOTE | 2019-11-27 10:10 | Pharmacy Report ---
Pharmacy Glycemic Short Note 2 - Date of Service November 27, 2019 - Glycemic Short BSG Results (Last 24 hours): 11/26/19 11/26/19 11/26/19 11:25 16:04 20:05 Glucose POC Glucose 201 H 286 H 129 H 11/27/19 11/27/19 05:26 07:20 Glucose 114 H POC Glucose 131 H OUTPATIENT ANTIDIABETIC REGIMEN: * Metformin 500mg PO TID * A1c = 7.8% 11/04/19 ASSESSMENT: * Type 2 diabetic admitted for dofetilide initiation / monitoring * Outpatient prednisone 10 mg resumed 2/ which contributed to hyperglycemia at lunch and dinner yesterday * Will change basal insulin from Lantus to NPH w breakfast only to take advantage of kinetics of NPH that mimic hyperglycemic effects of prednisone PLAN FOR INPATIENT GLYCEMIC CONTROL: * Hold outpatient oral diabetes medications (metformin) * Basal insulin * NPH 14 units SC w breakfast * Bolus insulin * NovoLog per scale ACHS or Q6hrs while NPO * Goal Range: Low 110 mg/dL - High 140 mg/dL * Correction Factor: 30 mg/dL/unit * Nutritional / Prandial insulin per carb ratio of 1 unit per 10 grams CHO consumed PLAN FOR DISCHARGE: * To be determined
--- NOTE | 2019-11-27 13:58 | Cardiology Progress Note ---
Date of Service November 27, 2019 Assessment & Plan (1) Atrial fibrillation, persistent: Patient underwent successful direct-current cardioversion on 11/26/2019. He is tolerating dofetilide 250 mcg twice daily. Dose was reduced due to his complaints of diarrhea and leg cramping yesterday. Tonight would be his sixth dose, and tentative plan will be for discharge tomorrow. On admission, the patient had told me that he did some preliminary research regarding his [id number] cost for this medication. He was however surprised to find that the [id number] cost as projected today by communicating with the [facility] pharmacy was $162 for the first 30-day supply. He does not participate in a mail-order pharmacy program at present, and he is going to look into the potential cost reduction with the strategy. For now, we will plan on in obtaining his initial post hospital dose from [facility]. I called the pharmacy on the telephone and confirmed that a 30-day supply of the 250 mcg tablets was available there. We will tentatively plan to have them delivered to his bedside prior to discharge tomorrow. The patient's INR remains therapeutic at 2.1. His Coumadin dose has been increased to 4 mg daily having previously been on 2.5 mg daily. Subjective Patient feeling well today. He notes that the leg cramps that he complained of yesterday is still there to a lesser degree but is improved. Telemetry reveals ongoing sinus rhythm with atrial and biventricular pacing, without any significant arrhythmias. EKG performed last evening 11/26/2019 at 2257 revealed sinus rhythm with atrial ventricular pacing, corrected QT interval was 572 ms, but this is not helpful in terms of dosing his dofetilide due to the ventricular pacing. At this time, he has not had enough intrinsic beats come through on telemetry to allow me to measure his intrinsic QT interval. Renal function electrolytes have been stable. Review of Systems Review of Systems: All systems reviewed & are unremarkable except as noted in HPI & below Physical Exam Physical Exam: Temp Pulse Resp BP Pulse Ox 36.7 C 64 20 121/67 98 11/27/19 11:06 11/27/19 11:06 11/27/19 11:06 11/27/19 11:06 11/27/19 11:06 Constitutional: WD/WN, vitals as above Respiratory: normal respiratory effort, lungs clear to auscultation Cardiovascular: Rate/Rhythm: regular rate Heart Sounds: + murmur (1/6 systolic murmur) Vessels: no JVD Extremities: no edema Gastrointestinal (Abdomen): normal bowel sounds, soft, nontender, no hepatosplenomegaly Neurologic: PERRL, EOMI, accommodation nl, no face palsy, no dysarthria Results & Data Vital Signs (Past 12 Hours) Vital Signs Temp Pulse Resp BP Pulse Ox 11/27/19 11:06 36.7 C 64 20 121/67 98 11/27/19 07:06 36.5 C 80 20 114/57 L 93 11/27/19 04:28 36.5 C 77 20 117/63 94
--- NOTE | 2019-11-27 14:34 | Electrocardiogram Report ---
Test Reason : Blood Pressure : / mmHG Vent. Rate : 085 BPM Atrial Rate : 085 BPM P-R Int : 148 ms QRS Dur : 178 ms QT Int : 480 ms P-R-T Axes : 104 -88 080 degrees QTc Int : 571 ms AV dual-paced rhythm Abnormal ECG When compared with ECG of 26-NOV-2019 22:57, (unconfirmed) Vent. rate has increased BY 23 BPM Confirmed by Richard Thompson ([id number]) on 11/27/2019 2:34:20 PM Referred By: Kaiden Houser Confirmed By:Richard Thompson
[2019-11-27] MEDS: ACETAMINOPHEN 325 MG TAB PO PRN (15:11)
[2019-11-27] MEDS: WARFARIN SOD 4 MG TAB PO SCH (16:51)
[2019-11-28] MEDS: ACETAMINOPHEN 325 MG TAB PO PRN (05:15)
[2019-11-28] MEDS: LEVOTHYROXINE SODIUM 75 MCG TABLET PO SCH (05:59)
[2019-11-28 06:43] LABS: INR 2.6 (0.9-1.1); Prothrombin Time 25.3 Seconds (9.0-12.0)
[2019-11-28 07:02] LABS: Albumin Level 2.9 gm/dl (3.4-5.0); BUN Creatinine Ratio 25.9 (10-20); Calcium 8.5 mg/dl (8.5-10.1); Creatinine Clr Calc Pharmacy 66.5 ml/min; Est GFR (African American) 90.2; Est GFR (Non-African American) 77.8; Potassium 3.8 mmol/L (3.5-5.1)
[2019-11-28 07:04] LABS: Albumin Globulin Ratio 0.9 (0.9-2); Bilirubin,Total 1.2 mg/dl (0.2-1); Globulin 3.2 gm/dl (2.5-4.0); Total Protein 6.1 gm/dl (6.4-8.2)
[2019-11-28] MEDS ORDERED: NovoLIN-N (NPH) PER UNIT CHARGE SQ ONE ×2 (07:30→08:30)
[2019-11-28] MEDS: POTASSIUM CHLORIDE 10 MEQ TABCR PO SCH (07:43)
[2019-11-28] MEDS: MYCOPHENOLATE MOFETIL 250 MG CAP PO SCH (07:44)
[2019-11-28] MEDS: MAGNESIUM OXIDE 400 MG TAB PO SCH (07:44)
[2019-11-28] MEDS: DOFETILIDE 125 MCG CAPSULE PO SCH (07:44)
[2019-11-28] MEDS: CETIRIZINE HCL 10 MG TABLET PO SCH (07:45)
[2019-11-28] MEDS: SPIRONOLACTONE 25 MG TAB PO SCH (07:45)
[2019-11-28] MEDS: METOPROLOL SUCC 25MG EXT REL TAB PO SCH (07:46)
[2019-11-28] MEDS: predniSONE 10 MG TABLET PO SCH (07:46)
[2019-11-28] MEDS: PYRIDOSTIGMINE BROMIDE 60 MG TAB PO SCH (07:46)
[2019-11-28] MEDS: FUROSEMIDE 20 MG TAB PO SCH (07:47)
[2019-11-28] MEDS: IPRATROPIUM BROMIDE NASAL SPRAY 0.06% 15ML SCH (07:48)
[2019-11-28] MEDS: ASPIRIN 81 MG ECTAB PO SCH (07:48)
[2019-11-28] MEDS: INSULIN ASPART 100 UNITS/ML 3 ML PEN SC SCH (09:05)
--- NOTE | 2019-11-28 10:17 | Cardiology Progress Note ---
Date of Service November 28, 2019 Assessment & Plan (1) Atrial fibrillation, persistent: INR today 2.6. AST and ALT normal today. Potassium level 3.8 today, magnesium level on 11/27/2019 was 1.9 Patient is concerned about the cost and a potential side effects he is experiencing with dofetilide. We agreed he was going to eat breakfast, and I would reassess him regarding discharge plan. Subjective Patient feeling relatively well this morning. Had continued leg cramps last night. Telemetry reveals sinus rhythm with AV pacing and no recurrent arrhythmias since cardioversion. Review of Systems Review of Systems: All systems reviewed & are unremarkable except as noted in HPI & below Physical Exam Physical Exam: Temp Pulse Resp BP Pulse Ox 36.3 C L 79 20 110/62 98 11/28/19 07:20 11/28/19 07:20 11/28/19 07:20 11/28/19 07:20 11/28/19 07:20 Constitutional: WD/WN, vitals as above Respiratory: normal respiratory effort, lungs clear to auscultation Cardiovascular: RRR, no murmur, no edema Gastrointestinal (Abdomen): normal bowel sounds, soft, nontender, no hepatosplenomegaly Neurologic: PERRL, EOMI, accommodation nl, no face palsy, no dysarthria Results & Data Vital Signs (Past 12 Hours) Vital Signs Temp Pulse Resp BP Pulse Ox 11/28/19 07:20 36.3 C L 79 20 110/62 98 11/28/19 03:17 36.4 C L 75 18 118/69 96 11/27/19 23:32 36.7 C 70 18 125/69 95 Laboratory Results Cardiac Enzymes 11/28/19 Range/Units 06:08 AST 33 (15-37) U/L Coagulation 11/28/19 Range/Units 06:08 PT 25.3 H (9.0-12.0) Seconds Comprehensive Metabolic Panel 11/28/19 Range/Units 06:08 Sodium 141 (136-145) mmol/L Potassium 3.8 (3.5-5.1) mmol/L Chloride 109 H (98-107) mmol/L Carbon Dioxide 27 (21-32) mmol/L BUN 24 H (7-18) mg/dl Creatinine 0.93 (0.6-1.4) mg/dl Glucose 89 (70-99) mg/dl Calcium 8.5 (8.5-10.1) mg/dl AST 33 (15-37) U/L ALT 39 (12-78) U/L Alkaline Phosphatase 59 (45-117) U/L Total Protein 6.1 L (6.4-8.2) gm/dl Albumin 2.9 L (3.4-5.0) gm/dl Intake and Output 11/27/19 11/28/19 11/28/19 22:59 06:59 14:59 Intake Total 360 / 1055 Output Total 450 / 1450 Balance -90 / -395 Intake: Oral 360 / 1055 Output: Urine 450 / 1450 Other: Weight 74.5 kg Diagnostic Findings EKG performed 11/27/2019 at 2257 hrs. revealed AV paced rhythm.
--- NOTE | 2019-11-28 11:39 | Discharge Summary ---
Date of Service November 28, 2019 Admission HPI Per Admitting Provider Kaiden Mendez is a 79 year old male who presents today for planned direct admission for initiation of the antiarrhythmic medication dofetilide for treatment of recurrent symptomatic persistent atrial fibrillation and atrial flutter. The patient's primary chef de froid is Dr. Gonzalez of our practice he also follows with Dr. Tiarra Levine of [facility] electrophysiology He has a complex cardiac history that includes coronary heart disease with coronary artery bypass grafting in 2013 along with receiving a bioprosthetic aortic valve replacement at that time. He also underwent intraoperative radiofrequency epicardial MAZE at the time of the surgery . A patent foramen ovale was surgically closed at the time of the cardiac surgery in 2013, per review of the operative report, the left atrial appendage was not ligated. Patient also has history of implantation of a [employer] biventricular dual- chamber pacemaker/ AICD performed in 2013. The most recent interrogation having been performed on 11/18/2019 revealed that he was ventricular paced 47.5% of the time. He had been ill with pneumonia in May, at which time he reverted to atrial fibrillation and has remained in atrial fibrillation in the interim. He had other recurrences of atrial fibrillation 4-1/2 years ago as well as in Feb, 2019 after both of which sinus rhythm was restored after successful direct- current cardioversion. The patient has noted ongoing tiredness and lack of endurance. His ventricular rates have been well controlled but his percentage of therapeutic biventricular pacing has decreased. His most recent left ventricular ejection fraction is measured by echocardiogram has been 50%, and therefore it is been felt that his lack of endurance is not due to progression of his cardiomyopathy but due to the underlying atrial fibrillation. He had previously been on amiodarone but this was previously discontinued due to concerns of allergy, and he also has a documented allergy to iodinated radiographic contrast and heparin Past Cardiac History: 1.Coronary artery bypass grafting 04/23/2014 receiving surgical revascularization of multivessel coronary disease, a ALANIZ graft to LAD and an associated valve replacement receiving a 23 mm Mcdaniel bioprosthesis in aortic valve position and 27 mm bioprosthesis in the mitral valve position with closure of patent foramen ovale, aortic endarterectomy, and intraoperative radiofre quency ablation. 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 [employer]tronic 5 D TT BB 1 D 4 3.Paroxysmal atrial fibrillationStatus post synchronized electrical cardioversion November 16, 2018 for recurrence of atrial fibrillation with subsequent recurrence during recent hospitalization and acute illness . On therapeutic anticoagulation 4. Myasthenia gravis 5. Hospitalization June 22, 2019 for acute sepsis, culture negative, complicated by lapse into atrial fibrillation 6. Variable degree of pulmonary hypertension by echocardiographic measurements Principal Diagnosis Symptomatic atrial fibrillation Discharge Exam Constitutional WD/WN, vitals as above Respiratory normal respiratory effort, lungs clear to auscultation Cardiovascular RRR, no murmur, no edema Rate/Rhythm: regular rate and regular rhythm Heart Sounds: + murmur (1/6 systolic murmur) Vessels: no JVD Extremities: no edema Gastrointestinal (Abdomen) normal bowel sounds, soft, nontender, no hepatosplenomegaly Skin no rashes, warm and dry Neurologic PERRL, EOMI, accommodation nl, no face palsy, no dysarthria Discharge Data Allergies Allergy/AdvReac Type Severity Reaction Status Date / Time gabapentin Allergy Severe CONFUSION/D Verified 11/06/19 09:11 ISORIENTATI ON heparin Allergy Severe HIT Verified 11/06/19 09:11 Iodinated Contrast Media Allergy Severe HIVES Verified 11/06/19 09:11 prednisone Allergy Intermediate NAUSEA/VOMI Verified 11/06/19 09:11 TING shellfish derived Allergy Intermediate HIVES Verified 11/06/19 09:11 iodine Allergy Unknown TOLD BC OF Verified 11/06/19 09:11 IVP ALLERGY amiodarone Allergy Verified 11/06/19 09:11 latex Allergy Verified 11/06/19 09:11 levofloxacin Allergy Verified 11/06/19 09:11 Penicillins AdvReac Mild Possible Verified 11/06/19 09:11 to use this medication, see comments codeine AdvReac Unknown GI UPSET Verified 11/06/19 09:11 Consultations 11/25/19 12:22 Consult Anesthesiology Routine 11/27/19 13:02 Consult Case Management - Discharge Planning Routine Procedures Performed Operation Date: 11/26/19 07:45 Actual Procedures p Cardioversion - Kaiden Houser DO Hospital Course (1) Atrial fibrillation, persistent: Patient presented for elective admission on 11/25/2019 due to symptoms of persistent atrial fibrillation. Treatment dofetilide was initiated. He subsequently underwent direct-current cardioversion on 11/27/2019 which he tolerated well. After the first 2 doses of dofetilide, he described concerns of leg cramping. The dose was therefore reduced from 500 mcg to 250 mcg every 12 hours. He received oral magnesium supplementation. Post cardioversion he remained in sinus rhythm, in the settings of his biventricular pacemaker/AICD were optimized with the help of the [employer] insurance representative. He continued to have mild leg cramps on the dose of dofetilide 250 mcg p.o. twice daily. These however were mild, and the patient felt they were tolerable. He is to be discharged today having received his seventh dose of the medication while on telemetry this morning. He is ventricular paced since the cardioversion, and therefore the duration of his intrinsic QRS complexes could not be measured today, but he has not had any ventricular arrhythmias noted on t elemetry nor any recurrent atrial fibrillation. He has an upcoming follow-up appointment on 12/09/[address] Gonzalez and he is to keep that appointment. If he finds he does not tolerate the dofetilide, future considerations include discontinuing it and increasing his metoprolol succinate from 25 mg 2 times per day to 50 mg 2 times per day. If he reverts to atrial fibrillation in the future off of the dofetilide, and his ejection fraction remains normal, future considerations could include sotalol after an appropriate washout of the dofetilide. The patient is to have a 30 day supply of the Dofetilide delivered to his bedside by the [facility] pharmacy today prior to discharge. He is going to look in to mail order options to see if this save some money in the future. As previously noted, I had contacted both [facility] sites in [place], however, neither had the medication in stock and therefore we used the [facility] site. This also allowed delivery to his bedside. Total Time Total Time Spent Total Time Spent (In Minutes): 60 Total Time Includes: Examination of the Patient, Discharge Planning, Medication Reconciliation and Communication With Other Providers Discharge Plan Discharge Items Patient Disposition: Home - Self-Care Reason For Visit: SYMPTOMATIC AFIB, ANTIARRHYTHMIC MEDICATION Discharge Diagnosis: Successful direct-current cardioversion to sinus rhythm, successful initiation of dofetilide. Condition on Discharge: Good Activity: Resume your previous activity Non-emergency contact: Cullet Washer Call non-emergency contact if: you have any medication questions and your symptoms worsen Follow-up/Referrals: Thad Patrick MD [Primary Care Provider] - Diet: Heart Healthy Addtl Attending Provider Instructions: Keep upcoming follow-up visit with Dr. Ra Gonzalez at [facility] cardiology on 12/09/2019 12 PM, patient arrival time 11:45 AM. Pending Studies at Discharge: No Stand-Alone Forms: My [facility] [employer] avocarrot, Smoking Cessation Medications and DC Order Prescriptions: New dofetilide 250 mcg capsule 250 mcg PO BID Qty: 60 RF: 11 Continued levothyroxine 50 mcg tablet 75 mcg PO QAM Qty: 135 RF: 3 ipratropium bromide 42 mcg (0.06 %) spray,non-aerosol 2 spray INTNAS TID Qty: 15 RF: 11 furosemide 20 mg tablet 20 mg PO .COMPLEX RF: 0 mycophenolate mofetil [CellCept] 500 mg tablet 500 mg PO BID RF: 0 spironolactone 25 mg tablet 12.5 mg PO DAILY RF: 0 nitroglycerin 0.4 mg tablet, sublingual 0.4 mg SL Q5M PRN (Reason: chest pain) Qty: 25 RF: 3 warfarin 2.5 mg tablet 2.5 mg PO HS RF: 0 metformin 500 mg tablet 500 mg PO TID RF: 0 potassium chloride 10 mEq Tablet Extended Release 10 meq PO TID RF: 0 ipratropium-albuterol 0.5 mg-3 mg(2.5 mg base)/3 mL Solution For Nebulization 3 ml INHALATION QID RF: 0 prednisone 10 mg tablet 10 mg PO QAM RF: 0 aspirin 81 mg tablet,delayed release (DR/EC) 81 mg PO QAM RF: 0 coenzyme Q10 100 mg capsule 100 mg PO QAM RF: 0 pyridostigmine bromide 60 mg tablet 60 mg PO TID Qty: 90 RF: 0 metoprolol succinate 25 mg tablet extended release 24 hr 25 mg .ROUTE BID RF: 0 cetirizine 10 mg tablet 10 mg PO BID RF: 0 Discharge Orders: Discharge Order (Routine); Ordered 11/28/19 Ordered By: Kaiden Houser Admission Data Admit Date/Time: 11/25/19 09:28 Attending Provider: Kaiden Houser Admit Provider: Kaiden Houser Primary Care Provider: Thad Patrick Other Providers: Darian Curry
--- NOTE | 2019-11-28 13:52 | Electrocardiogram Report ---
Test Reason : Blood Pressure : / mmHG Vent. Rate : 073 BPM Atrial Rate : 073 BPM P-R Int : 154 ms QRS Dur : 182 ms QT Int : 534 ms P-R-T Axes : 105 -84 084 degrees QTc Int : 588 ms AV dual-paced rhythm Abnormal ECG When compared with ECG of 27-NOV-2019 11:00, Vent. rate has decreased BY 12 BPM Confirmed by Richard Thompson ([id number]) on 11/28/2019 1:51:40 PM Referred By: Kaiden Houser Confirmed By:Richard Thompson
--- NOTE | 2019-11-28 14:25 | Electrocardiogram Report ---
Test Reason : Blood Pressure : / mmHG Vent. Rate : 077 BPM Atrial Rate : 077 BPM P-R Int : 148 ms QRS Dur : 176 ms QT Int : 516 ms P-R-T Axes : 113 -75 004 degrees QTc Int : 583 ms AV dual-paced rhythm Abnormal ECG When compared with ECG of 27-NOV-2019 22:57, (unconfirmed) Vent. rate has increased BY 4 BPM Confirmed by Richard Thompson ([id number]) on 11/28/2019 2:25:19 PM Referred By: Kaiden Houser Confirmed By:Richard Thompson
== END 2019-11-28 12:58 | disposition home or self-care (01) | DRG 309 ==
LOC: 1E 09:28 → 2S 17:34

== ENCOUNTER 2021-05-13 13:15 | Inpatient (IN) ==
--- NOTE | 2021-05-13 14:38 | Emergency Department Note ---
Impression & Plan Dyspnea, Elevated troponin, Anemia ED Provider Note NAME: PEACE SHOEMAKER AGE: 81 SEX: M : 1940 ARRIVES VIA: Walk-In INFORMANT: Patient, ED PROVIDER(S): Tomás Little MD Chief Complaint: Shortness of breath, weakness, productive cough HPI: Patient does present and states that he does have chronic shortness of breath but it is acutely worse and has been ongoing for the last week. The patient has associated clear sputum and cough. The patient has felt increasingly weak and decreased appetite. Patient did have a Covid vaccine but the patient states that he had no antibodies as the patient is on immun osuppressive therapy secondary to history of myasthenia gravis. Patient is unsure as whether or not his weakness and shortness of breath is related to his heart, lungs and/or his myasthenia. Patient states he has been not have any issues with urination or defecation. Patient denies any abdominal pain nausea or vomiting. Patient denies any chills but has felt feverish at home. Temperatures not been greater than 100. Patient denies any history of DVT or PE but the patient is on Coumadin for history of A. fib. The patient does follow with Dr. Lord with neurology for his myasthenia. Patient denies any lower extremity edema. ROS: See HPI for pertinent positives and negatives. A total of 10 systems were reviewed and otherwise negative. Past medical history: See below Surgical history: See below Social history: See below Physical Exam: GENERAL: Wearing glasses and a mask. NAD, non-toxic. EYE EXAM: Normal conjunctiva. PERRL, no anisocoria and EOM's grossly intact w/o pain. NECK: Supple, no nuchal rigidity, no adenopathy, non-tender. No signs of meningismus. LUNGS: Clear to auscultation. Normal chest wall mechanics. HEART: NSR, no MRG. ABDOMEN: Abdomen soft, non-tender, normo-active bowel sounds, no masses, no rebound or guarding. BACK: No CVA TTP. SKIN: No rashes and no bruising. UPPER EXTREMITIES: Upper extremities are grossly normal. LOWER EXTREMITIES: Grossly normal, no edema. Negative Homans' sign bilaterally. NEURO EXAM: A&O x3, cranial nerves II-XII grossly intact, normal speech, moves all 4 extremities on command w/o issue. Differential diagnoses: Reactive airway disease, pneumonia, pneumothorax, COPD, CHF, infections, cardiac ischemia, pulmonary embolism, musculoskeletal, gastrointestinal, as well as other pathologies. Course: Patient was seen and evaluated the bedside. Full history physical exam was performed. EKG interpreted by me V paced rhythm, rate of 84, wide QRS, depression in V2. Q waves throughout. Grossly unchanged from comparison EKG November 28, 2019. Imaging Studies: See below Cardiac monitoring: An order was placed for continuous cardiac monitoring. The monitor shows a rate of 75 with sinus rhythm. MDM: Patient did present with concern for shortness of breath and weakness. The patient has had decreased p.o. intake the patient was ordered IV fluids. Blood work shows a normal white count with mild anemia. Kidney function is unremarkable. VBG unremarkable. Troponin is elevated but has been chronically elevated in the past. Covid negative. Chest x-ray shows emphysematous change. No evidence of obvious pneumonia or effusion. Patient has had increasing functional dyspnea. Patient's negative inspiratory force was -40. Patient does not present with bulbar symptoms do not believe the patient is having myasthenic crisis. Given the patient's functional dyspnea I did speak with the on-call hospitalist Dr. Peck and the patient was admitted to the medicine service. 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 Peace Houser History of SCC (squamous cell carcinoma) of skin Hyperlipidemia Hypertension Hypomagnesemia Hypothyroidism Interstitial lung disease Mitral valve disorder Myasthenia gravis Paraproteinemia Presence of combination internal cardiac defibrillator (ICD) and pacemaker Pulmonary fibrosis determined by high resolution computed tomography Restrictive lung disease Tachycardia Surgical History History of aortic valve replacement History of appendectomy History of cholecystectomy History of excision of lesion face - malignant - 2.1-3cm S/P MVR (mitral valve repair) Family History Father Brain tumor Mother Lung disease Sister Breast cancer Myocardial infarction Other Lung cancer Denies family history of Ovarian cancer Prostate cancer Colorectal cancer Social History Smoking Status: Never smoker Age Started Using Tobacco: 17; Age Quit Using Tobacco: 32; Cigarettes Per Day: 1-2; Second Hand Exposure: No; Hx Alcohol Use: No Hx Substance Use: No Preferred Language: Kyrgyz Communication Ability: Effective Seismometer Operator Required: No Beliefs That Will Affect Care: None marital status: Current Living Situation: Spouse current occupational status: retired Other Information That Helps Us Care for You: No Feels Safe at Home: Yes Childhood Exposure to Second-Hand Smoke: Yes caffeine: Yes (coffee, tea ) Dental Care, Regularly: Yes Physical Activity Frequency: 3-4 Times per Week Seatbelt Use: always Sunscreen Use: Yes Assistive Devices: Denture - Upper, Denture - Lower and Glasses Allergies Allergies Allergy/AdvReac Type Severity Reaction Status Date / Time gabapentin Allergy Severe CONFUSION/D Verified 05/13/21 16:11 ISORIENTATI ON heparin Allergy Severe HIT Verified 05/13/21 16:11 Iodinated Contrast Media Allergy Severe HIVES Verified 05/13/21 16:11 prednisone Allergy Intermediate NAUSEA/VOMI Verified 05/13/21 16:11 TING shellfish derived Allergy Intermediate HIVES Verified 05/13/21 16:11 iodine Allergy Unknown TOLD BC OF Verified 05/13/21 16:11 IVP ALLERGY amiodarone Allergy Verified 05/13/21 16:11 latex Allergy Verified 05/13/21 16:11 levofloxacin Allergy Verified 05/13/21 16:11 Penicillins AdvReac Mild Possible Verified 05/13/21 16:11 to use this medication, see comments codeine AdvReac Unknown GI UPSET Verified 05/13/21 16:11 Home Meds Home Medications Medication Instructions Recorded Confirmed warfarin 2.5 mg tablet 2.5 mg PO HS tab 06/23/19 05/13/21 aspirin 81 mg tablet,delayed 81 mg PO QAM 06/29/19 05/13/21 release coenzyme Q10 100 mg capsule 100 mg PO QAM 06/29/19 05/13/21 furosemide 20 mg tablet 20 mg PO Q OTHER DAY tab 12/17/20 05/13/21 spironolactone 25 mg tablet 12.5 mg PO Q3D tab 12/17/20 05/13/21 glimepiride 1 mg tablet 0.5 mg PO QAM tab 04/26/21 05/13/21 metformin 500 mg tablet,extended 500 mg PO TID tab 04/26/21 05/13/21 release 24 hr diphenhydramine HCl 50 mg capsule 50 mg PO Q6H PRN 05/13/21 05/13/21 ipratropium bromide 42 mcg (0.06 2 spray INTRANASAL TID 05/13/21 05/13/21 %) nasal spray loperamide 2 mg tablet (Imodium 2 mg PO QID PRN 05/13/21 05/13/21 A-D) magnesium oxide 250 mg PO QAM 05/13/21 05/13/21 metoprolol succinate 50 mg 50 mg PO BID 05/13/21 05/13/21 tablet,extended release 24 hr mupirocin 2 % topical ointment 1 applic TOPICAL TID PRN 05/13/21 05/13/21 pyridostigmine bromide 180 mg 180 mg PO QAM 05/13/21 05/13/21 tablet,extended release (Mestinon Timespan) Previous Rx's Medication Instructions Recorded pyridostigmine bromide 60 mg tablet 60 mg PO TID #90 tab 07/04/19 nitroglycerin 0.4 mg sublingual 0.4 mg SL Q5M PRN #25 tab 04/15/20 tablet epinephrine 0.3 mg/0.3 mL 0.3 mg IM Q10M PRN #1 ea 05/04/20 injection, auto-injector (EpiPen 2-Puneet) mycophenolate mofetil 500 mg 1,000 mg PO BID #360 tab 11/30/20 tablet (CellCept) ipratropium 0.5 mg-albuterol 3 mg 3 ml INHALATION QID PRN #15 ml 12/17/20 (2.5 mg base)/3 mL nebulization soln levothyroxine 75 mcg tablet 75 mcg PO QAM #90 tab 01/05/21 cetirizine 10 mg tablet 10 mg PO BID PRN #60 tab 04/26/21 potassium chloride 10 mEq 10 meq PO TID #90 tab 04/26/21 tablet,extended release(part/cryst) Results & Data (ED) Vital Signs Vital Signs - 24 hr 05/13/21 13:23 05/13/21 15:09 05/13/21 15:40 Temperature 36.3 C L Temperature Source Temporal Artery Scan Pulse Rate 83 Pulse Rate [Right Finger] 75 Pulse Rate from SpO2 Sensor Respiratory Rate 18 18 Respiratory Effort / Characteristics Non-Labored Non-Labored Spontaneous Respiratory Depth Normal Respiratory Pattern Regular Blood Pressure 93/56 L Blood Pressure [Right Arm] Blood Pressure Mean 68 Blood Pressure Mean [Right Arm] Blood Pressure Position [Right Arm] Pulse Oximetry 99 96 Oxygen Delivery Method Room Air Room Air Room Air Sepsis Recent Fever Within 48 Hours No Sepsis New/Unexplained Change in Mental Status No Sepsis Action Taken by Nursing No Action Required 05/13/21 15:43 05/13/21 16:00 05/13/21 16:30 Temperature Temperature Source Pulse Rate 87 0 L 99 H Pulse Rate [Right Finger] Pulse Rate from SpO2 Sensor 90 83 85 Respiratory Rate 20 19 17 Respiratory Effort / Characteristics Respiratory Depth Respiratory Pattern Blood Pressure Blood Pressure [Right Arm] Blood Pressure Mean Blood Pressure Mean [Right Arm] Blood Pressure Position [Right Arm] Pulse Oximetry 96 91 92 Oxygen Delivery Method Sepsis Recent Fever Within 48 Hours Sepsis New/Unexplained Change in Mental Status Sepsis Action Taken by Nursing 05/13/21 17:00 05/13/21 17:30 05/13/21 18:00 Temperature Temperature Source Pulse Rate 77 81 92 H Pulse Rate [Right Finger] Pulse Rate from SpO2 Sensor 78 78 87 Respiratory Rate 23 26 H 25 H Respiratory Effort / Characteristics Respiratory Depth Respiratory Pattern Blood Pressure Blood Pressure [Right Arm] Blood Pressure Mean Blood Pressure Mean [Right Arm] Blood Pressure Position [Right Arm] Pulse Oximetry 93 94 99 Oxygen Delivery Method Sepsis Recent Fever Within 48 Hours Sepsis New/Unexplained Change in Mental Status Sepsis Action Taken by Nursing 05/13/21 18:30 05/13/21 19:35 05/13/21 20:00 Temperature Temperature Source Pulse Rate 75 98 H Pulse Rate [Right Finger] 76 Pulse Rate from SpO2 Sensor 77 77 Respiratory Rate 23 18 23 Respiratory Effort / Characteristics Non-Labored Spontaneous Respiratory Depth Normal Respiratory Pattern Blood Pressure 113/59 L Blood Pressure [Right Arm] 117/63 Blood Pressure Mean 77 Blood Pressure Mean [Right Arm] 81 Blood Pressure Position [Right Arm] Lying Pulse Oximetry 98 94 94 Oxygen Delivery Method Room Air Room Air Sepsis Recent Fever Within 48 Hours Sepsis New/Unexplained Change in Mental Status Sepsis Action Taken by [facility] Medications Current Medication List: was personally reviewed by me Laboratory Data Attestation: I reviewed the patient's lab results. Result diagrams: 05/13/21 15:12 05/13/21 15:12 Lab Results 05/13/21 05/13/21 05/13/21 Range/Units 15:10 15:10 15:12 WBC (4.8-10.8) K/uL RBC (4.7-6.1) M/uL Hgb (14.0-18.0) g/dL Hct (42-52) % MCV (80-100) fL MCH (25-34) pg MCHC (32-36) g/dL RDW Std Deviation (36.4-46.3) fL RDW Coeff of Jonathan (11.5-14.5) % Plt Count (130-400) K/uL MPV (7.4-10.4) fL Immature Gran % (Auto) % Neut % (Auto) % Lymph % (Auto) % Berks % (Auto) % Eos % (Auto) % Baso % (Auto) % Neut # (Auto) (1.4-6.5) K/uL Lymph # (Auto) (1.2-3.4) K/uL Berks # (Auto) (0.11-0.59) K/uL Eos # (Auto) (0-0.5) K/uL Baso # (Auto) (0-0.2) K/uL Immature Gran # (Auto) (0.00-0.02) K/uL PT (9.0-12.0) Seconds INR (0.9-1.1) APTT (21.0-31.0) Seconds PTT Ratio VBG pH (7.36-7.41) VBG pCO2 (38-50) mmHg VBG pO2 mmHg VBG HCO3 mmol/L VBG O2 Saturation % VBG Base Excess mEq/L Barometric Pressure mm/Hg Sodium 142 (136-145) mmol/L Potassium 3.8 (3.5-5.1) mmol/L Chloride 111 H (98-107) mmol/L Carbon Dioxide 27 (21-32) mmol/L Anion Gap 4.0 (3-11) BUN 24 H (7-18) mg/dl Creatinine 1.19 (0.6-1.4) mg/dl Est Cr Clr Drug Dosing 51.9 ml/min Est GFR ( Amer) 66.0 ml/min Est GFR (Non-Af Amer) 56.9 ml/min BUN/Creatinine Ratio 20.1 H (10-20) Glucose 94 (70-99) mg/dl Calcium 9.4 (8.5-10.1) mg/dl Magnesium 1.7 L (1.8-2.4) mg/dl Total Bilirubin 1.6 H (0.2-1) mg/dl AST 17 (15-37) U/L ALT 17 (12-78) U/L Alkaline Phosphatase 77 (45-117) U/L Troponin I 0.125 H* (0-0.045) ng/ml NT-Pro-B Natriuret Pep (0-1800) pg/ml Total Protein 7.5 (6.4-8.2) gm/dl Albumin 3.5 (3.4-5.0) gm/dl Globulin 4.0 (2.5-4.0) gm/dl Albumin/Globulin Ratio 0.9 (0.9-2) TSH 1.270 (0.300-4.500) uIu/ml COVID-19 Eval Order Covid19 at [facility] SARS-CoV-2 (PCR) NEGATIVE (Negative) 05/13/21 05/13/21 05/13/21 Range/Units 15:12 15:12 15:12 WBC 7.39 (4.8-10.8) K/uL RBC 4.95 (4.7-6.1) M/uL Hgb 12.9 L (14.0-18.0) g/dL Hct 41.8 L (42-52) % MCV 84.4 (80-100) fL MCH 26.1 (25-34) pg MCHC 30.9 L (32-36) g/dL RDW Std Deviation 46.7 H (36.4-46.3) fL RDW Coeff of Jonathan 15.1 H (11.5-14.5) % Plt Count 185 (130-400) K/uL MPV 8.4 (7.4-10.4) fL Immature Gran % (Auto) 0.4 % Neut % (Auto) 64.3 % Lymph % (Auto) 20.0 % Berks % (Auto) 13.5 % Eos % (Auto) 1.8 % Baso % (Auto) 0.0 % Neut # (Auto) 4.75 (1.4-6.5) K/uL Lymph # (Auto) 1.48 (1.2-3.4) K/uL Berks # (Auto) 1.00 H (0.11-0.59) K/uL Eos # (Auto) 0.13 (0-0.5) K/uL Baso # (Auto) 0.00 (0-0.2) K/uL Immature Gran # (Auto) 0.03 H (0.00-0.02) K/uL PT 41.3 H (9.0-12.0) Seconds INR 4.6 H (0.9-1.1) APTT 53.6 H* (21.0-31.0) Seconds PTT Ratio 2.0 VBG pH 7.38 (7.36-7.41) VBG pCO2 43 (38-50) mmHg VBG pO2 20 mmHg VBG HCO3 25 mmol/L VBG O2 Saturation < 60.0 % VBG Base Excess -0.3 mEq/L Barometric Pressure 735.8 mm/Hg Sodium (136-145) mmol/L Potassium (3.5-5.1) mmol/L Chloride (98-107) mmol/L Carbon Dioxide (21-32) mmol/L Anion Gap (3-11) BUN (7-18) mg/dl Creatinine (0.6-1.4) mg/dl Est Cr Clr Drug Dosing ml/min Est GFR ( Amer) ml/min Est GFR (Non-Af Amer) ml/min BUN/Creatinine Ratio (10-20) Glucose (70-99) mg/dl Calcium (8.5-10.1) mg/dl Magnesium (1.8-2.4) mg/dl Total Bilirubin (0.2-1) mg/dl AST (15-37) U/L ALT (12-78) U/L Alkaline Phosphatase (45-117) U/L Troponin I (0-0.045) ng/ml NT-Pro-B Natriuret Pep (0-1800) pg/ml Total Protein (6.4-8.2) gm/dl Albumin (3.4-5.0) gm/dl Globulin (2.5-4.0) gm/dl Albumin/Globulin Ratio (0.9-2) TSH (0.300-4.500) uIu/ml COVID-19 Eval Order SARS-CoV-2 (PCR) (Negative) 05/13/21 Range/Units 15:12 WBC (4.8-10.8) K/uL RBC (4.7-6.1) M/uL Hgb (14.0-18.0) g/dL Hct (42-52) % MCV (80-100) fL MCH (25-34) pg MCHC (32-36) g/dL RDW Std Deviation (36.4-46.3) fL RDW Coeff of Jonathan (11.5-14.5) % Plt Count (130-400) K/uL MPV (7.4-10.4) fL Immature Gran % (Auto) % Neut % (Auto) % Lymph % (Auto) % Berks % (Auto) % Eos % (Auto) % Baso % (Auto) % Neut # (Auto) (1.4-6.5) K/uL Lymph # (Auto) (1.2-3.4) K/uL Berks # (Auto) (0.11-0.59) K/uL Eos # (Auto) (0-0.5) K/uL Baso # (Auto) (0-0.2) K/uL Immature Gran # (Auto) (0.00-0.02) K/uL PT (9.0-12.0) Seconds INR (0.9-1.1) APTT (21.0-31.0) Seconds PTT Ratio VBG pH (7.36-7.41) VBG pCO2 (38-50) mmHg VBG pO2 mmHg VBG HCO3 mmol/L VBG O2 Saturation % VBG Base Excess mEq/L Barometric Pressure mm/Hg Sodium (136-145) mmol/L Potassium (3.5-5.1) mmol/L Chloride (98-107) mmol/L Carbon Dioxide (21-32) mmol/L Anion Gap (3-11) BUN (7-18) mg/dl Creatinine (0.6-1.4) mg/dl Est Cr Clr Drug Dosing ml/min Est GFR ( Amer) ml/min Est GFR (Non-Af Amer) ml/min BUN/Creatinine Ratio (10-20) Glucose (70-99) mg/dl Calcium (8.5-10.1) mg/dl Magnesium (1.8-2.4) mg/dl Total Bilirubin (0.2-1) mg/dl AST (15-37) U/L ALT (12-78) U/L Alkaline Phosphatase (45-117) U/L Troponin I (0-0.045) ng/ml NT-Pro-B Natriuret Pep 5675 H (0-1800) pg/ml Total Protein (6.4-8.2) gm/dl Albumin (3.4-5.0) gm/dl Globulin (2.5-4.0) gm/dl Albumin/Globulin Ratio (0.9-2) TSH (0.300-4.500) uIu/ml COVID-19 Eval Order SARS-CoV-2 (PCR) (Negative) Administered Medications Discontinued Medications Albuterol (Albut/Ipratrop 3mg/0.5mg Neb 3 Ml Vial) 6 ml NEB NOW STA Stop: 05/13/21 14:49 Last Admin: 05/13/21 15:07 Dose: 6 ml Documented by: [id number] Sodium Chloride (Nss 1000ml) 1,000 mls @ 999 mls/hr IV .Q1H1M ONE Stop: 05/13/21 15:56 Last Infusion: 05/13/21 16:26 Dose: 0 mls/hr Documented by: [id number] Admin: 05/13/21 15:20 Dose: 999 mls/hr Documented by: [id number] Imaging Data Radiologist's Impression: Chest X-Ray 05/13/21 14:49 SINGLE VIEW CHEST CLINICAL HISTORY: Generalized weakness. FINDINGS: An AP, portable, upright chest radiograph is compared to study dated 07/01/2018 and correlated with chest CT dated 08/13/2019. The patient is status post midline sternotomy and cardiac valve surgery. A 3-lead cardiac AICD is unchanged in position and partially obscures the left mid chest. The heart is enlarged noting atherosclerotic calcification of the thoracic aorta. There is pulmonary vascular congestion. Emphysema and chronic interstitial thickening is similar to previous. Subpleural reticulation suggests superimposed interstitial lung disease. Calcified granulomas are observed. Scarring/atelectasis is noted at the lung bases. No large pleural effusion or pneumothorax is seen. The skeletal structures are osteopenic. The bony thorax is grossly intact. Fusion hardware is noted in the lower cervical spine. IMPRESSION: 1. Cardiomegaly and AICD with evidence of congestive failure. 2. Emphysema. 3. No airspace consolidation typical for pneumonia or large pleural effusion is identified ACT 112: Negative or not required by law. Electronically signed by: Thad Serrato M.D. 05/13/2021 5:19 PM Discharge Plan Visit Data Chief Complaint: Congestion Stated Complaint: SPLITTING UP CLEAR PHLEM, PREVIOUS HX ED Provider: Tomás Little Discharge Problem: Dyspnea, Elevated troponin, Anemia Patient Disposition: Admitted As Inpatient Discharge Instructions Interventions: ED Discharge Assessment Last Done: 05/13/21 21:30 Discharge Problem: Dyspnea Qualifiers: Dyspnea type: dyspnea on exertion Qualified Code(s): R06.00 - Dyspnea, unspecified Anemia Qualifiers: Anemia type: unspecified type Qualified Code(s): D64.9 - Anemia, unspecified
[2021-05-13] MEDS ORDERED: ALBUT/IPRATROP 3MG/0.5MG NEB 3 ML VIAL NEB STA (14:48)
[2021-05-13] MEDS ORDERED: SODIUM CHLORIDE 0.9% 1000ML 1,000 ML IV ONE (14:56)
[2021-05-13] MEDS ORDERED: SODIUM CHLORIDE 0.9% 500 ML IV SCH (15:00)
[2021-05-13 15:20] LABS: Eosinophils # (auto) 0.13 K/uL (0-0.5); Eosinophils % (auto) 1.8 %; Hematocrit (blood only) 41.8 % (42-52); Hemoglobin 12.9 g/dL (14.0-18.0); Immature Granulocytes # (auto) 0.03 K/uL (0.00-0.02); Immature Granulocytes % (auto) 0.4 %; Lymphocytes # (auto) 1.48 K/uL (1.2-3.4); Mean Corpuscular Hemoglobin 26.1 pg (25-34); Mean Corpuscular Hgb Conc 30.9 g/dL (32-36); Mean Corpuscular Volume 84.4 fL (80-100); Mean Platelet Volume 8.4 fL (7.4-10.4); Monocytes % (auto) 13.5 %; Neutrophils # (auto) 4.75 K/uL (1.4-6.5); Neutrophils % (auto) 64.3 %; Platelet Count 185 K/uL (130-400); RDW Coefficient of Variation 15.1 % (11.5-14.5); RDW Standard Deviation 46.7 fL (36.4-46.3); Red Blood Count 4.95 M/uL (4.7-6.1); White Blood Count 7.39 K/uL (4.8-10.8)
[2021-05-13 15:29] LABS: Base Excess VBG -0.3 mEq/L; HCO3 VBG 25 mmol/L; PCO2 VBG 43 mmHg (38-50); PO2 VBG 20 mmHg; pH VBG 7.38 (7.36-7.41)
[2021-05-13 15:42] LABS: Albumin Level 3.5 gm/dl (3.4-5.0); BUN Creatinine Ratio 20.1 (10-20); Calcium 9.4 mg/dl (8.5-10.1); Creatinine Clr Calc Pharmacy 51.9 ml/min; Est GFR (Non-African American) 56.9 ml/min; Magnesium 1.7 mg/dl (1.8-2.4); Potassium 3.8 mmol/L (3.5-5.1)
[2021-05-13 15:54] LABS: INR 4.6 (0.9-1.1); Prothrombin Time 41.3 Seconds (9.0-12.0)
[2021-05-13 16:00] LABS: Oxygen Saturation VBG < 60.0 %
[2021-05-13 16:03] LABS: Albumin Globulin Ratio 0.9 (0.9-2); Bilirubin,Total 1.6 mg/dl (0.2-1); Thyroid Stimulating Hormone 1.27 uIu/ml (0.300-4.500); Total Protein 7.5 gm/dl (6.4-8.2); Troponin I 0.125 ng/ml (0-0.045)
[2021-05-13 16:10] LABS: Partial Thromboplastin Time 53.6 Seconds (21.0-31.0)
--- NOTE | 2021-05-13 17:21 | XRay Report ---
SINGLE VIEW CHEST CLINICAL HISTORY: Generalized weakness. FINDINGS: An AP, portable, upright chest radiograph is compared to study dated 07/01/2018 and correlate d with chest CT dated 08/13/2019. The patient is status post midline sternotomy and cardiac valve nancy hayley. A 3-lead cardiac AICD is unchanged in position and partially obscures the left mid chest. The h eart is enlarged noting atherosclerotic calcification of the thoracic aorta. There is pulmonary vascu lar congestion. Emphysema and chronic interstitial thickening is similar to previous. Subpleural reti culation suggests superimposed interstitial lung disease. Calcified granulomas are observed. Scarring /atelectasis is noted at the lung bases. No large pleural effusion or pneumothorax is seen. The skele jose manuel structures are osteopenic. The bony thorax is grossly intact. Fusion hardware is noted in the low er cervical spine. IMPRESSION: 1. Cardiomegaly and AICD with evidence of congestive failure. 2. Emphysema. 3. No airspace consolidation typical for pneumonia or large pleural effusion is identified ACT 112: Negative or not required by law. Electronically signed by: Thad Serrato M.D. 05/13/2021 5:19 PM
--- NOTE | 2021-05-13 20:19 | History & Physical Report ---
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 Fatigue: -Uncertain etiology of fatigue/malaise given patient's extensive medical history -Potential that this represents deconditioning versus progression of myasthenia gravis versus cardiopulmonary process -Negative NIF test with respiratory in the ED indicating less likely to be acute myasthenic crisis -BNP 5675; however patient is questionably clinically dry -CXR demonstrating cardiomegaly with evidence of congestive failure -Troponin 0.125 on admission -Last echo in 2018 demonstrating mildly reduced LV systolic function, with EF 45-50% -Will trend troponins q8h overnight -Consideration of echo in a.m. -PT/OT evaluations given generalized fatigue and propensity for worsening in the setting of myasthenia gravis -Continue Mestinon and CellCept at home regimen -As currently do not believe patient is in myasthenic crisis, will hold off on IV corticosteroids or IVIG Persistent atrial fibrillation: -Continue home metoprolol 50 twice daily, warfarin -PT/INR daily Hypothyroidism: -TSH on admission of 1.27 -Continue home Synthroid Interstitial lung disease: -Following with pulmonology, currently uncertain etiology of interstit ial/restrictive lung disease, previously was consideration of sarcoidosis -DuoNebs as needed Type 2 diabetes: -Hold home oral glycemic regimen -Sliding scale insulin -BSG's ACHS Diet: Heart healthy, carb consistent CODE STATUS: Full code DVT prophylaxis: Continue home warfarin (2) Myasthenia gravis: (3) Interstitial lung disease: (4) Persistent atrial fibrillation: (5) CAD (coronary artery disease): (6) Hypothyroidism: (7) Hyperlipidemia: (8) 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 Over the last week he has noted 6 that he has become more short of breath and feeling more winded with smaller amounts of activity, does have a longstanding history of this but this is been a distinct worsening. Last time he recalls this worsening was several years ago when he was originally diagnosed with myasthenia gravis. Over the last 2 days he has had a productive cough producing clear sputum. Sometimes he will have this, when he has a upper respiratory tract infection, or a sinus infection. But his usual regimens for addressing this have not been working over this time. Originally started to feel slightly different approximately 1 month ago, however this was attributed to be due to digoxin and he was subsequently weaned and has been weaned off of this for the last 2+ weeks. Does see neurology in this area for his myasthenia gravis, with last visit being earlier this year in November. Has not required corticosteroids for myasthenia or respiratory function in over a month. Denies other systemic symptoms, inclusive of nausea, vomiting, abdominal pain, chest pain, orthopnea, dizziness, vertigo, increased urination, or discomfort with urination. Allergies Allergy/AdvReac Type Severity Reaction Status Date / Time gabapentin Allergy Severe CONFUSION/D Verified 05/13/21 16:11 ISORIENTATI ON heparin Allergy Severe HIT Verified 05/13/21 16:11 Iodinated Contrast Media Allergy Severe HIVES Verified 05/13/21 16:11 prednisone Allergy Intermediate NAUSEA/VOMI Verified 05/13/21 16:11 TING shellfish derived Allergy Intermediate HIVES Verified 05/13/21 16:11 iodine Allergy Unknown TOLD BC OF Verified 05/13/21 16:11 IVP ALLERGY amiodarone Allergy Verified 05/13/21 16:11 latex Allergy Verified 05/13/21 16:11 levofloxacin Allergy Verified 05/13/21 16:11 Penicillins AdvReac Mild Possible Verified 05/13/21 16:11 to use this medication, see comments codeine AdvReac Unknown GI UPSET Verified 05/13/21 16:11 Home Medications Medication Instructions Recorded Confirmed Type warfarin 2.5 mg tablet 2.5 mg PO HS tab 06/23/19 05/13/21 History aspirin 81 mg tablet,delayed 81 mg PO QAM 06/29/19 05/13/21 History release coenzyme Q10 100 mg capsule 100 mg PO QAM 06/29/19 05/13/21 History pyridostigmine bromide 60 mg tablet 60 mg PO TID #90 tab 07/04/19 05/13/21 Rx nitroglycerin 0.4 mg sublingual 0.4 mg SL Q5M PRN #25 tab 04/15/20 05/13/21 Rx tablet epinephrine 0.3 mg/0.3 mL 0.3 mg IM Q10M PRN #1 ea 05/04/20 05/13/21 Rx injection, auto-injector (EpiPen 2-Puneet) mycophenolate mofetil 500 mg 1,000 mg PO BID #360 tab 11/30/20 05/13/21 Rx tablet (CellCept) furosemide 20 mg tablet 20 mg PO Q OTHER DAY tab 12/17/20 05/13/21 History ipratropium 0.5 mg-albuterol 3 mg 3 ml INHALATION QID PRN #15 ml 12/17/20 05/13/21 Rx (2.5 mg base)/3 mL nebulization soln spironolactone 25 mg tablet 12.5 mg PO Q3D tab 12/17/20 05/13/21 History levothyroxine 75 mcg tablet 75 mcg PO QAM #90 tab 01/05/21 05/13/21 Rx cetirizine 10 mg tablet 10 mg PO BID PRN #60 tab 04/26/21 05/13/21 Rx glimepiride 1 mg tablet 0.5 mg PO QAM tab 04/26/21 05/13/21 History metformin 500 mg tablet,extended 500 mg PO TID tab 04/26/21 05/13/21 History release 24 hr potassium chloride 10 mEq 10 meq PO TID #90 tab 04/26/21 05/13/21 Rx tablet,extended release(part/cryst) diphenhydramine HCl 50 mg capsule 50 mg PO Q6H PRN 05/13/21 05/13/21 History ipratropium bromide 42 mcg (0.06 2 spray INTRANASAL TID 05/13/21 05/13/21 History %) nasal spray loperamide 2 mg tablet (Imodium 2 mg PO QID PRN 05/13/21 05/13/21 History A-D) magnesium oxide 250 mg PO QAM 05/13/21 05/13/21 History metoprolol succinate 50 mg 50 mg PO BID 05/13/21 05/13/21 History tablet,extended release 24 hr mupirocin 2 % topical ointment 1 applic TOPICAL TID PRN 05/13/21 05/13/21 History pyridostigmine bromide 180 mg 180 mg PO QAM 05/13/21 05/13/21 History tablet,extended release (Mestinon Timespan) Past Med/Surg History Medical History Afib Allergic rhinitis Asthma, mild intermittent CAD (coronary artery disease) Candidiasis of mouth and esophagus Chronic rhinitis Congestive heart failure (CHF) 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 Kaiden Houser History of SCC (squamous cell carcinoma) of skin Hyperlipidemia Hypertension Hypomagnesemia Hypothyroidism Interstitial lung disease Mitral valve disorder Myasthenia gravis Paraproteinemia Presence of combination internal cardiac defibrillator (ICD) and pacemaker Pulmonary fibrosis determined by high resolution computed tomography Restrictive lung disease Tachycardia Surgical History History of aortic valve replacement History of appendectomy History of cholecystectomy History of excision of lesion face - malignant - 2.1-3cm S/P MVR (mitral valve repair) Family History Father Brain tumor Mother Lung disease Sister Breast cancer Myocardial infarction Other Lung cancer Denies family history of Ovarian cancer Prostate cancer Colorectal cancer Social History Smoking Status: Never smoker Age Started Using Tobacco: 17; Age Quit Using Tobacco: 32; Cigarettes Per Day: 1-2; Second Hand Exposure: No; Hx Alcohol Use: No Hx Substance Use: No Preferred Language: Turkish Communication Ability: Effective Director Of Fundraising Required: No Beliefs That Will Affect Care: None marital status: Current Living Situation: Spouse current occupational status: retired Other Information That Helps Us Care for You: No Feels Safe at Home: Yes Childhood Exposure to Second-Hand Smoke: Yes caffeine: Yes (coffee, tea ) Dental Care, Regularly: Yes Physical Activity Frequency: 3-4 Times per Week Seatbelt Use: always Sunscreen Use: Yes Assistive Devices: Denture - Upper, Denture - Lower and Glasses Review of Systems Review of Systems: All systems reviewed & are unremarkable except as noted in HPI & below Physical Exam Constitutional: WD/WN, vitals as above Eyes: PERRL, conjunctivae normal, anicteric sclerae Respiratory: normal respiratory effort; no respiratory distress, no labored breathing, no retractions and does not use accessory muscles Auscultation: + crackles and + wheezes; no rales and no rhonchi Cardiovascular: Rate/Rhythm: regular rate and regular rhythm Heart Sounds: no gallop, no murmur and no cardiac rub Vessels: normal peripheral pulses; no JVD Extremities: no edema Gastrointestinal (Abdomen): Inspection/Auscultation: normal bowel sounds; abdomen not distended Percussion/Palpation: abdomen soft; abdomen nontender and no guarding Musculoskeletal: no cyanosis or clubbing, extremities motor strength 5/5 Skin: no rashes, warm and dry Neurologic: PERRL, EOMI, accommodation nl, no face palsy, no dysarthria CN's II-XI intact bilaterally and moves all extremities Psychiatric: Orientation: alert and oriented x 3 Results & Data Results & Data ([facility]) Vital Signs (Past 12 Hours) Vital Signs Temp Pulse Pulse Resp BP BP Pulse Ox 05/13/21 19:35 76 18 117/63 94 05/13/21 18:30 75 23 98 05/13/21 18:00 92 H 25 H 99 05/13/21 17:30 81 26 H 94 05/13/21 17:00 77 23 93 05/13/21 16:30 99 H 17 92 05/13/21 16:00 0 L 19 91 05/13/21 15:43 87 20 96 05/13/21 15:09 75 18 96 05/13/21 13:23 36.3 C L 83 18 93/56 L 99 Laboratory Results 05/13/21 05/13/21 05/13/21 Range/Units 15:12 15:12 15:12 WBC 7.39 (4.8-10.8) K/uL RBC 4.95 (4.7-6.1) M/uL Hgb 12.9 L (14.0-18.0) g/dL Hct 41.8 L (42-52) % MCV 84.4 (80-100) fL MCH 26.1 (25-34) pg MCHC 30.9 L (32-36) g/dL RDW Std Deviation 46.7 H (36.4-46.3) fL RDW Coeff of Jonathan 15.1 H (11.5-14.5) % Plt Count 185 (130-400) K/uL MPV 8.4 (7.4-10.4) fL Immature Gran % (Auto) 0.4 % Neut % (Auto) 64.3 % Lymph % (Auto) 20.0 % [place] % (Auto) 13.5 % Eos % (Auto) 1.8 % Baso % (Auto) 0.0 % Neut # (Auto) 4.75 (1.4-6.5) K/uL Lymph # (Auto) 1.48 (1.2-3.4) K/uL [place] # (Auto) 1.00 H (0.11-0.59) K/uL Eos # (Auto) 0.13 (0-0.5) K/uL Baso # (Auto) 0.00 (0-0.2) K/uL Immature Gran # (Auto) 0.03 H (0.00-0.02) K/uL PT 41.3 H (9.0-12.0) Seconds INR 4.6 H (0.9-1.1) APTT 53.6 H* (21.0-31.0) Seconds PTT Ratio 2.0 VBG pH (7.36-7.41) VBG pCO2 (38-50) mmHg VBG pO2 mmHg VBG HCO3 mmol/L VBG O2 Saturation % VBG Base Excess mEq/L Barometric Pressure mm/Hg Sodium (136-145) mmol/L Potassium (3.5-5.1) mmol/L Chloride (98-107) mmol/L Carbon Dioxide (21-32) mmol/L Anion Gap (3-11) BUN (7-18) mg/dl Creatinine (0.6-1.4) mg/dl Est Cr Clr Drug Dosing ml/min Est GFR ( Amer) ml/min Est GFR (Non-Af Amer) ml/min BUN/Creatinine Ratio (10-20) Glucose (70-99) mg/dl Calcium (8.5-10.1) mg/dl Magnesium (1.8-2.4) mg/dl Total Bilirubin (0.2-1) mg/dl AST (15-37) U/L ALT (12-78) U/L Alkaline Phosphatase (45-117) U/L Troponin I (0-0.045) ng/ml NT-Pro-B Natriuret Pep 5675 H (0-1800) pg/ml Total Protein (6.4-8.2) gm/dl Albumin (3.4-5.0) gm/dl Globulin (2.5-4.0) gm/dl Albumin/Globulin Ratio (0.9-2) TSH (0.300-4.500) uIu/ml COVID-19 Eval Order SARS-CoV-2 (PCR) (Negative) 05/13/21 05/13/21 05/13/21 Range/Units 15:12 15:12 15:10 WBC (4.8-10.8) K/uL RBC (4.7-6.1) M/uL Hgb (14.0-18.0) g/dL Hct (42-52) % MCV (80-100) fL MCH (25-34) pg MCHC (32-36) g/dL RDW Std Deviation (36.4-46.3) fL RDW Coeff of Jonathan (11.5-14.5) % Plt Count (130-400) K/uL MPV (7.4-10.4) fL Immature Gran % (Auto) % Neut % (Auto) % Lymph % (Auto) % [place] % (Auto) % Eos % (Auto) % Baso % (Auto) % Neut # (Auto) (1.4-6.5) K/uL Lymph # (Auto) (1.2-3.4) K/uL [place] # (Auto) (0.11-0.59) K/uL Eos # (Auto) (0-0.5) K/uL Baso # (Auto) (0-0.2) K/uL Immature Gran # (Auto) (0.00-0.02) K/uL PT (9.0-12.0) Seconds INR (0.9-1.1) APTT (21.0-31.0) Seconds PTT Ratio VBG pH 7.38 (7.36-7.41) VBG pCO2 43 (38-50) mmHg VBG pO2 20 mmHg VBG HCO3 25 mmol/L VBG O2 Saturation < 60.0 % VBG Base Excess -0.3 mEq/L Barometric Pressure 735.8 mm/Hg Sodium 142 (136-145) mmol/L Potassium 3.8 (3.5-5.1) mmol/L Chloride 111 H (98-107) mmol/L Carbon Dioxide 27 (21-32) mmol/L Anion Gap 4.0 (3-11) BUN 24 H (7-18) mg/dl Creatinine 1.19 (0.6-1.4) mg/dl Est Cr Clr Drug Dosing 51.9 ml/min Est GFR ( Amer) 66.0 ml/min Est GFR (Non-Af Amer) 56.9 ml/min BUN/Creatinine Ratio 20.1 H (10-20) Glucose 94 (70-99) mg/dl Calcium 9.4 (8.5-10.1) mg/dl Magnesium 1.7 L (1.8-2.4) mg/dl Total Bilirubin 1.6 H (0.2-1) mg/dl AST 17 (15-37) U/L ALT 17 (12-78) U/L Alkaline Phosphatase 77 (45-117) U/L Troponin I 0.125 H* (0-0.045) ng/ml NT-Pro-B Natriuret Pep (0-1800) pg/ml Total Protein 7.5 (6.4-8.2) gm/dl Albumin 3.5 (3.4-5.0) gm/dl Globulin 4.0 (2.5-4.0) gm/dl Albumin/Globulin Ratio 0.9 (0.9-2) TSH 1.270 (0.300-4.500) uIu/ml COVID-19 Eval Order SARS-CoV-2 (PCR) NEGATIVE (Negative) 05/13/21 Range/Units 15:10 WBC (4.8-10.8) K/uL RBC (4.7-6.1) M/uL Hgb (14.0-18.0) g/dL Hct (42-52) % MCV (80-100) fL MCH (25-34) pg MCHC (32-36) g/dL RDW Std Deviation (36.4-46.3) fL RDW Coeff of Jonathan (11.5-14.5) % Plt Count (130-400) K/uL MPV (7.4-10.4) fL Immature Gran % (Auto) % Neut % (Auto) % Lymph % (Auto) % [place] % (Auto) % Eos % (Auto) % Baso % (Auto) % Neut # (Auto) (1.4-6.5) K/uL Lymph # (Auto) (1.2-3.4) K/uL [place] # (Auto) (0.11-0.59) K/uL Eos # (Auto) (0-0.5) K/uL Baso # (Auto) (0-0.2) K/uL Immature Gran # (Auto) (0.00-0.02) K/uL PT (9.0-12.0) Seconds INR (0.9-1.1) APTT (21.0-31.0) Seconds PTT Ratio VBG pH (7.36-7.41) VBG pCO2 (38-50) mmHg VBG pO2 mmHg VBG HCO3 mmol/L VBG O2 Saturation % VBG Base Excess mEq/L Barometric Pressure mm/Hg Sodium (136-145) mmol/L Potassium (3.5-5.1) mmol/L Chloride (98-107) mmol/L Carbon Dioxide (21-32) mmol/L Anion Gap (3-11) BUN (7-18) mg/dl Creatinine (0.6-1.4) mg/dl Est Cr Clr Drug Dosing ml/min Est GFR ( Amer) ml/min Est GFR (Non-Af Amer) ml/min BUN/Creatinine Ratio (10-20) Glucose (70-99) mg/dl Calcium (8.5-10.1) mg/dl Magnesium (1.8-2.4) mg/dl Total Bilirubin (0.2-1) mg/dl AST (15-37) U/L ALT (12-78) U/L Alkaline Phosphatase (45-117) U/L Troponin I (0-0.045) ng/ml NT-Pro-B Natriuret Pep (0-1800) pg/ml Total Protein (6.4-8.2) gm/dl Albumin (3.4-5.0) gm/dl Globulin (2.5-4.0) gm/dl Albumin/Globulin Ratio (0.9-2) TSH (0.300-4.500) uIu/ml COVID-19 Eval Order Covid19 [address] [facility] SARS-CoV-2 (PCR) (Negative) Medications Administered Home Medication List Medication Instructions Recorded warfarin 2.5 mg tablet 2.5 mg PO HS tab 06/23/19 aspirin 81 mg tablet,delayed 81 mg PO QAM 06/29/19 release coenzyme Q10 100 mg capsule 100 mg PO QAM 06/29/19 pyridostigmine bromide 60 mg tablet 60 mg PO TID #90 tab 07/04/19 nitroglycerin 0.4 mg sublingual 0.4 mg SL Q5M PRN #25 tab 04/15/20 tablet epinephrine 0.3 mg/0.3 mL 0.3 mg IM Q10M PRN #1 ea 05/04/20 injection, auto-injector (EpiPen 2-Puneet) mycophenolate mofetil 500 mg 1,000 mg PO BID #360 tab 11/30/20 tablet (CellCept) furosemide 20 mg tablet 20 mg PO Q OTHER DAY tab 12/17/20 ipratropium 0.5 mg-albuterol 3 mg 3 ml INHALATION QID PRN #15 ml 12/17/20 (2.5 mg base)/3 mL nebulization soln spironolactone 25 mg tablet 12.5 mg PO Q3D tab 12/17/20 levothyroxine 75 mcg tablet 75 mcg PO QAM #90 tab 01/05/21 cetirizine 10 mg tablet 10 mg PO BID PRN #60 tab 04/26/21 glimepiride 1 mg tablet 0.5 mg PO QAM tab 04/26/21 metformin 500 mg tablet,extended 500 mg PO TID tab 04/26/21 release 24 hr potassium chloride 10 mEq 10 meq PO TID #90 tab 04/26/21 tablet,extended release(part/cryst) diphenhydramine HCl 50 mg capsule 50 mg PO Q6H PRN 05/13/21 ipratropium bromide 42 mcg (0.06 2 spray INTRANASAL TID 05/13/21 %) nasal spray loperamide 2 mg tablet (Imodium 2 mg PO QID PRN 05/13/21 A-D) magnesium oxide 250 mg PO QAM 05/13/21 metoprolol succinate 50 mg 50 mg PO BID 05/13/21 tablet,extended release 24 hr mupirocin 2 % topical ointment 1 applic TOPICAL TID PRN 05/13/21 pyridostigmine bromide 180 mg 180 mg PO QAM 05/13/21 tablet,extended release (Mestinon Timespan) Supervising Physician Co-Signing Physician Notes Pt seen/examined in conjunction with resident MD. Orders and plan of admission reviewed with resident. 81y/o M Hx hypothyroid, myasthenia gravis, atrial fibrillation, DM II, ILD, AVR. Presenting with weakness and SOB. The pt reports progressive weakness/fatigue and SOB with minimal exertion for > one week. He is not able to get around his house comfortably and is increasingly reliant on his . He does not report a fever or productive cough. He has had some wheezing. Initial labs were notable for an elevated trop which has remained steady. XR displayed pulmonary congestion vs ILD. OE: General: AAO x 3, no distress ENT: No erythema or exudates, no thrush Eyes: ARIA, EOMI Head and neck: Normocephalic, atraumatic, No JVD, neck is supple. Chest/heart: Nontender, S1,2, irr, no murmurs, no gallops Lungs: Crackles on R, poor air movement, wheezing at L base Abdomen: Nontender, nondistended, BS+ Neuro: AAO x 3, speech is clear, no unilateral weakness or loss of sensation, coordination intact Musculoskeletal: No joint inflammation, muscle tenderness, FROM Skin: No acute rashes or ulcers Extremities: No clubbing, cyanosis. + edema P: 1) SOB - cardiac vs ILD vs musculoskeletal/neurologic - NIF does not indicate MG crisis but this does not r/o progress of disease. - We would consult neuro - Repeat limited echo - Consult pulmonary 2) AF - rate controlled - cont metoprolol, Coumadin 3) MG - cont Mestinon 4) Hypothyroid - cont Synthroid 5) Elevated trop - doubt AMI - echo pending to evaluate for wall motion abnorms and reevaluate EF 6) DM - sliding scale \7) ILD - provoded with IV steroids - pulm input would be appreciated Full code - Coumadin anticoagulation Total time for this admit including review of labs, meds, imaging, records - discussion with pt and ER attending - 48min Resident Activity Tracking Resident Involvement: Resident Care Provided Care Provided: Adult Hospital Medicine (1) CAD (coronary artery disease) Associated angina: without angina Coronary Disease-Associated Artery/Lesion type: [place] artery [place] vs. transplanted heart: [place] heart Qualified Code(s): I25.10 - Atherosclerotic heart disease of [place] coronary artery without angina pectoris
[2021-05-13] MEDS ORDERED: GLUCAGON FOR INJ 1 MG VIAL SQ PRN (22:05)
[2021-05-13] MEDS ORDERED: CARBOHYDRATES FOR HYPOGLYCEMIA PO PRN (22:05)
[2021-05-13] MEDS ORDERED: POLYETHYLENE (MIRALAX) 17 GM PACK PO PRN (22:05)
[2021-05-13] MEDS ORDERED: ONDANSETRON INJ 2 MG/ML 2 ML VIAL IV PRN (22:05)
[2021-05-13] MEDS ORDERED: NITROGLYCERIN SL 0.4 MG/TAB TAB SL PRN (22:05)
[2021-05-13] MEDS ORDERED: DEXTROSE 50% 50 ML SYRINGE IV PRN (22:05)
[2021-05-13] MEDS ORDERED: GLUCOSE 10 TABS/TUBE PO PRN (22:05)
[2021-05-13] MEDS ORDERED: MoRPHine SULFATE 2 MG/ML CARP IV PRN (22:05)
[2021-05-13] MEDS ORDERED: ACETAMINOPHEN 325 MG TAB PO PRN (22:05)
[2021-05-13] MEDS ORDERED: GLUCOSE 40% GEL 15 GM TUBE PO PRN (22:05)
[2021-05-13] MEDS ORDERED: MAGNESIUM HYDROXIDE SUSP 30 ML UDC PO PRN (22:05)
[2021-05-13] MEDS ORDERED: ALUMINUM/MAGNESIUM SUSP 30 ML UDC PO PRN (22:05)
[2021-05-13] MEDS ORDERED: PYRIDOSTIGMINE BROMIDE 60 MG TAB PO SCH (22:30)
[2021-05-13 22:57] LABS: Appearance Urine Clear (Clear); Blood Urine Negative (Negative); Color Urine Dark Yellow; Glucose Urine UA Negative (Negative); Ketones Urine Trace (Negative); Leukocyte Esterase Urine Negative (Negative); Nitrite Urine Negative (Negative); Protein Urine Negative (Negative); Specific Gravity Urine 1.022 (1.000-1.030); Urobilinogen Urine Negative (Negative)
[2021-05-13 22:59] LABS: Bilirubin Urine 1+ (Negative)
[2021-05-13] MEDS: INSULIN ASPART 100 UNITS/ML 3 ML PEN SC SCH (23:05)
[2021-05-13] MEDS ORDERED: COUGH DROP (SUGAR FREE) LOZ 24 LOZ/1 BOX BUCCAL ONE (23:29)
[2021-05-13] MEDS: IPRATROPIUM BROMIDE NASAL SPRAY 0.06% 15ML SCH (23:36)
[2021-05-13] MEDS: diphenhydrAMINE Capsule 25 MG CAP PO PRN (23:36)
[2021-05-13] MEDS ORDERED: methylPREDNISolone 20 MG in SYRINGE 0 ML IV STA (23:52)
[2021-05-13] MEDS: METOPROLOL SUCC 50MG EXT REL TAB PO SCH (23:55)
[2021-05-13] MEDS: MYCOPHENOLATE MOFETIL 250 MG CAP PO SCH (23:55)
[2021-05-13] MEDS: POTASSIUM CHLORIDE 10 MEQ TABCR PO SCH (23:55)
[2021-05-14] MEDS: MAGNESIUM SULFATE / D5W 1 GM/100 ML BAG IV SCH ×2 (00:11→02:36)
[2021-05-14] MEDS: LEVOTHYROXINE SODIUM 75 MCG TABLET PO SCH (05:03)
[2021-05-14 06:28] LABS: Eosinophils # (auto) 0.01 K/uL (0-0.5); Eosinophils % (auto) 0.2 %; Hematocrit (blood only) 38.6 % (42-52); Hemoglobin 11.5 g/dL (14.0-18.0); Immature Granulocytes # (auto) 0.02 K/uL (0.00-0.02); Immature Granulocytes % (auto) 0.3 %; Lymphocytes # (auto) 0.68 K/uL (1.2-3.4); Lymphocytes % (auto) 10.4 %; Mean Corpuscular Hemoglobin 25.3 pg (25-34); Mean Corpuscular Hgb Conc 29.8 g/dL (32-36); Mean Corpuscular Volume 84.8 fL (80-100); Mean Platelet Volume 8.7 fL (7.4-10.4); Monocytes % (auto) 1.5 %; Neutrophils # (auto) 5.71 K/uL (1.4-6.5); Neutrophils % (auto) 87.6 %; Platelet Count 192 K/uL (130-400); RDW Coefficient of Variation 15.2 % (11.5-14.5); RDW Standard Deviation 47.2 fL (36.4-46.3); Red Blood Count 4.55 M/uL (4.7-6.1); White Blood Count 6.52 K/uL (4.8-10.8)
[2021-05-14 06:49] LABS: INR 4.7 (0.9-1.1); Prothrombin Time 42.5 Seconds (9.0-12.0)
[2021-05-14 07:05] LABS: BUN Creatinine Ratio 20.2 (10-20); Calcium 8.7 mg/dl (8.5-10.1); Creatinine Clr Calc Pharmacy 56.6 ml/min; Est GFR (African American) 73.4 ml/min; Est GFR (Non-African American) 63.3 ml/min; Magnesium 2.5 mg/dl (1.8-2.4); Phosphorus 3.8 mg/dl (2.5-4.9); Potassium 4.8 mmol/L (3.5-5.1)
[2021-05-14] MEDS: INSULIN ASPART 100 UNITS/ML 3 ML PEN SC SCH ×4 (08:54→20:27)
[2021-05-14] MEDS ORDERED: PYRIDOSTIGMINE SUSTAINED REL 180 MG TABCR PO SCH (09:00)
--- NOTE | 2021-05-14 09:00 | Electrocardiogram Report ---
Test Reason : Blood Pressure : / mmHG Vent. Rate : 084 BPM Atrial Rate : 094 BPM P-R Int : 000 ms QRS Dur : 182 ms QT Int : 446 ms P-R-T Axes : 000 -88 086 degrees QTc Int : 527 ms Ventricular-paced rhythm Abnormal ECG When compared with ECG of 28-NOV-2019 11:06, Vent. rate has increased BY 7 BPM Underlying rhythm now appears to be Atrial flutter Electronic atrial pacemaker no longer apparent Confirmed by Foster Camp ([id number]) on 05/14/2021 8:59:48 AM Referred By: REFERRED SELF Confirmed By:Foster Camp
--- NOTE | 2021-05-14 09:15 | Hospitalist Progress Note ---
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 Fatigue: -Uncertain etiology of fatigue/malaise given patient's extensive medical history -Potential that this represents deconditioning versus progression of myasthenia gravis versus cardiopulmonary process -Negative NIF test with respiratory in the ED indicating less likely to be acute myasthenic crisis -BNP 5675; however patient is questionably clinically dry -CXR demonstrating cardiomegaly with evidence of congestive failure -Troponin 0.125 on admission -Last echo in 2018 demonstrating mildly reduced LV systolic function, with EF 45-50% -Will trend troponins q8h overnight -Consideration of echo in a.m. -PT/OT evaluations given generalized fatigue and propensity for worsening in the setting of myasthenia gravis -Continue Mestinon and CellCept at home regimen -As currently do not believe patient is in myasthenic crisis, will hold off on IV corticosteroids or IVIG Persistent atrial fibrillation: -Continue home metoprolol 50 twice daily, warfarin -PT/INR daily Hypothyroidism: -TSH on admission of 1.27 -Continue home Synthroid Interstitial lung disease: -Following with pulmonology, currently uncertain etiology of interstit ial/restrictive lung disease, previously was consideration of sarcoidosis -DuoNebs as needed Type 2 diabetes: -Hold home oral glycemic regimen -Sliding scale insulin -BSG's ACHS Diet: Heart healthy, carb consistent CODE STATUS: Full code DVT prophylaxis: Continue home warfarin (2) Myasthenia gravis: (3) Interstitial lung disease: (4) Persistent atrial fibrillation: (5) CAD (coronary artery disease): (6) Hypothyroidism: (7) Hyperlipidemia: (8) 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 transplanted heart: [place] heart Associated angina: without angina Qualified Code(s): I25.10 - Atherosclerotic heart disease of [place] coronary artery without angina pectoris
[2021-05-14] MEDS: BENZONATATE 100 MG CAPSULE PO SCH ×3 (09:20→19:49)
[2021-05-14] MEDS: ASPIRIN 81 MG ECTAB PO SCH (09:20)
[2021-05-14] MEDS: PYRIDOSTIGMINE BROMIDE 60 MG TAB PO SCH ×3 (09:20→17:29)
[2021-05-14] MEDS: POTASSIUM CHLORIDE 10 MEQ TABCR PO SCH ×3 (09:20→19:51)
--- NOTE | 2021-05-14 09:20 | CT Scan Report ---
CT chest diagnostic wo con CLINICAL HISTORY: Shortness of breath. Interstitial lung disease. COMPARISON STUDY: 08/13/2019 CT DOSE: 331.17 mGy.cm TECHNIQUE: CT of the thorax was performed from the thoracic inlet to the lung bases. Images are revi ewed in the axial, sagittal, and coronal planes. IV contrast was not administered for this examinatio n. A dose lowering technique was utilized adhering to the principles of ALARA. FINDINGS: Thyroid: 1. Minimal thyroid tissue is visualized. Thoracic aorta: The thoracic aorta is normal in course and caliber, noting standard 3 vessel arch lilia shanti. Heart: There are extensive coronary artery calcifications. A pacemaker is visualized. The heart is en larged. There is no significant pericardial effusion. Lungs and pleural spaces: There are trace bilateral pleural effusions. There is a stable 4.5 cm right apical septated cystic lesion. There is slight progression of the patient's underlying interstitial lung disease characterized by nodular interlobular septal thickening, and subpleural reticulation. Th ere is no honeycombing. There is no significant traction bronchiectasis. There are a few scattered ca lcified granulomas. Mediastinum: There are persistent mildly enlarged mediastinal lymph nodes. An index subcarinal lymph node measures 18 mm in short axis. This demonstrates minimal interval increase in size when compared the prior study. This node contains calcifications. Additional calcified nodes are visualized. Janneth: There are mildly enlarged hilar lymph nodes, many of which are calcified. Axilla: There is no evidence of pathologic axillary lymphadenopathy Upper abdomen: Partially visualized upper abdominal viscera is within normal limits. Skeletal structures: There are no lytic or blastic osseous lesions. IMPRESSION: 1. Slight progression in the nonspecific chronic interstitial lung disease characterized by nodular i nterlobular septal thickening, and subpleural reticulation. 2. Mild mediastinal and hilar lymphadenopathy, relatively similar to the prior study 3. Trace bilateral pleural effusions ACT 112: Negative or not required by law. Electronically signed by: Arslan Queen M.D. 05/14/2021 9:19 AM
[2021-05-14] MEDS: FUROSEMIDE 20 MG TAB PO SCH (09:21)
[2021-05-14] MEDS: CETIRIZINE HCL 10 MG TABLET PO PRN (09:21)
[2021-05-14] MEDS: METOPROLOL SUCC 50MG EXT REL TAB PO SCH ×2 (09:21→19:50)
[2021-05-14] MEDS: MYCOPHENOLATE MOFETIL 250 MG CAP PO SCH ×2 (09:21→19:51)
[2021-05-14] MEDS: IPRATROPIUM BROMIDE NASAL SPRAY 0.06% 15ML SCH ×3 (09:26→19:58)
[2021-05-14] MEDS ORDERED: WARFARIN SOD 2.5 MG TAB PO SCH (16:00)
--- NOTE | 2021-05-14 16:21 | Medical Student Progress Note ---
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 Fatigue Secondary to Upper Respiratory Infection: -Thinking fatigue is secondary to URI due to the following: -onset of symptoms within the last week -improvement during hospitalization with methylprednisolone and O2 NC -Hx of pulmonary fibrosis makes him more susceptible to infection; CT Chest shows little progression since last CT -Continue methylprednisolone -Begin azithromycin for anti-inflammatory effects and anaerobic coverage -Monitor O2 saturation and attempt weaning off of NC -Continue Mestinon and CellCept at home regimen Unlikely to be due to progression of myasthenia gravis due to the following: -Negative NIF test with respiratory in the ED Unlikely to be cardiopulmonary in origin due to the following: -Echo: relatively unchanged from December 2020 -BNP 5675 and Troponinx3 elevated; both likely due to structural heart changes present on previous Echo -Patient is not fluid overloaded, not complaining of chest pain, and does not have EKG changes indicating an NC Persistent atrial fibrillation: -Continue home metoprolol 50 twice daily, warfarin -PT/INR daily Hypothyroidism: -TSH on admission of 1.27 -Continue home Synthroid Interstitial lung disease: -Following with pulmonology, currently uncertain etiology of interstitial/restrictive lung disease, previously was consideration of sarcoidosis -DuoNebs as needed Type 2 diabetes: -Hold home oral glycemic regimen -Sliding scale insulin -BSG's ACHS Diet: Heart healthy, carb consistent CODE STATUS: Full code DVT prophylaxis: Continue home warfarin (2) Myasthenia gravis: (3) Interstitial lung disease: (4) Persistent atrial fibrillation: (5) CAD (coronary artery disease): Associated angina: without angina Coronary Disease-Associated Artery/Lesion type: [place] artery [place] vs. 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 Still has a bit of a cough. That said overall the symptoms are much improved. No other new symptoms. present at the bedsideupdated to the best of my ability. Vitals noted, in general he is awake and alert pleasant no distress. HEENT normocephalic atraumatic mucous membranes moist. Breathing unlabored no accessory muscle use good effort, he does have bibasilar dry sounding rales. Skin shows no rashes no pallor or icterus. Fatigue/dyspnea on exertionafter further review seems most consistent with a respiratory infection/flare up of pulmonary fibrosisprobably affecting him more because of his immunocompromise state related to his myasthenia gravis therapy, as well as his chronic lung disease/pulmonary hypertension. Pulmonary fibrosis flare/respiratory infectioncontinue IV steroids, add azithromycin for atypical coverage. Follow. Fairly severe pulmonary hypertensionfortunately not worse than before, I wonder if some of his chronic heart strain from his dilated atria/pulmonary hypertension might account for what appears to be a bit of a chronic troponin leak. Certainly no NC noted. DVT prophylaxisanticoagulated with Coumadin. Subjective Overall, patient appears to be doing well. He is sitting in his chair comfortably, without oxygen, while we converse. He says last night was a bit rough, but he has been feeling much better since receiving the steroids. He currently is not having any cough, shortness of breath, chest pain, or palpitations. Review of Systems Review of Systems: All systems reviewed & are unremarkable except as noted in Subjective Physical Exam Constitutional: WD/WN, vitals as above Eyes: no eyelid abnormality (no ptosis) Respiratory: normal respiratory effort; no respiratory distress, no labored breathing, no retractions and does not use accessory muscles Auscultation: + crackles (lower lung lobes); no rales, no rhonchi and no wheezes Cardiovascular: Rate/Rhythm: regular rate and regular rhythm Heart Sounds: no gallop, no murmur and no cardiac rub Vessels: normal peripheral pulses; no JVD Extremities: no edema Skin: + ecchymosis (b/l arms) Neurologic: PERRL, EOMI, accommodation nl, no face palsy, no dysarthria moves all extremities Psychiatric: Orientation: alert and oriented x 3 Results & Data ([facility]) Vital Signs (Past 12 Hours) Vital Signs Temp Pulse Pulse Resp BP Pulse Ox 05/14/21 15:32 36.6 C 78 20 104/61 100 05/14/21 13:50 100 05/14/21 11:51 36.5 C 92 H 22 103/58 L 100 05/14/21 08:00 109 H 05/14/21 07:33 36.4 C L 112 H 20 106/68 98 Laboratory Results Laboratory Results WBC 6.52 K/uL (4.8-10.8) 05/14/21 05:52 RBC 4.55 M/uL (4.7-6.1) L 05/14/21 05:52 Hgb 11.5 g/dL (14.0-18.0) L 05/14/21 05:52 Hct 38.6 % (42-52) L 05/14/21 05:52 MCV 84.8 fL (80-100) 05/14/21 05:52 MCH 25.3 pg (25-34) 05/14/21 05:52 MCHC 29.8 g/dL (32-36) L 05/14/21 05:52 RDW Std Deviation 47.2 fL (36.4-46.3) H 05/14/21 05:52 RDW Coeff of Jonathan 15.2 % (11.5-14.5) H 05/14/21 05:52 Plt Count 192 K/uL (130-400) 05/14/21 05:52 MPV 8.7 fL (7.4-10.4) 05/14/21 05:52 Immature Gran % (Auto) 0.3 % 05/14/21 05:52 Neut % (Auto) 87.6 % 05/14/21 05:52 Lymph % (Auto) 10.4 % 05/14/21 05:52 [place] % (Auto) 1.5 % 05/14/21 05:52 Eos % (Auto) 0.2 % 05/14/21 05:52 Baso % (Auto) 0.0 % 05/14/21 05:52 Neut # (Auto) 5.71 K/uL (1.4-6.5) 05/14/21 05:52 Lymph # (Auto) 0.68 K/uL (1.2-3.4) L 05/14/21 05:52 [place] # (Auto) 0.10 K/uL (0.11-0.59) L 05/14/21 05:52 Eos # (Auto) 0.01 K/uL (0-0.5) 05/14/21 05:52 Baso # (Auto) 0.00 K/uL (0-0.2) 05/14/21 05:52 Immature Gran # (Auto) 0.02 K/uL (0.00-0.02) 05/14/21 05:52 PT 42.5 Seconds (9.0-12.0) H 05/14/21 05:52 INR 4.7 (0.9-1.1) H 05/14/21 05:52 APTT 53.6 Seconds (21.0-31.0) H* 05/13/21 15:12 PTT Ratio 2.0 05/13/21 15:12 VBG pH 7.38 (7.36-7.41) 05/13/21 15:12 VBG pCO2 43 mmHg (38-50) 05/13/21 15:12 VBG pO2 20 mmHg 05/13/21 15:12 VBG HCO3 25 mmol/L 05/13/21 15:12 VBG O2 Saturation < 60.0 % 05/13/21 15:12 VBG Base Excess -0.3 mEq/L 05/13/21 15:12 Barometric Pressure 735.8 mm/Hg 05/13/21 15:12 Sodium 138 mmol/L (136-145) 05/14/21 05:52 Potassium 4.8 mmol/L (3.5-5.1) D 05/14/21 05:52 Chloride 111 mmol/L (98-107) H 05/14/21 05:52 Carbon Dioxide 22 mmol/L (21-32) 05/14/21 05:52 Anion Gap 5.0 (3-11) 05/14/21 05:52 BUN 22 mg/dl (7-18) H 05/14/21 05:52 Creatinine 1.09 mg/dl (0.6-1.4) 05/14/21 05:52 Est Cr Clr Drug Dosing 56.6 ml/min 05/14/21 05:52 Est GFR ( Amer) 73.4 ml/min 05/14/21 05:52 Est GFR (Non-Af Amer) 63.3 ml/min 05/14/21 05:52 BUN/Creatinine Ratio 20.2 (10-20) H 05/14/21 05:52 Glucose 176 mg/dl (70-99) H 05/14/21 05:52 POC Glucose 121 mg/dl (70-99) H 05/14/21 16:28 Calcium 8.7 mg/dl (8.5-10.1) 05/14/21 05:52 Phosphorus 3.8 mg/dl (2.5-4.9) 05/14/21 05:52 Magnesium 2.5 mg/dl (1.8-2.4) H 05/14/21 05:52 Total Bilirubin 1.6 mg/dl (0.2-1) H 05/13/21 15:12 AST 17 U/L (15-37) 05/13/21 15:12 ALT 17 U/L (12-78) 05/13/21 15:12 Alkaline Phosphatase 77 U/L (45-117) 05/13/21 15:12 Troponin I 0.097 ng/ml (0-0.045) H* 05/14/21 14:23 NT-Pro-B Natriuret Pep 5675 pg/ml (0-1800) H 05/13/21 15:12 Total Protein 7.5 gm/dl (6.4-8.2) 05/13/21 15:12 Albumin 3.5 gm/dl (3.4-5.0) 05/13/21 15:12 Globulin 4.0 gm/dl (2.5-4.0) 05/13/21 15:12 Albumin/Globulin Ratio 0.9 (0.9-2) 05/13/21 15:12 TSH 1.270 uIu/ml (0.300-4.500) 05/13/21 15:12 Urine Color Dark Yellow 05/13/21 22:30 Urine Appearance Clear (Clear) 05/13/21 22:30 Urine pH 5.0 (4.5-7.5) 05/13/21 22:30 Ur Specific [place] 1.022 (1.000-1.030) 05/13/21 22:30 Urine Protein Negative (Negative) 05/13/21 22:30 Urine Glucose (UA) Negative (Negative) 05/13/21 22:30 Urine Ketones Trace (Negative) H 05/13/21 22:30 Urine Blood Negative (Negative) 05/13/21 22:30 Urine Nitrite Negative (Negative) 05/13/21 22:30 Urine Bilirubin 1+ (Negative) H 05/13/21 22:30 Urine Urobilinogen Negative (Negative) 05/13/21 22:30 Ur Leukocyte Esterase Negative (Negative) 05/13/21 22:30 COVID-19 Eval Order Covid19 at [facility] 05/13/21 15:10 SARS-CoV-2 (PCR) NEGATIVE (Negative) 05/13/21 15:10 Impressions Chest X-Ray 05/13/21 14:49 SINGLE VIEW CHEST CLINICAL HISTORY: Generalized weakness. FINDINGS: An AP, portable, upright chest radiograph is compared to study dated 07/01/2018 and correlated with chest CT dated 08/13/2019. The patient is status post midline sternotomy and cardiac valve surgery. A 3-lead cardiac AICD is unchanged in position and partially obscures the left mid chest. The heart is enlarged noting atherosclerotic calcification of the thoracic aorta. There is pulmonary vascular congestion. Emphysema and chronic interstitial thickening is similar to previous. Subpleural reticulation suggests superimposed interstitial lung disease. Calcified granulomas are observed. Scarring/atelectasis is noted at the lung bases. No large pleural effusion or pneumothorax is seen. The skeletal structures are osteopenic. The bony thorax is grossly intact. Fusion hardware is noted in the lower cervical spine. IMPRESSION: 1. Cardiomegaly and AICD with evidence of congestive failure. 2. Emphysema. 3. No airspace consolidation typical for pneumonia or large pleural effusion is identified ACT 112: Negative or not required by law. Electronically signed by: Thad Serrato M.D. 05/13/2021 5:[address] 05/14/21 08:07 CT chest diagnostic wo con CLINICAL HISTORY: Shortness of breath. Interstitial lung disease. COMPARISON STUDY: 08/13/2019 CT DOSE: 331.17 mGy.cm TECHNIQUE: CT of the thorax was performed from the thoracic inlet to the lung bases. Images are reviewed in the axial, sagittal, and coronal planes. IV contrast was not administered for this examination. A dose lowering technique was utilized adhering to the principles of ALARA. FINDINGS: Thyroid: 1. Minimal thyroid tissue is visualized. Thoracic aorta: The thoracic aorta is normal in course and caliber, noting standard 3 vessel arch anatomy. Heart: There are extensive coronary artery calcifications. A pacemaker is visualized. The heart is enlarged. There is no significant pericardial effusion. Lungs and pleural spaces: There are trace bilateral pleural effusions. There is a stable 4.5 cm right apical septated cystic lesion. There is slight progression of the patient's underlying interstitial lung disease characterized by nodular interlobular septal thickening, and subpleural reticulation. There is no honeycombing. There is no significant traction bronchiectasis. There are a few scattered calcified granulomas. Mediastinum: There are persistent mildly enlarged mediastinal lymph nodes. An index subcarinal lymph node measures 18 mm in short axis. This demonstrates minimal interval increase in size when compared the prior study. This node contains calcifications. Additional calcified nodes are visualized. Janneth: There are mildly enlarged hilar lymph nodes, many of which are calcified. Axilla: There is no evidence of pathologic axillary lymphadenopathy Upper abdomen: Partially visualized upper abdominal viscera is within normal limits. Skeletal structures: There are no lytic or blastic osseous lesions. IMPRESSION: 1. Slight progression in the nonspecific chronic interstitial lung disease characterized by nodular interlobular septal thickening, and subpleural reticulation. 2. Mild mediastinal and hilar lymphadenopathy, relatively similar to the prior study 3. Trace bilateral pleural effusions ACT 112: Negative or not required by law. Electronically signed by: Arslan Queen M.D. 05/14/2021 9:19 AM Medications Administered Current Inpatient Medications Acetaminophen (Acetaminophen 325 Mg Tab) 650 mg PO Q4H PRN PRN Reason: Pain or Fever Stop: 06/12/21 22:04 Al Hydrox/Mg Hydrox/Simethicone (Aluminum/Magnesium Susp 30 Ml Udc) 15 ml PO Q4H PRN PRN Reason: Dyspepsia Stop: 06/12/21 22:04 Albuterol (Albut/Ipratrop 3mg/0.5mg Neb 3 Ml Vial) 3 ml INH QIDR PRN PRN Reason: shortness of breath Stop: 06/12/21 22:04 Aspirin (Aspirin 81 Mg Ectab) 81 mg PO QAM [facility] Stop: 06/13/21 08:59 Last Admin: 05/14/21 09:20 Dose: 81 mg Documented by: Azithromycin (Azithromycin 250 Mg Tab) 250 mg PO QAM CHE Stop: 05/22/21 08:59 Benzonatate (Benzonatate 100 Mg Capsule) 200 mg PO TID CHE Stop: 06/13/21 08:59 Last Admin: 05/14/21 13:11 Dose: 200 mg Documented by: Cetirizine HCl (Cetirizine Hcl 10 Mg Tablet) 10 mg PO BID PRN PRN Reason: allergy symptoms Stop: 06/12/21 22:04 Last Admin: 05/14/21 09:21 Dose: 10 mg Documented by: Dextrose (Dextrose 50% 50 Ml Syringe) 25 - 50 ml IV UD PRN; Protocol PRN Reason: Hypoglycemia Protocol Stop: 06/12/21 22:04 Diphenhydramine HCl (Diphenhydramine Capsule 25 Mg Cap) 50 mg PO Q6H PRN PRN Reason: ALLERGIES Stop: 06/12/21 22:09 Last Admin: 05/13/21 23:36 Dose: 50 mg Documented by: Furosemide (Furosemide 20 Mg Tab) 20 mg PO DAILY CHE Stop: 06/13/21 08:59 Last Admin: 05/14/21 09:21 Dose: 20 mg Documented by: Glucagon (Glucagon For Inj 1 Mg Vial) 1 mg SQ UD PRN; Protocol PRN Reason: Hypoglycemia Protocol Stop: 06/12/21 22:04 Glucose (Glucose 10 Tabs/Tube) 4 - 8 tabs PO UD PRN; Protocol PRN Reason: Hypoglycemia Protocol Stop: 06/12/21 22:04 Glucose (Glucose 40% Gel 15 Gm Tube) 15 - 30 gm PO UD PRN; Protocol PRN Reason: Hypoglycemia Protocol Stop: 06/12/21 22:04 Methylprednisolone 40 mg/ (Syringe) 0.64 mls @ 1.5 mls/min IV BID CHE Stop: 06/13/21 20:59 Insulin Aspart (Insulin Aspart 100 Units/Ml 3 Ml Pen) 0 units SC ACHS CHE Stop: 06/12/21 22:29 Last Admin: 05/14/21 12:33 Dose: 3 units Documented by: Ipratropium [place] (Ipratropium [place] Nasal [place] 0.06% 15ml) 2 sprays NA TID CHE Stop: 06/12/21 22:29 Last Admin: 05/14/21 13:11 Dose: 2 sprays Documented by: Levothyroxine Sodium (Levothyroxine Sodium 75 Mcg Tablet) 75 mcg PO DAILYBB CHE Stop: 06/13/21 06:29 Last Admin: 05/14/21 05:03 Dose: 75 mcg Documented by: Magnesium Hydroxide (Magnesium Hydroxide Susp 30 Ml Udc) 30 ml PO Q12H PRN PRN Reason: Constipation Stop: 06/12/21 22:04 Metoprolol Succinate (Metoprolol Succ 50mg Ext Rel Tab) 50 mg PO BID CHE Stop: 06/12/21 22:29 Last Admin: 05/14/21 09:21 Dose: 50 mg Documented by: Miscellaneous (Carbohydrates For Hypoglycemia ) 15 - 30 gm PO UD PRN PRN Reason: Hypoglycemia Protocol Stop: 06/12/21 22:04 Morphine Sulfate (Morphine Sulfate 2 Mg/Ml [place]) 2 mg IV Q30M PRN PRN Reason: Chest Pain Stop: 05/27/21 22:04 Mycophenolate Mofetil (Mycophenolate Mofetil 250 Mg Cap) 1,000 mg PO BID CHE Stop: 06/12/21 22:29 Last Admin: 05/14/21 09:21 Dose: 1,000 mg Documented by: Nitroglycerin (Nitroglycerin Sl 0.4 Mg/Tab Tab) 0.4 mg SL UD PRN PRN Reason: Chest Pain Stop: 06/12/21 22:04 Ondansetron HCl (Ondansetron Inj 2 Mg/Ml 2 Ml Vial) 4 mg IV Q6H PRN PRN Reason: Nausea Stop: 06/12/21 22:04 Polyethylene Glycol (Polyethylene (Miralax) 17 Gm Pack) 17 gm PO DAILY PRN PRN Reason: Constipation Stop: 06/12/21 22:04 Potassium Chloride (Potassium Chloride 10 Meq Tabcr) 10 meq PO TID CHE Stop: 06/12/21 22:29 Last Admin: 05/14/21 13:11 Dose: 10 meq Documented by: Pyridostigmine [place] (Pyridostigmine [place] 60 Mg Tab) 60 mg PO TIDM CHE Stop: 06/13/21 07:59 Last Admin: 05/14/21 12:33 Dose: 60 mg Documented by: Pyridostigmine [place] (Pyridostigmine Sustained Rel 180 Mg Tabcr) 180 mg PO DAILY CHE Stop: 06/14/21 08:59 Spironolactone (Spironolactone 12.5 Mg Tab) 12.5 mg PO Q3D [facility] Stop: 06/14/21 08:59 Warfarin Sodium (Warfarin Sod 2.5 Mg Tab) 2.5 mg PO DAILY@1600 [facility] Stop: 06/13/21 15:59 Last Admin: 05/14/21 16:23 Dose: Not Given Documented by:
[2021-05-14] MEDS ORDERED: AZITHROMYCIN 250 MG TAB PO ONE (16:30)
--- NOTE | 2021-05-14 18:10 | Billing Data ---
Date of Service May 14, 2021 Coding Level of Care Code 83898 Subseq Hosp Care Lvl 3
[2021-05-14] MEDS: methylPREDNISolone 40 MG in SYRINGE 0 ML IV SCH (19:52)
[2021-05-14] MEDS: ALBUT/IPRATROP 3MG/0.5MG NEB 3 ML VIAL INH PRN (21:59)
[2021-05-14] MEDS: guaiFENesin/DEXTROM SYRUP 100MG/10MG 5ML UDC PO PRN (22:43)
[2021-05-15] MEDS: LEVOTHYROXINE SODIUM 75 MCG TABLET PO SCH (05:18)
[2021-05-15] MEDS: guaiFENesin/DEXTROM SYRUP 100MG/10MG 5ML UDC PO PRN ×3 (05:18→17:54)
[2021-05-15 07:30] LABS: Hemoglobin 11.3 g/dL (14.0-18.0); Immature Granulocytes # (auto) 0.01 K/uL (0.00-0.02); Immature Granulocytes % (auto) 0.2 %; Lymphocytes # (auto) 0.53 K/uL (1.2-3.4); Lymphocytes % (auto) 13.1 %; Mean Corpuscular Hemoglobin 25.6 pg (25-34); Mean Corpuscular Hgb Conc 30.5 g/dL (32-36); Mean Corpuscular Volume 83.7 fL (80-100); Mean Platelet Volume 8.6 fL (7.4-10.4); Monocytes # (auto) 0.09 K/uL (0.11-0.59); Monocytes % (auto) 2.2 %; Neutrophils # (auto) 3.43 K/uL (1.4-6.5); Neutrophils % (auto) 84.5 %; Platelet Count 171 K/uL (130-400); RDW Coefficient of Variation 14.8 % (11.5-14.5); RDW Standard Deviation 45.9 fL (36.4-46.3); Red Blood Count 4.42 M/uL (4.7-6.1); White Blood Count 4.06 K/uL (4.8-10.8)
[2021-05-15 07:45] LABS: BUN Creatinine Ratio 27.2 (10-20); Calcium 8.7 mg/dl (8.5-10.1); Creatinine Clr Calc Pharmacy 60.5 ml/min; Est GFR (African American) 79.5 ml/min; Est GFR (Non-African American) 68.6 ml/min; Potassium 4.6 mmol/L (3.5-5.1)
[2021-05-15 07:52] LABS: INR 4.9 (0.9-1.1); Prothrombin Time 44.1 Seconds (9.0-12.0)
[2021-05-15] MEDS: MYCOPHENOLATE MOFETIL 250 MG CAP PO SCH ×2 (08:03→21:05)
[2021-05-15] MEDS: METOPROLOL SUCC 50MG EXT REL TAB PO SCH ×2 (08:03→21:26)
[2021-05-15] MEDS: ASPIRIN 81 MG ECTAB PO SCH (08:04)
[2021-05-15] MEDS: AZITHROMYCIN 250 MG TAB PO SCH (08:04)
[2021-05-15] MEDS: FUROSEMIDE 20 MG TAB PO SCH (08:04)
[2021-05-15] MEDS: BENZONATATE 100 MG CAPSULE PO SCH ×3 (08:04→21:05)
[2021-05-15] MEDS: POTASSIUM CHLORIDE 10 MEQ TABCR PO SCH ×3 (08:04→21:06)
[2021-05-15] MEDS: IPRATROPIUM BROMIDE NASAL SPRAY 0.06% 15ML SCH ×3 (08:08→21:05)
[2021-05-15] MEDS: methylPREDNISolone 40 MG in SYRINGE 0 ML IV SCH ×2 (08:09→21:26)
[2021-05-15] MEDS: INSULIN ASPART 100 UNITS/ML 3 ML PEN SC SCH ×4 (08:11→21:05)
[2021-05-15] MEDS: PYRIDOSTIGMINE SUSTAINED REL 180 MG TABCR PO SCH (08:14)
[2021-05-15] MEDS ORDERED: SPIRONOLACTONE 12.5 MG TAB PO SCH (09:00)
--- NOTE | 2021-05-15 09:42 | Hospitalist Progress Note ---
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 Fatigue, dyspnea secondary to URI vs pulmonary fibrosis flare Negative NIF test with respiratory in the ED indicating less likely to be acute myasthenic crisis Continue Mestinon and CellCept at home regimen Continue azithromycin (started 05/14) Continue methylprednisolone, to be converted to prednisone PO taper upon discharge Pulmonary HTN Noted on echo (05/15), Interstitial lung disease Following with pulmonology, currently uncertain etiology of inte rstitial/restrictive lung disease, previously was consideration of sarcoidosis DuoNebs as needed, rest of management as above Elevated troponin Patient was noted with an elevated troponin on admission without chest pain, shortness of breath, signs of ischemic change on EKG, or other findings suggestive of ACS Repeat troponin levels trended downward but did not entirely resolve Patient's elevated troponin was suspected to be secondary to atrial enlargement vs demand ischemia, and no further intervention was indicated DM2 HbA1c 5.8% (February 2021) Patient's home regimen held on admission Continue BSG checks, sliding-scale insulin, hypoglycemic protocol Atrial fibrillation Continue home metoprolol 50 twice daily, warfarin PT/INR daily Hypothyroidism TSH on admission of 1.27 Continue home Synthroid FEN: heart healthy, carb-consistent Code status: full code DVT ppx: warfarin Isolation: none PT/OT: ordered Dispo: med/surg (2) Myasthenia gravis: (3) Interstitial lung disease: (4) Persistent atrial fibrillation: (5) CAD (coronary artery disease): (6) Hypothyroidism: (7) Hyperlipidemia: (8) 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 Is able to walk around betterstill significant dyspnea on exertion, but is improving. Vitals noted, in general he is awake and alert pleasant no distress. HEENT normocephalic atraumatic mucous membranes moist. Breathing unlabored no accessory muscle use good effort. Skin shows no rashes no pallor or icterus. Fatigue/dyspnea on exertionafter further review seems most consistent with a respiratory infection/flare up of pulmonary fibrosisprobably affecting him more because of his immunocompromise state related to his myasthenia gravis therapy, as well as his chronic lung disease/pulmonary hypertension. Pulmonary fibrosis flare/respiratory infectionimproving. Continue Zithromax and steroids. Fairly severe pulmonary hypertensionfortunately not worse than before, I wonder if some of his chronic heart strain from his dilated atria/pulmonary hypertension might account for what appears to be a bit of a chronic troponin leak. Certainly no NE noted. DVT prophylaxisanticoagulated with Coumadin. Holding due to elevated INR. Stable for medical, hopefully home tomorrow Subjective Patient seen and evaluated at bedside this morning. No acute events overnight. This morning, patient felt well, but later in the day, patient began to feel not quite ready to go home. Endorses of fatigue as well as continued dyspnea on exertion. Patient denies CP, SOB, abdominal pain, nausea, vomiting, lightheadedness, dizziness, and diarrhea. Review of Systems Review of Systems: See HPI Physical Exam Physical Exam: Constitutional: well-appearing, no acute distress CV: extremities well-perfused Resp: no increased work of breathing Neuro: AOx4, no focal neurological deficits appreciated Results & Data Results & Data ([facility]) Vital Signs (Past 12 Hours) Vital Signs Temp Pulse Pulse Resp BP Pulse Ox Pulse Ox 05/15/21 07:29 36.3 C L 96 H 18 118/69 95 05/15/21 03:51 36.6 C 81 20 100/54 L 100 05/15/21 00:00 92 H 05/14/21 23:00 36.3 C L 96 H 22 101/57 L 100 05/14/21 22:05 100 05/14/21 22:01 63 28 H 93 Resident Activity Tracking Resident Involvement: Resident Care Provided Care Provided: Adult Hospital Medicine (1) CAD (coronary artery disease) Associated angina: without angina Coronary Disease-Associated Artery/Lesion type: [place] artery [place] vs. transplanted heart: [place] heart Qualified Code(s): I25.10 - Atherosclerotic heart disease of [place] coronary artery without angina pectoris
[2021-05-15] MEDS: PYRIDOSTIGMINE BROMIDE 60 MG TAB PO SCH ×3 (11:06→20:17)
[2021-05-15] MEDS: diphenhydrAMINE Capsule 25 MG CAP PO PRN (15:42)
--- NOTE | 2021-05-15 18:41 | Billing Data ---
Date of Service May 15, 2021 Coding Level of Care Code 64416 Subseq Hosp Care Lvl 2
[2021-05-15] MEDS: ALBUT/IPRATROP 3MG/0.5MG NEB 3 ML VIAL INH PRN (19:54)
[2021-05-16] MEDS: LEVOTHYROXINE SODIUM 75 MCG TABLET PO SCH (05:31)
[2021-05-16 06:52] LABS: Hematocrit (blood only) 36.3 % (42-52); Hemoglobin 11.2 g/dL (14.0-18.0); Immature Granulocytes # (auto) 0.01 K/uL (0.00-0.02); Immature Granulocytes % (auto) 0.1 %; Lymphocytes # (auto) 0.61 K/uL (1.2-3.4); Lymphocytes % (auto) 6.9 %; Mean Corpuscular Hemoglobin 25.6 pg (25-34); Mean Corpuscular Hgb Conc 30.9 g/dL (32-36); Mean Corpuscular Volume 83.1 fL (80-100); Mean Platelet Volume 8.7 fL (7.4-10.4); Monocytes # (auto) 0.35 K/uL (0.11-0.59); Monocytes % (auto) 3.9 %; Neutrophils # (auto) 7.92 K/uL (1.4-6.5); Neutrophils % (auto) 89.1 %; Platelet Count 164 K/uL (130-400); RDW Coefficient of Variation 14.9 % (11.5-14.5); RDW Standard Deviation 45.4 fL (36.4-46.3); Red Blood Count 4.37 M/uL (4.7-6.1); White Blood Count 8.89 K/uL (4.8-10.8)
[2021-05-16 07:08] LABS: INR 3.7 (0.9-1.1); Prothrombin Time 33.5 Seconds (9.0-12.0)
[2021-05-16 07:19] LABS: Calcium 8.8 mg/dl (8.5-10.1); Creatinine Clr Calc Pharmacy 57.1 ml/min; Est GFR (African American) 74.2 ml/min; Potassium 4.5 mmol/L (3.5-5.1)
[2021-05-16] MEDS: CETIRIZINE HCL 10 MG TABLET PO PRN (08:35)
[2021-05-16] MEDS: IPRATROPIUM BROMIDE NASAL SPRAY 0.06% 15ML SCH ×2 (08:36→13:22)
[2021-05-16] MEDS: BENZONATATE 100 MG CAPSULE PO SCH ×2 (08:37→13:21)
[2021-05-16] MEDS: ASPIRIN 81 MG ECTAB PO SCH (08:38)
[2021-05-16] MEDS: MYCOPHENOLATE MOFETIL 250 MG CAP PO SCH (08:39)
[2021-05-16] MEDS: FUROSEMIDE 20 MG TAB PO SCH (08:41)
[2021-05-16] MEDS: POTASSIUM CHLORIDE 10 MEQ TABCR PO SCH ×2 (08:41→13:22)
[2021-05-16] MEDS: AZITHROMYCIN 250 MG TAB PO SCH (08:41)
[2021-05-16] MEDS: PYRIDOSTIGMINE SUSTAINED REL 180 MG TABCR PO SCH (08:42)
[2021-05-16] MEDS: methylPREDNISolone 40 MG in SYRINGE 0 ML IV SCH (08:43)
[2021-05-16] MEDS: METOPROLOL SUCC 50MG EXT REL TAB PO SCH (08:46)
[2021-05-16] MEDS: INSULIN ASPART 100 UNITS/ML 3 ML PEN SC SCH ×2 (09:08→12:55)
[2021-05-16] MEDS: ALBUT/IPRATROP 3MG/0.5MG NEB 3 ML VIAL INH PRN (10:39)
--- NOTE | 2021-05-16 11:23 | Discharge Summary ---
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 Over the last week he has noted 6 that he has become more short of breath and feeling more winded with smaller amounts of activity, does have a longstanding history of this but this is been a distinct worsening. Last time he recalls this worsening was several years ago when he was originally diagnosed with myasthenia gravis. Over the last 2 days he has had a productive cough producing clear sputum. Sometimes he will have this, when he has a upper respiratory tract infection, or a sinus infection. But his usual regimens for addressing this have not been working over this time. Originally started to feel slightly different approximately 1 month ago, however this was attributed to be due to digoxin and he was subsequently weaned and has been weaned off of this for the last 2+ weeks. Does see neurology in this area for his myasthenia gravis, with last visit being earlier this year in November. Has not required corticosteroids for myasthenia or respiratory function in over a month. Denies other systemic symptoms, inclusive of nausea, vomiting, abdominal pain, chest pain, orthopnea, dizziness, vertigo, increased urination, or discomfort with urination. Admission Exam Per Admitting Provider Constitutional: WD/WN, vitals as above Eyes: PERRL, conjunctivae normal, anicteric sclerae Respiratory: normal respiratory effort; no respiratory distress, no labored breathing, no retractions and does not use accessory muscles Auscultation: + crackles and + wheezes; no rales and no rhonchi Cardiovascular: Rate/Rhythm: regular rate and regular rhythm Heart Sounds: no gallop, no murmur and no cardiac rub Vessels: normal peripheral pulses; no JVD Extremities: no edema Gastrointestinal (Abdomen): Inspection/Auscultation: normal bowel sounds; abdomen not distended Percussion/Palpation: abdomen soft; abdomen nontender and no guarding Musculoskeletal: no cyanosis or clubbing, extremities motor strength 5/5 Skin: no rashes, warm and dry Neurologic: PERRL, EOMI, accommodation nl, no face palsy, no dysarthria CN's II-XI intact bilaterally and moves all extremities Psychiatric: Orientation: alert and oriented x 3 Principal Diagnosis Viral Upper Respiratory Infection Pulmonary Fibrosis Exacerbation Discharge Exam General: A&Ox3. NAD. Cooperative. HEENT: Atraumatic, normocephalic. Pulm: Decreased air entry bilaterally. -wheezes, -rales, -rhonchi. Symmetrical chest rise. No increase work of breathing. No respiratory distress. Cardiac: RRR, -mrg. Radial pulses intact and symmetrical. No LE edema. Abdominal: soft, non-tender, non-distended, BS x 4 Skin: warm, dry, no rash Discharge Data Allergies Allergy/AdvReac Type Severity Reaction Status Date / Time gabapentin Allergy Severe CONFUSION/D Verified 05/13/21 16:11 ISORIENTATI ON heparin Allergy Severe HIT Verified 05/13/21 16:11 Iodinated Contrast Media Allergy Severe HIVES Verified 05/13/21 16:11 prednisone Allergy Intermediate NAUSEA/VOMI Verified 05/13/21 16:11 TING shellfish derived Allergy Intermediate HIVES Verified 05/13/21 16:11 iodine Allergy Unknown TOLD BC OF Verified 05/13/21 16:11 IVP ALLERGY amiodarone Allergy Verified 05/13/21 16:11 latex Allergy Verified 05/13/21 16:11 levofloxacin Allergy Verified 05/13/21 16:11 Penicillins AdvReac Mild Possible Verified 05/13/21 16:11 to use this medication, see comments codeine AdvReac Unknown GI UPSET Verified 05/13/21 16:11 Consultations 05/13/21 19:55 ED Decision to Admit Stat Ordered Studies 05/14/21 08:07 CT chest diagnostic wo con Routine Hospital Course (1) Fatigue: Kaiden Mendez is a 81y/o M with PMH significant for myasthenia gravis, atrial fibrillation, T2DM, interstitial lung disease, 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 Fatigue and Exertional Dyspnea - secondary to URI vs pulmonary fibrosis flare Given symptoms in the context of nasal/sinus congestion and cough, suspect viral URI that led to pulmonary fibrosis exacerbation. Negative NIF test with respiratory in the ED indicating less likely to be acute myasthenic crisis. - Continue Mestinon and CellCept home regimen - Started Azithromycin on 05/14; continue after discharge (for total of 5 days) - Started Solu-Medrol 40mg IV BID on 05/14; transition to Prednisone taper on discharge (60mg x2 days, 40mg x2 days, 20mg x2 days) - follow up with PCP within 1 week and Pulp Grinder within 2-3 weeks, to discuss hospitalization Pulmonary HTN Noted on TTE (05/15), susepct due to pulmonary fibrosis. Interstitial lung disease - Following with pulmonology, currently uncertain etiology of interstitial/restrictive lung disease, previously was consideration of sarcoidosis - f/u with Pulmonology in 2-3 weeks as stated above Elevated troponin Patient was noted with an elevated troponin on admission without chest pain, shortness of breath, signs of ischemic change on EKG, or other findings suggestive of ACS - suspect demand ischemia in setting of above. 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: Total Time Total Time Spent Total Time Spent (In Minutes): <30 minutes Discharge Plan Discharge Items Patient Disposition: Home - Self-Care Reason For Visit: CHF EXACERBATION Discharge Diagnosis: Viral upper respiratory infection Activity: Resume your previous activity Non-emergency contact: Primary Care Provider and Pulp Grinder Call non-emergency contact if: your symptoms worsen Follow-up/Referrals: Thad Patrick MD [Primary Care Provider] - (please schedule for 3-5 days after discharge) Lan Hendrickson MD [Physician] - (please schedule for ~2 weeks after discharge) Diet: Carb Consistent or DM2 and Heart Healthy Addtl Attending Provider Instructions: You were admitted to the hospital for fatigue and malaise suspected to be due to a viral upper respiratory infection. You were treated with IV steroids and supportive care, and we feel it is safe for you to return home. You will continue to take oral Prednisone (steroids) after discharge, in a tapering fashion: 60mg (3 pills) daily x2 days, 40mg (2 pills) daily x2 days, 20mg (1 pill) daily x2 days. You will also take Azithromycin once per day for 3 days. A discharge summary will be sent to your primary care physician to ensure continuity of care. Please bring this discharge summary with you to your next office appointment so that your provider can review it at that time. Follow-up appointments: Make a follow-up appointment with your PCP within the next week. It is very important that you follow up with them shortly after discharge from the hospital. Make a follow-up with your Pulmonogist (Dr. Hendrickson) in 2 weeks. Keep all your follow-up appointments as already scheduled. If you cannot make an appointment, notify your provider. Medications: Your medication list has been reviewed and reconciled upon discharge to ensure accuracy and continuity of care. An updated list of all your medications is included with your hospital discharge paperwork. Take your medications as instructed; do not skip a dose of your medicines. Make sure all of your doctors know every medicine you are taking (including zhax-txb-xvlqwkh medicines, vitamins, and supplements). Call your primary care provider before taking any new medicines (including vrjw-xbr-tavygae medicines, vitamins, and supplements), because some of these may interact with your current medications, or may make your symptoms worse. Tell your primary care provider if you cannot afford your medications. CONTACT YOUR PRIMARY CARE PROVIDER if you experience any of the following: Fever, chills, sweats Severe fatigue Difficulty following your treatment plan, or difficulty taking medications CALL 911 OR GO TO THE EMERGENCY DEPARTMENT if you experience any of the following: Sudden, severe abdominal pain or nausea/vomiting Severe chest pain, or chest pain that radiates (moves) to your jaw or arm Sudden, severe shortness of breath or difficulty breathing Thank you for allowing us to participate in your care. Pending Studies at Discharge: No Stand-Alone Forms: My [facility] Medications and DC Order Prescriptions: New prednisone 20 mg tablet See Rx Instructions .ROUTE .COMPLEX Qty: 14 RF: 0 azithromycin 250 mg tablet 250 mg PO DAILY 3 Days Qty: 3 RF: 0 Continued mycophenolate mofetil [CellCept] 500 mg tablet 1,000 mg PO BID Qty: 360 RF: 1 levothyroxine 75 mcg tablet 75 mcg PO QAM Qty: 90 RF: 3 furosemide 20 mg tablet 20 mg PO Q OTHER DAY RF: 0 spironolactone 25 mg tablet 12.5 mg PO Q3D RF: 0 glimepiride 1 mg tablet 0.5 mg PO QAM RF: 0 metformin 500 mg tablet extended release 24 hr 500 mg PO TID RF: 0 cetirizine 10 mg tablet 10 mg PO BID PRN (Reason: allergy symptoms) Qty: 60 RF: 5 potassium chloride 10 mEq tablet,ER particles/crystals 10 meq PO TID Qty: 90 RF: 2 nitroglycerin 0.4 mg tablet, sublingual 0.4 mg SL Q5M PRN (Reason: chest pain) Qty: 25 RF: 3 epinephrine [EpiPen 2-Puneet] 0.3 mg/0.3 mL auto-injector 0.3 mg IM Q10M PRN (Reason: anaphylaxis) Qty: 1 RF: 0 warfarin 2.5 mg tablet 2.5 mg PO HS RF: 0 ipratropium-albuterol 0.5 mg-3 mg(2.5 mg base)/3 mL solution for nebulization 3 ml INHALATION QID PRN (Reason: shortness of breath) Qty: 15 RF: 11 aspirin 81 mg tablet,delayed release (DR/EC) 81 mg PO QAM RF: 0 coenzyme Q10 100 mg capsule 100 mg PO QAM RF: 0 pyridostigmine bromide 60 mg tablet 60 mg PO TID Qty: 90 RF: 0 diphenhydramine HCl 50 mg Capsule 50 mg PO Q6H PRN (Reason: ALLERGIES) RF: 0 metoprolol succinate 50 mg tablet extended release 24 hr 50 mg PO BID RF: 0 loperamide [Imodium A-D] 2 mg tablet 2 mg PO QID PRN (Reason: loose stool) RF: 0 pyridostigmine bromide [Mestinon Timespan] 180 mg tablet extended release 180 mg PO QAM RF: 0 mupirocin 2 % ointment 1 applic topical TID PRN (Reason: skin rash) RF: 0 ipratropium bromide 42 mcg (0.06 %) spray,non-aerosol 2 spray intranasal TID RF: 0 magnesium oxide 250 mg magnesium tablet 250 mg PO QAM RF: 0 Discharge Orders: Discharge Order (Routine); Ordered 05/16/21 Ordered By: Kasi Velázquez/Other Patient Handouts: Managing Type 2 Diabetes Admission Data Admit Date/Time: 05/13/21 20:18 Attending Provider: Guillaume Real Admit Provider: Michael Brush Primary Care Provider: Thad Patrick Other Providers: Anthony Peck Other Interventions: Discharge Summary Assessment (RN) Last Done: 05/16/21 13:11 Supervising Physician Co-Signing Physician Notes I personally examined the patient and verified all natarajan points of history and exam, discussed case, and agree with decision making with Dr Ashley Feeling better, still dyspnea on exertionbut feels good enough to go home. Vitals noted, in general he is awake and alert pleasant no distress. HEENT normocephalic atraumatic mucous membranes moist. Breathing unlabored no accessory muscle use good effort. Skin shows no rashes no pallor or icterus. Fatigue/dyspnea on exertionafter further review seems most consistent with a respiratory infection/flare up of pulmonary fibrosisprobably affecting him more because of his immunocompromise state related to his myasthenia gravis therapy, as well as his chronic lung disease/pulmonary hypertension. Pulmonary fibrosis flare/respiratory infectionimproving. Stable for home on p.o. steroids/finishing a course of Zithromax Fairly severe pulmonary hypertensionfortunately not worse than before, I wonder if some of his chronic heart strain from his dilated atria/pulmonary hypertension might account for what appears to be a bit of a chronic troponin leak. Certainly no [place] noted. DVT prophylaxisanticoagulated with Coumadin. Holding due to elevated INRINR 3.7 today. Safe for home, doubt there will be much of a bump related to Zithromax, follow INR sometime midweek Stable for home, outpatient follow-up Resident Activity Tracking Resident Involvement: Resident Care Provided Care Provided: Adult Hospital Medicine
--- NOTE | 2021-05-16 11:28 | Electrocardiogram Report ---
Test Reason : Blood Pressure : / mmHG Vent. Rate : 081 BPM Atrial Rate : 088 BPM P-R Int : 000 ms QRS Dur : 182 ms QT Int : 460 ms P-R-T Axes : 000 -77 084 degrees QTc Int : 534 ms Ventricular-paced rhythm with fusion beats Abnormal ECG When compared with ECG of 13-MAY-2021 15:25, Vent. rate has decreased BY 3 BPM Confirmed by Shad Oliver ([id number]) on 05/16/2021 11:27:38 AM Referred By: REFERRED SELF Confirmed By:Shad Oliver
[2021-05-16 11:45] VITALS: BP 100/60; PULSE 105; TEMP 98.1; O2SAT 95
[2021-05-16] MEDS: PYRIDOSTIGMINE BROMIDE 60 MG TAB PO SCH (11:49)
--- NOTE | 2021-05-16 20:29 | Billing Data ---
Date of Service May 16, 2021 Coding Level of Care Code D/C DAY MANAGEMENT <30 MINS
== END 2021-05-16 14:18 | disposition home or self-care (01) | DRG 197 ==
LOC: ED 13:15 → 2S 20:18 → SUATTDRO 20:18 → 2S 21:30 → 3N 05-15 16:19

== ENCOUNTER 2022-02-26 04:47 | Inpatient (IN) ==
[2022-02-26] MEDS ORDERED: MoRPHine SULFATE 4 MG/ML 1 ML CARP\\VIAL IV STA (04:51)
[2022-02-26] MEDS ORDERED: ONDANSETRON INJ 2 MG/ML 2 ML VIAL IV STA (04:52)
--- NOTE | 2022-02-26 04:55 | Emergency Department Note ---
Impression & Plan ICD (implantable cardioverter-defibrillator) discharge, Ventricular tachycardia ADMIT ED Provider Note HPI: The patient is an 81-year-old gentleman with history of cardiomyopathy status post ICD placement, presents the emergency department after he was actually being transferred from [facility]. Patient had multiple runs of V. tach in route to the hospital including 1 in the parking lot and was shocked several times on the way in from the parking lot and therefore was brought to the ED for initial assessment. On my initial assessment here in the ED I did witness the patient being shocked 1 time before he was placed on the monitor, at the time he was placed on the residential monitor here in his ED room he is back in a paced rhythm. He is now pain-free, he is very anxious about being shocked any further times and is requesting that we place a magnet over his ICD. He has an amiodarone dri p running currently. I did contact the hospitalist in regards to the patient's presentation, patient will be worked up in the ED given his acute issues and admitted to the hospitalist service. Patient is otherwise stable on arrival, he is saturating well on room air on my initial assessment, blood pressure stable. ROS: -Cardio: Ventricular tachycardia status post multiple ICD shocks *10 point review systems was conducted and is otherwise negative unless stated above *Outpatient medications and allergy history reviewed PE: General: Alert, NAD HEENT: Normocephalic, atraumatic Eyes: Extraocular eye movement is intact, no scleral erythema Pulmonary: Clear to auscultation bilaterally, no wheezing Cardio: Regular rate and rhythm GI: Abdomen is soft, nontender : No suprapubic tenderness MSK: No evidence of trauma or malformation of the extremities, no edema Skin: No evidence of rash Neuro: Alert, no focal deficits Psychiatric: Cooperative playground monitor: - An order was placed for continuous cardiac monitoring - Patient was noted to be in paced rhythm with rate of 70 EKG: Rate: 75 Rhythm: Paced rhythm Intervals: QRS 182 ms, QTC [address] changes: No ST elevation Time: 0458 Medical Decision Making: Patient presented to the emergency department for evaluation, he is actually a [facility] however he went into ventricular arrhythmia in the parking lot and was shocked multiple times on the way in and therefore was brought to the ED for further assessment. On my assessment the patient is pain-free, his EKG shows a paced rhythm, therefore heart alert was not called. I immediately discussed the presentation of the patient with the on-call hospitalist, Dr. Arias, who did evaluate the patient at the bedside as well and she states that she is aware of the patient being transferred to their service. Here in the ED given his multiple ICD shocks during transport, lab work obtained, EKG was obtained and interpreted as above as a paced rhythm without acute ischemic ST elevations, patient is on amiodarone drip, this was continued in the ED as it was during his transport. Patient later stated that he did have a brief approximately 5-second episode of chest discomfort that spontaneously resolved, he was given IV morphine and IV Zofran. On my reassessment patient states this did improve his symptoms. He is again resting comfortably in a paced rhythm on the monitor. Vital signs are stable. Case was discussed with the on-call hospitalist, Dr. Arias, who was aware of the patient, case was also discussed by Dr. Arias with on-call cardiology, plan will be for electrolyte repletion as magnesium and potassium were low at the outside facility. We will also plan for admission to the ICU. Patient is in agreement to the above plan, he was admitted to the hospitalist service/ICU in stable condition. Critical care time: 30 minutes -Management of ventricular tachycardia status post ICD shock, on amiodarone drip, interpretation of diagnostic studies and EKG, discussion with other physicians and arrangement of admission Diagnosis: 1. Ventricular tachycardia 2. status post ICD shock 3. Transient episodes of chest pain 4. 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 Interstitial lung disease LVEF <40% Mitral valve disorder Moderate mitral regurgitation Myasthenia gravis Open wound of leg Paraproteinemia Presence of combination internal cardiac defibrillator (ICD) and pacemaker Pulmonary fibrosis determined by high resolution computed tomography Restrictive lung disease Rhonchi at right lung base Tachycardia Type 2 diabetes, controlled, with neuropathy Surgical History History of aortic valve replacement History of appendectomy History of cholecystectomy History of excision of lesion face - malignant - 2.1-3cm S/P MVR (mitral valve repair) Family History Father Brain tumor Mother Lung disease Sister Breast cancer Myocardial infarction Other Lung cancer Denies family history of Ovarian cancer Prostate cancer Colorectal cancer Social History Smoking Status: Former smoker Age Started Using Tobacco: 17; Age Quit Using Tobacco: 32; Cigarettes Per Day: 1-2; Second Hand Exposure: No; Hx Alcohol Use: No Hx Substance Use: No Preferred Language: Malay Communication Ability: Effective Young Adult Librarian Required: No Beliefs That Will Affect Care: None marital status: Current Living Situation: Spouse current occupational status: retired Feels Safe at Home: Yes Childhood Exposure to Second-Hand Smoke: Yes caffeine: Yes (coffee, tea ) Dental Care, Regularly: Yes Physical Activity Frequency: 3-4 Times per Week Seatbelt Use: always Sunscreen Use: Yes Assistive Devices: None Allergies Allergies Allergy/AdvReac Type Severity Reaction Status Date / Time gabapentin Allergy Severe CONFUSION/D Verified 01/28/22 13:47 ISORIENTATI ON heparin Allergy Severe HIT Verified 01/28/22 13:47 Iodinated Contrast Media Allergy Severe HIVES Verified 01/28/22 13:47 prednisone Allergy Intermediate NAUSEA/VOMI Verified 01/28/22 13:47 TING shellfish derived Allergy Intermediate HIVES Verified 01/28/22 13:47 iodine Allergy Unknown TOLD BC OF Verified 01/28/22 13:47 IVP ALLERGY amiodarone Allergy Unknown Verified 02/26/22 05:45 latex Allergy Unknown Verified 02/26/22 05:45 levofloxacin Allergy Unknown Verified 02/26/22 05:45 red dye Allergy Anaphylaxis Verified 02/26/22 05:45 Penicillins AdvReac Mild Possible Verified 01/28/22 13:47 to use this medication, see comments codeine AdvReac Unknown GI UPSET Verified 01/28/22 13:47 Home Meds Home Medications Medication Instructions Recorded Confirmed aspirin 81 mg tablet,delayed 81 mg PO QAM 06/29/19 02/26/22 release diphenhydramine HCl 50 mg capsule 50 mg PO Q6H PRN 05/13/21 02/26/22 loperamide 2 mg tablet (Imodium 2 mg PO QID PRN 05/13/21 02/26/22 A-D) mupirocin 2 % topical ointment 1 applic TOPICAL TID PRN 05/13/21 02/26/22 budesonide-formoterol HFA 80 2 puff INHALATION BID g 09/28/21 02/26/22 mcg-4.5 mcg/actuation aerosol inhaler (Symbicort) furosemide 20 mg tablet 40 mg PO DAILY tab 01/10/22 02/26/22 lovastatin 20 mg tablet 20 mg PO .COMPLEX tab 01/28/22 02/26/22 potassium chloride 10 mEq 20 meq PO DAILY tab 01/28/22 02/26/22 tablet,extended release(part/cryst) warfarin 2.5 mg tablet See Rx Instructions .ROUTE 01/28/22 02/26/22 .COMPLEX tab prednisone 10 mg tablet 2.5 mg PO DAILY tab 02/21/22 02/26/22 Previous Rx's Medication Instructions Recorded nitroglycerin 0.4 mg sublingual 0.4 mg SL Q5M PRN #25 tab 04/15/20 tablet epinephrine 0.3 mg/0.3 mL 0.3 mg IM Q10M PRN #1 ea 05/04/20 injection, auto-injector (EpiPen 2-Puneet) mycophenolate mofetil 500 mg 1,000 mg PO BID #360 tab 06/29/21 tablet (CellCept) ipratropium 0.5 mg-albuterol 3 mg 3 ml INHALATION QID PRN #15 ml 11/17/21 (2.5 mg base)/3 mL nebulization soln albuterol sulfate 90 mcg/actuation 2 inh INHALATION QID PRN #8.5 g 11/18/21 aerosol inhaler levothyroxine 75 mcg tablet 75 mcg PO QAM #90 tab 12/02/21 pyridostigmine bromide 180 mg 180 mg PO QAM #90 tab 01/04/22 tablet,extended release (Mestinon Timespan) ipratropium bromide 42 mcg (0.06 2 spray INTRANASAL TID #2 btl 01/18/22 %) nasal spray metformin 500 mg tablet,extended 500 mg PO BID #180 tab 01/24/22 release 24 hr pyridostigmine bromide 60 mg tablet 90 mg PO TID 30 Days #135 tab 02/21/22 Results & Data (ED) Vital Signs Vital Signs - 24 hr 02/26/22 05:01 02/26/22 05:12 02/26/22 05:13 Temperature 36.7 C Temperature Source Oral Pulse Rate 76 82 Pulse Rate from SpO2 Sensor 76 Respiratory Rate 12 18 Respiratory Depth Normal Blood Pressure 112/71 130/54 L Blood Pressure Mean 84 79 Pulse Oximetry 99 99 92 Oxygen Delivery Method Nasal Cannula Nasal Cannula Room Air Oxygen Flow Rate 2 2 Sepsis Recent Fever Within 48 Hours No Sepsis New/Unexplained Change in Mental Status N/A Sepsis Action Taken by Nursing No Action Required Oxygen Flow Rate - Titration Pulse Oximetry Post Tiitration 02/26/22 05:15 02/26/22 05:17 Temperature Temperature Source Pulse Rate 75 Pulse Rate from SpO2 Sensor 75 Respiratory Rate 16 Respiratory Depth Blood Pressure 127/62 Blood Pressure Mean 83 Pulse Oximetry 99 92 Oxygen Delivery Method Nasal Cannula Nasal Cannula Oxygen Flow Rate 2 0 Sepsis Recent Fever Within 48 Hours Sepsis New/Unexplained Change in Mental Status Sepsis Action Taken by Nursing Oxygen Flow Rate - Titration 2 Pulse Oximetry Post Tiitration 99 Laboratory Data Result diagrams: 02/26/22 04:56 02/26/22 04:56 Lab Results 02/26/22 02/26/22 02/26/22 Range/Units 04:56 04:56 04:56 WBC 10.87 H (4.8-10.8) K/uL RBC 4.44 L (4.7-6.1) M/uL Hgb 11.4 L (14.0-18.0) g/dL Hct 37.6 L (42-52) % MCV 84.7 (80-100) fL MCH 25.7 (25-34) pg MCHC 30.3 L (32-36) g/dL RDW Std Deviation 46.5 H (36.4-46.3) fL RDW Coeff of Jonathan 14.9 H (11.5-14.5) % Plt Count 193 (130-400) K/uL MPV 8.9 (7.4-10.4) fL Immature Gran % (Auto) 0.6 % Neut % (Auto) 70.4 % Lymph % (Auto) 17.5 % Josephine % (Auto) 10.8 % Eos % (Auto) 0.7 % Baso % (Auto) 0.0 % Neut # (Auto) 7.65 H (1.4-6.5) K/uL Lymph # (Auto) 1.90 (1.2-3.4) K/uL Josephine # (Auto) 1.17 H (0.11-0.59) K/uL Eos # (Auto) 0.08 (0-0.5) K/uL Baso # (Auto) 0.00 (0-0.2) K/uL Immature Gran # (Auto) 0.07 H (0.00-0.02) K/uL PT 19.7 H (9.0-12.0) Seconds INR 1.9 H (0.9-1.1) APTT 38.5 H (21.0-31.0) Seconds PTT Ratio 1.4 Sodium (136-145) mmol/L Potassium (3.5-5.1) mmol/L Chloride (98-107) mmol/L Carbon Dioxide (21-32) mmol/L Anion Gap (3-11) BUN (6-23) mg/dl Creatinine (0.6-1.4) mg/dl Est Cr Clr Drug Dosing ml/min Est GFR ( Amer) ml/min Est GFR (Non-Af Amer) ml/min BUN/Creatinine Ratio (10-20) Glucose (70-99(Fasting)) mg/dl Calcium (8.5-10.1) mg/dl Total Bilirubin (0.2-1.0) mg/dl AST (13-39) U/L ALT (7-52) U/L Alkaline Phosphatase (34-104) U/L Troponin I High Sens Cancelled Total Protein (6.0-8.3) gm/dl Albumin (3.4-5.0) gm/dl Globulin (2.5-4.0) gm/dl Albumin/Globulin Ratio (0.9-2) Lipase (11-82) U/L 02/26/22 Range/Units 04:56 WBC (4.8-10.8) K/uL RBC (4.7-6.1) M/uL Hgb (14.0-18.0) g/dL Hct (42-52) % MCV (80-100) fL MCH (25-34) pg MCHC (32-36) g/dL RDW Std Deviation (36.4-46.3) fL RDW Coeff of Jonathan (11.5-14.5) % Plt Count (130-400) K/uL MPV (7.4-10.4) fL Immature Gran % (Auto) % Neut % (Auto) % Lymph % (Auto) % Josephine % (Auto) % Eos % (Auto) % Baso % (Auto) % Neut # (Auto) (1.4-6.5) K/uL Lymph # (Auto) (1.2-3.4) K/uL Josephine # (Auto) (0.11-0.59) K/uL Eos # (Auto) (0-0.5) K/uL Baso # (Auto) (0-0.2) K/uL Immature Gran # (Auto) (0.00-0.02) K/uL PT (9.0-12.0) Seconds INR (0.9-1.1) APTT (21.0-31.0) Seconds PTT Ratio Sodium 142 (136-145) mmol/L Potassium 3.2 L (3.5-5.1) mmol/L Chloride 108 H (98-107) mmol/L Carbon Dioxide 24 (21-32) mmol/L Anion Gap 10 (3-11) BUN 20 (6-23) mg/dl Creatinine 1.09 (0.6-1.4) mg/dl Est Cr Clr Drug Dosing 58.3 ml/min Est GFR ( Amer) 73.4 ml/min Est GFR (Non-Af Amer) 63.3 ml/min BUN/Creatinine Ratio 18.3 (10-20) Glucose 124 H (70-99(Fasting)) mg/dl Calcium 8.3 L (8.5-10.1) mg/dl Total Bilirubin 2.2 H (0.2-1.0) mg/dl AST 29 (13-39) U/L ALT 16 (7-52) U/L Alkaline Phosphatase 78 (34-104) U/L Troponin I High Sens 81.7 H* Total Protein 6.1 (6.0-8.3) gm/dl Albumin 3.6 (3.4-5.0) gm/dl Globulin 2.5 (2.5-4.0) gm/dl Albumin/Globulin Ratio 1.4 (0.9-2) Lipase 30 (11-82) U/L Administered Medications Amiodarone HCl/Dextrose (Nexterone / D5w) 360 mg in 200 mls @ 33.333 mls/hr IV ONE ONE; Protocol Stop: 02/26/22 11:38 Last Admin: 02/26/22 05:49 Dose: 1 mg/min, 33.3 mls/hr Documented by: [id number] Cosigned by: [id number] Discontinued Medications Amiodarone HCl/Dextrose (Amiodarone 360mg / 200ml D5w) Confirm Administered Dose 360 mg IV .STK-MED ONE Stop: 02/26/22 05:34 Last Admin: 02/26/22 05:49 Dose: Not Given Documented by: [id number] Amiodarone HCl (Amiodarone Iv Bolus & Drip) 1 ea IV NOW STA; Protocol Stop: 02/26/22 05:28 Last Admin: 02/26/22 05:37 Dose: Not Given Documented by: [id number] Magnesium Sulfate/Dextrose (Magnesium Sulfate / D5w) 1 gm in 100 mls @ 200 mls/hr IV Q30M [facility] Stop: 02/26/22 06:16 Last Admin: 02/26/22 06:09 Dose: 200 mls/hr Documented by: [id number] Infusion: 02/26/22 06:04 Dose: 0 mls/hr Documented by: [id number] Admin: 02/26/22 05:34 Dose: 200 mls/hr Documented by: [id number] Amiodarone HCl/Dextrose (Nexterone / D5w) 150 mg in 100 mls @ 600 mls/hr IV NOW STA Stop: 02/26/22 05:36 Last Admin: 02/26/22 05:50 Dose: Not Given Documented by: [id number] Magnesium Sulfate/Dextrose (Magnesium Sulfate 1gm / D5w Bag) Confirm Administered Dose 1 gm IV .STK-MED ONE Stop: 02/26/22 05:21 Last Admin: 02/26/22 05:34 Dose: Not Given Documented by: [id number] Miscellaneous (Stat Iv Infusion Titration Per Protocol) 1 ea N/A NOW STA Stop: 02/26/22 05:28 Last Admin: 02/26/22 05:37 Dose: Not Given Documented by: [id number] Morphine Sulfate (Morphine Sulfate 4 Mg/Ml 1 Ml Carp\Vial) 4 mg IV NOW STA Stop: 02/26/22 04:52 Last Admin: 02/26/22 05:05 Dose: 4 mg Documented by: [id number] Ondansetron HCl (Ondansetron Inj 2 Mg/Ml 2 Ml Vial) 4 mg IV NOW STA Stop: 02/26/22 04:53 Last Admin: 02/26/22 05:05 Dose: 4 mg Documented by: [id number] Potassium Chloride (Potassium Chloride Crtab 20 Meq Tabcr) 40 meq PO NOW STA Stop: 02/26/22 05:20 Last Admin: 02/26/22 05:37 Dose: 40 meq Documented by: [id number] Discharge Plan Visit Data Chief Complaint: Cardiac Assessment Stated Complaint: NA ED Provider: Brock Murray Discharge Problem: ICD (implantable cardioverter-defibrillator) discharge, Ventricular tachycardia Patient Disposition: Admitted As Inpatient Discharge Instructions Interventions: ED Discharge Assessment Last Done: 02/26/22 06:09
[2022-02-26 05:14] LABS: Eosinophils # (auto) 0.08 K/uL (0-0.5); Eosinophils % (auto) 0.7 %; Hematocrit (blood only) 37.6 % (42-52); Hemoglobin 11.4 g/dL (14.0-18.0); Immature Granulocytes # (auto) 0.07 K/uL (0.00-0.02); Immature Granulocytes % (auto) 0.6 %; Lymphocytes % (auto) 17.5 %; Mean Corpuscular Hemoglobin 25.7 pg (25-34); Mean Corpuscular Hgb Conc 30.3 g/dL (32-36); Mean Corpuscular Volume 84.7 fL (80-100); Mean Platelet Volume 8.9 fL (7.4-10.4); Monocytes # (auto) 1.17 K/uL (0.11-0.59); Monocytes % (auto) 10.8 %; Neutrophils # (auto) 7.65 K/uL (1.4-6.5); Neutrophils % (auto) 70.4 %; Platelet Count 193 K/uL (130-400); RDW Coefficient of Variation 14.9 % (11.5-14.5); RDW Standard Deviation 46.5 fL (36.4-46.3); Red Blood Count 4.44 M/uL (4.7-6.1); White Blood Count 10.87 K/uL (4.8-10.8)
[2022-02-26] MEDS ORDERED: POTASSIUM CHLORIDE CRTAB 20 MEQ TABCR PO STA ×2 (05:19→08:03)
[2022-02-26] MEDS ORDERED: MAGNESIUM SULFATE 1GM / D5W BAG IV ONE (05:20)
[2022-02-26 05:25] LABS: INR 1.9 (0.9-1.1); Partial Thromboplastin Ratio 1.4; Partial Thromboplastin Time 38.5 Seconds (21.0-31.0); Prothrombin Time 19.7 Seconds (9.0-12.0)
[2022-02-26] MEDS ORDERED: AMIODARONE IV BOLUS & DRIP IV STA (05:27)
[2022-02-26] MEDS ORDERED: AMIODARONE / D5W 150 MG/100 ML BAG IV STA (05:27)
[2022-02-26] MEDS ORDERED: STAT IV Infusion **Titration per Protocol STA (05:27)
[2022-02-26 05:33] LABS: Albumin Globulin Ratio 1.4 (0.9-2); Albumin Level 3.6 gm/dl (3.4-5.0); BUN Creatinine Ratio 18.3 (10-20); Bilirubin,Total 2.2 mg/dl (0.2-1.0); Calcium 8.3 mg/dl (8.5-10.1); Creatinine Clr Calc Pharmacy 58.3 ml/min; Est GFR (African American) 73.4 ml/min; Est GFR (Non-African American) 63.3 ml/min; Globulin 2.5 gm/dl (2.5-4.0); Potassium 3.2 mmol/L (3.5-5.1); Total Protein 6.1 gm/dl (6.0-8.3)
[2022-02-26] MEDS ORDERED: AMIODARONE 360MG / 200ML D5W IV ONE (05:33)
[2022-02-26] MEDS: MAGNESIUM SULFATE / D5W 1 GM/100 ML BAG IV SCH ×4 (05:34→10:10)
[2022-02-26 05:38] LABS: Troponin I High Sensitivity 81.7 pg/ml (0-20)
[2022-02-26] MEDS ORDERED: 0.2 MICRON FILTER SET 1 EA IV ONE ×3 (05:39→06:31)
[2022-02-26] MEDS ORDERED: AMIODARONE / D5W 360 MG/200 ML BAG IV ONE (05:39)
[2022-02-26] MEDS ORDERED: GLUCAGON FOR INJ 1 MG VIAL SQ PRN (06:31)
[2022-02-26] MEDS ORDERED: ICU PROTOCOL FOR HYPERGLYCEMIA PRN (06:31)
[2022-02-26] MEDS ORDERED: DEXTROSE 50% 50 ML SYRINGE IV PRN (06:31)
[2022-02-26] MEDS ORDERED: GLUCOSE 40% GEL 15 GM TUBE PO PRN (06:31)
[2022-02-26] MEDS ORDERED: ALBUTEROL HFA 8 GM INHALER INH PRN (06:31)
[2022-02-26] MEDS ORDERED: GLUCOSE 10 TABS/TUBE PO PRN (06:31)
[2022-02-26] MEDS ORDERED: NITROGLYCERIN SL 0.4 MG/TAB TAB SL PRN (06:31)
[2022-02-26] MEDS ORDERED: CARBOHYDRATES FOR HYPOGLYCEMIA PO PRN (06:31)
[2022-02-26 06:37] LABS: Magnesium 1.2 mg/dl (1.7-2.4); Phosphorus 3.4 mg/dl (2.5-4.9)
[2022-02-26 06:39] LABS: Troponin I High Sensitivity 81.5 pg/ml (0-20)
--- NOTE | 2022-02-26 06:40 | History & Physical Report ---
Date of Service February 26, 2022 Assessment & Plan (1) AICD discharge: Plan: 81yo male with complex cardiac history to include CAD s/p CABG in 2013, placement of bioprosthetic aortic and mitral valves, PFO closure. Patient with history of Biventricular pacer/defibrillator in place secondary to cardiomyopathy ([employer]). Patient was seen at [facility] following multiple AICD discharges (5-6 at home then 4 in the ambulance en route to the hospital). He was given Amiodarone bolus and drip at [place] [facility] and was cardioverted x 2 (100 and 150J) for ventricular tachycardia. Patient requested to be transferred to [facility] in event that cardiac intervention was required. Additional arrhythmia en route and patient was shocked 4 more times (totaling 13-14 AICD discharges + synchronized cardioversion x 2) Ddx to include ischemic event, electrolyte derangement (low K and Mg) most likely contributing. Also with elevated BNP, ?decompensated failure -Admit to MICU -Continue Amiodarone gtt - 1mg/min x6 hours followed by 0.5mg/min. Of note, patient has Amiodarone listed as an allergy. He was previously on this medication but did not like how he felt on it therefore it was discontinued. He is not on any BB/CCB due to history of myasthenia gravis. -Electrolyte repletion -Cardiology consultation appreciated -Pacer interrogation requested -Amiodarone may not be best medication intermediate given history of MG and ILD (2) Cardiomyopathy: Plan: Patient with mixed cardiomyopathy. Last echo December 28, 2020 - normal LV size with mildly increased wall thickness. Asymmetric LVH. Inferior/posterior LV wall is hypokinetic to akinetic. LV segmental WMA otherwise normal. EF of 50- 53%. Aortic valve prosthesis present without stenosis or regurgitation. Mitral valve prosthesis present without significant regurgitation or stenosis. Dilated IVC with elevated right atrial pressure 15mmHg. PASP estimated 65-70. -Elevated BNP at outside facility. Patient endorses increased LE edema -Check BNP -Continue PO Lasix (3) Afib: Plan: History of atrial fibrillation. On Coumadin anticoagulation. INR subtherapeutic at 1.9 presently -Continue Coumadin - dosage confirmed with patient - 2.5mg po 6x weekly and 1.25mg on Monday -Monitor daily INR. Goal 2-3 -No BB/CCB for rate control due to history of MG (4) Type 2 diabetes, controlled, with neuropathy: Plan: Patient on oral agents. Blood sugar 124. Last HgbA1C 11/30/21 = 6.7 -Hold oral agents -Lantus 5u BID, ISS -Goal blood sugar 110 - 180 (5) Hypothyroidism: Plan: Chronic -Check TSH -Continue Synthroid (6) Myasthenia gravis: Plan: Patient on chronic steroids. Has been decreased to 2.5mg daily -Continue Prednisone 2.5mg po daily -Low threshold for stress dosing if patient becomes hypotensive or shows evidence of adrenal insufficiency -Continue mycophenolate mofetil 1000mg po BID -Continue home Mestinon - ER 180mg po daily and 90mg TID (7) Interstitial lung disease: Plan: No cough, SOB or wheeze. Patient follows with Pulmonary. Last seen 01/10/22. Etiology of ILD is unclear. -Continue Prednisone for MG -Continue Budesonide/Formoterol BID, Albuterol and DuoNebs PRN -Patient was on Amiodarone in the past which was discontinued because he didn't like how he felt on it. Unclear if Amiodarone is contributing to h/o ILD. (8) CAD (coronary artery disease): Plan: s/p CABG performed in 2013. Patient with elevation of HS-troponin to 81.7 - not surprising given the high amount of electricity patient received this evening. -Continue ASA and Lovastatin -Cardiology consultation appreciated (9) Hypertension: Plan: Blood pressure stable now -Continue to monitor (10) Hyperlipidemia: Plan: Chronic -Continue Lovastatin Plan: F/E/N - [place]ock. Electrolyte repletion as above. NPO for now Ppx - On Coumadin, continue Code - Full. Patient would not like prolonged heroics but is agreeable to initial resuscitation efforts. Dispo - Admit to MICU History of Present Illness Chief Complaint: Ventricular tachycardia, multiple AICD discharges Primary Care Provider: Thad Patrick MD Kaiden Mendez is an 81yo male with history of CAD s/p CABG (ALANIZ to LAD), s/p bioprosthetic aortic and mitral valve replacements, PFO closure, aortic endarterectomy and intraoperative radiofrequency ablation performed 04/23/2014. Biventricular pacemaker defibrillator in place 04/2014, mixed cardiomyopathy, paroxysmal atrial fibrillation s/p AV junction ablation 11/26/2021. Also with steroid dependent myasthenia gravis, chronic interstitial lung disease and hypothyroidism. Patient reports intermittent chest pain ongoing throughout the day. Patient reports waking this AM around 12:30 and trying to walk to the bathroom. He felt very weak with difficulty standing. He also had some brief substernal chest discomfort. He then had 5-6 discharges from his AICD. His was present and called 911. Patient took 2 nitro tablets. When EMS arrived patient had another 4 discharges from his device. He was taken to [facility] and appeared to be in ventricular tachycardia with rate in low 200's. Vital signs on presentation T=36.4, TK=505, BP=70/45, RR=25, Sat=93% on RA Patient was administered Amiodarone 150mg. He had a synchronized cardioversion performed at 100 josué then again at 150 josué with improvement in heart rate to the 80's and improvement in symptoms. Workup from [place] [facility] significant for elevated BNP of 6228 as well as hypokalemia with K=2.8 and hypomagnesemia with Mg=1.2 Treatment: Amiodarone 150mg bolus, Fentanyl 50mcg Patient recently transitioned to [facility] and requested to be transferred here. En route patient had an additional 4 discharges from his AICD. Upon arrival to the ER he appeared to be in a paced rhythm, blood pressure stable. He is complaining of some chest soreness but otherwise no complaints. ER Course: Amiodarone gtt continued, Mg x 2 gm ordered, KCl 40mEq Allergies Allergy/AdvReac Type Severity Reaction Status Date / Time gabapentin Allergy Severe CONFUSION/D Verified 01/28/22 13:47 ISORIENTATI ON heparin Allergy Severe HIT Verified 01/28/22 13:47 Iodinated Contrast Media Allergy Severe HIVES Verified 01/28/22 13:47 prednisone Allergy Intermediate NAUSEA/VOMI Verified 01/28/22 13:47 TING shellfish derived Allergy Intermediate HIVES Verified 01/28/22 13:47 iodine Allergy Unknown TOLD OF Verified 01/28/22 13:47 IVP ALLERGY amiodarone Allergy Unknown Verified 02/26/22 05:45 latex Allergy Unknown Verified 02/26/22 05:45 levofloxacin Allergy Unknown Verified 02/26/22 05:45 red dye Allergy Anaphylaxis Verified 02/26/22 05:45 Penicillins AdvReac Mild Possible Verified 01/28/22 13:47 to use this medication, see comments codeine AdvReac Unknown GI UPSET Verified 01/28/22 13:47 Home Medications Medication Instructions Recorded Confirmed Type aspirin 81 mg tablet,delayed 81 mg PO QAM 06/29/19 02/26/22 History release nitroglycerin 0.4 mg sublingual 0.4 mg SL Q5M PRN #25 tab 04/15/20 02/26/22 Rx tablet epinephrine 0.3 mg/0.3 mL 0.3 mg IM Q10M PRN #1 ea 05/04/20 02/26/22 Rx injection, auto-injector (EpiPen 2-Puneet) diphenhydramine HCl 50 mg capsule 50 mg PO Q6H PRN 05/13/21 02/26/22 History loperamide 2 mg tablet (Imodium 2 mg PO QID PRN 05/13/21 02/26/22 History A-D) mupirocin 2 % topical ointment 1 applic TOPICAL TID PRN 05/13/21 02/26/22 History mycophenolate mofetil 500 mg 1,000 mg PO BID #360 tab 06/29/21 02/26/22 Rx tablet (CellCept) budesonide-formoterol HFA 80 2 puff INHALATION BID g 09/28/21 02/26/22 History mcg-4.5 mcg/actuation aerosol inhaler (Symbicort) ipratropium 0.5 mg-albuterol 3 mg 3 ml INHALATION QID PRN #15 ml 11/17/21 02/26/22 Rx (2.5 mg base)/3 mL nebulization soln albuterol sulfate 90 mcg/actuation 2 inh INHALATION QID PRN #8.5 g 11/18/2105/13 Rx aerosol inhaler levothyroxine 75 mcg tablet 75 mcg PO QAM #90 tab 12/02/21 02/26/22 Rx pyridostigmine bromide 180 mg 180 mg PO QAM #90 tab 01/04/22 02/26/22 Rx tablet,extended release (Mestinon Timespan) furosemide 20 mg tablet 40 mg PO DAILY tab 01/10/22 02/26/22 History ipratropium bromide 42 mcg (0.06 2 spray INTRANASAL TID #2 btl 01/18/22 02/26/22 Rx %) nasal spray metformin 500 mg tablet,extended 500 mg PO BID #180 tab 01/24/22 02/26/22 Rx release 24 hr lovastatin 20 mg tablet 20 mg PO .COMPLEX tab 01/28/22 02/26/22 History potassium chloride 10 mEq 20 meq PO DAILY tab 01/28/22 02/26/22 History tablet,extended release(part/cryst) warfarin 2.5 mg tablet See Rx Instructions .ROUTE 01/28/22 02/26/22 History .COMPLEX tab prednisone 10 mg tablet 2.5 mg PO DAILY tab 02/21/22 02/26/22 History pyridostigmine bromide 60 mg tablet 90 mg PO TID 30 Days #135 tab 02/21/22 02/26/22 Rx Past Med/Surg History Medical History (Updated 02/26/22 @ 06:31 by Yessenia Arias DO) Afib Allergic rhinitis Asthma, mild intermittent CAD (coronary artery disease) Candidiasis of mouth and esophagus Cardiomyopathy Carotid bruit Carotid stenosis, asymptomatic Chronic rhinitis Congestive heart failure (CHF) 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 Interstitial lung disease LVEF <40% Mitral valve disorder Moderate mitral regurgitation Myasthenia gravis Open wound of leg Paraproteinemia Presence of combination internal cardiac defibrillator (ICD) and pacemaker Pulmonary fibrosis determined by high resolution computed tomography Restrictive lung disease Rhonchi at right lung base Tachycardia Type 2 diabetes, controlled, with neuropathy Surgical History History of aortic valve replacement History of appendectomy History of cholecystectomy History of excision of lesion face - malignant - 2.1-3cm S/P MVR (mitral valve repair) Family History Father Brain tumor Mother Lung disease Sister Breast cancer Myocardial infarction Other Lung cancer Denies family history of Ovarian cancer Prostate cancer Colorectal cancer Social History Smoking Status: Former smoker Age Started Using Tobacco: 17; Age Quit Using Tobacco: 32; Cigarettes Per Day: 1-2; Second Hand Exposure: No; Hx Alcohol Use: No Hx Substance Use: No Preferred Language: Macanese Communication Ability: Effective Business Operations Coordinator Required: No Beliefs That Will Affect Care: None marital status: Current Living Situation: Spouse current occupational status: retired Feels Safe at Home: Yes Childhood Exposure to Second-Hand Smoke: Yes caffeine: Yes (coffee, tea ) Dental Care, Regularly: Yes Physical Activity Frequency: 3-4 Times per Week Seatbelt Use: always Sunscreen Use: Yes Assistive Devices: None Review of Systems Review of Systems: All systems reviewed & are unremarkable except as noted in HPI & below Patient denies cough, SOB, abdominal pain, nausea, vomiting, diarrhea, dizziness, syncope He reports some constipation Has not been eating well at home, poor appetite Reports some increased bilateral LE edema Physical Exam Physical Exam: General: patient resting, NAD but uncomfortable from chest soreness, non-toxic in appearance, AA&O x 4 Skin: warm, dry, intact, no rashes or lesions HEENT: NC/AT, PERRL, EOMI, anicteric sclera, conjunctiva without injection, external ear normal to inspection and nontender, nares patent, moist mucus membranes, dentition intact, no oropharyngeal lesions, neck supple, trachea midline, no LAD, no thyromegaly, no JVD Heart: +S1/S2, regular, no m/r/g, V-paced rhythm present on monitor, +chest wall tenderness Lungs: equal air entry bilaterally, no rales/rhonchi/wheezes Abd: +BS, soft, NT/ND, no masses/organomegaly/ascites Ext: warm, 2+ pulses in UE/LE bilaterally, no clubbing/cyanosis, 2+ edema pitting to knees, L > R Neuro: nonfocal, patient AA&O x 4, speech intact, no facial droop, moving all extremities on command with equal strength 5/5 Results & Data Results & Data ([facility]) Vital Signs (Past 12 Hours) Vital Signs Temp Pulse Resp BP Pulse Ox 02/26/22 05:45 76 16 114/55 L 99 02/26/22 05:30 76 19 108/64 100 02/26/22 05:17 92 02/26/22 05:15 75 16 127/62 99 02/26/22 05:13 36.7 C 82 18 130/54 L 92 02/26/22 05:12 99 02/26/22 05:01 76 12 112/71 99 Laboratory Results Laboratory Results WBC 10.87 K/uL (4.8-10.8) H 02/26/22 04:56 RBC 4.44 M/uL (4.7-6.1) L 02/26/22 04:56 Hgb 11.4 g/dL (14.0-18.0) L 02/26/22 04:56 Hct 37.6 % (42-52) L 02/26/22 04:56 MCV 84.7 fL (80-100) 02/26/22 04:56 MCH 25.7 pg (25-34) 02/26/22 04:56 MCHC 30.3 g/dL (32-36) L 02/26/22 04:56 RDW Std Deviation 46.5 fL (36.4-46.3) H 02/26/22 04:56 RDW Coeff of Jonathan 14.9 % (11.5-14.5) H 02/26/22 04:56 Plt Count 193 K/uL (130-400) 02/26/22 04:56 MPV 8.9 fL (7.4-10.4) 02/26/22 04:56 Immature Gran % (Auto) 0.6 % 02/26/22 04:56 Neut % (Auto) 70.4 % 02/26/22 04:56 Lymph % (Auto) 17.5 % 02/26/22 04:56 Stewart % (Auto) 10.8 % 02/26/22 04:56 Eos % (Auto) 0.7 % 02/26/22 04:56 Baso % (Auto) 0.0 % 02/26/22 04:56 Neut # (Auto) 7.65 K/uL (1.4-6.5) H 02/26/22 04:56 Lymph # (Auto) 1.90 K/uL (1.2-3.4) 02/26/22 04:56 Stewart # (Auto) 1.17 K/uL (0.11-0.59) H 02/26/22 04:56 Eos # (Auto) 0.08 K/uL (0-0.5) 02/26/22 04:56 Baso # (Auto) 0.00 K/uL (0-0.2) 02/26/22 04:56 Immature Gran # (Auto) 0.07 K/uL (0.00-0.02) H 02/26/22 04:56 PT 19.7 Seconds (9.0-12.0) H 02/26/22 04:56 INR 1.9 (0.9-1.1) H 02/26/22 04:56 APTT 38.5 Seconds (21.0-31.0) H 02/26/22 04:56 PTT Ratio 1.4 02/26/22 04:56 Sodium 142 mmol/L (136-145) 02/26/22 04:56 Potassium 3.2 mmol/L (3.5-5.1) L 02/26/22 04:56 Chloride 108 mmol/L (98-107) H 02/26/22 04:56 Carbon Dioxide 24 mmol/L (21-32) 02/26/22 04:56 Anion Gap 10 (3-11) 02/26/22 04:56 BUN 20 mg/dl (6-23) 02/26/22 04:56 Creatinine 1.09 mg/dl (0.6-1.4) 02/26/22 04:56 Est Cr Clr Drug Dosing 58.3 ml/min 02/26/22 04:56 Est GFR ( Amer) 73.4 ml/min 02/26/22 04:56 Est GFR (Non-Af Amer) 63.3 ml/min 02/26/22 04:56 BUN/Creatinine Ratio 18.3 (10-20) 02/26/22 04:56 Glucose 124 mg/dl (70-99(Fasting)) H 02/26/22 04:56 Calcium 8.3 mg/dl (8.5-10.1) L 02/26/22 04:56 Total Bilirubin 2.2 mg/dl (0.2-1.0) H 02/26/22 04:56 AST 29 U/L (13-39) 02/26/22 04:56 ALT 16 U/L (7-52) 02/26/22 04:56 Alkaline Phosphatase 78 U/L (34-104) 02/26/22 04:56 Troponin I High Sens 81.7 pg/ml (0-20) H* 02/26/22 04:56 Troponin I High Sens Cancelled 02/26/22 04:56 Total Protein 6.1 gm/dl (6.0-8.3) 02/26/22 04:56 Albumin 3.6 gm/dl (3.4-5.0) 02/26/22 04:56 Globulin 2.5 gm/dl (2.5-4.0) 02/26/22 04:56 Albumin/Globulin Ratio 1.4 (0.9-2) 02/26/22 04:56 Lipase 30 U/L (11-82) 02/26/22 04:56 Diagnostic Findings CXR - by my interpretation - AICD in place, sternotomy wires, evidence of cervical surgical intervention, cardiomegaly, reticular pattern notable in right lung ECG Additional Comments: ELG appears to be V paced with premature PVCs present, appears to have appropriate discordance Code Status & VTE Plan VTE Prophylaxis Plan VTE Prophylaxis will be ordered: Yes Critical Care Time 60 minutes PG Care Time/CCT Total # of Minutes Spent Total Time Spent with Patient: Total time spent is greater than 50% in coordination of care (as documented) at patient's floor/unit and/or counseling patient: Coding Level of Care Code None Diagnoses Type 2 diabetes, controlled, with neuropathy E11.40 Cardiomyopathy I42.9 Hypothyroidism E03.9 Myasthenia gravis G70.00 Interstitial lung disease J84.9 Hypertension I10 Hypertension type: essential hypertension CAD (coronary artery disease) I25.10 Coronary Disease-Associated Artery/Lesion type: [place] artery [place] vs. transplanted heart: [place] heart Associated angina: without angina Hyperlipidemia E78.5 AICD discharge Z45.02 Afib I48.91 (1) Hypertension Hypertension type: essential hypertension Qualified Code(s): I10 - Essential (primary) hypertension (2) CAD (coronary artery disease) Coronary Disease-Associated Artery/Lesion type: [place] artery [place] vs. transplanted heart: [place] heart Associated angina: without angina Qualified Code(s): I25.10 - Atherosclerotic heart disease of [place] coronary artery without angina pectoris
--- NOTE | 2022-02-26 06:54 | Critical Care Consultation ---
Date of Consultation February 26, 2022 Assessment & Plan (1) AICD discharge: ICU Assessment and Plans Reason Critically Ill 81 yo M with complex cardiovascular disease admitted to ICU for monitoring due to ventricular tachycardia storm resulting in multiple AICD discharges Neuro - [facility] ICU: NEGATIVE Sedation: None Analgesia: None, no pain at present Anxiety: Ativan PRN, 0.25 mg Myasthenia gravis -Continue prednisone 2.5 mg daily -Continue home Cellcept and Mestinon CARDIAC - Ventricular tachycardia -Likely due to hypokalemia/hypomagnesemia + potential HF exacerbation/ischemic event in pt with complex cardiovascular disease -Continue amiodarone drip- currently at 0.5 mg/min -Has remained in paced rhythm without any further AICD discharges or ventricular tachycardia since ICU admission -Cardiology recommendations pending Cardiomyopathy -Mixed cardiomyopathy- echo 12/2020 with EF 50-55%, LV hypokinesis -BNP 476 -Repeat echo pending -Continue home Lasix 40 mg PO -May require catheterization Elevated troponin -Troponin HS 82, suspect due to physiologic stress on heart from multiple AICD discharges in context of ventricular tachycardia -Continue trending troponins Coronary artery disease -Continue daily aspirin, lovastatin -Consider switch to high intensity statin for cardiovascular benefit though pt does report statin myopathy in the past History of atrial fibrillation -Not in atrial fibrillation at present, HRs currently 70s-80s -Continue home warfarin for anticoagulation Respiratory - Known history of chronic interstitial lung disease -On 2L NC, wean as able. Not on O2 at home -Continue Breo Ellipta daily, duoneb PRN GI - Heart healthy, carb consistent RENAL/ELECTROLYTES Hypomagnesemia -1.2 on admission, repletion ongoing -Goal 2.2+ in arrhythmic patient with extensive heart disease Hypokalemia -3.2 on admission, repletion ongoing -Goal 4.5+ in arrhythmic patient with extensive heart disease Recheck BMP later this afternoon - No concerns at this time ENDO - Type 2 DM with neuropathy -ICU hyperglycemia protocol -Lantus 5u BID, ISS -BSGs stable in 100s Hypothyroidism -TSH 4.6 on admission -Free T4 pending -Continue levothyroxine 75 mcg daily HEME - Hgb 11.4, stable Trend CBC Continue home warfarin dose schedule- 1.25mg Monday, 2.5mg SSMTWT INR 1.9, ID - No concerns for infection at this point LINES/IV ACCESS - PIVs intact. DVT PROPHYLAXIS - Home warfarin Disposition: ICU (2) Ventricular tachycardia: (3) Cardiomyopathy: (4) Tachycardia: Supervising Physician Co-Signing Physician Notes Dr. Griffith was resident physician during care of patient. I separately evaluated patient for ntaarajan portions of the history and the exam. I was present during the critical portion of medical decision making, and I discussed the case with the resident. I generally agree with the findings and plan. [employer] interrogation of defibrillator reported received 29 shocks for ventricular tachycardia storm. Is on amiodarone has not had discharge of device since arriving in ICU. Denies chest pain shortness of breath no changes to diet, has not had AICD going off before. He was found to be fairly hypomagnesemic which is being replaced and we are optimizing his potassium. We are obtaining an echo at this time. He requests something for anxiety as he is fearful that the AICD will go off and he cannot sleep because of this. We will start with 0.25 mg Ativan IV. Continued ICU observation for the next 12 to 24 hours given recurrent ventricular tachycardia. Continue warfarin for systemic anticoagulation secondary to atrial fibrillation. I have personally spent 40 minutes of critical care time in the direct management of this patient. This is a life/limb threatening event. This includes time spent evaluating patient, direct bedside care, chart review, placing orders, interpretation of diagnostic studies, discussion with consultants, patient, and/or family members regarding treatment decisions, as well as other required patient management activities. This time is exclusive of all separately billable procedures, and teaching time and separate from and in addition to any other critical care service time. History of Present Illness Reason for Consultation: Ventricular tachycardia Requesting Physician: Yessenia Arias Attending Physician: Yessenia Arias DO History of Present Illness History obtained from patient and chart review. 81 yo M with PMH CAD s/p CABG (ALANIZ to LAD), mitral and aortic valve replacements, aortic endarterectomy with ablation in 2013, paroxysmal AF s/p ablation in 2021, myasthenia gravis, ILD, hypothyroidism and biventricular AICD since 2013 admitted to ICU for chest pain and multiple runs of ventricular tachycardia Pt initially had chest pain on 5/6- intermittent, tight, substernal, moderate severity, lasted for most of day. Woke up shortly after midnight and experienced profound fatigue that limited ambulation- he subsequently had several discharges from his AICD and this has not occurred ever since it was placed in 2013. EMS transported pt to [facility] and was found to be in ventricular tachycardia with HR 200s. [place] evaluation revealed hypokalemia to 2.8 and hypomagnesemia to 1.2, pt was also given amiodarone bolus. Continued to experience multiple AICD discharges in addition to manual cardioversions performed in hospital. Eventually transferred to [facility] per his own request as he follows with [facility] cardiology. Total number of AICD discharges estimated at 29. Returned to paced rhythm by time of arrival to ICU this AM, has not had any AICD discharges since. On evaluation, pt denies any chest pain, dyspnea, palpitations or lightheadedness but does report significant anxiety about another discharge occurring. Allergies Allergy/AdvReac Type Severity Reaction Status Date / Time gabapentin Allergy Severe CONFUSION/D Verified 01/28/22 13:47 ISORIENTATI ON heparin Allergy Severe HIT Verified 01/28/22 13:47 Iodinated Contrast Media Allergy Severe HIVES Verified 01/28/22 13:47 prednisone Allergy Intermediate NAUSEA/VOMI Verified 01/28/22 13:47 TING shellfish derived Allergy Intermediate HIVES Verified 01/28/22 13:47 iodine Allergy Unknown TOLD BC OF Verified 01/28/22 13:47 IVP ALLERGY amiodarone Allergy Unknown Verified 02/26/22 05:45 latex Allergy Unknown Verified 02/26/22 05:45 levofloxacin Allergy Unknown Verified 02/26/22 05:45 red dye Allergy Anaphylaxis Verified 02/26/22 05:45 Penicillins AdvReac Mild Possible Verified 01/28/22 13:47 to use this medication, see comments codeine AdvReac Unknown GI UPSET Verified 01/28/22 13:47 Home Medications Medication Instructions Recorded Confirmed Type aspirin 81 mg tablet,delayed 81 mg PO QAM 06/29/19 02/26/22 History release nitroglycerin 0.4 mg sublingual 0.4 mg SL Q5M PRN #25 tab 04/15/20 02/26/22 Rx tablet epinephrine 0.3 mg/0.3 mL 0.3 mg IM Q10M PRN #1 ea 05/04/20 02/26/22 Rx injection, auto-injector (EpiPen 2-Puneet) diphenhydramine HCl 50 mg capsule 50 mg PO Q6H PRN 05/13/21 02/26/22 History loperamide 2 mg tablet (Imodium 2 mg PO QID PRN 05/13/21 02/26/22 History A-D) mupirocin 2 % topical ointment 1 applic TOPICAL TID PRN 05/13/21 02/26/22 History mycophenolate mofetil 500 mg 1,000 mg PO BID #360 tab 06/29/21 02/26/22 Rx tablet (CellCept) budesonide-formoterol HFA 80 2 puff INHALATION BID g 09/28/21 02/26/22 History mcg-4.5 mcg/actuation aerosol inhaler (Symbicort) ipratropium 0.5 mg-albuterol 3 mg 3 ml INHALATION QID PRN #15 ml 11/17/21 02/26/22 Rx (2.5 mg base)/3 mL nebulization soln albuterol sulfate 90 mcg/actuation 2 inh INHALATION QID PRN #8.5 g 11/18/21 02/26/22 Rx aerosol inhaler levothyroxine 75 mcg tablet 75 mcg PO QAM #90 tab 12/02/21 02/26/22 Rx pyridostigmine bromide 180 mg 180 mg PO QAM #90 tab 01/04/22 02/26/22 Rx tablet,extended release (Mestinon Timespan) furosemide 20 mg tablet 40 mg PO DAILY tab 01/10/22 02/26/22 History ipratropium bromide 42 mcg (0.06 2 spray INTRANASAL TID #2 btl 01/18/22 02/26/22 Rx %) nasal spray metformin 500 mg tablet,extended 500 mg PO BID #180 tab 01/24/22 02/26/22 Rx release 24 hr lovastatin 20 mg tablet 20 mg PO .COMPLEX tab 01/28/22 02/26/22 History potassium chloride 10 mEq 20 meq PO DAILY tab 01/28/22 02/26/22 History tablet,extended release(part/cryst) warfarin 2.5 mg tablet See Rx Instructions .ROUTE 01/28/22 02/26/22 History .COMPLEX tab prednisone 10 mg tablet 2.5 mg PO DAILY tab 02/21/22 02/26/22 History pyridostigmine bromide 60 mg tablet 90 mg PO TID 30 Days #135 tab 02/21/22 02/26/22 Rx Patient History Medical History (Updated 02/26/22 @ 12:34 by Severiano Griffith MD) Afib Allergic rhinitis Asthma, mild intermittent CAD (coronary artery disease) Candidiasis of mouth and esophagus Cardiomyopathy Carotid bruit Carotid stenosis, asymptomatic Chronic rhinitis Congestive heart failure (CHF) 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 Interstitial lung disease LVEF <40% Mitral valve disorder Moderate mitral regurgitation Myasthenia gravis Open wound of leg Paraproteinemia Presence of combination internal cardiac defibrillator (ICD) and pacemaker Pulmonary fibrosis determined by high resolution computed tomography Restrictive lung disease Rhonchi at right lung base Tachycardia Type 2 diabetes, controlled, with neuropathy Surgical History History of aortic valve replacement History of appendectomy History of cholecystectomy History of excision of lesion face - malignant - 2.1-3cm S/P MVR (mitral valve repair) Family History Father Brain tumor Mother Lung disease Sister Breast cancer Myocardial infarction Other Lung cancer Denies family history of Ovarian cancer Prostate cancer Colorectal cancer Social History Smoking Status: Former smoker Age Started Using Tobacco: 17; Age Quit Using Tobacco: 32; Cigarettes Per Day: 1-2; Smoking End Date: 1980; Second Hand Exposure: No; Do You Dip or Chew Tobacco: No; Tobacco Cessation Education Requested by Patient: No Hx Alcohol Use: No Hx Substance Use: No Preferred Language: Hebrew Communication Ability: Effective Customer Service Sales Associate Required: No Beliefs That Will Affect Care: None marital status: Current Living Situation: Spouse Current Living Situation Comment: Just pt and his spouse. current occupational status: retired Other Information That Helps Us Care for You: No Feels Safe at Home: Yes Childhood Exposure to Second-Hand Smoke: Yes caffeine: Yes (coffee, tea ) Dental Care, Regularly: Yes Physical Activity Frequency: 3-4 Times per Week Seatbelt Use: always Sunscreen Use: Yes Assistive Devices: Denture - Upper, Denture - Lower, Glasses and Walker Review of Systems Review of Systems: Per HPI Physical Exam Physical Exam: General: patient resting, no acute distress but visibly anxious Skin: warm, dry, intact, no rashes or lesions HEENT: NC/AT, EOMI, anicteric sclera, conjunctiva without injection, external ear normal to inspection and nontender, nares patent, moist mucus membranes neck supple, trachea midline, no thyromegaly, no JVD Heart: +S1/S2, regular paced rhythm, no murmurs appreciated, V-paced rhythm present on monitor. Lungs: CTAB, no wheezes or crackles, no increased work of breathing Abd: Soft, nontender, nondistended Ext: warm, trace peripheral edema b/l to knees, normal capillary refill, no cyanosis, distal pulses of b/l LE intact Neuro: grossly alert and oriented, no focal motor or sensory deficits Results & Data Results & [facility] ([facility]) Vital Signs (Past 12 Hours) Vital Signs Temp Pulse Resp BP BP Pulse Ox 02/26/22 06:31 81 02/26/22 06:00 77 15 114/55 L 100 02/26/22 05:55 84 H 98/56 L 92 02/26/22 05:45 76 16 114/55 L 99 02/26/22 05:30 76 19 108/64 100 02/26/22 05:17 92 02/26/22 05:15 75 16 127/62 99 02/26/22 05:13 36.7 C 82 18 130/54 L 92 02/26/22 05:12 99 02/26/22 05:01 76 12 112/71 99 Resident Activity Tracking Resident Involvement: Resident Care Provided Care Provided: Adult [facility]
--- NOTE | 2022-02-26 07:07 | XRay Report ---
XR chest 1V portable CLINICAL HISTORY: Atypical chest pain. COMPARISON STUDY: Chest CT May 14, 2021. Chest radiograph May 13, 2021. FINDINGS: Postoperative findings within the spine are incidentally noted. There is a left subclavian biventricular pacer/AICD, median sternotomy wires and prosthetic cardiac valves. Cardiomegaly is unch anged. Mild right midlung opacity is present. There is also subtle interstitial thickening. Calcified granuloma within the right upper lobe is incidentally noted. IMPRESSION: 1. Mild right midlung opacity. This may reflect an infectious process. Alveolar edema could appear si milar although is considered less likely. 2. Cardiomegaly. Suspected mild pulmonary edema. ACT 112: Negative or not required by law. Electronically signed by: Martin Hoffmann M.D. 02/26/2022 7:06 AM
[2022-02-26] MEDS: ICU ELECTROLYTE REPLACEMENT PROTOCOL SCH ×2 (07:59→16:22)
[2022-02-26] MEDS: INSULIN ASPART PER UNIT SC SCH ×4 (08:09→23:59)
[2022-02-26] MEDS: LEVOTHYROXINE SODIUM 75 MCG TABLET PO SCH (08:29)
[2022-02-26] MEDS: FUROSEMIDE 40 MG TAB PO SCH (08:30)
[2022-02-26] MEDS: ASPIRIN 81 MG ECTAB PO SCH (08:30)
[2022-02-26] MEDS: FLUTICASONE/VILANTEROL 100/25MCG 14 PUFFS/INHALER INH SCH (08:31)
[2022-02-26] MEDS: PYRIDOSTIGMINE BROMIDE 60 MG TAB PO SCH ×3 (08:32→20:11)
[2022-02-26] MEDS: MYCOPHENOLATE MOFETIL 250 MG CAP PO SCH ×2 (08:32→20:11)
[2022-02-26] MEDS: predniSONE 2.5 MG TAB PO SCH (08:32)
[2022-02-26] MEDS: INSULIN GLARGINE SOLOSTAR 100 UNITS/ML 3 ML PEN SC SCH ×2 (08:39→20:12)
[2022-02-26] MEDS ORDERED: PYRIDOSTIGMINE SUSTAINED REL 180 MG TABCR PO SCH (09:00)
[2022-02-26] MEDS ORDERED: POTASSIUM CHLORIDE CRTAB 20 MEQ TABCR PO ONE (09:30)
[2022-02-26] MEDS: AMIODARONE / D5W 360 MG/200 ML BAG IV SCH ×2 (11:13→21:47)
[2022-02-26] MEDS ORDERED: LORazepam 2 MG/1 ML VIAL IV STA (11:13)
--- NOTE | 2022-02-26 11:20 | Billing Data ---
Date of Service February 26, 2022 Coding Level of Care Code Critical Care 1st - mins
--- NOTE | 2022-02-26 11:33 | Ultrasound Report ---
LEFT LOWER EXTREMITY VENOUS DOPPLER HISTORY: Acute pain and swelling of the left lower leg L leg pain + tenderness COMPARISON STUDY: None. FINDINGS: There is normal compressibility, flow, and augmentation within the left lower extremity taras p venous system. IMPRESSION: No DVT within the left lower extremity. ACT 112: Negative or not required by law. Electronically signed by: Foster Ortiz M.D. 02/26/2022 11:32 AM
[2022-02-26 15:02] LABS: BUN Creatinine Ratio 15.3 (10-20); Calcium 8.2 mg/dl (8.5-10.1); Creatinine Clr Calc Pharmacy 48.4 ml/min; Est GFR (African American) 58.8 ml/min; Est GFR (Non-African American) 50.7 ml/min; Magnesium 2.3 mg/dl (1.7-2.4); Potassium 3.9 mmol/L (3.5-5.1)
[2022-02-26] MEDS ORDERED: FUROSEMIDE 40 MG/4 ML VIAL IV ONE (15:08)
[2022-02-26] MEDS: LORazepam 2 MG/1 ML VIAL IV PRN (15:13)
[2022-02-26] MEDS ORDERED: METOPROLOL SUCC 50MG EXT REL TAB PO ONE (15:30)
--- NOTE | 2022-02-26 15:39 | XCELERA ---
[id number]
--- NOTE | 2022-02-26 15:49 | Cardiology Consultation ---
Date of Consultation February 26, 2022 Assessment & Plan (1) Ventricular tachycardia: (2) AICD discharge: (3) Acute HFrEF (heart failure with reduced ejection fraction): (4) Cardiomyopathy: (5) Complete heart block: (6) Biventricular automatic implantable cardioverter defibrillator in situ: (7) S/P MVR (mitral valve repair): (8) S/P AVR: (9) Pulmonary hypertension: (10) CAD (coronary artery disease): (11) S/P CABG x 1: (12) Atrial fibrillation, permanent: ASSESSMENT/PLAN: 1. Ventricular tachycardia s/p ICD shock x 29 + 2 external cardioversion: No further VT while here. With prior AR and reduced LV systolic function, he is susceptible to ventricular arrhythmia. Significant hypo magnesemia and hypokalemia may have contributed. Continue to correct electrolyte abnormalities as necessary. Continue IV amiodarone today. If recurrent VT issues, would consider intravenous lidocaine. Start beta-mary. Can consider cardiac catheterization, but no urgent indication at this time. Will discuss with Dr. Martell, his die welder to help determine formal treatment plan for these complex issues. 2. Acute heart failure with reduced EF: He appears hypervolemic. OptiVol is abnormal as well. He received p.o. Lasix today. Lasix 40 mg IV x1 now. Recommend metoprolol succinate, and he was on beta-mary in the past and tolerated it well. Start spironolactone 25 mg daily which will also help with potassium levels. Recommend Entresto later this hospital stay. Recommend ST LT 2 inhibitor on discharge as it is not available on formulary at this time. 3. Ischemic cardiomyopathy: Plan as above. Optimize medical therapy. LV systolic function has declined, which may be due to recurrent VT as well. 4. Mitral and aortic valve replacements: Bioprosthetic valves. Appear to be functionally appropriately on echo. SBE prophylaxis for dental procedures. 5. CAD s/p CABG x 1: Chest discomfort occurred before his first shock and cannot exclude ischemia as playing a role in his ventricular arrhythmia. VT was noted on his interrogation prior to his first shock as ATP first was able to terminate some episodes. Therefore, VT could have caused his chest discomfort as well. Continue aspirin 81 mg daily. Beta-mary as above. Continue statin therapy. He did not tolerate other statins in the past. 6. Permanent atrial fibrillation s/p AV rob ablation: On long-term anticoagulation therapy for stroke risk reduction. 7. Pulmonary hypertension: Chronic issue. Likely related to heart failure and interstitial lung disease. 8. Disposition: Cardiology will continue to follow along. Patient care communicated with Dr. Siegel other critical care team and Dr. Carty of the primary hospitalist service. 65 minutes of critical care time spent, including discussing with patient, managing his complex cardiac issues, coordinating care with other providers as noted above. History of Present Illness Reason for Consultation: VT, ICD shock Requesting Physician: Yessenia Arias Attending Physician: David Carty History of Present Illness Mr. Mendez is a very pleasant 81-year-old gentleman with a past medical history significant for CABG x1 (ALANIZ to LAD) and bioprosthetic aortic and mitral valve replacements in 2013, cardiomyopathy, high-grade AV block s/p biventricular ICD, atrial fibrillation s/p AV rob ablation (Nov 2021 at [facility]), myasthenia gravis, pulmonary hypertension, interstitial lung disease, PFO closure, aortic endarterectomy, type 2 diabetes, hypertension, and dyslipidemia. His primary car parker is Dr. Martell. He has had the following studies/procedures: 1. CABG/AVR/MVR 04/23/2014 at [facility]: ALANIZ to LAD. AVR with 23 mm Mcdaniel bioprosthesis. MVR 27 mm bioprosthesis. PFO closure, aortic endarterectomy and intraoperative radiofrequency ablation performed. 2. Biventricular ICD April 2014. 3. Device generator exchange May 2020: Medtr[employer]. 4. Echo 09/22/2021 [facility]: Normal LV size. Isolated basal septal hypertrophy. EF 49%. Large anterior, inferior, posterior, lateral wall motion abnormality with hypokinesis to akinesis. Biatrial dilation. Bioprosthetic aortic valve and mitral valve replacements. Moderate TR. RVSP 80. 5. AV rob ablation 11/26/2021 [facility]. 6. PFT's 12/21/2021: Moderate restriction. He was watching TV late last night and when he got up to go to bed, he felt dizzy and therefore sat back down. He then developed left-sided chest pain described as a squeezing sensation which he has not experienced before. He then was shocked by his ICD 6 times within minutes. According to interrogation, the shocks began at 0016 on 02/26/2022. He then took 2 nitroglycerin tablets and awaited EMS. While they were backing into the ER [place] at [facility], he recalls 4 more shocks. While in the emergency department there, he had another several shocks and then 2 more by the emergency department staff, externally. He was placed on amiodarone drip after 150 mg bolus. He was noted to be significantly hypokalemic and hypomagnesemic with a magnesium level of 1.2 and a potassium level of 2.8. BNP was elevated at 62 28 at [facility]. He had no recurrence of the initial chest discomfort and that chest discomfort did not radiate and there was no associated shortness of breath. He instead had what he described as a shooting pain that went throughout his body intermittently throughout the director radio news hours. He was then transferred to [facility] and once again while in the parking lot coming into the emergency department, had further internal shocks. All in all, there were 29 ICD shocks noted on interrogation. Ventricular tachycardia began at 11:58 p.m. and was initially terminated with ATP but continued to recur, requiring shocks. According to interrogation, 2 episodes of ventricular tachycardia accelerated to VFib. While here, he has received supplementation both for potassium and magnesium. He states that he feels back to baseline other than quite anxious that he may undergo further shocks. He has chronic lower extremity swelling, specifically in the left leg but he believes it has been worse over the past 2 days. He recalls being on amiodarone in the past in 2013 shortly after surgery and it was discontinued a short time thereafter. He recalls being told that he had liver issues while on amiodarone. He states that he walks often and does not have exertional chest discomfort. He has chronic but stable dyspnea with exertion. He denies orthopnea, palpitations, melena, hematochezia, hematuria, or other bleeding. Review of systems: As above. Review of systems otherwise negative/unremarkable. Family history: Brother had CAD and CABG. Social history: Quit smoking in 1980 and smoked approximately 1 pack per week or so. No alcohol or drug abuse. Lives at home with his . Two sons and 1 daughter. Grandchildren and great grand child. Works at [employer]. He was unaccompanied in his ICU room. Allergies Allergy/AdvReac Type Severity Reaction Status Date / Time gabapentin Allergy Severe CONFUSION/D Verified 01/28/22 13:47 ISORIENTATI ON heparin Allergy Severe HIT Verified 01/28/22 13:47 Iodinated Contrast Media Allergy Severe HIVES Verified 01/28/22 13:47 prednisone Allergy Intermediate NAUSEA/VOMI Verified 01/28/22 13:47 TING shellfish derived Allergy Intermediate HIVES Verified 01/28/22 13:47 iodine Allergy Unknown TOLD BC OF Verified 01/28/22 13:47 IVP ALLERGY amiodarone Allergy Unknown Verified 02/26/22 05:45 latex Allergy Unknown Verified 02/26/22 05:45 levofloxacin Allergy Unknown Verified 02/26/22 05:45 red dye Allergy Anaphylaxis Verified 02/26/22 05:45 Penicillins AdvReac Mild Possible Verified 01/28/22 13:47 to use this medication, see comments codeine AdvReac Unknown GI UPSET Verified 01/28/22 13:47 Home Medications Medication Instructions Recorded Confirmed Type aspirin 81 mg tablet,delayed 81 mg PO QAM 06/29/19 02/26/22 History release nitroglycerin 0.4 mg sublingual 0.4 mg SL Q5M PRN #25 tab 04/15/20 02/26/22 Rx tablet epinephrine 0.3 mg/0.3 mL 0.3 mg IM Q10M PRN #1 ea 05/04/20 02/26/22 Rx injection, auto-injector (EpiPen 2-Puneet) diphenhydramine HCl 50 mg capsule 50 mg PO Q6H PRN 05/13/21 02/26/22 History loperamide 2 mg tablet (Imodium 2 mg PO QID PRN 05/13/21 02/26/22 History A-D) mupirocin 2 % topical ointment 1 applic TOPICAL TID PRN 05/13/21 02/26/22 History mycophenolate mofetil 500 mg 1,000 mg PO BID #360 tab 06/29/21 02/26/22 Rx tablet (CellCept) budesonide-formoterol HFA 80 2 puff INHALATION BID g 09/28/21 02/26/22 History mcg-4.5 mcg/actuation aerosol inhaler (Symbicort) ipratropium 0.5 mg-albuterol 3 mg 3 ml INHALATION QID PRN #15 ml 11/17/21 02/26/22 Rx (2.5 mg base)/3 mL nebulization soln albuterol sulfate 90 mcg/actuation 2 inh INHALATION QID PRN #8.5 g 11/18/21 02/26/22 Rx aerosol inhaler levothyroxine 75 mcg tablet 75 mcg PO QAM #90 tab 12/02/21 02/26/22 Rx pyridostigmine bromide 180 mg 180 mg PO QAM #90 tab 01/04/22 02/26/22 Rx tablet,extended release (Mestinon Timespan) furosemide 20 mg tablet 40 mg PO DAILY tab 01/10/22 02/26/22 History ipratropium bromide 42 mcg (0.06 2 spray INTRANASAL TID #2 btl 01/18/22 02/26/22 Rx %) nasal spray metformin 500 mg tablet,extended 500 mg PO BID #180 tab 01/24/22 02/26/22 Rx release 24 hr lovastatin 20 mg tablet 20 mg PO .COMPLEX tab 01/28/22 02/26/22 History potassium chloride 10 mEq 20 meq PO DAILY tab 01/28/22 02/26/22 History tablet,extended release(part/cryst) warfarin 2.5 mg tablet See Rx Instructions .ROUTE 01/28/22 02/26/22 History .COMPLEX tab prednisone 10 mg tablet 2.5 mg PO DAILY tab 02/21/22 02/26/22 History pyridostigmine bromide 60 mg tablet 90 mg PO TID 30 Days #135 tab 02/21/22 02/26/22 Rx Patient History Medical History (Updated 02/26/22 @ 16:01 by Shun Gutierrez MD) Afib Allergic rhinitis Asthma, mild intermittent CAD (coronary artery disease) Candidiasis of mouth and esophagus Cardiomyopathy Carotid bruit Carotid stenosis, asymptomatic Chronic rhinitis Congestive heart failure (CHF) 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 Interstitial lung disease LVEF <40% Mitral valve disorder Moderate mitral regurgitation Myasthenia gravis Open wound of leg Paraproteinemia Presence of combination internal cardiac defibrillator (ICD) and pacemaker Pulmonary fibrosis determined by high resolution computed tomography Restrictive lung disease Rhonchi at right lung base Tachycardia Type 2 diabetes, controlled, with neuropathy Surgical History (Updated 02/26/22 @ 16:01 by Shun Gutierrez MD) History of aortic valve replacement History of appendectomy History of cholecystectomy History of excision of lesion face - malignant - 2.1-3cm S/P CABG x 1 S/P MVR (mitral valve repair) Family History Father Brain tumor Mother Lung disease Sister Breast cancer Myocardial infarction Other Lung cancer Denies family history of Ovarian cancer Prostate cancer Colorectal cancer Social History Smoking Status: Former smoker Age Started Using Tobacco: 17; Age Quit Using Tobacco: 32; Cigarettes Per Day: 1-2; Smoking End Date: 1980; Second Hand Exposure: No; Do You Dip or Chew Tobacco: No; Tobacco Cessation Education Requested by Patient: No Hx Alcohol Use: No Hx Substance Use: No Preferred Language: Irish Communication Ability: Effective Computer Systems Integrator Required: No Beliefs That Will Affect Care: None marital status: Current Living Situation: Spouse Current Living Situation Comment: Just pt and his spouse. current occupational status: retired Other Information That Helps Us Care for You: No Feels Safe at Home: Yes Childhood Exposure to Second-Hand Smoke: Yes caffeine: Yes (coffee, tea ) Dental Care, Regularly: Yes Physical Activity Frequency: 3-4 Times per Week Seatbelt Use: always Sunscreen Use: Yes Assistive Devices: Denture - Upper, Denture - Lower, Glasses and Walker Physical Exam Physical Exam: Gen.: No acute distress. Alert and oriented. HEENT: Anicteric sclera. Neck: Mild JVD. No bruits. Normal carotid upstrokes bilaterally. Cardiac: PMI was nondisplaced. No ventricular heave. Regular. Normal S1-S2. 1/6 systolic murmur. Pulmonary: Decreased breath sounds bilaterally with bibasilar crackles. Abdomen: Soft, nontender, nondistended, with normoactive bowel sounds. No bruits noted. Extremities: 2+ radial pulses bilaterally. 2+ posterior tibialis pulses bilaterally. 2+ bilateral lower extremity edema, left > right. No cyanosis. Psychiatric: Affect appears appropriate. Results & Data ([facility]) Vital Signs (Past 12 Hours) Vital Signs Temp Pulse Pulse Resp BP BP BP 02/26/22 14:30 77 21 128/66 02/26/22 14:00 75 20 129/68 02/26/22 13:30 75 22 126/61 02/26/22 13:00 75 15 107/65 02/26/22 12:30 75 24 117/61 02/26/22 12:00 36.7 C 75 15 127/73 02/26/22 11:30 75 14 123/68 02/26/22 11:00 75 17 138/69 02/26/22 10:48 75 21 138/74 02/26/22 10:41 106 H 22 118/60 02/26/22 10:30 75 21 136/118 H 02/26/22 10:00 75 21 143/72 H 02/26/22 09:30 75 24 149/78 H 02/26/22 09:00 36.8 C 75 16 136/66 02/26/22 08:30 75 23 152/86 H 02/26/22 08:00 75 18 137/66 02/26/22 07:30 76 19 131/64 02/26/22 07:00 75 20 138/69 02/26/22 06:36 36.6 C 75 18 133/67 02/26/22 06:31 81 02/26/22 06:00 77 15 114/55 L 02/26/22 05:55 84 H 98/56 L 02/26/22 05:45 76 16 114/55 L 02/26/22 05:30 76 19 108/64 02/26/22 05:17 02/26/22 05:15 75 16 127/62 02/26/22 05:13 36.7 C 82 18 130/54 L 02/26/22 05:12 02/26/22 05:01 76 12 112/71 Pulse Ox 02/26/22 14:30 100 02/26/22 14:00 98 02/26/22 13:30 99 02/26/22 13:00 99 02/26/22 12:30 100 02/26/22 12:00 99 02/26/22 11:30 99 02/26/22 11:00 100 02/26/22 10:48 100 02/26/22 10:41 100 02/26/22 10:30 100 02/26/22 10:00 100 02/26/22 09:30 100 02/26/22 09:00 100 02/26/22 08:30 94 02/26/22 08:00 96 02/26/22 07:30 100 02/26/22 07:00 100 02/26/22 06:36 100 02/26/22 06:31 02/26/22 06:00 100 02/26/22 05:55 92 02/26/22 05:45 99 02/26/22 05:30 100 02/26/22 05:17 92 02/26/22 05:15 99 02/26/22 05:13 92 02/26/22 05:12 99 02/26/22 05:01 99 Laboratory Results Laboratory Results - last 24 hr 02/26/22 02/26/22 02/26/22 04:56 04:56 04:56 WBC 10.87 H RBC 4.44 L Hgb 11.4 L Hct 37.6 L MCV 84.7 MCH 25.7 MCHC 30.3 L RDW Std Deviation 46.5 H RDW Coeff of Jonathan 14.9 H Plt Count 193 MPV 8.9 Immature Gran % (Auto) 0.6 Neut % (Auto) 70.4 Lymph % (Auto) 17.5 Noble % (Auto) 10.8 Eos % (Auto) 0.7 Baso % (Auto) 0.0 Neut # (Auto) 7.65 H Lymph # (Auto) 1.90 Noble # (Auto) 1.17 H Eos # (Auto) 0.08 Baso # (Auto) 0.00 Immature Gran # (Auto) 0.07 H PT 19.7 H INR 1.9 H APTT 38.5 H PTT Ratio 1.4 Sodium Potassium Chloride Carbon Dioxide Anion Gap BUN Creatinine Est Cr Clr Drug Dosing Est GFR ( Amer) Est GFR (Non-Af Amer) BUN/Creatinine Ratio Glucose POC Glucose Calcium Phosphorus Magnesium Total Bilirubin AST ALT Alkaline Phosphatase Troponin I High Sens Cancelled B-Natriuretic Peptide Total Protein Albumin Globulin Albumin/Globulin Ratio Lipase TSH Free T4 Nasal Screen MRSA (PCR) 02/26/22 02/26/22 02/26/22 04:56 04:56 05:25 WBC RBC Hgb Hct MCV MCH MCHC RDW Std Deviation RDW Coeff of Jonathan Plt Count MPV Immature Gran % (Auto) Neut % (Auto) Lymph % (Auto) Noble % (Auto) Eos % (Auto) Baso % (Auto) Neut # (Auto) Lymph # (Auto) Noble # (Auto) Eos # (Auto) Baso # (Auto) Immature Gran # (Auto) PT INR APTT PTT Ratio Sodium 142 Potassium 3.2 L Chloride 108 H Carbon Dioxide 24 Anion Gap 10 BUN 20 Creatinine 1.09 Est Cr Clr Drug Dosing 58.3 Est GFR ( Amer) 73.4 Est GFR (Non-Af Amer) 63.3 BUN/Creatinine Ratio 18.3 Glucose 124 H POC Glucose Calcium 8.3 L Phosphorus 3.4 Magnesium 1.2 L Total Bilirubin 2.2 H AST 29 ALT 16 Alkaline Phosphatase 78 Troponin I High Sens 81.7 H* 81.5 H* B-Natriuretic Peptide Total Protein 6.1 Albumin 3.6 Globulin 2.5 Albumin/Globulin Ratio 1.4 Lipase 30 TSH 4.590 H Free T4 Nasal Screen MRSA (PCR) 02/26/22 02/26/22 02/26/22 05:25 06:30 07:52 WBC RBC Hgb Hct MCV MCH MCHC RDW Std Deviation RDW Coeff of Jonathan Plt Count MPV Immature Gran % (Auto) Neut % (Auto) Lymph % (Auto) Noble % (Auto) Eos % (Auto) Baso % (Auto) Neut # (Auto) Lymph # (Auto) Noble # (Auto) Eos # (Auto) Baso # (Auto) Immature Gran # (Auto) PT INR APTT PTT Ratio Sodium Potassium Chloride Carbon Dioxide Anion Gap BUN Creatinine Est Cr Clr Drug Dosing Est GFR ( Amer) Est GFR (Non-Af Amer) BUN/Creatinine Ratio Glucose POC Glucose 145 H Calcium Phosphorus Magnesium Total Bilirubin AST ALT Alkaline Phosphatase Troponin I High Sens B-Natriuretic Peptide 476 H Total Protein Albumin Globulin Albumin/Globulin Ratio Lipase TSH Free T4 Nasal Screen MRSA (PCR) Negative 02/26/22 02/26/22 02/26/22 11:34 13:47 13:47 WBC RBC Hgb Hct MCV MCH MCHC RDW Std Deviation RDW Coeff of Jonathan Plt Count MPV Immature Gran % (Auto) Neut % (Auto) Lymph % (Auto) Noble % (Auto) Eos % (Auto) Baso % (Auto) Neut # (Auto) Lymph # (Auto) Noble # (Auto) Eos # (Auto) Baso # (Auto) Immature Gran # (Auto) PT INR APTT PTT Ratio Sodium 142 Potassium 3.9 D Chloride 107 Carbon Dioxide 28 Anion Gap 7 BUN 20 Creatinine 1.31 Est Cr Clr Drug Dosing 48.4 Est GFR ( Amer) 58.8 Est GFR (Non-Af Amer) 50.7 BUN/Creatinine Ratio 15.3 Glucose 144 H POC Glucose 151 H Calcium 8.2 L Phosphorus Magnesium 2.3 Total Bilirubin AST ALT Alkaline Phosphatase Troponin I High Sens B-Natriuretic Peptide Total Protein Albumin Globulin Albumin/Globulin Ratio Lipase TSH Free T4 1.34 Nasal Screen MRSA (PCR) Diagnostic Findings Telemetry personally reviewed: Ventricular paced. No ventricular arrhythmia while here. ICD interrogation report reviewed as summarized in HPI. Also noted, Optive all had increased. ECG personally reviewed from 02/26/2022 at 4:58 a.m.: Ventricular paced 75 beats per minute. Echo 02/26/2022: Normal LV size. EF 30-35%. Akinesis of the inferolateral and base to mid inferior wall. Otherwise global hypokinesis. Mildly dilated RV with mildly reduced systolic function. Severe biatrial dilation. Bioprosthetic aortic valve and bioprosthetic mitral valve with expected transvalvular gradients/velocities. RVSP 59. Compared to prior study on 05/14/2021, LV systolic function has declined. Venous Doppler 02/26/2022: No left lower extremity DVT. Chest x-ray 02/26/2022: Mild right mid lung opacity per Radiology. Interstitial thickening. Medications Administered Current Inpatient Medications Albuterol (Albut/Ipratrop 3mg/0.5mg Neb 3 Ml Vial) 3 ml INH QID PRN; Protocol PRN Reason: shortness of breath Stop: 03/28/22 06:30 Albuterol (Albuterol Hfa 8 Gm Inhaler) 2 puffs INH QID PRN PRN Reason: shortness of breath or wheezing Stop: 03/28/22 06:30 Aspirin (Aspirin 81 Mg Ectab) 81 mg PO QAM [facility] Stop: 03/28/22 08:59 Last Admin: 02/26/22 08:30 Dose: 81 mg Documented by: Dextrose (Dextrose 50% 50 Ml Syringe) 25 - 50 ml IV UD PRN; Protocol PRN Reason: Hypoglycemia Protocol Stop: 03/28/22 06:30 Fluticasone/Vilanterol (Fluticasone/Vilanterol 100/25mcg 14 Puffs/Inhaler) 1 puffs INH DAILY CHE Stop: 03/28/22 08:59 Last Admin: 02/26/22 08:31 Dose: 1 puffs Documented by: Furosemide (Furosemide 40 Mg Tab) 40 mg PO DAILY CHE Stop: 03/28/22 08:59 Last Admin: 02/26/22 08:30 Dose: 40 mg Documented by: Glucagon (Glucagon For Inj 1 Mg Vial) 1 mg SQ UD PRN; Protocol PRN Reason: Hypoglycemia Protocol Stop: 03/28/22 06:30 Glucose (Glucose 40% Gel 15 Gm Tube) 15 - 30 gm PO UD PRN; Protocol PRN Reason: Hypoglycemia Protocol Stop: 03/28/22 06:30 Glucose (Glucose 10 Tabs/Tube) 4 - 8 tabs PO UD PRN; Protocol PRN Reason: Hypoglycemia Protocol Stop: 03/28/22 06:30 Amiodarone HCl/Dextrose (Nexterone / D5w) 360 mg in 200 mls @ 16.667 mls/hr IV .Q12H CHE Stop: 03/28/22 11:44 Last Admin: 02/26/22 11:13 Dose: 0.5 mg/min, 16.7 mls/hr Documented by: Insulin Aspart (Insulin Aspart Per Unit) 0 units SC Q6 CHE Stop: 03/28/22 07:14 Last Admin: 02/26/22 13:06 Dose: 1 units Documented by: Insulin Glargine (Insulin Glargine Solostar 100 Units/Ml 3 Ml Pen) 5 units SC BID CHE Stop: 03/28/22 08:59 Last Admin: 02/26/22 08:39 Dose: 5 units Documented by: Levothyroxine Sodium (Levothyroxine Sodium 75 Mcg Tablet) 75 mcg PO DAILYBB CHE Stop: 03/28/22 07:14 Last Admin: 02/26/22 08:29 Dose: 75 mcg Documented by: Lorazepam (Lorazepam 2 Mg/1 Ml Vial) 0.25 mg IV Q4H PRN PRN Reason: Anxiety Stop: 03/28/22 14:44 Last Admin: 02/26/22 15:13 Dose: 0.25 mg Documented by: Lovastatin (Lovastatin 20 Mg Tab) 20 mg PO Q3D [facility] Stop: 03/30/22 08:59 Metoprolol Succinate (Metoprolol Succ 50mg Ext Rel Tab) 50 mg PO QAM [facility] Stop: 03/29/22 08:59 Miscellaneous (Icu Protocol For Hyperglycemia) 1 ea N/A PRN PRN; Protocol PRN Reason: Hyperglycemia Protocol Stop: 02/28/22 06:30 Miscellaneous (Icu Electrolyte Replacement Protocol) 1 ea N/A BID@ [facility]; Protocol Stop: 03/05/22 06:30 Last Admin: 02/26/22 07:59 Dose: 1 ea Documented by: Miscellaneous (Carbohydrates For Hypoglycemia ) 15 - 30 gm PO UD PRN PRN Reason: Hypoglycemia Protocol Stop: 03/28/22 06:30 Miscellaneous (Pyridostigmine Sustained Rel 180 Mg Tabcr ~ Order Awaiting Action) 1 ea N/A QS [facility] Stop: 03/28/22 07:59 Last Admin: 02/26/22 15:57 Dose: Not Given Documented by: Mycophenolate Mofetil (Mycophenolate Mofetil 250 Mg Cap) 1,000 mg PO BID [facility] Stop: 03/28/22 08:59 Last Admin: 02/26/22 08:32 Dose: 1,000 mg Documented by: Nitroglycerin (Nitroglycerin Sl 0.4 Mg/Tab Tab) 0.4 mg SL Q5M PRN PRN Reason: chest pain Stop: 03/28/22 06:30 Prednisone (Prednisone 2.5 Mg Tab) 2.5 mg PO DAILY CHE Stop: 03/28/22 08:59 Last Admin: 02/26/22 08:32 Dose: 2.5 mg Documented by: Pyridostigmine [place] (Pyridostigmine [place] 60 Mg Tab) 90 mg PO TID [facility] Stop: 03/28/22 08:59 Last Admin: 02/26/22 14:17 Dose: 90 mg Documented by: Warfarin Sodium (Warfarin Sod 2.5 Mg Tab) 2.5 mg PO [id number] [facility] Stop: 03/28/22 15:59 Warfarin Sodium (Warfarin Sod 1.25 Mg Tab) 1.25 mg PO Fr@1600 [facility] Stop: 04/03/22 15:59 PG Care Time/CCT Total # of Minutes Spent Total Time Spent with Patient: Total time spent is greater than 50% in coordination of care (as documented) at patient's floor/unit and/or counseling patient: Critical Care Time: Yes Total Critical Care Time: 65 65 Coding Level of Care Code None Diagnoses Ventricular tachycardia I47.2 AICD discharge Z45.02 Acute HFrEF (heart failure with reduced ejection fraction) I50.21 Cardiomyopathy I42.9 Complete heart block I44.2 Biventricular automatic implantable cardioverter defibrillator in situ Z95.810 S/P MVR (mitral valve repair) Z98.890 S/P AVR Z95.2 Pulmonary hypertension I27.20 CAD (coronary artery disease) I25.10 Coronary Disease-Associated Artery/Lesion type: [place] artery [place] vs. transplanted heart: [place] heart Associated angina: without angina Atrial fibrillation, permanent I48.21 S/P CABG x 1 Z95.1 Additional Codes Critical Care Time - Critical Care Time: Yes ([id number]) (1) CAD (coronary artery disease) Coronary Disease-Associated Artery/Lesion type: [place] artery [place] vs. transplanted heart: [place] heart Associated angina: without angina Qualified Code(s): I25.10 - Atherosclerotic heart disease of [place] coronary artery without angina pectoris
[2022-02-26] MEDS: WARFARIN SOD 2.5 MG TAB PO SCH (16:00)
[2022-02-26] MEDS: POTASSIUM CHLORIDE CRTAB 20 MEQ TABCR PO SCH ×2 (16:45→20:11)
[2022-02-26] MEDS ORDERED: SPIRONOLACTONE 25 MG TAB PO ONE (16:45)
[2022-02-27 03:52] LABS: INR 1.8 (0.9-1.1); Prothrombin Time 18.8 Seconds (9.0-12.0)
[2022-02-27 04:00] LABS: BUN Creatinine Ratio 17.6 (10-20); Calcium 8.2 mg/dl (8.5-10.1); Creatinine Clr Calc Pharmacy 48.4 ml/min; Est GFR (African American) 58.8 ml/min; Est GFR (Non-African American) 50.7 ml/min; Phosphorus 3.9 mg/dl (2.5-4.9); Potassium 4.5 mmol/L (3.5-5.1)
[2022-02-27] MEDS: LEVOTHYROXINE SODIUM 75 MCG TABLET PO SCH (04:31)
[2022-02-27] MEDS: MAGNESIUM OXIDE 400 MG TAB PO SCH ×2 (04:31→08:10)
[2022-02-27] MEDS: ICU ELECTROLYTE REPLACEMENT PROTOCOL SCH (04:31)
[2022-02-27] MEDS: INSULIN ASPART PER UNIT SC SCH ×4 (04:49→20:33)
[2022-02-27] MEDS: ASPIRIN 81 MG ECTAB PO SCH (08:11)
[2022-02-27] MEDS: FLUTICASONE/VILANTEROL 100/25MCG 14 PUFFS/INHALER INH SCH (08:12)
[2022-02-27] MEDS: FUROSEMIDE 40 MG TAB PO SCH (08:12)
[2022-02-27] MEDS: METOPROLOL SUCC 50MG EXT REL TAB PO SCH (08:13)
[2022-02-27] MEDS: INSULIN GLARGINE SOLOSTAR 100 UNITS/ML 3 ML PEN SC SCH ×2 (08:13→20:34)
[2022-02-27] MEDS: MYCOPHENOLATE MOFETIL 250 MG CAP PO SCH ×2 (08:14→20:37)
[2022-02-27] MEDS: predniSONE 2.5 MG TAB PO SCH (08:14)
[2022-02-27] MEDS: PYRIDOSTIGMINE BROMIDE 60 MG TAB PO SCH ×3 (08:15→20:36)
[2022-02-27] MEDS: SPIRONOLACTONE 25 MG TAB PO SCH (08:16)
[2022-02-27] MEDS: AMIODARONE / D5W 360 MG/200 ML BAG IV SCH (09:16)
[2022-02-27] MEDS ORDERED: diphenhydrAMINE Capsule 25 MG CAP PO ONE (09:50)
[2022-02-27] MEDS ORDERED: diphenhydrAMINE Capsule 25 MG CAP ONE (09:52)
--- NOTE | 2022-02-27 09:58 | Critical Care Progress Note ---
Date of Service February 27, 2022 Assessment & Plan (1) Ventricular tachycardia: Plan: CARDIAC - Ventricular tachycardia -Likely due to hypokalemia/hypomagnesemia + potential HF exacerbation/ischemic event in pt with complex cardiovascular disease -Amiodarone management per cardiology -Has remained in paced rhythm without any further AICD discharges or ventricular tachycardia since ICU admission Cardiomyopathy -Mixed cardiomyopathy- echo 12/2020 with EF 50-55%, LV hypokinesis -Repeat echo completed -May require catheterization Coronary artery disease -Continue daily aspirin, lovastatin -Consider switch to high intensity statin for cardiovascular benefit though pt does report statin myopathy in the past History of atrial fibrillation -Not in atrial fibrillation at present, HRs currently 70s-80s -Continue home warfarin for anticoagulation Respiratory - Known history of chronic interstitial lung disease -On 2L NC, wean as able. Not on O2 at home -Continue Breo Ellipta daily, duoneb PRN GI - Heart healthy, carb consistent RENAL/ELECTROLYTES Hypomagnesemia: Resolved Hypokalemia: Resolved - No concerns at this time ENDO - Type 2 DM with neuropathy -ICU hyperglycemia protocol -Lantus 5u BID, ISS -BSGs stable in 100s Hypothyroidism -TSH 4.6 on admission -T4 within appropriate limits -Continue levothyroxine 75 mcg daily HEME - Hgb 11.4, stable Trend CBC Continue home warfarin dose schedule- 1.25mg Monday, 2.5mg SSMTWT ID - No concerns for infection at this point LINES/IV ACCESS - PIVs intact. DVT PROPHYLAXIS - Home warfarin Disposition: Stable for downgrade to PCU. (2) Ventricular tachycardia: (3) Cardiomyopathy: (4) Tachycardia: (2) AICD discharge: (3) Atrial fibrillation, permanent: Admission and Anticipated Discharge Date Admission Date: February 26, 2022 Subjective No overnight events, patient was able to sleep better. No recurrent episodes of ventricular tachycardia, no chest pain no shortness of breath. Subjective sensations of lip numbness and tongue swelling with using mouthwash this morning Physical Exam Physical Exam: General: Alert. nontoxic. Skin: Warm, dry, Head: Atraumatic Ears, nose, mouth and throat: airway patent, no obvious swelling to tongue/lips Cardiovascular: Normal peripheral perfusion Respiratory: no respiratory distress Gastrointestinal: Non distended Musculoskeletal: No deformity Results & Data Results & Data ([facility]) Vital Signs (Past 12 Hours) Vital Signs Temp Pulse Resp BP Pulse Ox 02/27/22 07:30 36.5 C 75 02/27/22 07:00 75 20 105/67 97 02/27/22 04:00 36.9 C 75 19 101/69 100 02/27/22 03:00 78 19 124/70 100 02/27/22 02:00 75 18 116/69 100 02/27/22 01:00 66 19 93/58 L 100 02/27/22 00:30 75 19 113/58 L 98 02/27/22 00:00 75 19 120/71 100 02/26/22 23:30 75 17 94/50 L 98 02/26/22 23:05 36.7 C 02/26/22 23:00 75 20 137/72 96 02/26/22 22:30 75 29 H 110/57 L 99 02/26/22 22:00 76 19 108/64 99 02/26/22 21:56 36.6 C Critical Care Results & Data Vital Signs (Past 12 Hours) Vital Signs Temp Pulse Resp BP Pulse Ox 02/27/22 07:30 36.5 C 75 02/27/22 07:00 75 20 105/67 97 02/27/22 04:00 36.9 C 75 19 101/69 100 02/27/22 03:00 78 19 124/70 100 02/27/22 02:00 75 18 116/69 100 02/27/22 01:00 66 19 93/58 L 100 02/27/22 00:30 75 19 113/58 L 98 02/27/22 00:00 75 19 120/71 100 02/26/22 23:30 75 17 94/50 L 98 02/26/22 23:05 36.7 C 02/26/22 23:00 75 20 137/72 96 02/26/22 22:30 75 29 H 110/57 L 99 02/26/22 22:00 76 19 108/64 99 02/26/22 21:56 36.6 C Lab & Micro Results (Past 24 Hours) No Data to Display Na 138 mmol/L (136-145) 02/27/22 K 4.5 mmol/L (3.5-5.1) 02/27/22 Cl 104 mmol/L (98-107) 02/27/22 CO2 29 mmol/L (21-32) 02/27/22 Anion Gap 5 (3-11) 02/27/22 BUN 23 mg/dl (6-23) 02/27/22 Creatinine 1.31 mg/dl (0.6-1.4) 02/27/22 Estimated GFR ( Amer) 58.8 ml/min 02/27/22 Estimated GFR (Non-Af Amer) 50.7 ml/min 02/27/22 BUN/Creatinine Ratio 17.6 (10-20) 02/27/22 Glu 104 mg/dl (70-99(Fasting)) H 02/27/22 Ca 8.2 mg/dl (8.5-10.1) L 02/27/22 Phosphorus Level 3.9 mg/dl (2.5-4.9) 02/27/22 Mg 2.0 mg/dl (1.7-2.4) 02/27/22 03:28 02/27/22 Calcium Level 8.2 mg/dl (8.5-10.1) L 02/27/22 03:28 02/27/22 Prothromb Time International Ratio 1.8 (0.9-1.1) H 02/27/22 03:28 02/27/22 Diagnostic Findings (Past 24 Hours) Venous Doppler Study 02/26/22 09:00 LEFT LOWER EXTREMITY VENOUS DOPPLER HISTORY: Acute pain and swelling of the left lower leg L leg pain + tenderness COMPARISON STUDY: None. FINDINGS: There is normal compressibility, flow, and augmentation within the left lower extremity deep venous system. IMPRESSION: No DVT within the left lower extremity. ACT 112: Negative or not required by law. Electronically signed by: Foster Ortiz M.D. 02/26/2022 11:32 AM I & O Totals 24 Hours 02/26/22 02/27/22 02/28/22 06:59 06:59 06:59 Intake Total 100 / 100 973.362 / 973.362 278.41 / 278.41 Output Total 1775 / 1775 Balance 100 / 100 -801.638 / -801.638 278.41 / 278.41 Cumulative 02/26/22 04:46 thru 02/27/22 09:16 Intake Total 1351.772 Output Total 1775 Balance -423.228 RT Ventilator Mngmt (Last Documented) Ventilator Ordered Settings Respiratory Rate 20 02/27/22 07:00 Ventilator - PT Measurements Respiratory Rate 20 Coding Level of Care Code 48244 Subseq Hosp Care Lvl 2 Diagnoses Atrial fibrillation, permanent I48.21 Ventricular tachycardia I47.2 AICD discharge Z45.02
[2022-02-27] MEDS ORDERED: methylPREDNISolone 125 MG in SYRINGE 0 ML IV STA (10:00)
[2022-02-27] MEDS ORDERED: methylPREDNISolone 125 MG/2 ML VIAL ONE (10:03)
[2022-02-27] MEDS ORDERED: FAMOTIDINE 20 MG in SYRINGE 3 ML IV ONE (10:15)
--- NOTE | 2022-02-27 14:53 | Cardiology Progress Note ---
Date of Service February 27, 2022 Assessment & Plan (1) Ventricular tachycardia: (2) AICD discharge: (3) Acute HFrEF (heart failure with reduced ejection fraction): (4) Cardiomyopathy: (5) Complete heart block: (6) Biventricular automatic implantable cardioverter defibrillator in situ: (7) S/P MVR (mitral valve repair): (8) S/P AVR: (9) Pulmonary hypertension: (10) CAD (coronary artery disease): (11) S/P CABG x 1: (12) Atrial fibrillation, permanent: Plan: ASSESSMENT/PLAN: 1. Ventricular tachycardia s/p ICD shock x 29 + 2 external cardioversion: No further VT while here. With prior SC and reduced LV systolic function, he is susceptible to ventricular arrhythmia. Significant hypo magnesemia and hypokalemia may have contributed. Electrolytes have been corrected. Can discontinue intravenous amiodarone today and start amiodarone 400 mg p.o. b.i.d. for now. If recurrent VT issues, would consider intravenous lidocaine. Continue beta-mary, started this hospital stay. Dr. Martell (his line runner) will see him tomorrow to help coordinate ongoing care. Monitor transaminase levels and TSH while on amiodarone. 2. Acute heart failure with reduced EF: He appears hypervolemic. OptiVol is abnormal as well. Will give another dose of 40 mg IV Lasix. Continue metoprolol succinate. Start spironolactone 25 mg daily which will also help with potassium levels. Recommend Entresto during this hospital stay if able. Entresto was not initiated today given his possible allergic reaction today, as to not complicate the issue. Recommend ST LT 2 inhibitor on discharge as it is not available on formulary at this time. 3. Ischemic cardiomyopathy: Plan as above. Optimize medical therapy. LV systolic function has declined, which may be due to recurrent VT as well. 4. Mitral and aortic valve replacements: Bioprosthetic valves. Appear to be functionally appropriately on echo. SBE prophylaxis for dental procedures. 5. CAD s/p CABG x 1: Chest discomfort occurred before his first shock and cannot exclude ischemia as playing a role in his ventricular arrhythmia. VT was noted on his interrogation prior to his first shock as ATP first was able to terminate some episodes. Therefore, VT could have caused his chest discomfort as well. Continue aspirin 81 mg daily. Beta-mary as above. Continue statin therapy. He did not tolerate other statins in the past. 6. Permanent atrial fibrillation s/p AV rob ablation: On long-term anticoagulation therapy for stroke risk reduction. 7. Pulmonary hypertension: Chronic issue. Likely related to heart failure and interstitial lung disease. 8. Disposition: Cardiology will continue to follow along. Dr. Martell to resume his cardiology care tomorrow. Admission and Anticipated Discharge Date Admission Date: February 26, 2022 Subjective He has not had any further ICD shock. No ventricular arrhythmia noted on monitor. He denies chest pain. He denies shortness of breath. He reported lip swelling earlier today and has been evaluated by the critical care team and the primary hospitalist service. Medical therapy was administered, including met hylprednisolone and Benadryl. He is feeling much better in this regard. He denies syncope or bleeding. Review of systems: As above. Physical Exam Physical Exam: Gen.: No acute distress. Alert and oriented. HEENT: Anicteric sclera. Neck: Mild JVD. Cardiac: PMI was nondisplaced. No ventricular heave. Regular. Normal S1-S2. 1/6 systolic murmur. Pulmonary: Decreased breath sounds bilaterally with bibasilar crackles. Abdomen: Soft, nontender, nondistended, with normoactive bowel sounds. No bruits noted. Extremities: 2+ radial pulses bilaterally. 2+ posterior tibialis pulses bilaterally. 2+ left lower extremity edema. 1+ right lower extremity edema. No cyanosis. Psychiatric: Affect appears appropriate. Results & Data ([facility]) Vital Signs (Past 12 Hours) Vital Signs Temp Pulse Pulse Resp BP BP Pulse Ox 02/27/22 14:09 36.5 C 75 19 97/62 L 90 02/27/22 12:07 75 20 93/53 L 96 02/27/22 12:06 76 21 88/57 L 95 02/27/22 12:01 83 21 83/51 L 95 02/27/22 12:00 36.6 C 02/27/22 11:00 75 18 118/70 100 02/27/22 10:00 76 23 104/62 100 02/27/22 09:01 77 20 111/57 L 98 02/27/22 08:00 75 23 106/64 100 02/27/22 07:30 36.5 C 75 02/27/22 07:00 75 20 105/67 97 02/27/22 04:00 36.9 C 75 19 101/69 100 02/27/22 03:00 78 19 124/70 100 Intake & Output 02/25/22 02/26/22 02/27/22 02/28/22 06:59 06:59 06:59 06:59 Intake Total 100 / 100 973.362 / 973.362 518.41 / 518.41 Output Total 1775 / 1775 200 / 200 Balance 100 / 100 -801.638 / -801.638 318.41 / 318.41 Weight 170 lb 6.677 oz Laboratory Results Laboratory Results - last 24 hr 02/26/22 02/26/22 02/26/22 13:47 13:47 16:33 PT INR Sodium 142 Potassium 3.9 D Chloride 107 Carbon Dioxide 28 Anion Gap 7 BUN 20 Creatinine 1.31 Est Cr Clr Drug Dosing 48.4 Est GFR ( Amer) 58.8 Est GFR (Non-Af Amer) 50.7 BUN/Creatinine Ratio 15.3 Glucose 144 H POC Glucose 131 H Calcium 8.2 L Phosphorus Magnesium 2.3 Free T4 1.34 02/26/22 02/26/22 02/27/22 20:09 23:56 03:28 PT 18.8 H INR 1.8 H Sodium Potassium Chloride Carbon Dioxide Anion Gap BUN Creatinine Est Cr Clr Drug Dosing Est GFR ( Amer) Est GFR (Non-Af Amer) BUN/Creatinine Ratio Glucose POC Glucose 112 H 147 H Calcium Phosphorus Magnesium Free T4 02/27/22 02/27/22 02/27/22 03:28 07:10 11:29 PT INR Sodium 138 Potassium 4.5 Chloride 104 Carbon Dioxide 29 Anion Gap 5 BUN 23 Creatinine 1.31 Est Cr Clr Drug Dosing 48.4 Est GFR ( Amer) 58.8 Est GFR (Non-Af Amer) 50.7 BUN/Creatinine Ratio 17.6 Glucose 104 H POC Glucose 119 H 180 H Calcium 8.2 L Phosphorus 3.9 Magnesium 2.0 Free T4 Diagnostic Findings Telemetry personally reviewed: No ventricular arrhythmia noted. Ventricular p aced. Medications Administered Current Inpatient Medications Albuterol (Albut/Ipratrop 3mg/0.5mg Neb 3 Ml Vial) 3 ml INH QID PRN; Protocol PRN Reason: shortness of breath Stop: 03/28/22 06:30 Albuterol (Albuterol Hfa 8 Gm Inhaler) 2 puffs INH QID PRN PRN Reason: shortness of breath or wheezing Stop: 03/28/22 06:30 Aspirin (Aspirin 81 Mg Ectab) 81 mg PO QAM [facility] Stop: 03/28/22 08:59 Last Admin: 02/27/22 08:11 Dose: 81 mg Documented by: Dextrose (Dextrose 50% 50 Ml Syringe) 25 - 50 ml IV UD PRN; Protocol PRN Reason: Hypoglycemia Protocol Stop: 03/28/22 06:30 Fluticasone/Vilanterol (Fluticasone/Vilanterol 100/25mcg 14 Puffs/Inhaler) 1 puffs INH DAILY [facility] Stop: 03/28/22 08:59 Last Admin: 02/27/22 08:12 Dose: 1 puffs Documented by: Furosemide (Furosemide 40 Mg Tab) 40 mg PO DAILY CHE Stop: 03/28/22 08:59 Last Admin: 02/27/22 08:12 Dose: 40 mg Documented by: Glucagon (Glucagon For Inj 1 Mg Vial) 1 mg SQ UD PRN; Protocol PRN Reason: Hypoglycemia Protocol Stop: 03/28/22 06:30 Glucose (Glucose 40% Gel 15 Gm Tube) 15 - 30 gm PO UD PRN; Protocol PRN Reason: Hypoglycemia Protocol Stop: 03/28/22 06:30 Glucose (Glucose 10 Tabs/Tube) 4 - 8 tabs PO UD PRN; Protocol PRN Reason: Hypoglycemia Protocol Stop: 03/28/22 06:30 Amiodarone HCl/Dextrose (Nexterone / D5w) 360 mg in 200 mls @ 16.667 mls/hr IV .Q12H CHE Stop: 03/28/22 11:44 Last Admin: 02/27/22 09:16 Dose: 0.5 mg/min, 16.7 mls/hr Documented by: Insulin Aspart (Insulin Aspart Per Unit) 0 units SC ACHS CHE Stop: 03/29/22 11:59 Last Admin: 02/27/22 12:30 Dose: 1 units Documented by: Insulin Glargine (Insulin Glargine Solostar 100 Units/Ml 3 Ml Pen) 5 units SC BID [facility] Stop: 03/28/22 08:59 Last Admin: 02/27/22 08:13 Dose: 5 units Documented by: Levothyroxine Sodium (Levothyroxine Sodium 75 Mcg Tablet) 75 mcg PO DAILYBB [facility] Stop: 03/28/22 07:14 Last Admin: 02/27/22 04:31 Dose: 75 mcg Documented by: Lorazepam (Lorazepam 2 Mg/1 Ml Vial) 0.25 mg IV Q4H PRN PRN Reason: Anxiety Stop: 03/28/22 14:44 Last Admin: 02/26/22 15:13 Dose: 0.25 mg Documented by: Lovastatin (Lovastatin 20 Mg Tab) 20 mg PO Q3D [facility] Stop: 03/30/22 08:59 Metoprolol Succinate (Metoprolol Succ 50mg Ext Rel Tab) 50 mg PO QAM [facility] Stop: 03/29/22 08:59 Last Admin: 02/27/22 08:13 Dose: 50 mg Documented by: Miscellaneous (Icu Protocol For Hyperglycemia) 1 ea N/A PRN PRN; Protocol PRN Reason: Hyperglycemia Protocol Stop: 02/28/22 06:30 Miscellaneous (Icu Electrolyte Replacement Protocol) 1 ea N/A BID@,18 [facility]; Protocol Stop: 03/05/22 06:30 Last Admin: 02/27/22 04:31 Dose: 1 ea Documented by: Miscellaneous (Carbohydrates For Hypoglycemia ) 15 - 30 gm PO UD PRN PRN Reason: Hypoglycemia Protocol Stop: 03/28/22 06:30 Miscellaneous (Pyridostigmine Sustained Rel 180 Mg Tabcr ~ Order Awaiting Action) 1 ea N/A QS [facility] Stop: 03/28/22 07:59 Last Admin: 02/27/22 08:09 Dose: Not Given Documented by: Mycophenolate Mofetil (Mycophenolate Mofetil 250 Mg Cap) 1,000 mg PO BID [facility] Stop: 03/28/22 08:59 Last Admin: 02/27/22 08:14 Dose: 1,000 mg Documented by: Nitroglycerin (Nitroglycerin Sl 0.4 Mg/Tab Tab) 0.4 mg SL Q5M PRN PRN Reason: chest pain Stop: 03/28/22 06:30 Prednisone (Prednisone 2.5 Mg Tab) 2.5 mg PO DAILY [facility] Stop: 03/28/22 08:59 Last Admin: 02/27/22 08:14 Dose: 2.5 mg Documented by: Pyridostigmine [place] (Pyridostigmine [place] 60 Mg Tab) 90 mg PO TID [facility] Stop: 03/28/22 08:59 Last Admin: 02/27/22 08:15 Dose: 90 mg Documented by: Spironolactone (Spironolactone 25 Mg Tab) 25 mg PO QAM [facility] Stop: 03/29/22 08:59 Last Admin: 02/27/22 08:16 Dose: 25 mg Documented by: Warfarin Sodium (Warfarin Sod 2.5 Mg Tab) 2.5 mg PO [id number]@1600 [facility] Stop: 03/28/22 15:59 Last Admin: 02/26/22 16:00 Dose: 2.5 mg Documented by: Warfarin Sodium (Warfarin Sod 1.25 Mg Tab) 1.25 mg PO Fr@1600 [facility] Stop: 04/03/22 15:59 PG Care Time/CCT Total # of Minutes Spent Total Time Spent with Patient: Total time spent is greater than 50% in coordination of care (as documented) at patient's floor/unit and/or counseling patient: Coding Level of Care Code 53506 Subseq Hosp Care Lvl 3 Diagnoses Ventricular tachycardia I47.2 AICD discharge Z45.02 Acute HFrEF (heart failure with reduced ejection fraction) I50.21 Cardiomyopathy I42.9 Complete heart block I44.2 Biventricular automatic implantable cardioverter defibrillator in situ Z95.810 S/P MVR (mitral valve repair) Z98.890 S/P AVR Z95.2 Pulmonary hypertension I27.20 CAD (coronary artery disease) I25.10 Coronary Disease-Associated Artery/Lesion type: [place] artery [place] vs. transplanted heart: [place] heart Associated angina: without angina S/P CABG x 1 Z95.1 Atrial fibrillation, permanent I48.21 (1) CAD (coronary artery disease) Coronary Disease-Associated Artery/Lesion type: [place] artery [place] vs. transplanted heart: [place] heart Associated angina: without angina Qualified Code(s): I25.10 - Atherosclerotic heart disease of [place] coronary artery without angina pectoris
[2022-02-27] MEDS ORDERED: FUROSEMIDE 40 MG/4 ML VIAL IV ONE (15:30)
[2022-02-27] MEDS: LORazepam 2 MG/1 ML VIAL IV PRN ×2 (15:46→20:45)
[2022-02-27] MEDS: WARFARIN SOD 2.5 MG TAB PO SCH (16:24)
[2022-02-27] MEDS: AMIODARONE 200 MG TAB PO SCH (16:54)
--- NOTE | 2022-02-27 17:56 | Hospitalist Progress Note ---
Date of Service February 27, 2022 Assessment & Plan (1) AICD discharge: Plan: 81yo male with complex cardiac history to include CAD s/p CABG in 2013, placement of bioprosthetic aortic and mitral valves, PFO closure. Patient with history of Biventricular pacer/defibrillator in place secondary to cardiomyopathy ([employer]). Patient was seen at [facility] following multiple AICD discharges (5-6 at home then 4 in the ambulance en route to the hospital). He was given Amiodarone bolus and drip at [place] and was cardioverted x 2 (100 and 150J) for ventricular tachycardia. Patient requested to be transferred to [facility] in event that cardiac intervention was required. Additional arrhythmia en route and patient was shocked 4 more times (totaling 13-14 AICD discharges + synchronized cardioversion x 2) Ddx to include ischemic event, electrolyte derangement (low K and Mg) most likely contributing. Also with elevated BNP, ?decompensated failure -Admit to MICU -Continue Amiodarone gtt - 1mg/min x6 hours followed by 0.5mg/min. Of note, patient has Amiodarone listed as an allergy. He was previously on this medication but did not like how he felt on it therefore it was discontinued. He is not on any BB/CCB due to history of myasthenia gravis. -Electrolyte repletion -Cardiology consultation appreciated -Added beta mary. -No further AICD discharges, patient will be downgraded to PCU. -Pacer interrogation requested -Amiodarone may not be best medication extermination inspector given history of MG and ILD Allergic reaction to unknown substance: iN REGARDS TO HIS SWOLLEN LIP, RECEIVED DIPHENHYDRAMINE. No difficulty breathing. (2) Cardiomyopathy: Plan: Patient with mixed cardiomyopathy. Last echo December 28, 2020 - normal LV size with mildly increased wall thickness. Asymmetric LVH. Inferior/posterior LV wall is hypokinetic to akinetic. LV segmental WMA otherwise normal. EF of 50- 53%. Aortic valve prosthesis present without stenosis or regurgitation. Mitral valve prosthesis present without significant regurgitation or stenosis. Dilated IVC with elevated right atrial pressure 15mmHg. PASP estimated 65-70. -Elevated BNP at outside facility. Patient endorses increased LE edema -gave an additonal IV lasix as patient appeared volume overloaded. (3) Afib: Plan: History of atrial fibrillation. On Coumadin anticoagulation. INR subtherapeutic at 1.9 presently -Continue Coumadin - dosage confirmed with patient - 2.5mg po 6x weekly and 1.25mg on Monday -Monitor daily INR. Goal 2-3 -No BB/CCB for rate control due to history of MG (4) Type 2 diabetes, controlled, with neuropathy: Plan: Patient on oral agents. Blood sugar 124. Last HgbA1C 11/30/21 = 6.7 -Hold oral agents -Lantus 5u BID, ISS -Goal blood sugar 110 - 180 (5) Hypothyroidism: Plan: Chronic -Check TSH -Continue Synthroid (6) Myasthenia gravis: Plan: Patient on chronic steroids. Has been decreased to 2.5mg daily -Continue Prednisone 2.5mg po daily -Low threshold for stress dosing if patient becomes hypotensive or shows evidence of adrenal insufficiency -Continue mycophenolate mofetil 1000mg po BID -Continue home Mestinon - ER 180mg po daily and 90mg TID (7) Interstitial lung disease: Plan: No cough, SOB or wheeze. Patient follows with Pulmonary. Last seen 01/10/22. Etiology of ILD is unclear. -Continue Prednisone for MG -Continue Budesonide/Formoterol BID, Albuterol and DuoNebs PRN -Patient was on Amiodarone in the past which was discontinued because he didn't like how he felt on it. Unclear if Amiodarone is contributing to h/o ILD. (8) CAD (coronary artery disease): Plan: s/p CABG performed in 2013. Patient with elevation of HS-troponin to 81.7 - not surprising given the high amount of electricity patient received this evening. -Continue ASA and Lovastatin -Cardiology consultation appreciated (9) Hypertension: Plan: Blood pressure stable now -Continue to monitor (10) Hyperlipidemia: Plan: Chronic -Continue Lovastatin Plan: F/E/N - Heplock. Electrolyte repletion as above. NPO for now Ppx - On Coumadin, continue Code - Full. Patient would not like prolonged heroics but is agreeable to initial resuscitation efforts. Dispo - Admit to MICU Admission and Anticipated Discharge Date Admission Date: February 26, 2022 Subjective Patient main complaint is that he has swelling on his lower lip. He states he is allergic to red dye and strwaberries. The only thing he used was mouthwash. Review of Systems Review of Systems: All systems reviewed & are unremarkable except as noted in HPI & below Physical Exam Physical Exam: General: patient resting, NAD but uncomfortable from chest soreness, non-toxic in appearance, AA&O x 4 Skin: warm, dry, intact, no rashes or lesions HEENT: NC/AT, PERRL, EOMI, anicteric sclera, conjunctiva without injection, external ear normal to inspection and nontender, nares patent, moist mucus membranes, dentition intact, no oropharyngeal lesions, neck supple, trachea midline, no LAD, no thyromegaly, no JVD Heart: +S1/S2, regular, no m/r/g, V-paced rhythm present on monitor, +chest wall tenderness Lungs: equal air entry bilaterally, no rales/rhonchi/wheezes Abd: +BS, soft, NT/ND, no masses/organomegaly/ascites Ext: warm, 2+ pulses in UE/LE bilaterally, no clubbing/cyanosis, 2+ edema pitting to knees, L > R Neuro: nonfocal, patient AA&O x 4, speech intact, no facial droop, moving all extremities on command with equal strength 5/5 Results & Data Results & Data ([facility]) Vital Signs (Past 12 Hours) Vital Signs Temp Pulse Pulse Resp BP BP Pulse Ox 02/27/22 14:09 36.5 C 75 19 97/62 L 90 02/27/22 12:07 75 20 93/53 L 96 02/27/22 12:06 76 21 88/57 L 95 02/27/22 12:01 83 21 83/51 L 95 02/27/22 12:00 36.6 C 02/27/22 11:00 75 18 118/70 100 02/27/22 10:00 76 23 104/62 100 02/27/22 09:01 77 20 111/57 L 98 02/27/22 08:00 75 23 106/64 100 02/27/22 07:30 36.5 C 75 02/27/22 07:00 75 20 105/67 97 PG Care Time/CCT Total # of Minutes Spent Total Time Spent with Patient: Total time spent is greater than 50% in coordination of care (as documented) at patient's floor/unit and/or counseling patient: Coding Level of Care Code 44824 Subseq Hosp Care Lvl 2 Diagnoses AICD discharge Z45.02 Cardiomyopathy I42.9 Afib I48.91 Type 2 diabetes, controlled, with neuropathy E11.40 Hypothyroidism E03.9 Myasthenia gravis G70.00 Interstitial lung disease J84.9 CAD (coronary artery disease) I25.10 Associated angina: without angina Coronary Disease-Associated Artery/Lesion type: [place] artery [place] vs. transplanted heart: [place] heart Hypertension I10 Hypertension type: essential hypertension Hyperlipidemia E78.5 (1) CAD (coronary artery disease) Associated angina: without angina Coronary Disease-Associated Artery/Lesion type: [place] artery [place] vs. transplanted heart: [place] heart Qualified Code(s): I25.10 - Atherosclerotic heart disease of [place] coronary artery without angina pectoris (2) Hypertension Hypertension type: essential hypertension Qualified Code(s): I10 - Essential (primary) hypertension
[2022-02-27] MEDS ORDERED: [UNRECOGNIZED DRUG - REMARK] ONE (19:00)
[2022-02-27] MEDS: IPRATROPIUM BROMIDE NASAL SPRAY 0.06% 15ML NAE SCH (20:33)
--- NOTE | 2022-02-27 21:58 | Electrocardiogram Report ---
Test Reason : Blood Pressure : / mmHG Vent. Rate : 075 BPM Atrial Rate : 394 BPM P-R Int : 000 ms QRS Dur : 182 ms QT Int : 490 ms P-R-T Axes : 000 -43 088 degrees QTc Int : 547 ms Poor data quality, interpretation may be adversely affected Ventricular-paced rhythm with premature ventricular or aberrantly conducted complexes Abnormal ECG When compared with ECG of 15-MAY-2021 12:41, Vent. rate has decreased BY 6 BPM Confirmed by Shun Gutierrez ([id number]) on 02/27/2022 9:58:05 PM Referred By: REFERRED SELF Confirmed By:Shun Gutierrez
[2022-02-28] MEDS: LEVOTHYROXINE SODIUM 75 MCG TABLET PO SCH (05:32)
[2022-02-28 06:48] LABS: BUN Creatinine Ratio 21.1 (10-20); Calcium 8.4 mg/dl (8.5-10.1); Creatinine Clr Calc Pharmacy 34.4 ml/min; Est GFR (African American) 38.7 ml/min; Est GFR (Non-African American) 33.4 ml/min; Magnesium 1.9 mg/dl (1.7-2.4); Phosphorus 4.3 mg/dl (2.5-4.9); Potassium 4.3 mmol/L (3.5-5.1)
[2022-02-28 07:19] LABS: INR 2.6 (0.9-1.1); Prothrombin Time 26.4 Seconds (9.0-12.0)
[2022-02-28] MEDS: INSULIN GLARGINE SOLOSTAR 100 UNITS/ML 3 ML PEN SC SCH ×2 (08:11→21:20)
[2022-02-28] MEDS: SPIRONOLACTONE 25 MG TAB PO SCH (08:11)
[2022-02-28] MEDS: INSULIN ASPART PER UNIT SC SCH ×4 (08:11→20:45)
[2022-02-28] MEDS: predniSONE 2.5 MG TAB PO SCH (08:11)
[2022-02-28] MEDS: AMIODARONE 200 MG TAB PO SCH ×2 (08:11→16:45)
[2022-02-28] MEDS: MYCOPHENOLATE MOFETIL 250 MG CAP PO SCH ×2 (08:11→21:19)
[2022-02-28] MEDS: PYRIDOSTIGMINE BROMIDE 60 MG TAB PO SCH ×2 (08:11→14:40)
[2022-02-28] MEDS: LOVASTATIN 20 MG TAB PO SCH (08:11)
[2022-02-28] MEDS: METOPROLOL SUCC 50MG EXT REL TAB PO SCH (08:12)
[2022-02-28] MEDS: ASPIRIN 81 MG ECTAB PO SCH (08:12)
[2022-02-28] MEDS: FLUTICASONE/VILANTEROL 100/25MCG 14 PUFFS/INHALER INH SCH (08:12)
[2022-02-28] MEDS: FUROSEMIDE 40 MG TAB PO SCH (08:12)
[2022-02-28] MEDS: IPRATROPIUM BROMIDE NASAL SPRAY 0.06% 15ML NAE SCH ×2 (08:12→21:20)
[2022-02-28 13:30] LABS: Albumin Level 3.4 gm/dl (3.4-5.0); Bilirubin Direct 1.1 mg/dl (0-0.2)
[2022-02-28] MEDS: PYRIDOSTIGMINE SUSTAINED REL 180 MG TABCR PO SCH (14:40)
--- NOTE | 2022-02-28 16:53 | Cardiology Progress Note ---
Date of Service February 28, 2022 Assessment & Plan (1) Ventricular tachycardia: (2) AICD discharge: (3) Acute HFrEF (heart failure with reduced ejection fraction): (4) Cardiomyopathy: (5) Complete heart block: (6) Biventricular automatic implantable cardioverter defibrillator in situ: (7) S/P MVR (mitral valve repair): (8) S/P AVR: (9) Pulmonary hypertension: (10) CAD (coronary artery disease): (11) S/P CABG x 1: (12) Atrial fibrillation, permanent: Plan: ASSESSMENT/PLAN: 1. Ventricular tachycardia : no recurrence. Unclear etiology. I doubt an acute coronary syndrome played a role. Electrolytes were somewhat abnormal at the time of presentation. He appears to be compliant with his medical therapy. He was started on amiodarone which seems to be working. No additional episodes of ventricular tachycardia. In the past he has had some transaminitis with amiodarone. We discussed the option of catheter based therapy as an alternative to long-term amiodarone. He seems interested in I did make some inquiries at [facility] regarding this option. 2. Acute heart failure with reduced EF: He seems well compensated today. Will check ET P tomorrow. Continue current Lasix dose. Monitor electrolytes closely. 3. Ischemic cardiomyopathy: Plan as above. Optimize medical therapy. LV systolic function has declined, which may be due to recurrent VT as well. In the past his medical therapy has been discontinued due to orthostatic hypotensi on. 4. Mitral and aortic valve replacements: Bioprosthetic valves. Appear to be functionally appropriately on echo. SBE prophylaxis for dental procedures. 5. CAD s/p CABG x 1: Very brief episode of chest discomfort immediately prior to 1st therapy. I doubt this represented an acute coronary syndrome although he could have had ischemia related to his known coronary disease. Biomarkers did not trend upward suggestive of an acute coronary syndrome either. However, his LV function has declined any does have regional wall motion abnormalities. I did discuss the option of repeat coronary evaluation and will plan on proceeding tomorrow. He does have a contrast allergy and will require premedication. 6. Permanent atrial fibrillation s/p AV rob ablation: On long-term anticoagulation therapy for stroke risk reduction. 7. Pulmonary hypertension: Chronic issue. Likely related to heart failure and interstitial lung disease. Will plan catheterization tomorrow. If his coronaries appear normal he could be discharged on oral amiodarone and low-dose beta-mary with instructions to follow up at [facility] in [place] to discuss possible catheter based therapy. Admission and Anticipated Discharge Date Admission Date: February 26, 2022 Subjective this morning the patient reported feeling anxious, but has been ambulatory without significant dizziness or lightheadedness. No sense of palpitation. No chest pain. No breathing difficulty Review of Systems Review of Systems: per HPI Physical Exam Physical Exam: The patient is alert and oriented. Mood and affect appeared normal. He answered all questions appropriately. HEENT: Pupils are equal and reactive to light and accommodation. Extraocular movements are intact. The sclerae are anicteric. Neuro: Cranial nerves intact Lungs: crackles throughout both lung garcia, more prominent on the right. No expiratory wheezing. Normal respiratory effort. Cardiac: Heart demonstrates a regular rate and rhythm. Normal S1 and S2. No murmurs on examination. Pulses: The patient has palpable radial pulses bilaterally that are equal in intensity Extremities: There was no evidence of hypoperfusion. There is no cyanosis or clubbing. There is no edema. Skin: I did not appreciate any rashes on examination today. Results & Data ([facility]) Vital Signs (Past 12 Hours) Vital Signs Temp Pulse Pulse Resp BP Pulse Ox 02/28/22 15:47 36.4 C L 75 18 101/61 96 02/28/22 14:45 83 02/28/22 11:24 36.5 C 76 17 115/64 94 02/28/22 07:48 36.4 C L 78 18 108/63 90 02/28/22 07:09 75 Laboratory Results Abnormal Lab Results 02/27/22 02/27/22 02/28/22 20:27 20:30 05:37 PT 26.4 H INR 2.6 H Sodium Potassium Chloride Carbon Dioxide Anion Gap BUN Creatinine Est Cr Clr Drug Dosing Est GFR ( Amer) Est GFR (Non-Af Amer) BUN/Creatinine Ratio Glucose POC Glucose 222 H 200 H Calcium Phosphorus Magnesium Total Bilirubin Direct Bilirubin AST ALT Alkaline Phosphatase Total Protein Albumin 02/28/22 02/28/22 02/28/22 05:37 05:37 07:08 PT INR Sodium 137 Potassium 4.3 Chloride 102 Carbon Dioxide 25 Anion Gap 10 BUN 39 H Creatinine 1.85 H D Est Cr Clr Drug Dosing 34.4 Est GFR ( Amer) 38.7 Est GFR (Non-Af Amer) 33.4 BUN/Creatinine Ratio 21.1 H Glucose 177 H POC Glucose 166 H Calcium 8.4 L Phosphorus 4.3 Magnesium 1.9 Total Bilirubin 2.0 H Direct Bilirubin 1.1 H AST 39 ALT 31 Alkaline Phosphatase 90 Total Protein 6.0 Albumin 3.4 02/28/22 02/28/22 11:11 16:26 PT INR Sodium Potassium Chloride Carbon Dioxide Anion Gap BUN Creatinine Est Cr Clr Drug Dosing Est GFR ( Amer) Est GFR (Non-Af Amer) BUN/Creatinine Ratio Glucose POC Glucose 186 H 134 H Calcium Phosphorus Magnesium Total Bilirubin Direct Bilirubin AST ALT Alkaline Phosphatase Total Protein Albumin Diagnostic Findings Echocardiogram performed 02/26/2022: Ejection fraction 30 35 percent. Infer olateral and mid inferior akinesis. Mildly dilated right ventricle with mildly reduced systolic function. Severe biatrial dilation. Normally functioning bioprosthetic aortic and mitral valves. Monitor severe pulmonary hypertension with estimated right ventricular systolic pressure of 60 PG Care Time/CCT Total # of Minutes Spent Total Time Spent with Patient: Total time spent is greater than 50% in coordination of care (as documented) at patient's floor/unit and/or counseling patient: Coding Level of Care Code 39646 Subseq Hosp Care Lvl 2 Diagnoses Ventricular tachycardia I47.2 AICD discharge Z45.02 Acute HFrEF (heart failure with reduced ejection fraction) I50.21 Cardiomyopathy I42.9 Complete heart block I44.2 Biventricular automatic implantable cardioverter defibrillator in situ Z95.810 S/P MVR (mitral valve repair) Z98.890 S/P AVR Z95.2 Pulmonary hypertension I27.20 CAD (coronary artery disease) I25.10 Coronary Disease-Associated Artery/Lesion type: [place] artery [place] vs. transplanted heart: teller heart Associated angina: without angina S/P CABG x 1 Z95.1 Atrial fibrillation, permanent I48.21 (1) CAD (coronary artery disease) Coronary Disease-Associated Artery/Lesion type: [place] artery [place] vs. transplanted heart: teller heart Associated angina: without angina Qualified Code(s): I25.10 - Atherosclerotic heart disease of tell[place] coronary artery without angina pectoris
[2022-02-28] MEDS ORDERED: diphenhydrAMINE Capsule 25 MG CAP PO ONE (16:55)
[2022-02-28] MEDS ORDERED: Nursing to Pharmacy Communication SCH (17:30)
[2022-02-28] MEDS ORDERED: predniSONE 50 MG TAB PO SCH (18:00)
--- NOTE | 2022-02-28 20:54 | Hospitalist Progress Note ---
Date of Service February 28, 2022 Assessment & Plan (1) AICD discharge: Plan: 81yo male with complex cardiac history to include CAD s/p CABG in 2013, placement of bioprosthetic aortic and mitral valves, PFO closure. Patient with history of Biventricular pacer/defibrillator in place secondary to cardiomyopathy ([employer]). Patient was seen at [facility] following multiple AICD discharges (5-6 at home then 4 in the ambulance en route to the hospital). He was given Amiodarone bolus and drip at [place] and was cardioverted x 2 (100 and 150J) for ventricular tachycardia. Patient requested to be transferred to [facility] in event that cardiac intervention was required. Additional arrhythmia en route and patient was shocked 4 more times (totaling 13-14 AICD discharges + synchronized cardioversion x 2) Ddx to include ischemic event, electrolyte derangement (low K and Mg) most likely contributing. Also with elevated BNP, ?decompensated failure -Admit to MICU -Continue Amiodarone gtt - 1mg/min x6 hours followed by 0.5mg/min. Of note, patient has Amiodarone listed as an allergy. He was previously on this medication but did not like how he felt on it therefore it was discontinued. He is not on any BB/CCB due to history of myasthenia gravis. -Electrolyte repletion -Cardiology consultation appreciated -Added beta mary. -No further AICD discharges, patient in PCU. Patient will have cardiac cath on 03/01 -Amiodarone may not be best medication fpc given history of MG and ILD Allergic reaction to unknown substance: iN REGARDS TO HIS SWOLLEN LIP, RECEIVED DIPHENHYDRAMINE. Now resolved. No difficulty breathing. (2) Cardiomyopathy: Plan: Patient with mixed cardiomyopathy. Last echo December 28, 2020 - normal LV size with mildly increased wall thickness. Asymmetric LVH. Inferior/posterior LV wall is hypokinetic to akinetic. LV segmental WMA otherwise normal. EF of 50- 53%. Aortic valve prosthesis present without stenosis or regurgitation. Mitral valve prosthesis present without significant regurgitation or stenosis. Dilated IVC with elevated right atrial pressure 15mmHg. PASP estimated 65-70. -Elevated BNP at outside facility. Patient endorses increased LE edema -gave an additonal IV lasix as patient appeared volume overloaded on 02/27 (3) Afib: Plan: History of atrial fibrillation. On Coumadin anticoagulation. INR subtherapeutic at 1.9 presently -Continue Coumadin - dosage confirmed with patient - 2.5mg po 6x weekly and 1.25mg on Monday -Monitor daily INR. Goal 2-3 -No BB/CCB for rate control due to history of MG (4) Type 2 diabetes, controlled, with neuropathy: Plan: Patient on oral agents. Blood sugar 124. Last HgbA1C 11/30/21 = 6.7 -Hold oral agents -Lantus 5u BID, ISS -Goal blood sugar 110 - 180 (5) Hypothyroidism: Plan: Chronic -Check TSH -Continue Synthroid (6) Myasthenia gravis: Plan: Patient on chronic steroids. Has been decreased to 2.5mg daily -Continue Prednisone 2.5mg po daily -Low threshold for stress dosing if patient becomes hypotensive or shows evidence of adrenal insufficiency -Continue mycophenolate mofetil 1000mg po BID -Continue home Mestinon - ER 180mg po daily and 90mg TID (7) Interstitial lung disease: Plan: No cough, SOB or wheeze. Patient follows with Pulmonary. Last seen 01/10/22. Etiology of ILD is unclear. -Continue Prednisone for MG -Continue Budesonide/Formoterol BID, Albuterol and DuoNebs PRN -Patient was on Amiodarone in the past which was discontinued because he didn't like how he felt on it. Unclear if Amiodarone is contributing to h/o ILD. (8) CAD (coronary artery disease): Plan: s/p CABG performed in 2013. Patient with elevation of HS-troponin to 81.7 - not surprising given the high amount of electricity patient received this evening. -Continue ASA and Lovastatin -Cardiology consultation appreciated (9) Hypertension: Plan: Blood pressure stable now -Continue to monitor (10) Hyperlipidemia: Plan: Chronic -Continue Lovastatin Plan: F/E/N - [place]ock. Electrolyte repletion as above. NPO for now Ppx - On Coumadin, continue Code - Full. Patient would not like prolonged heroics but is agreeable to initial resuscitation efforts. Dispo - Admit to MICU Admission and Anticipated Discharge Date Admission Date: February 26, 2022 Subjective Patient reports doin well. He has no new complaints. Review of Systems Review of Systems: All systems reviewed & are unremarkable except as noted in HPI & below Physical Exam Physical Exam: General: patient resting, NAD but uncomfortable from chest soreness, non-toxic in appearance, AA&O x 4 Skin: warm, dry, intact, no rashes or lesions HEENT: NC/AT, PERRL, EOMI, anicteric sclera, conjunctiva without injection, external ear normal to inspection and nontender, nares patent, moist mucus membranes, dentition intact, no oropharyngeal lesions, neck supple, trachea midline, no LAD, no thyromegaly, no JVD Heart: +S1/S2, regular, no m/r/g, V-paced rhythm present on monitor, +chest wall tenderness Lungs: equal air entry bilaterally, no rales/rhonchi/wheezes Abd: +BS, soft, NT/ND, no masses/organomegaly/ascites Ext: warm, 2+ pulses in UE/LE bilaterally, no clubbing/cyanosis, 2+ edema pitting to knees, L > R Neuro: nonfocal, patient AA&O x 4, speech intact, no facial droop, moving all extremities on command with equal strength 5/5 Results & Data Results & Data ([facility]) Vital Signs (Past 12 Hours) Vital Signs Temp Pulse Pulse Resp BP Pulse Ox 02/28/22 15:47 36.4 C L 75 18 101/61 96 02/28/22 14:45 83 02/28/22 11:24 36.5 C 76 17 115/64 94 PG Care Time/CCT Total # of Minutes Spent Total Time Spent with Patient: Total time spent is greater than 50% in coordination of care (as documented) at patient's floor/unit and/or counseling patient: Coding Level of Care Code 20531 Subseq Hosp Care Lvl 2 Diagnoses AICD discharge Z45.02 Cardiomyopathy I42.9 Afib I48.91 Type 2 diabetes, controlled, with neuropathy E11.40 Hypothyroidism E03.9 Myasthenia gravis G70.00 Interstitial lung disease J84.9 CAD (coronary artery disease) I25.10 Associated angina: without angina Coronary Disease-Associated Artery/Lesion type: [place] artery [place] vs. transplanted heart: apache heart Hypertension I10 Hypertension type: essential hypertension Hyperlipidemia E78.5 (1) CAD (coronary artery disease) Associated angina: without angina Coronary Disease-Associated Artery/Lesion type: [place] artery [place] vs. transplanted heart: [place] heart Qualified Code(s): I25.10 - Atherosclerotic heart disease of [place] coronary artery without angina pectoris (2) Hypertension Hypertension type: essential hypertension Qualified Code(s): I10 - Essential (primary) hypertension
[2022-02-28] MEDS: LORazepam 2 MG/1 ML VIAL IV PRN (22:07)
[2022-02-28] MEDS ORDERED: predniSONE 50 MG TAB PO ONE (23:00)
[2022-03-01] MEDS ORDERED: predniSONE 50 MG TAB PO SCH ×2 (01:00→07:00)
[2022-03-01] MEDS: LEVOTHYROXINE SODIUM 75 MCG TABLET PO SCH (05:06)
[2022-03-01] MEDS: LORazepam 2 MG/1 ML VIAL IV PRN (05:07)
[2022-03-01 06:07] LABS: Hematocrit (blood only) 37.8 % (42-52); Hemoglobin 11.6 g/dL (14.0-18.0); Mean Corpuscular Hemoglobin 25.8 pg (25-34); Mean Corpuscular Hgb Conc 30.7 g/dL (32-36); Mean Corpuscular Volume 84.2 fL (80-100); Mean Platelet Volume 8.9 fL (7.4-10.4); Platelet Count 200 K/uL (130-400); RDW Standard Deviation 46.4 fL (36.4-46.3); Red Blood Count 4.49 M/uL (4.7-6.1); White Blood Count 9.41 K/uL (4.8-10.8)
[2022-03-01 06:25] LABS: INR 3.3 (0.9-1.1); Prothrombin Time 32.6 Seconds (9.0-12.0)
[2022-03-01 06:39] LABS: BUN Creatinine Ratio 30.1 (10-20); Calcium 8.8 mg/dl (8.5-10.1); Est GFR (African American) 45.1 ml/min; Est GFR (Non-African American) 38.9 ml/min; Magnesium 1.9 mg/dl (1.7-2.4); Potassium 3.9 mmol/L (3.5-5.1)
[2022-03-01] MEDS: INSULIN ASPART PER UNIT SC SCH ×4 (07:32→21:03)
[2022-03-01] MEDS: AMIODARONE 200 MG TAB PO SCH ×2 (08:03→17:31)
[2022-03-01] MEDS: ASPIRIN 81 MG ECTAB PO SCH (08:03)
[2022-03-01] MEDS: INSULIN GLARGINE SOLOSTAR 100 UNITS/ML 3 ML PEN SC SCH ×2 (08:03→21:07)
[2022-03-01] MEDS: FUROSEMIDE 40 MG TAB PO SCH (08:04)
[2022-03-01] MEDS: SPIRONOLACTONE 25 MG TAB PO SCH (08:04)
[2022-03-01] MEDS: MYCOPHENOLATE MOFETIL 250 MG CAP PO SCH ×2 (08:04→21:09)
[2022-03-01] MEDS: METOPROLOL SUCC 50MG EXT REL TAB PO SCH (08:04)
[2022-03-01] MEDS: IPRATROPIUM BROMIDE NASAL SPRAY 0.06% 15ML NAE SCH ×2 (08:05→21:08)
[2022-03-01] MEDS: FLUTICASONE/VILANTEROL 100/25MCG 14 PUFFS/INHALER INH SCH (08:05)
[2022-03-01] MEDS: PYRIDOSTIGMINE SUSTAINED REL 180 MG TABCR PO SCH (08:06)
[2022-03-01] MEDS ORDERED: PYRIDOSTIGMINE SUSTAINED REL 180 MG TABCR PO SCH (09:00)
[2022-03-01] MEDS ORDERED: PHYTONADIONE 5 MG TAB PO STA (09:16)
[2022-03-01] MEDS ORDERED: diphenhydrAMINE Capsule 25 MG CAP PO ONE (11:00)
[2022-03-01] MEDS ORDERED: LOPERAMIDE HCL 2 MG CAP PO PRN (15:49)
--- NOTE | 2022-03-01 17:04 | Cardiology Progress Note ---
Date of Service March 01, 2022 Assessment & Plan (1) Ventricular tachycardia: (2) AICD discharge: (3) Acute HFrEF (heart failure with reduced ejection fraction): (4) Cardiomyopathy: (5) Complete heart block: (6) Biventricular automatic implantable cardioverter defibrillator in situ: (7) S/P MVR (mitral valve repair): (8) S/P AVR: (9) Pulmonary hypertension: (10) CAD (coronary artery disease): (11) S/P CABG x 1: (12) Atrial fibrillation, permanent: Plan: ASSESSMENT/PLAN: 1. Ventricular tachycardia : no recurrence. a continue amiodarone at the current dose. No evidence of transaminitis yesterday. Will double check in the morning. Plan on coronary angiography tomorrow. 2. Acute heart failure with reduced EF: He seems well compensated today. Will check LVEDP tomorrow. Continue current Lasix dose. Monitor electrolytes closely. 3. Ischemic cardiomyopathy: Plan as above. Optimize medical therapy. LV systolic function has declined, which may be due to recurrent VT as well. In the past his medical therapy has been discontinued due to orthostatic hypotension. 4. Mitral and aortic valve replacements: Bioprosthetic valves. Appear to be functionally appropriately on echo. SBE prophylaxis for dental procedures. 5. CAD s/p CABG x 1: Very brief episode of chest discomfort immediately prior to 1st therapy. I doubt this represented an acute coronary syndrome although he could have had ischemia related to his known coronary disease. Biomarkers did not trend upward suggestive of an acute coronary syndrome either. However, his LV function has declined any does have regional wall motion abnormalities. I did discuss the option of repeat coronary evaluation and The initial plan was to proceed today but his INR was too high. Planning on tomorrow now. 6. Permanent atrial fibrillation s/p AV rob ablation: On long-term anticoagulation therapy for stroke risk reduction. Hold warfarin to facilitate cardiac catheterization. 7. Pulmonary hypertension: Chronic issue. Likely related to heart failure and interstitial lung disease. Will plan catheterization tomorrow. Admission and Anticipated Discharge Date Admission Date: February 26, 2022 Subjective The patient continues to feel anxious. Last night he had some transient hypoxia but no symptoms. He is ambulatory. Minimal dizziness. Review of Systems Review of Systems: Per HPI Physical Exam Physical Exam: The patient is alert and oriented. Mood and affect appeared normal. He answered all questions appropriately. HEENT: Pupils are equal and reactive to light and accommodation. Extraocular movements are intact. The sclerae are anicteric. Neuro: Cranial nerves intact Lungs: normal respiratory effort Cardiac: Heart demonstrates a regular rate and rhythm. Pulses: The patient has palpable radial pulses bilaterally that are equal in intensity Extremities: There was no evidence of hypoperfusion. There is no cyanosis or clubbing. There is no edema. Skin: I did not appreciate any rashes on examination today. Results & Data ([facility]) Vital Signs (Past 12 Hours) Vital Signs Temp Pulse Pulse Resp BP Pulse Ox 03/01/22 15:56 75 03/01/22 11:46 36.6 C 77 18 105/64 96 03/01/22 07:48 36.3 C L 60 18 122/73 92 03/01/22 07:37 75 Laboratory Results Abnormal Lab Results 02/28/22 03/01/22 03/01/22 20:20 05:43 05:43 WBC RBC Hgb Hct MCV MCH MCHC RDW Std Deviation RDW Coeff of Jonathan Plt Count MPV PT 32.6 H INR 3.3 H Sodium 137 Potassium 3.9 Chloride 103 Carbon Dioxide 24 Anion Gap 10 BUN 49 H Creatinine 1.63 H Est Cr Clr Drug Dosing 39.0 Est GFR ( Amer) 45.1 Est GFR (Non-Af Amer) 38.9 BUN/Creatinine Ratio 30.1 H Glucose 137 H POC Glucose 121 H Calcium 8.8 Phosphorus 4.0 Magnesium 1.9 03/01/22 03/01/22 03/01/22 05:43 07:26 11:22 WBC 9.41 RBC 4.49 L Hgb 11.6 L Hct 37.8 L MCV 84.2 MCH 25.8 MCHC 30.7 L RDW Std Deviation 46.4 H RDW Coeff of Jonathan 15.0 H Plt Count 200 MPV 8.9 PT INR Sodium Potassium Chloride Carbon Dioxide Anion Gap BUN Creatinine Est Cr Clr Drug Dosing Est GFR ( Amer) Est GFR (Non-Af Amer) BUN/Creatinine Ratio Glucose POC Glucose 150 H 214 H Calcium Phosphorus Magnesium 03/01/22 16:13 WBC RBC Hgb Hct MCV MCH MCHC RDW Std Deviation RDW Coeff of Jonathan Plt Count MPV PT INR Sodium Potassium Chloride Carbon Dioxide Anion Gap BUN Creatinine Est Cr Clr Drug Dosing Est GFR ( Amer) Est GFR (Non-Af Amer) BUN/Creatinine Ratio Glucose POC Glucose 296 H Calcium Phosphorus Magnesium PG Care Time/CCT Total # of Minutes Spent Total Time Spent with Patient: Total time spent is greater than 50% in coordination of care (as documented) at patient's floor/unit and/or counseling patient: Coding Level of Care Code 00662 Subseq Hosp Care Lvl 2 Diagnoses Ventricular tachycardia I47.2 AICD discharge Z45.02 Acute HFrEF (heart failure with reduced ejection fraction) I50.21 Cardiomyopathy I42.9 Complete heart block I44.2 Biventricular automatic implantable cardioverter defibrillator in situ Z95.810 S/P MVR (mitral valve repair) Z98.890 S/P AVR Z95.2 Pulmonary hypertension I27.20 CAD (coronary artery disease) I25.10 Coronary Disease-Associated Artery/Lesion type: [place] artery [place] vs. transplanted heart: [place] heart Associated angina: without angina S/P CABG x 1 Z95.1 Atrial fibrillation, permanent I48.21 (1) CAD (coronary artery disease) Coronary Disease-Associated Artery/Lesion type: [place] artery [place] vs. transplanted heart: [place] heart Associated angina: without angina Qualified Code(s): I25.10 - Atherosclerotic heart disease of [place] coronary artery without angina pectoris
--- NOTE | 2022-03-01 20:56 | Hospitalist Progress Note ---
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 Patient with history of Biventricular pacer/defibrillator in place secondary to cardiomyopathy ([employer]). Patient was seen at [facility] following multiple AICD discharges (5-6 at home then 4 in the ambulance en route to the hospital). He was given Amiodarone bolus and drip at [place] [facility] and was cardioverted x 2 (100 and 150J) for ventricular tachycardia. Patient requested to be transferred to [facility] in event that cardiac intervention was required. Additional arrhythmia en route and patient was shocked 4 more times (totaling 13-14 AICD discharges + synchronized cardioversion x 2) Ddx to include ischemic event, electrolyte derangement (low K and Mg) most likely contributing. Also with elevated BNP, ?decompensated failure -Admit to MICU -Continue Amiodarone gtt - 1mg/min x6 hours followed by 0.5mg/min. Of note, patient has Amiodarone listed as an allergy. He was previously on this medication but did not like how he felt on it therefore it was discontinued. He is not on any BB/CCB due to history of myasthenia gravis. -Electrolyte repletion -Cardiology consultation appreciated -Added beta mary. -No further AICD discharges, patient in PCU. Patient will have cardiac cath on 03/02 as INR is too high vitamin K is given. -Amiodarone may not be best medication powder mixer given history of MG and ILD Allergic reaction to unknown substance: iN REGARDS TO HIS SWOLLEN LIP, RECEIVED DIPHENHYDRAMINE. Now resolved. No difficulty breathing. (2) Cardiomyopathy: Plan: Patient with mixed cardiomyopathy. Last echo December 28, 2020 - normal LV size with mildly increased wall thickness. Asymmetric LVH. Inferior/posterior LV wall is hypokinetic to akinetic. LV segmental WMA otherwise normal. EF of 50- 53%. Aortic valve prosthesis present without stenosis or regurgitation. Mitral valve prosthesis present without significant regurgitation or stenosis. Dilated IVC with elevated right atrial pressure 15mmHg. PASP estimated 65-70. -Elevated BNP at outside facility. Patient endorses increased LE edema -gave an additonal IV lasix as patient appeared volume overloaded on 02/27 (3) Afib: Plan: History of atrial fibrillation. On Coumadin anticoagulation. INR subtherapeutic at 1.9 presently -Continue Coumadin - dosage confirmed with patient - 2.5mg po 6x weekly and 1.25mg on Monday -No BB/CCB for rate control due to history of MG (4) Type 2 diabetes, controlled, with neuropathy: Plan: Patient on oral agents. Blood sugar 124. Last HgbA1C 11/30/21 = 6.7 -Hold oral agents -Lantus 5u BID, ISS -Goal blood sugar 110 - 180 (5) Hypothyroidism: Plan: Chronic -Check TSH -Continue Synthroid (6) Myasthenia gravis: Plan: Patient on chronic steroids. Has been decreased to 2.5mg daily -Continue Prednisone 2.5mg po daily -Low threshold for stress dosing if patient becomes hypotensive or shows evidence of adrenal insufficiency -Continue mycophenolate mofetil 1000mg po BID -Continue home Mestinon - ER 180mg po daily and 90mg TID (7) Interstitial lung disease: Plan: No cough, SOB or wheeze. Patient follows with Pulmonary. Last seen 01/10/22. Etiology of ILD is unclear. -Continue Prednisone for MG -Continue Budesonide/Formoterol BID, Albuterol and DuoNebs PRN -Patient was on Amiodarone in the past which was discontinued because he didn't like how he felt on it. Unclear if Amiodarone is contributing to h/o ILD. (8) CAD (coronary artery disease): Plan: s/p CABG performed in 2013. Patient with elevation of HS-troponin to 81.7 - not surprising given the high amount of electricity patient received this evening. -Continue ASA and Lovastatin -Cardiology consultation appreciated (9) Hypertension: Plan: Blood pressure stable now -Continue to monitor (10) Hyperlipidemia: Plan: Chronic -Continue Lovastatin Plan: F/E/N - Heplock. Electrolyte repletion as above. NPO for now Ppx - On Coumadin, continue Code - Full. Patient would not like prolonged heroics but is agreeable to initial resuscitation efforts. Dispo - Admit to MICU Admission and Anticipated Discharge Date Admission Date: February 26, 2022 Subjective Patient reports no new symptoms. Review of Systems Review of Systems: All systems reviewed & are unremarkable except as noted in HPI & below Physical Exam Physical Exam: General: patient resting, NAD but uncomfortable from chest soreness, non-toxic in appearance, AA&O x 4 Skin: warm, dry, intact, no rashes or lesions HEENT: NC/AT, PERRL, EOMI, anicteric sclera, conjunctiva without injection, external ear normal to inspection and nontender, nares patent, moist mucus membranes, dentition intact, no oropharyngeal lesions, neck supple, trachea midline, no LAD, no thyromegaly, no JVD Heart: +S1/S2, regular, no m/r/g, V-paced rhythm present on monitor, +chest wall tenderness Lungs: equal air entry bilaterally, no rales/rhonchi/wheezes Abd: +BS, soft, NT/ND, no masses/organomegaly/ascites Ext: warm, 2+ pulses in UE/LE bilaterally, no clubbing/cyanosis, 2+ edema pitting to knees, L > R Neuro: nonfocal, patient AA&O x 4, speech intact, no facial droop, moving all extremities on command with equal strength 5/5 Results & Data Results & Data ([facility]) Vital Signs (Past 12 Hours) Vital Signs Temp Pulse Pulse Resp BP BP Pulse Ox 03/01/22 19:19 36.5 C 75 18 121/69 100 03/01/22 17:09 36.4 C L 77 18 104/61 94 03/01/22 15:56 75 03/01/22 11:46 36.6 C 77 18 105/64 96 PG Care Time/CCT Total # of Minutes Spent Total Time Spent with Patient: Total time spent is greater than 50% in coordination of care (as documented) at patient's floor/unit and/or counseling patient: Coding Level of Care Code 27712 Subseq Hosp Care Lvl 2 Diagnoses AICD discharge Z45.02 Cardiomyopathy I42.9 Afib I48.91 Type 2 diabetes, controlled, with neuropathy E11.40 Hypothyroidism E03.9 Myasthenia gravis G70.00 Interstitial lung disease J84.9 CAD (coronary artery disease) I25.10 Associated angina: without angina Coronary Disease-Associated Artery/Lesion type: [place] artery [place] vs. transplanted heart: [place] heart Hypertension I10 Hypertension type: essential hypertension Hyperlipidemia E78.5 (1) CAD (coronary artery disease) Associated angina: without angina Coronary Disease-Associated Artery/Lesion type: [place] artery [place] vs. transplanted heart: [place] heart Qualified Code(s): I25.10 - Atherosclerotic heart disease of [place] coronary artery without angina pectoris (2) Hypertension Hypertension type: essential hypertension Qualified Code(s): I10 - Essential (primary) hypertension
[2022-03-01] MEDS ORDERED: predniSONE 50 MG TAB PO ONE (23:00)
[2022-03-02] MEDS: LORazepam 2 MG/1 ML VIAL IV PRN (04:41)
[2022-03-02] MEDS: LEVOTHYROXINE SODIUM 75 MCG TABLET PO SCH (06:15)
[2022-03-02] MEDS ORDERED: predniSONE 50 MG TAB PO ONE ×2 (07:00→11:03)
[2022-03-02 07:31] LABS: INR 1.8 (0.9-1.1); Prothrombin Time 18.2 Seconds (9.0-12.0)
[2022-03-02] MEDS: INSULIN ASPART PER UNIT SC SCH ×4 (07:39→21:38)
[2022-03-02] MEDS: INSULIN GLARGINE SOLOSTAR 100 UNITS/ML 3 ML PEN SC SCH ×2 (07:40→21:40)
[2022-03-02 07:48] LABS: Albumin Level 3.3 gm/dl (3.4-5.0); BUN Creatinine Ratio 33.8 (10-20); Bilirubin Direct 0.8 mg/dl (0-0.2); Bilirubin,Total 1.7 mg/dl (0.2-1.0); Calcium 8.9 mg/dl (8.5-10.1); Creatinine Clr Calc Pharmacy 42.1 ml/min; Est GFR (African American) 49.5 ml/min; Est GFR (Non-African American) 42.7 ml/min; Magnesium 1.9 mg/dl (1.7-2.4); Phosphorus 4.9 mg/dl (2.5-4.9); Potassium 4.3 mmol/L (3.5-5.1); Total Protein 5.8 gm/dl (6.0-8.3)
[2022-03-02] MEDS: MYCOPHENOLATE MOFETIL 250 MG CAP PO SCH ×2 (08:12→21:39)
[2022-03-02] MEDS: AMIODARONE 200 MG TAB PO SCH ×2 (08:12→17:45)
[2022-03-02] MEDS: METOPROLOL SUCC 50MG EXT REL TAB PO SCH (08:12)
[2022-03-02] MEDS: PYRIDOSTIGMINE SUSTAINED REL 180 MG TABCR PO SCH (08:13)
[2022-03-02] MEDS: IPRATROPIUM BROMIDE NASAL SPRAY 0.06% 15ML NAE SCH ×2 (08:13→21:40)
[2022-03-02] MEDS: FLUTICASONE/VILANTEROL 100/25MCG 14 PUFFS/INHALER INH SCH (08:13)
--- NOTE | 2022-03-02 11:45 | Pre Anesthesia Assessment ---
Date of Service March 02, 2022 Pre Sedation Assessment Vital Signs Temp Pulse Pulse Resp BP BP Pulse Ox 03/02/22 11:19 36.5 C 75 20 120/66 94 03/02/22 08:00 75 03/02/22 07:36 36.5 C 76 20 133/73 99 03/02/22 03:52 36.4 C L 76 18 122/72 100 03/02/22 03:26 75 03/02/22 00:00 87 03/01/22 23:15 36.6 C 62 20 145/76 H 100 03/01/22 19:19 36.5 C 75 18 121/69 100 03/01/22 17:09 36.4 C L 77 18 104/61 94 03/01/22 15:56 75 03/01/22 11:46 36.6 C 77 18 105/64 96 Cardiovascular + regular rate and + regular rhythm Respiratory + respiratory effort normal Pre-Sedation Airway Assessment Smoking Status: Former smoker Hx Sleep Apnea: No Hx Difficult Intubation: No Short, Thick Neck: No Thyromental Distance: > or= 3.5 Finger Breadths Oral Cavity: + Dentures Mallampati Class: III Procedure Planning Contraindications for Sedation: none Current Medications Reviewed: Yes Notes The planned sedation has been discussed with the patient. Informed Consent was obtained. I have identified the patient, determined the appropriateness of sedation and have assessed the patient immediately prior to the procedure. All medicine(s) and interventions are by my order.
[2022-03-02] MEDS ORDERED: diphenhydrAMINE 50 MG/ML VIAL IV ONE (12:00)
[2022-03-02] MEDS ORDERED: HEPARIN (PORCINE) 1000 UNIT/ML 10 ML (CATH LAB USE ONLY) ONE (12:56)
[2022-03-02] MEDS ORDERED: MIDAZOLAM HCL 1 MG/ML 2ML VIAL ONE (12:56)
[2022-03-02] MEDS ORDERED: niCARdipine HCL INJ 2.5 MG/ML 10 ML AMP ONE (12:56)
[2022-03-02] MEDS ORDERED: fentaNYL citrate 100 MCG/2 ML VIAL ONE (12:56)
[2022-03-02] MEDS ORDERED: NITROGLYCERIN/D5W 100MCG/ML 20ML SYR ONE (12:57)
[2022-03-02] MEDS ORDERED: BIVALIRUDIN 250 MG VIAL (CATH LAB ONLY) ONE ×2 (14:31→15:16)
[2022-03-02] MEDS: ASPIRIN 81 MG ECTAB PO SCH (15:29)
[2022-03-02] MEDS: FUROSEMIDE 40 MG TAB PO SCH (15:29)
[2022-03-02] MEDS: SPIRONOLACTONE 25 MG TAB PO SCH (15:29)
--- NOTE | 2022-03-02 16:21 | Cardiac Catheterization ---
[facility] Data: Extrusion Line Operator Cardiac Status Clinical evaluation leading to the procedure CAD Presenation: Non STEMI Diagnostic Physicians Name: Marlon Martell MD Closure Device Recommendations: Medical Therapy and/or Counseling Cardiac Cath Procedure Full Procedure Date March 02, 2022 Pre-Procedure Diagnosis Pre-Procedure Diagnosis: Arrhythmia AUC Score AUC Score: 7 Post-Procedure Diagnosis Post-Procedure Diagnosis: Severe CAD Procedure(s) Performed Procedure(s) Performed: Coronary Angiography Mat Tester Marlon Martell MD Roller Printing Supervisor(s) none Estimated Blood Loss Estimated Blood Loss: 13cc Medication(s) Medication(s): Fentanyl, Lidocaine 1%, Nicardipine, Nitroglycerin and Versed Summary of Findings Procedure performed: Coronary angiography, bypass graft angiography Staff licensing manager: Marlon Martell MD Indication: The patient is an 81-year-old gentleman with a history of coronary artery disease having previously undergone a single-vessel ALANIZ to diagonal bypass in 2013. The patient recently suffered an episode of VT storm. He had mildly elevated biomarkers and there was some concern regarding an ischemic precipitant. He was therefore advised to consider coronary angiography. Procedure in detail: The patient was informed the risk benefits and alternatives to the intended procedure. He understood and wished to proceed. He was taken to the cardiac catheterization suite in a fasting state. Conscious sedation was administered per protocol and the patient was monitored electrocardiographically throughout today's procedure. The left radial area was prepped and draped in the usual sterile fashion. This area was anesthetized using subcutaneous ministration of a lidocaine solution. The left radial artery was subsequently accessed using modified Seldinger technique and a sheath was placed over guidewire at this site. This sheath was used to facilitate passage of the cardiac catheters for selective coronary and graft angiography. Images were obtained in multiple orthogonal views prior to removal of the catheter. During the procedure the J- wire inadvertently entered the ALANIZ graft. At the conclusion of the procedure repeat graft angiography revealed dissection of the graft. The patient was referred for urgent percutaneous intervention. The patient was hemodynamically stable during the entire procedure and tolerated the procedure well. Findings: Coronary angiography: Left main: Left main was normal in size and caliber. There was noted to be 100% occlusion of the left circumflex system. Irregularities but no obstructive disease in the left main Left anterior descending colon left anterior sending was a large apical vessel. It produced a medium sized branching first diagonal system with some disease in its proximal portion. There was a large second diagonal system with approximately 90% stenosis in its midportion. There was phasic flow in the distal portion. Left circumflex: The left circumflex was 100% occluded in its proximal portion and produced a very diminutive and early OM branch. It was noted to be reconstituted via left to left collaterals. Right coronary artery: The right coronary artery was not selectively engaged as it was known to be 100% occluded. It was noted to fill via left to right collaterals. Graft angiography ALANIZ to diagonal. Initial images of the ALANIZ to diagonal revealed patent graft in the ostium, body and anastomosis. It filled a medium size diagonal system. Prior to concluding the case and based on an abnormal course of the J-wire during catheter exchange, the ALANIZ was reengaged and noted to have a dissection in its midportion which compromised flow distally. Impression: Known occlusion of right coronary and circumflex coronary Widely patent LAD with left to left and left to right collaterals 90% mid second diagonal lesion with phasic flow in the distal portion Initially widely patent ALANIZ to diagonal graft which was dissected during wire exchange Plan: Immediate referral for percutaneous attempt at recannulation of ALANIZ to diagonal graft Hemodynamics Rest Ao:: 111/58 mmHg Final Ao: 146/69 mmHg LV: n/a Recommendations Recommendations: Medical Therapy and/or Counseling Radiation Exposure (mGy) 1249 Contrast (mls) 40 Procedural Complication(s) Dissection of ALANIZ Disposition Extrusion Line Operator Holding/Recovery I attest to the content of the Intraoperative Record and any orders documented therein. Any exceptions are noted below. [facility] Card Cath Procedure Codes Cardiac Catheterization Procedure 1: Cardiovascular Cath Procedures: 08063 Coronaries and Grafts/IM (venous & atrial) Moderate Sedation Procedure 1: Sedation/Anesthesia: 07110 Mod Sedation by the same physician;Init15 Min Child Age 5 & Up Procedure 2: Sedation/Anesthesia: 95775 Mod Sedation by the same physician; Ea [id number] Minutes PG Care Time/CCT Total # of Minutes Spent Total Time Spent with Patient: Total time spent is greater than 50% in coordination of care (as documented) at patient's floor/unit and/or counseling patient:
[2022-03-02] MEDS: WARFARIN SOD 2.5 MG TAB PO SCH (17:43)
[2022-03-02] MEDS: NITROGLYCERIN 2% OINTMENT 30GM TUBE EXT SCH ×2 (17:46→23:53)
--- NOTE | 2022-03-02 19:30 | Hospitalist Progress Note ---
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 Patient with history of Biventricular pacer/defibrillator in place secondary to cardiomyopathy ([employer]). Patient was seen at [facility] following multiple AICD discharges (5-6 at home then 4 in the ambulance en route to the hospital). He was given Amiodarone bolus and drip at [place] and was cardioverted x 2 (100 and 150J) for ventricular tachycardia. Patient requested to be transferred to [facility] in event that cardiac intervention was required. Additional arrhythmia en route and patient was shocked 4 more times (totaling 13-14 AICD discharges + synchronized cardioversion x 2) Ddx to include ischemic event, electrolyte derangement (low K and Mg) most likely contributing. Also with elevated BNP, ?decompensated failure -Admit to MICU -Continue Amiodarone gtt - 1mg/min x6 hours followed by 0.5mg/min. Of note, patient has Amiodarone listed as an allergy. He was previously on this medication but did not like how he felt on it therefore it was discontinued. He is not on any BB/CCB due to history of myasthenia gravis. -Electrolyte repletion -Cardiology consultation appreciated -Added beta mary. -No further AICD discharges, patient in PCU. Patient will have cardiac cath on 03/02: Summary: 1. Iatrogenic ALANIZ to first diagonal dissection 2. Chronic subtotal mid first diagonal occlusion 3. Unsuccessful attempted repair of ALANIZ dissection due to inability to reenter true lumen. 4. Unsuccessful attempted PCI of mid diagonal due to inability to pass balloon across calcified stenosis/anastomosis. Final result: PARMINDER II antegrade flow in first diagonal. Chest pain-free. Recommendations: To PCU for continued monitoring No indication for further attempts at intervention at this time. Maximize medical management. If refractory exertional symptoms in the future PCI to [place] diagonal could be considered at tertiary center. Patient remains chest free at 18:00 on 03/02 -Amiodarone may not be best medication nursing home given history of MG and ILD Allergic reaction to unknown substance: resolved had swollen lip treated with diphenhydramine. (2) Cardiomyopathy: Plan: Patient with mixed cardiomyopathy. Last echo December 28, 2020 - normal LV size with mildly increased wall thickness. Asymmetric LVH. Inferior/posterior LV wall is hypokinetic to akinetic. LV segmental WMA otherwise normal. EF of 50- 53%. Aortic valve prosthesis present without stenosis or regurgitation. Mitral valve prosthesis present without significant regurgitation or stenosis. Dilated IVC with elevated right atrial pressure 15mmHg. PASP estimated 65-70. -Elevated BNP at outside facility. Patient endorses increased LE edema -gave an additonal IV lasix as patient appeared volume overloaded on 02/27 (3) Afib: Plan: History of atrial fibrillation. On Coumadin anticoagulation. INR subtherapeutic at 1.9 presently -Continue Coumadin - dosage confirmed with patient - 2.5mg po 6x weekly and 1.25mg on Monday -No BB/CCB for rate control due to history of MG (4) Type 2 diabetes, controlled, with neuropathy: Plan: Patient on oral agents. Blood sugar 124. Last HgbA1C 11/30/21 = 6.7 -Hold oral agents -Lantus 5u BID, ISS -Goal blood sugar 110 - 180 (5) Hypothyroidism: Plan: Chronic -Check TSH -Continue Synthroid (6) Myasthenia gravis: Plan: Patient on chronic steroids. Has been decreased to 2.5mg daily -Continue Prednisone 2.5mg po daily -Low threshold for stress dosing if patient becomes hypotensive or shows evidence of adrenal insufficiency -Continue mycophenolate mofetil 1000mg po BID -Continue home Mestinon - ER 180mg po daily and 90mg TID (7) Interstitial lung disease: Plan: No cough, SOB or wheeze. Patient follows with Pulmonary. Last seen 01/10/22. Etiology of ILD is unclear. -Continue Prednisone for MG -Continue Budesonide/Formoterol BID, Albuterol and DuoNebs PRN -Patient was on Amiodarone in the past which was discontinued because he didn't like how he felt on it. Unclear if Amiodarone is contributing to h/o ILD. (8) CAD (coronary artery disease): Plan: s/p CABG performed in 2013. Patient with elevation of HS-troponin to 81.7 - not surprising given the high amount of electricity patient received this evening. -Continue ASA and Lovastatin -Cardiology consultation appreciated (9) Hypertension: Plan: Blood pressure stable now -Continue to monitor (10) Hyperlipidemia: Plan: Chronic -Continue Lovastatin Plan: F/E/N - Heplock. Electrolyte repletion as above. NPO for now Ppx - On Coumadin, continue Code - Full. Patient would not like prolonged heroics but is agreeable to initial resuscitation efforts. Dispo - Admit to MICU Admission and Anticipated Discharge Date Admission Date: February 26, 2022 Subjective Patient reports being chest free. No new complaints. Review of Systems Review of Systems: All systems reviewed & are unremarkable except as noted in HPI & below Physical Exam Physical Exam: General: patient resting, NAD but uncomfortable from chest soreness, non-toxic in appearance, AA&O x 4 Skin: warm, dry, intact, no rashes or lesions HEENT: NC/AT, PERRL, EOMI, anicteric sclera, conjunctiva without injection, external ear normal to inspection and nontender, nares patent, moist mucus membranes, dentition intact, no oropharyngeal lesions, neck supple, trachea midline, no LAD, no thyromegaly, no JVD Heart: +S1/S2, regular, no m/r/g, V-paced rhythm present on monitor, +chest wall tenderness Lungs: equal air entry bilaterally, no rales/rhonchi/wheezes Abd: +BS, soft, NT/ND, no masses/organomegaly/ascites Ext: warm, 2+ pulses in UE/LE bilaterally, no clubbing/cyanosis, 2+ edema pitting to knees, L > R Neuro: nonfocal, patient AA&O x 4, speech intact, no facial droop, moving all extremities on command with equal strength 5/5 Results & Data Results & Data ([facility]) Vital Signs (Past 12 Hours) Vital Signs Temp Pulse Pulse Resp BP BP Pulse Ox 03/02/22 18:02 37 C 75 16 98/70 L 97 03/02/22 17:32 37 C 70 18 120/70 97 03/02/22 17:02 75 18 125/82 96 03/02/22 16:47 76 18 129/82 96 03/02/22 16:30 37 C 76 18 126/74 96 03/02/22 16:10 70 20 155/53 H 96 03/02/22 15:55 75 20 135/79 97 03/02/22 11:19 36.5 C 75 20 120/66 94 03/02/22 08:00 75 03/02/22 07:36 36.5 C 76 20 133/73 99 PG Care Time/CCT Total # of Minutes Spent Total Time Spent with Patient: Total time spent is greater than 50% in coordination of care (as documented) at patient's floor/unit and/or counseling patient: Coding Level of Care Code 76650 Subseq Hosp Care Lvl 2 Diagnoses AICD discharge Z45.02 Cardiomyopathy I42.9 Afib I48.91 Type 2 diabetes, controlled, with neuropathy E11.40 Hypothyroidism E03.9 Myasthenia gravis G70.00 Interstitial lung disease J84.9 CAD (coronary artery disease) I25.10 Associated angina: without angina Coronary Disease-Associated Artery/Lesion type: [place] artery [place] vs. transplanted heart: [place] heart Hypertension I10 Hypertension type: essential hypertension Hyperlipidemia E78.5 (1) CAD (coronary artery disease) Associated angina: without angina Coronary Disease-Associated Artery/Lesion type: [place] artery [place] vs. transplanted heart: [place] heart Qualified Code(s): I25.10 - Atherosclerotic heart disease of [place] coronary artery without angina pectoris (2) Hypertension Hypertension type: essential hypertension Qualified Code(s): I10 - Essential (primary) hypertension
[2022-03-02] MEDS ORDERED: PYRIDOSTIGMINE BROMIDE 60 MG TAB PO SCH (21:00)
--- NOTE | 2022-03-02 22:06 | Cardiac Catheterization ---
[facility] Data: Stenotype Machine Operator Cardiac Status Clinical evaluation leading to the procedure CAD Presenation: Sx unlikely to be ischemic (Ventricular tachycardia) Diagnostic Physicians Name: Marlon Zuluaga MD Closure Device Recommendations: Medical Therapy and/or Counseling Cardiac Cath Procedure Full Procedure Date March 02, 2022 Pre-Procedure Diagnosis Pre-Procedure Diagnosis: Arrhythmia AUC Score AUC Score: 7 Post-Procedure Diagnosis Post-Procedure Diagnosis: Severe CAD Procedure(s) Performed Procedure(s) Performed: Coronary Angiography, PTCA and Bypass Graft Angiography Fiberglasser Marlon Zuluaga MD Lathe Sander(s) Tyshawn Estimated Blood Loss Estimated Blood Loss: 15 Medication(s) Medication(s): Bivalirudin, Fentanyl, Nicardipine, Nitroglycerin and Versed Summary of Findings Indication: Patient underwent diagnostic cardiac cath with Dr. Martell due to ventricular tachycardia. ALANIZ to D1 shown to be widely patent. LAD without significant disease. LAD provided [id number] collaterals to RCA territory. Medium caliber diagonal subtotally occluded in the midsegment. During angiography noted to have an iatrogenic flow-limiting dissection in ALANIZ. Patient chest pain-free and hemodynamically stable. Interventional cardiology contacted to attempt to repair dissection. Access: 6 Fr left radial artery Catheters: ANITA guide, EBU 3.5 guide --Attempted PCI-- Antithrombotic therapy: Angiomax with history of HIT Procedure: ALANIZ cannulated with ANITA guide Pre-procedure flow PARMINDER 0 Multiple attempts made to pass wires across occlusion into distal ALANIZ and across anastomosis. Repeatedly ended up in dissection flap which extended all the way to anastomos is. Subintimal position confirmed via injection through OTW balloon. Additional attempts to cross into true lumen lumen thought futile. Decision made to try to intervene on subtotally occluded diagonal Left main cannulated with EBU 3.5 guide Business Leader 50 wire navigated into diagonal and across subtotal occlusion into distal diagonal. Mid diagonal gently dilated with 2.0 balloon but unable to pass balloon or Corsair catheter across calcified stenosis at the anastomosis With attempts at passing balloon/Corsair catheter patient developed chest pain. With removal of wire/catheter chest pain resolved. On completion still with subtotal mid diagonal occlusion but antegrade PARMINDER II flow through diagonal into distal vessel. Arterial Closure: TR band Summary: 1. Iatrogenic ALANIZ to first diagonal dissection 2. Chronic subtotal mid first diagonal occlusion 3. Unsuccessful attempted repair of ALANIZ dissection due to inability to reenter true lumen. 4. Unsuccessful attempted PCI of mid diagonal due to inability to pass balloon across calcified stenosis/anastomosis. Final result: PARMINDER II antegrade flow in first diagonal. Chest pain-free. Recommendations: To PCU for continued monitoring No indication for further attempts at intervention at this time. Maximize medical management. If refractory exertional symptoms in the future PCI to [place] diagonal could be considered at tertiary center. Hemodynamics Rest Ao:: 130/63/90 Final Ao: 140/74/100 LV: -- Recommendations Recommendations: Medical Therapy and/or Counseling Specimens Specimens: None Radiation Exposure (mGy) 4913 Contrast (mls) 160 Anesthesia Moderate 8574-7580 Procedural Complication(s) Dissection of ALANIZ Disposition PCU I attest to the content of the Intraoperative Record and any orders documented therein. Any exceptions are noted below. [facility] Card Cath Procedure Codes Moderate Sedation Procedure 2: Sedation/Anesthesia: 59002 Mod Sedation by the same physician; Ea [id number] Minutes Angioplasty Procedure 1: Cardiovascular Angioplasty Procedures: 88250 PTCA; Single mafor coronary artery or branch RC LC LD PG Care Time/CCT Total # of Minutes Spent Total Time Spent with Patient: Total time spent is greater than 50% in coordination of care (as documented) at patient's floor/unit and/or counseling patient:
[2022-03-02] MEDS: ACETAMINOPHEN 325 MG TAB PO PRN (22:54)
[2022-03-03 03:22] LABS: INR 1.6 (0.9-1.1); Prothrombin Time 16.4 Seconds (9.0-12.0)
[2022-03-03 03:35] LABS: BUN Creatinine Ratio 37.5 (10-20); Calcium 8.8 mg/dl (8.5-10.1); Creatinine Clr Calc Pharmacy 44.2 ml/min; Est GFR (African American) 52.4 ml/min; Est GFR (Non-African American) 45.2 ml/min; Magnesium 2.1 mg/dl (1.7-2.4); Phosphorus 4.9 mg/dl (2.5-4.9); Potassium 4.3 mmol/L (3.5-5.1)
[2022-03-03] MEDS: NITROGLYCERIN 2% OINTMENT 30GM TUBE EXT SCH ×2 (04:58→12:27)
[2022-03-03] MEDS: LEVOTHYROXINE SODIUM 75 MCG TABLET PO SCH (06:12)
--- NOTE | 2022-03-03 06:45 | Communication Note ---
Date of Service: March 03, 2022 Notified by RN around 0200 of elevated HS-troponin at 1227. Patient did have cath yesterday afternoon. Patient is asymptomatic. Specifically denies CP, palpi tations, diaphoresis, SOB, HOGUE, lightheadedness, dizziness, changes in vision. Patient is A/Ox3, heart RRR, lungs CTAB. Repeat EKG. Repeat HS-troponin already ordered for this AM.
[2022-03-03] MEDS: INSULIN ASPART PER UNIT SC SCH ×4 (07:51→20:43)
[2022-03-03] MEDS: INSULIN GLARGINE SOLOSTAR 100 UNITS/ML 3 ML PEN SC SCH ×2 (07:57→20:44)
[2022-03-03] MEDS: IPRATROPIUM BROMIDE NASAL SPRAY 0.06% 15ML NAE SCH ×2 (08:01→20:19)
[2022-03-03] MEDS: AMIODARONE 200 MG TAB PO SCH ×2 (08:02→17:54)
[2022-03-03] MEDS: FLUTICASONE/VILANTEROL 100/25MCG 14 PUFFS/INHALER INH SCH (08:02)
[2022-03-03] MEDS: SPIRONOLACTONE 25 MG TAB PO SCH (08:02)
[2022-03-03] MEDS: LOVASTATIN 20 MG TAB PO SCH (08:02)
[2022-03-03] MEDS: MYCOPHENOLATE MOFETIL 250 MG CAP PO SCH ×2 (08:02→20:20)
[2022-03-03] MEDS: FUROSEMIDE 40 MG TAB PO SCH (08:03)
[2022-03-03] MEDS: METOPROLOL SUCC 50MG EXT REL TAB PO SCH (08:03)
[2022-03-03] MEDS: PYRIDOSTIGMINE SUSTAINED REL 180 MG TABCR PO SCH (08:03)
[2022-03-03] MEDS: ASPIRIN 81 MG ECTAB PO SCH (08:03)
[2022-03-03] MEDS ORDERED: AMIODARONE 150MG / 100ML D5W IV ONE (16:34)
[2022-03-03] MEDS ORDERED: 0.2 MICRON FILTER SET 1 EA IV ONE (16:34)
[2022-03-03] MEDS ORDERED: STAT IV Infusion **Titration per Protocol STA (16:34)
[2022-03-03] MEDS ORDERED: AMIODARONE / D5W 150 MG/100 ML BAG IV STA (16:34)
[2022-03-03] MEDS ORDERED: AMIODARONE IV BOLUS & DRIP IV STA (16:34)
[2022-03-03] MEDS ORDERED: AMIODARONE / D5W 360 MG/200 ML BAG IV ONE (16:44)
[2022-03-03] MEDS ORDERED: AMIODARONE 360MG / 200ML D5W IV ONE (16:53)
--- NOTE | 2022-03-03 17:46 | Cardiology Progress Note ---
Date of Service March 03, 2022 Assessment & Plan (1) Ventricular tachycardia: (2) AICD discharge: (3) Acute HFrEF (heart failure with reduced ejection fraction): (4) Cardiomyopathy: (5) Complete heart block: (6) Biventricular automatic implantable cardioverter defibrillator in situ: (7) S/P MVR (mitral valve repair): (8) S/P AVR: (9) Pulmonary hypertension: (10) CAD (coronary artery disease): (11) S/P CABG x 1: (12) Atrial fibrillation, permanent: Plan: ASSESSMENT/PLAN: 1. Ventricular tachycardia : The patient was doing quite well until this afternoon. Unclear if increased activity precipitated some worsening ventricular arrhythmia. It is also possible that his ischemic event yesterday resulted in more ventricular arrhythmia. The rhythm itself is ventricular tachycardia. It is monomorphic. Is not polymorphic or suggestive of an ischemic etiology. We will continue the amiodarone infusion. I will give him supplemental magnesium. The patient is very anxious about repeat therapies. He has requested that in the event of another therapy of mag to be applied so that the device can be deactivated. He is prepared to in that circumstance. I think we may need to expedite any transfer for possible VT ablation. I will need to contact the tertiary care facility to see if this is possible. At this point the patient has yet to decide if he would want more aggressive therapy. 2. Acute heart failure with reduced EF: He did not describe breathing difficulty. He was given some Lasix this morning. He did have some more edema this morning. 3. Ischemic cardiomyopathy: Plan as above. Optimize medical therapy. LV systolic function has declined, which may be due to recurrent VT as well. In the past his medical therapy has been discontinued due to orthostatic hypotension. We will discontinue nitroglycerin. 4. Mitral and aortic valve replacements: Bioprosthetic valves. Appear to be functionally appropriately on echo. SBE prophylaxis for dental procedures. 5. CAD s/p CABG x 1: Patient underwent coronary angiography yesterday including graft angiography. This was complicated by wire dissection of the ALANIZ to diagonal graft. This could not be salvaged. The patient has suffered an ischemic event as a result. Curiously, no chest pain. I suppose he is likely well collateralized given his known anatomy. We will continue aggressive secondary prevention. This would include continue beta-blockade and antic oagulation. 6. Permanent atrial fibrillation s/p AV rob ablation: On long-term anticoagulation therapy for stroke risk reduction. 7. Pulmonary hypertension: Chronic issue. Likely related to heart failure and interstitial lung disease. Admission and Anticipated Discharge Date Admission Date: February 26, 2022 Subjective I spoke with the patient in the presence of his this evening. For most of the day the patient was feeling well. He was transitioned to a chair at this afternoon and shortly after was noted to have initially couplets and ventricular ectopy followed by more sustained runs of ventricular tachycardia. The patient was brought back to bed and amiodarone was given. I saw him shortly after this intervention. Patient was aware of some palpitations but did not report lightheadedness or dizziness. He did not report symptoms of chest discomfort at all today. He did have some eructation and mild nausea. He reported being ambulatory to the bathroom without dizziness or chest pain. Review of Systems Review of Systems: Per HPI. Very anxious regarding his prognosis and repeat device therapies. Physical Exam Physical Exam: The patient is alert and oriented. Mood and affect appeared normal. He answered all questions appropriately. HEENT: Pupils are equal and reactive to light and accommodation. Extraocular movements are intact. The sclerae are anicteric. Neuro: Cranial nerves intact Lungs: normal respiratory effort Cardiac: Heart demonstrates a regular rate and rhythm. Pulses: The patient has palpable radial pulses bilaterally that are equal in intensity Extremities: There was no evidence of hypoperfusion. There is no cyanosis or clubbing. Good perfusion of the left hand. Skin: I did not appreciate any rashes on examination today. Couple ecchymoses. Results & Data ([facility]) Vital Signs (Past 12 Hours) Vital Signs Temp Pulse Pulse Resp BP BP Pulse Ox 03/03/22 15:57 36.4 C L 110 H 19 96/45 L 92 03/03/22 14:51 76 03/03/22 10:46 36.4 C L 74 19 104/59 L 97 03/03/22 07:38 36.4 C L 75 19 126/69 95 03/03/22 07:26 82 Laboratory Results Abnormal Lab Results 03/02/22 03/02/22 03/03/22 17:33 20:36 00:54 PT INR Sodium Potassium Chloride Carbon Dioxide Anion Gap BUN Creatinine Est Cr Clr Drug Dosing Est GFR ( Amer) Est GFR (Non-Af Amer) BUN/Creatinine Ratio Glucose POC Glucose 268 H Calcium Phosphorus Magnesium Troponin I High Sens 52.6 H* D 1227.5 H* D 03/03/22 03/03/22 03/03/22 02:59 02:59 06:58 PT 16.4 H INR 1.6 H Sodium 136 Potassium 4.3 Chloride 103 Carbon Dioxide 25 Anion Gap 8 BUN 54 H Creatinine 1.44 H Est Cr Clr Drug Dosing 44.2 Est GFR ( Amer) 52.4 Est GFR (Non-Af Amer) 45.2 BUN/Creatinine Ratio 37.5 H Glucose 152 H POC Glucose 161 H Calcium 8.8 Phosphorus 4.9 Magnesium 2.1 Troponin I High Sens 03/03/22 03/03/22 03/03/22 09:40 11:58 16:09 PT INR Sodium Potassium Chloride Carbon Dioxide Anion Gap BUN Creatinine Est Cr Clr Drug Dosing Est GFR ( Amer) Est GFR (Non-Af Amer) BUN/Creatinine Ratio Glucose POC Glucose 144 H 181 H Calcium Phosphorus Magnesium Troponin I High Sens 2926.2 H* D PG Care Time/CCT Total # of Minutes Spent Total Time Spent with Patient: Total time spent is greater than 50% in coordination of care (as documented) at patient's floor/unit and/or counseling patient: Coding Level of Care Code 20420 Subseq Hosp Care Lvl 3 Diagnoses Ventricular tachycardia I47.2 AICD discharge Z45.02 Acute HFrEF (heart failure with reduced ejection fraction) I50.21 Cardiomyopathy I42.9 Complete heart block I44.2 Biventricular automatic implantable cardioverter defibrillator in situ Z95.810 S/P MVR (mitral valve repair) Z98.890 S/P AVR Z95.2 Pulmonary hypertension I27.20 CAD (coronary artery disease) I25.10 Coronary Disease-Associated Artery/Lesion type: [place] artery [place] vs. transplanted heart: [place] heart Associated angina: without angina S/P CABG x 1 Z95.1 Atrial fibrillation, permanent I48.21 (1) CAD (coronary artery disease) Coronary Disease-Associated Artery/Lesion type: [place] artery [place] vs. transplanted heart: [place] heart Associated angina: without angina Qualified Code(s): I25.10 - Atherosclerotic heart disease of [place] coronary artery without angina pectoris
[2022-03-03] MEDS ORDERED: MAGNESIUM SULFATE / D5W 1 GM/100 ML BAG IV ONE (17:47)
[2022-03-03] MEDS: WARFARIN SOD 2.5 MG TAB PO SCH (17:58)
[2022-03-03] MEDS: ACETAMINOPHEN 325 MG TAB PO PRN (18:17)
[2022-03-03] MEDS ORDERED: HYDROmorphone INJ 2 MG/ML SYR/VIAL IV PRN (19:14)
--- NOTE | 2022-03-03 19:19 | Hospitalist Progress Note ---
Date of Service March 03, 2022 Assessment & Plan (1) AICD discharge: Plan: 81yo male with complex cardiac history to include CAD s/p CABG in 2013, placement of bioprosthetic aortic and mitral valves, PFO closure. Patient with history of Biventricular pacer/defibrillator in place secondary to cardiomyopathy ([employer]). Patient was seen at [facility] following multiple AICD discharges (5-6 at home then 4 in the ambulance en route to the hospital). He was given Amiodarone bolus and drip at [place] and was cardioverted x 2 (100 and 150J) for ventricular tachycardia. Patient requested to be transferred to [facility] in event that cardiac intervention was required. Additional arrhythmia en route and patient was shocked 4 more times (totaling 13-14 AICD discharges + synchronized cardioversion x 2) Ddx to include ischemic event, electrolyte derangement (low K and Mg) most likely contributing. Also with elevated BNP, ?decompensated failure -Admit to MICU -Continue Amiodarone gtt - 1mg/min x6 hours followed by 0.5mg/min. Of note, patient has Amiodarone listed as an allergy. He was previously on this medication but did not like how he felt on it therefore it was discontinued. He is not on any BB/CCB due to history of myasthenia gravis. -Electrolyte repletion -Cardiology consultation appreciated -Added beta mary. -No further AICD discharges this admission, patient in PCU. Patient will have cardiac cath on 03/02: Summary: 1. Iatrogenic ALANIZ to first diagonal dissection 2. Chronic subtotal mid first diagonal occlusion 3. Unsuccessful attempted repair of ALANIZ dissection due to inability to reenter true lumen. 4. Unsuccessful attempted PCI of mid diagonal due to inability to pass balloon across calcified stenosis/anastomosis. Final result: PARMINDER II antegrade flow in first diagonal. Chest pain-free. Recommendations: To PCU for continued monitoring No indication for further attempts at intervention at this time. Maximize medical management. If refractory exertional symptoms in the future PCI to [place] diagonal could be considered at tertiary center. No further ICD discharges today but given increased PVCs and short runs of NSVT on minimal exertion and even while resting in his chair we will put him back on bedrest and restarted on IV amiodarone 150mg IV bolus and drip. Mg > 2, K > 4. Magnet to be placed if his ICD has multiple firing to disable ICD and he is aware this would mean the end of his life. Initial dose of Dilaudid 2mg IV to be given only if magnet used and end of life anticipated and patient needing pain relief. He does not wish to disable the ICD at this time however. He agrees to DNR/DNI. (2) Cardiomyopathy: Plan: Appears to be euvolemic at the current time. Continue metoprolol succinate 50mg PO daily (3) Afib: Plan: History of atrial fibrillation. On Coumadin anticoagulation. INR subtherapeutic at 1.6 presently -Continue Coumadin - dosage confirmed with patient - 2.5mg po 6x weekly and 1.25mg on Monday - current in paced rhythm (4) Type 2 diabetes, controlled, with neuropathy: Plan: Patient on oral agents. Blood sugar 124. Last HgbA1C 11/30/21 = 6.7, since it has been 3 months will repeat with am labs -Hold oral agents -Lantus 5u BID, ISS -Goal blood sugar 110 - 180 (5) Hypothyroidism: Plan: Chronic -TSH 4.59 with normal free T4, unlikely contributory -Continue his usual dose of levothyroxine 75 mcg PO daily (6) Myasthenia gravis: Plan: Patient on chronic steroids. Has been decreased to 2.5mg daily -Continue Prednisone 2.5mg po daily -Low threshold for stress dosing if patient becomes hypotensive or shows evidence of adrenal insufficiency -Continue mycophenolate mofetil 1000mg po BID -Continue home Mestinon - ER 180mg po daily and 90mg TID (7) Interstitial lung disease: Plan: No cough, SOB or wheeze. Patient follows with Pulmonary. Last seen 01/10/22. Etiology of ILD is unclear. -Continue Prednisone for MG -Continue Budesonide/Formoterol BID, Albuterol and DuoNebs PRN -Patient was on Amiodarone in the past which was discontinued because he didn't like how he felt on it. Unfortunately no choice but to continue IV amiodarone currently. (8) CAD (coronary artery disease): Plan: s/p CABG performed in 2013. Patient with elevation of HS-troponin to 81.7. Now up to 2926.2 this morning post cardiac cath. Suspect secondary to cardiac cath ?HI at that time. -Continue ASA and Lovastatin (LDL 97) -Cardiology consultation appreciated (9) Hypertension: Plan: Blood pressure stable now -Continue to monitor (10) Hyperlipidemia: Plan: Chronic -Continue Lovastatin Plan: F/E/N - Heplock. Electrolyte repletion as above. T2DM, heart healthy diet Ppx - On Coumadin, continue Code - DNR/DNI. Patient with ICD in place and wishes to keep this active unless firing multiple times he would want magnet placed to de-activate given he has already had a catheterization at this time, he is on bedrest and IV amiodarone there is little reversibility. Dispo - Continue admission to MICU Admission and Anticipated Discharge Date Admission Date: February 26, 2022 Subjective Elevated troponin following cardiac catheterization however he denies any chest pain or shortness of breath. Sitting in the chair for the majority of the day but has not been up or mobile. Later in the afternoon he started having triplet PVCs very frequently. While moving him back to bed he had much longer runs of non sustained ventricular tachycardia but was not shocked. He was asymptomatic throughout this time. While lying back in bed the PVCs appeared to resolve. IV amiodarone 150mg bolus given and discussed case with Dr Martell on multiple occasions. Discussed DNR/DNI with the patient and he agreed not for chest compressions or intubation but would like to leave the ICD on at this time. However if it continuously shocks from his ICD overnight there are no real further interv entions to be done and wishes a magnet to be placed over his ICD site which will turn this off. Review of Systems Review of Systems: All systems reviewed & are unremarkable except as noted in Subjective Physical Exam Constitutional: WD/WN, vitals as above Respiratory: normal respiratory effort Auscultation: lungs clear to auscultation bilaterally Cardiovascular: Rate/Rhythm: regular rate and regular rhythm Heart Sounds: no murmur Vessels: no JVD Extremities: normal capillary refill; no pedal edema Gastrointestinal (Abdomen): Percussion/Palpation: abdomen soft; abdomen nontender Skin: no rashes, warm and dry Neurologic: moves all extremities and awake; not confused Psychiatric: A+Ox3, euthymic affect Results & Data Results & Data ([facility]) Vital Signs (Past 12 Hours) Vital Signs Temp Pulse Pulse Resp BP BP Pulse Ox 03/03/22 19:08 36.7 C 74 18 120/53 L 96 03/03/22 15:57 36.4 C L 110 H 19 96/45 L 92 03/03/22 14:51 76 03/03/22 10:46 36.4 C L 74 19 104/59 L 97 03/03/22 07:38 36.4 C L 75 19 126/69 95 03/03/22 07:26 82 PG Care Time/CCT Total # of Minutes Spent Total Time Spent with Patient: Total time spent is greater than 50% in coordination of care (as documented) at patient's floor/unit and/or counseling patient: Coding Level of Care Code 67441 Subseq Hosp Care Lvl 3 Diagnoses AICD discharge Z45.02 Cardiomyopathy I42.9 Afib I48.91 Type 2 diabetes, controlled, with neuropathy E11.40 Hypothyroidism E03.9 Myasthenia gravis G70.00 Interstitial lung disease J84.9 CAD (coronary artery disease) I25.10 Associated angina: without angina Coronary Disease-Associated Artery/Lesion type: [place] artery [place] vs. transplanted heart: [place] heart Hypertension I10 Hypertension type: essential hypertension Hyperlipidemia E78.5 (1) CAD (coronary artery disease) Associated angina: without angina Coronary Disease-Associated Artery/Lesion type: [place] artery [place] vs. transplanted heart: [place] heart Qualified Code(s): I25.10 - Atherosclerotic heart disease of [place] coronary artery without angina pectoris (2) Hypertension Hypertension type: essential hypertension Qualified Code(s): I10 - Essential (primary) hypertension
[2022-03-03] MEDS: AMIODARONE / D5W 360 MG/200 ML BAG IV SCH (21:47)
--- NOTE | 2022-03-03 21:56 | Communication Note ---
Date of Service: March 03, 2022 9:30 pm -- Notified by nursing staff that patient and patient's were concerned about the possibility of patient's AICD firing again. On my discussion with patient, patient states that he has had some time to think about conversations that occurred earlier today with both the assembler 1st shift and hospitalist. Patient states that he does not want additional aggressive therapies and that he does not want transfer to a tertiary care facility for further cardiac intervention. Patient states that he does not want to experience the AICD firing again and is aware that without AICD firing it would mean the end of his life. Patient notes that on discussion with hospitalist earlier today, he was not ready to disable the AICD but he would like the AICD disabled at this time. Patient confirms DNR/DNI status. He is resting comfortably in bed with his at bedside. Recommend continued bed rest. Patient has more family that en route from [place] to see him. Advised RN to place magnet over AICD at this time.
[2022-03-04] MEDS: LORazepam 2 MG/1 ML VIAL IV PRN ×2 (04:51→21:09)
[2022-03-04] MEDS: LEVOTHYROXINE SODIUM 75 MCG TABLET PO SCH (06:31)
[2022-03-04] MEDS: ACETAMINOPHEN 325 MG TAB PO PRN (06:36)
[2022-03-04 07:09] LABS: Hematocrit (blood only) 38.9 % (42-52); Hemoglobin 11.9 g/dL (14.0-18.0); Mean Corpuscular Hemoglobin 25.2 pg (25-34); Mean Corpuscular Hgb Conc 30.6 g/dL (32-36); Mean Corpuscular Volume 82.4 fL (80-100); Mean Platelet Volume 8.8 fL (7.4-10.4); Platelet Count 193 K/uL (130-400); RDW Coefficient of Variation 15.5 % (11.5-14.5); RDW Standard Deviation 45.9 fL (36.4-46.3); Red Blood Count 4.72 M/uL (4.7-6.1); White Blood Count 11.47 K/uL (4.8-10.8)
[2022-03-04 07:21] LABS: INR 1.7 (0.9-1.1); Prothrombin Time 17.5 Seconds (9.0-12.0)
[2022-03-04 07:38] LABS: BUN Creatinine Ratio 34.1 (10-20); Calcium 8.6 mg/dl (8.5-10.1); Creatinine Clr Calc Pharmacy 46.1 ml/min; Est GFR (African American) 55.2 ml/min; Est GFR (Non-African American) 47.6 ml/min; Magnesium 2.1 mg/dl (1.7-2.4); Potassium 3.6 mmol/L (3.5-5.1)
[2022-03-04 07:53] LABS: Immature Granulocytes # (auto) 0.06 K/uL (0.00-0.02); Immature Granulocytes % (auto) 0.5 %; Lymphocytes # (auto) 1.82 K/uL (1.2-3.4); Lymphocytes % (auto) 15.9 %; Monocytes # (auto) 0.68 K/uL (0.11-0.59); Monocytes % (auto) 5.9 %; Neutrophils # (auto) 8.91 K/uL (1.4-6.5); Neutrophils % (auto) 77.7 %
[2022-03-04] MEDS: FLUTICASONE/VILANTEROL 100/25MCG 14 PUFFS/INHALER INH SCH (09:41)
[2022-03-04] MEDS: IPRATROPIUM BROMIDE NASAL SPRAY 0.06% 15ML NAE SCH ×3 (09:42→21:22)
[2022-03-04] MEDS: MYCOPHENOLATE MOFETIL 250 MG CAP PO SCH ×2 (09:44→21:08)
[2022-03-04] MEDS: PYRIDOSTIGMINE SUSTAINED REL 180 MG TABCR PO SCH (09:44)
[2022-03-04] MEDS: FUROSEMIDE 40 MG TAB PO SCH (09:45)
[2022-03-04] MEDS: ASPIRIN 81 MG ECTAB PO SCH (09:45)
[2022-03-04] MEDS: METOPROLOL SUCC 50MG EXT REL TAB PO SCH (09:46)
[2022-03-04] MEDS: SPIRONOLACTONE 25 MG TAB PO SCH (09:46)
[2022-03-04] MEDS: INSULIN ASPART PER UNIT SC SCH ×4 (10:02→20:53)
[2022-03-04] MEDS: INSULIN GLARGINE SOLOSTAR 100 UNITS/ML 3 ML PEN SC SCH ×2 (10:03→21:09)
[2022-03-04] MEDS: AMIODARONE / D5W 360 MG/200 ML BAG IV SCH ×2 (10:25→22:39)
--- NOTE | 2022-03-04 11:23 | Cardiology Progress Note ---
Date of Service March 04, 2022 Assessment & Plan (1) Ventricular tachycardia: (2) AICD discharge: (3) Acute HFrEF (heart failure with reduced ejection fraction): (4) Cardiomyopathy: (5) Complete heart block: (6) Biventricular automatic implantable cardioverter defibrillator in situ: (7) S/P MVR (mitral valve repair): (8) S/P AVR: (9) Pulmonary hypertension: (10) CAD (coronary artery disease): (11) S/P CABG x 1: (12) Atrial fibrillation, permanent: Plan: ASSESSMENT/PLAN: 1. Ventricular tachycardia : No recurrent ventricular tachycardia overnight. The events of yesterday seemed to have been precipitated by more activity or at the very least being up in a chair. Since being back in bed he has really not had any additional episodes of ventricular tachycardia. Amiodarone infusion was also initiated. At this point I think we will continue the infusion for 36 hours and resume his oral therapy. I think we will need to liberalize his activity again today to see if we run into the same situation. 2. Acute heart failure with reduced EF: Continue to monitor. Did not describe much dyspnea yesterday. Currently resting comfortably in bed without orthopnea. 3. Ischemic cardiomyopathy: Will continue metoprolol and diuresis as needed. In the past he has had some difficulty with antihypertensives and orthostatic symptoms. Did not complain of dizziness yesterday. 4. Mitral and aortic valve replacements: Bioprosthetic valves. Appear to be functionally appropriately on echo. SBE prophylaxis for dental procedures. 5. CAD s/p CABG x 1: He did suffer a infarct subsequent to dissection of his ALANIZ to diagonal graft. Markers now downtrending. No symptoms of ischemia. Unclear if this has played a role in his recurrent ventricular tachycardia. Will continue warfarin and aspirin. Continue beta-mary. 6. Permanent atrial fibrillation s/p AV rob ablation: On long-term anticoagulation therapy for stroke risk reduction. 7. Pulmonary hypertension: Chronic issue. Likely related to heart failure and interstitial lung disease. It is unclear what the patient's wishes will be moving forward. He may be transitioning to comfort care and hospice based primarily on his wishes to avoid any additional defibrillator therapies. I could not asked the patient directly about reprogramming his device, but if that is his main concern of magnet is suboptimal in the device in simply be reprogrammed to deactivate therapies. Admission and Anticipated Discharge Date Admission Date: February 26, 2022 Subjective This morning the patient was sleeping after receiving some sedatives overnight. I did have discussion with the patient's and family who were present in his room. According to the family he has been very anxious about repeat therapies from his ICD. After an extensive discussion last night with several physicians and his family the patient requested magnet application to prevent any additional therapies from his device. He seems to have decided against any more aggressive therapy such as transfer to a tertiary care center for VT ablation. Review of Systems Review of Systems: Unobtainable due to reduced consciousness Physical Exam Physical Exam: The patient Was resting comfortably. Sleeping. Respiratory effort normal. Results & Data ([facility]) Vital Signs (Past 12 Hours) Vital Signs Temp Pulse Pulse Resp BP BP Pulse Ox 03/04/22 08:56 76 03/04/22 07:49 36.7 C 76 15 129/70 93 03/04/22 02:46 36.5 C 75 18 118/50 L 95 Laboratory Results Abnormal Lab Results 03/03/22 03/03/22 03/03/22 11:58 16:09 19:28 WBC RBC Hgb Hct MCV MCH MCHC RDW Std Deviation RDW Coeff of Jonathan Plt Count MPV Immature Gran % (Auto) Neut % (Auto) Lymph % (Auto) [place] % (Auto) Eos % (Auto) Baso % (Auto) Neut # (Auto) Lymph # (Auto) [place] # (Auto) Eos # (Auto) Baso # (Auto) Immature Gran # (Auto) PT INR Sodium Potassium Chloride Carbon Dioxide Anion Gap BUN Creatinine Est Cr Clr Drug Dosing Est GFR ( Amer) Est GFR (Non-Af Amer) BUN/Creatinine Ratio Glucose POC Glucose 144 H 181 H Calcium Magnesium Troponin I High Sens 2089.7 H* D 03/03/22 03/04/22 03/04/22 20:08 06:44 06:44 WBC 11.47 H RBC 4.72 Hgb 11.9 L Hct 38.9 L MCV 82.4 MCH 25.2 MCHC 30.6 L RDW Std Deviation 45.9 RDW Coeff of Jonathan 15.5 H Plt Count 193 MPV 8.8 Immature Gran % (Auto) 0.5 Neut % (Auto) 77.7 Lymph % (Auto) 15.9 [place] % (Auto) 5.9 Eos % (Auto) 0.0 Baso % (Auto) 0.0 Neut # (Auto) 8.91 H Lymph # (Auto) 1.82 [place] # (Auto) 0.68 H Eos # (Auto) 0.00 Baso # (Auto) 0.00 Immature Gran # (Auto) 0.06 H PT 17.5 H INR 1.7 H Sodium Potassium Chloride Carbon Dioxide Anion Gap BUN Creatinine Est Cr Clr Drug Dosing Est GFR ( Amer) Est GFR (Non-Af Amer) BUN/Creatinine Ratio Glucose POC Glucose 155 H Calcium Magnesium Troponin I High Sens 03/04/22 03/04/22 03/04/22 06:44 07:21 11:00 WBC RBC Hgb Hct MCV MCH MCHC RDW Std Deviation RDW Coeff of Jonathan Plt Count MPV Immature Gran % (Auto) Neut % (Auto) Lymph % (Auto) [place] % (Auto) Eos % (Auto) Baso % (Auto) Neut # (Auto) Lymph # (Auto) [place] # (Auto) Eos # (Auto) Baso # (Auto) Immature Gran # (Auto) PT INR Sodium 139 Potassium 3.6 Chloride 105 Carbon Dioxide 27 Anion Gap 7 BUN 47 H Creatinine 1.38 Est Cr Clr Drug Dosing 46.1 Est GFR ( Amer) 55.2 Est GFR (Non-Af Amer) 47.6 BUN/Creatinine Ratio 34.1 H Glucose 116 H POC Glucose 135 H 130 H Calcium 8.6 Magnesium 2.1 Troponin I High Sens PG Care Time/CCT Total # of Minutes Spent Total Time Spent with Patient: Total time spent is greater than 50% in coordination of care (as documented) at patient's floor/unit and/or counseling patient: Coding Level of Care Code 78958 Subseq Hosp Care Lvl 2 Diagnoses Ventricular tachycardia I47.2 AICD discharge Z45.02 Acute HFrEF (heart failure with reduced ejection fraction) I50.21 Cardiomyopathy I42.9 Complete heart block I44.2 Biventricular automatic implantable cardioverter defibrillator in situ Z95.810 S/P MVR (mitral valve repair) Z98.890 S/P AVR Z95.2 Pulmonary hypertension I27.20 CAD (coronary artery disease) I25.10 Coronary Disease-Associated Artery/Lesion type: [place] artery [place] vs. transplanted heart: [place] heart Associated angina: without angina S/P CABG x 1 Z95.1 Atrial fibrillation, permanent I48.21 (1) CAD (coronary artery disease) Coronary Disease-Associated Artery/Lesion type: [place] artery [place] vs. transplanted heart: [place] heart Associated angina: without angina Qualified Code(s): I25.10 - Atherosclerotic heart disease of [place] coronary artery withou t angina pectoris
--- NOTE | 2022-03-04 12:39 | Hospitalist Progress Note ---
Date of Service March 04, 2022 Assessment & Plan (1) AICD discharge: Plan: 81yo male with complex cardiac history to include CAD s/p CABG in 2013, placement of bioprosthetic aortic and mitral valves, PFO closure. Patient with history of Biventricular pacer/defibrillator in place secondary to cardiomyopathy ([employer]). Patient was seen at [facility] following multiple AICD discharges (5-6 at home then 4 in the ambulance en route to the hospital). He was given Amiodarone bolus and drip at [place] and was cardioverted x 2 (100 and 150J) for ventricular tachycardia. Patient requested to be transferred to [facility] in event that cardiac intervention was required. Additional arrhythmia en route and patient was shocked 4 more times (totaling 13-14 AICD discharges + synchronized cardioversion x 2) Ddx to include ischemic event, electrolyte derangement (low K and Mg) most likely contributing. Also with elevated BNP, ?decompensated failure -Admit to MICU -Continue Amiodarone gtt - 1mg/min x6 hours followed by 0.5mg/min. Of note, patient has Amiodarone listed as an allergy. He was previously on this medication but did not like how he felt on it therefore it was discontinued. He is not on any BB/CCB due to history of myasthenia gravis. -Electrolyte repletion -Cardiology consultation appreciated -Added beta mary. -No further AICD discharges this admission, patient in PCU. Patient will have cardiac cath on 03/02: Summary: 1. Iatrogenic ALANIZ to first diagonal dissection 2. Chronic subtotal mid first diagonal occlusion 3. Unsuccessful attempted repair of ALANIZ dissection due to inability to reenter true lumen. 4. Unsuccessful attempted PCI of mid diagonal due to inability to pass balloon across calcified stenosis/anastomosis. Final result: PARMINDER II antegrade flow in first diagonal. Chest pain-free. Recommendations: To PCU for continued monitoring No indication for further attempts at intervention at this time. Maximize medical management. If refractory exertional symptoms in the future PCI to [place] diagonal could be considered at tertiary center. ICD now turned off. No further significant PVC burden of NSVT on bedrest and IV amiodarone restart yesterday. Will try to get him up to chair tomorrow to see if reoccurs. If NSVT recurs consider stopping amiodarone and switching to comfort care while in hospital. (2) Cardiomyopathy: Plan: Appears to be euvolemic at the current time. Continue metoprolol succinate 50mg PO daily (3) Afib: Plan: History of atrial fibrillation. On Coumadin anticoagulation. INR subtherapeutic at 1.9 presently -Continue Coumadin - dosage confirmed with patient - 2.5mg po 6x weekly and 1.25mg on Monday - current in paced rhythm (4) Type 2 diabetes, controlled, with neuropathy: Plan: Patient on oral agents. Blood sugar 124. Last HgbA1C 11/30/21 = 6.7, since it has been 3 months will repeat with am labs -Hold oral agents -Lantus 5u BID, ISS -Goal blood sugar 110 - 180 (5) Hypothyroidism: Plan: Chronic -TSH 4.59 with normal free T4, unlikely contributory -Continue his usual dose of levothyroxine 75 mcg PO daily (6) Myasthenia gravis: Plan: Patient on chronic steroids. Has been decreased to 2.5mg daily -Continue Prednisone 2.5mg po daily -Low threshold for stress dosing if patient becomes hypotensive or shows evidence of adrenal insufficiency -Continue mycophenolate mofetil 1000mg po BID -Continue home Mestinon - ER 180mg po daily and 90mg TID (7) Interstitial lung disease: Plan: No cough, SOB or wheeze. Patient follows with Pulmonary. Last seen 01/10/22. Etiology of ILD is unclear. -Continue Prednisone for MG -Continue Budesonide/Formoterol BID, Albuterol and DuoNebs PRN -Patient was on Amiodarone in the past which was discontinued because he didn't like how he felt on it. Unfortunately no choice but to continue IV amiodarone currently. (8) CAD (coronary artery disease): Plan: s/p CABG performed in 2013. Patient with elevation of HS-troponin to 81.7. Now up to 2926.2 this morning post cardiac cath. Suspect secondary to cardiac cath ?[place] at that time. -Continue ASA and Lovastatin (LDL 97) -Cardiology consultation appreciated (9) Hypertension: Plan: Blood pressure stable now -Continue to monitor (10) Hyperlipidemia: Plan: Chronic -Continue Lovastatin Plan: F/E/N - [place]. Electrolyte repletion as above. T2DM, heart healthy diet Ppx - On Coumadin, continue Code - DNR/DNI. Patient with ICD in place and wishes to keep this active unless firing multiple times he would want magnet placed to de-activate given he has already had a catheterization at this time, he is on bedrest and IV amiodarone there is little reversibility. Dispo - Continue admission to MICU Admission and Anticipated Discharge Date Admission Date: February 26, 2022 Subjective No further NSVT or significant PVC burden. Patient however appears to be very resigned to and is depressed and not eating. Magnet placed over ICD last night and defibrillator will be turned off by cardiology today. I explained that with the amiodarone is not necessarily imminent, we would only know once we get him up and moving again. Now he is further out from the cardiac cath it is not guaranteed he will have further NSVT or a cardiac arrest. He appeared to improve his eating and drinking throughout the day. Willing to try and get up to chair tomorrow to see if NSVT returns - if it does he is likely to withdraw care at that time but willing to see if the time from cardiac cath and IV amiodarone gives him enough stability to return home on hospice. Discussed care with Dr Martell throughout the day. Review of Systems Review of Systems: All systems reviewed & are unremarkable except as noted in Subjective Physical Exam Constitutional: well developed; + not well nourished and no acute distress Respiratory: normal respiratory effort Auscultation: lungs clear to auscultation bilaterally Cardiovascular: Rate/Rhythm: regular rate and regular rhythm Heart Sounds: no murmur Vessels: no JVD Extremities: normal capillary refill; no pedal edema Gastrointestinal (Abdomen): Percussion/Palpation: abdomen soft; abdomen nontender Skin: no rashes, warm and dry Neurologic: moves all extremities and awake; not confused Psychiatric: A+Ox3, euthymic affect Results & Data Results & Data ([facility]) Vital Signs (Past 12 Hours) Vital Signs Temp Pulse Pulse Resp BP BP Pulse Ox 03/04/22 11:39 36.4 C L 87 15 127/68 98 03/04/22 08:56 76 03/04/22 07:49 36.7 C 76 15 129/70 93 03/04/22 02:46 36.5 C 75 18 118/50 L 95 PG Care Time/CCT Total # of Minutes Spent Total Time Spent with Patient: Total time spent is greater than 50% in coordination of care (as documented) at patient's floor/unit and/or counseling patient: Coding Level of Care Code 76737 Subseq Hosp Care Lvl 3 Diagnoses AICD discharge Z45.02 Cardiomyopathy I42.9 Afib I48.91 Type 2 diabetes, controlled, with neuropathy E11.40 Hypothyroidism E03.9 Myasthenia gravis G70.00 Interstitial lung disease J84.9 CAD (coronary artery disease) I25.10 Associated angina: without angina Coronary Disease-Associated Artery/Lesion type: [place] artery [place] vs. transplanted heart: [place] heart Hypertension I10 Hypertension type: essential hypertension Hyperlipidemia E78.5 (1) CAD (coronary artery disease) Associated angina: without angina Coronary Disease-Associated Artery/Lesion type: [place] artery [place] vs. transplanted heart: [place] heart Qualified Code(s): I25.10 - Atherosclerotic heart disease of [place] coronary artery without angina pectoris (2) Hypertension Hypertension type: essential hypertension Qualified Code(s): I10 - Essential (primary) hypertension
--- NOTE | 2022-03-04 14:35 | Electrocardiogram Report ---
Test Reason : Blood Pressure : / mmHG Vent. Rate : 075 BPM Atrial Rate : 272 BPM P-R Int : 000 ms QRS Dur : 196 ms QT Int : 500 ms P-R-T Axes : 000 -77 083 degrees QTc Int : 558 ms Ventricular-paced rhythm Abnormal ECG When compared with ECG of 26-FEB-2022 04:58, No significant change was found Confirmed by Shun Gutierrez ([id number]) on 03/04/2022 2:34:51 PM Referred By: REFERRED SELF Confirmed By:Shun Gutierrez
[2022-03-04] MEDS ORDERED: WARFARIN SOD 1.25 MG TAB PO SCH (16:00)
--- NOTE | 2022-03-04 16:54 | Electrocardiogram Report ---
Test Reason : Blood Pressure : / mmHG Vent. Rate : 076 BPM Atrial Rate : 267 BPM P-R Int : 000 ms QRS Dur : 194 ms QT Int : 496 ms P-R-T Axes : 000 -72 101 degrees QTc Int : 558 ms Ventricular-paced rhythm Abnormal ECG When compared with ECG of 02-MAR-2022 16:44, No significant change was found Confirmed by Shun Gutierrez ([id number]) on 03/04/2022 4:53:28 PM Referred By: REFERRED SELF Confirmed By:Shun Gutierrez
--- NOTE | 2022-03-04 16:57 | Electrocardiogram Report ---
Test Reason : Blood Pressure : / mmHG Vent. Rate : 075 BPM Atrial Rate : 277 BPM P-R Int : 000 ms QRS Dur : 196 ms QT Int : 490 ms P-R-T Axes : 000 -81 089 degrees QTc Int : 547 ms Ventricular-paced rhythm Abnormal ECG When compared with ECG of 03-MAR-2022 03:14, No significant change was found Confirmed by Shun Gutierrez ([id number]) on 03/04/2022 4:57:01 PM Referred By: REFERRED SELF Confirmed By:Shun Gutierrez
[2022-03-04] MEDS: WARFARIN SOD 2.5 MG TAB PO SCH (17:18)
[2022-03-04] MEDS: ALBUT/IPRATROP 3MG/0.5MG NEB 3 ML VIAL INH PRN (19:52)
[2022-03-05] MEDS: LEVOTHYROXINE SODIUM 75 MCG TABLET PO SCH (05:50)
[2022-03-05 07:19] LABS: BUN Creatinine Ratio 26.4 (10-20); Calcium 8.3 mg/dl (8.5-10.1); Creatinine Clr Calc Pharmacy 50.4 ml/min; Est GFR (African American) 62.2 ml/min; Est GFR (Non-African American) 53.7 ml/min; Potassium 3.6 mmol/L (3.5-5.1)
[2022-03-05] MEDS: ACETAMINOPHEN 325 MG TAB PO PRN ×2 (07:45→20:04)
[2022-03-05] MEDS: PYRIDOSTIGMINE SUSTAINED REL 180 MG TABCR PO SCH (07:46)
[2022-03-05] MEDS: MYCOPHENOLATE MOFETIL 250 MG CAP PO SCH ×2 (07:47→21:19)
[2022-03-05] MEDS: IPRATROPIUM BROMIDE NASAL SPRAY 0.06% 15ML NAE SCH ×2 (07:48→20:04)
[2022-03-05] MEDS: METOPROLOL SUCC 50MG EXT REL TAB PO SCH (07:48)
[2022-03-05] MEDS: FUROSEMIDE 40 MG TAB PO SCH (07:49)
[2022-03-05] MEDS: ASPIRIN 81 MG ECTAB PO SCH (07:49)
[2022-03-05] MEDS: FLUTICASONE/VILANTEROL 100/25MCG 14 PUFFS/INHALER INH SCH (07:49)
[2022-03-05] MEDS: SPIRONOLACTONE 25 MG TAB PO SCH (07:50)
[2022-03-05] MEDS: INSULIN GLARGINE SOLOSTAR 100 UNITS/ML 3 ML PEN SC SCH ×2 (09:30→21:20)
[2022-03-05] MEDS: INSULIN ASPART PER UNIT SC SCH ×4 (09:31→20:55)
[2022-03-05 10:03] LABS: Albumin Level 2.9 gm/dl (3.4-5.0); Bilirubin Direct 0.8 mg/dl (0-0.2); Bilirubin,Total 1.8 mg/dl (0.2-1.0); Total Protein 5.2 gm/dl (6.0-8.3)
[2022-03-05] MEDS: AMIODARONE / D5W 360 MG/200 ML BAG IV SCH ×2 (11:29→22:14)
--- NOTE | 2022-03-05 12:49 | Hospitalist Progress Note ---
Date of Service March 05, 2022 Assessment & Plan (1) AICD discharge: Plan: 81yo male with complex cardiac history to include CAD s/p CABG in 2013, placement of bioprosthetic aortic and mitral valves, PFO closure. Patient with history of Biventricular pacer/defibrillator in place secondary to cardiomyopathy ([employer]). Patient was seen at [facility] following multiple AICD discharges (5-6 at home then 4 in the ambulance en route to the hospital). He was given Amiodarone bolus and drip at [place] and was cardioverted x 2 (100 and 150J) for ventricular tachycardia. Patient requested to be transferred to [facility] in event that cardiac intervention was required. Additional arrhythmia en route and patient was shocked 4 more times (totaling 13-14 AICD discharges + synchronized cardioversion x 2). Presently does not want any further ICD discharges or other rescussictation. - Continue amiodarone gtt - Cardiology consultation appreciated - Added beta mary. - No further AICD discharges this admission, patient in PCU. Cardiac cath on 03/02: Summary: 1. Iatrogenic ALANIZ to first diagonal dissection 2. Chronic subtotal mid first diagonal occlusion 3. Unsuccessful attempted repair of ALANIZ dissection due to inability to reenter true lumen. 4. Unsuccessful attempted PCI of mid diagonal due to inability to pass balloon across calcified stenosis/anastomosis. Final result: PARMINDER II antegrade flow in first diagonal. Chest pain-free. ICD now turned off. No further significant PVC burden of NSVT on bedrest and IV amiodarone. Speaking with patient and family re: wishes. (2) Cardiomyopathy: Plan: Appears to be euvolemic at the current time. - Continue metoprolol succinate 50mg PO daily (3) Afib: Plan: History of atrial fibrillation. On Coumadin anticoagulation. - Continue Coumadin - dosage confirmed with patient - 2.5mg po 6x weekly and 1.25mg on Monday - Current in paced rhythm (4) Type 2 diabetes, controlled, with neuropathy: Plan: Patient on oral agents. Last A1c on 11/30/21 was 6.7%. - Hold oral agents - Lantus 5u BID, ISS - Goal blood sugar 110 - 180 (5) Hypothyroidism: Plan: Chronic. TSH 4.59 with normal free T4. - Continue his usual dose of levothyroxine 75 mcg PO daily (6) Myasthenia gravis: Plan: Patient on chronic steroids. Has been decreased to 2.5mg daily. - Continue Prednisone 2.5mg po daily - Low threshold for stress dosing if patient becomes hypotensive or shows evidence of adrenal insufficiency - Continue mycophenolate mofetil 1000mg po BID - Continue home Mestinon - ER 180mg po daily and 90mg TID (7) Interstitial lung disease: Plan: No cough, SOB or wheeze. Patient follows with pulmonary. Last seen 01/10/22. Etiology of ILD is unclear. - Continue Prednisone for MG - Continue Budesonide/Formoterol BID, Albuterol and DuoNebs PRN - Patient was on amiodarone in the past which was discontinued because he didn't like how he felt on it. Unfortunately no choice but to continue IV amiodarone currently. (8) CAD (coronary artery disease): Plan: S/p CABG performed in 2013. Patient with elevation of HS-troponin to 81.7. Now up to 2926.2 this morning post cardiac cath. Suspect secondary to cardiac cath ?[place] at that time. - Continue ASA and Lovastatin (LDL 97) - Cardiology consultation appreciated (9) Hypertension: Plan: Blood pressure stable now. - Continue to monitor (10) Hyperlipidemia: Plan: Chronic. - Continue lovastatin Plan: Code - DNR/DNI. Patient with ICD in place and wishes to keep this active unless firing multiple times he would want magnet placed to de-activate given he has already had a catheterization at this time, he is on bedrest and IV amiodarone there is little reversibility. Admission and Anticipated Discharge Date Admission Date: February 26, 2022 Subjective Discouraged somewhat. Reports no fevers/chills, chest pain, shortness of breath, abdominal pain, nausea, or vomiting. Physical Exam Constitutional: WD/WN, vitals as above Eyes: EOM intact bilaterally; no conjunctival abnormality ENMT: external ear and nose normal, oropharynx normal Neck: trachea midline, no thyromegaly normal visual inspection Respiratory: normal respiratory effort, lungs clear to auscultation no respiratory distress Cardiovascular: RRR, no murmur, no edema Gastrointestinal (Abdomen): Inspection/Auscultation: abdomen normal to inspection; abdomen not distended Musculoskeletal: no cyanosis or clubbing, extremities motor strength 5/5 Skin: no rashes, warm and dry Neurologic: moves all extremities and awake Psychiatric: Orientation: alert, oriented to person and cooperative Results & Data Results & Data ([facility]) Vital Signs (Past 12 Hours) Vital Signs Temp Pulse Pulse Resp BP Pulse Ox 03/05/22 11:40 36.6 C 74 20 124/66 98 03/05/22 07:29 36.9 C 74 18 111/57 L 97 03/05/22 07:12 75 03/05/22 03:51 36.4 C L 73 18 125/70 100 PG Care Time/CCT Total # of Minutes Spent Total Time Spent with Patient: Total time spent is greater than 50% in coordination of care (as documented) at patient's floor/unit and/or counseling patient: Coding Level of Care Code 61212 Subseq Hosp Care Lvl 3 Diagnoses AICD discharge Z45.02 Cardiomyopathy I42.9 Afib I48.91 Type 2 diabetes, controlled, with neuropathy E11.40 Hypothyroidism E03.9 Myasthenia gravis G70.00 Interstitial lung disease J84.9 CAD (coronary artery disease) I25.10 Associated angina: without angina Coronary Disease-Associated Artery/Lesion type: [place] artery [place] vs. transplanted heart: [place] heart Hypertension I10 Hypertension type: essential hypertension Hyperlipidemia E78.5 (1) CAD (coronary artery disease) Associated angina: without angina Coronary Disease-Associated Artery/Lesion type: [place] artery [place] vs. transplanted heart: [place] heart Qualified Code(s): I25.10 - Atherosclerotic heart disease of [place] coronary artery without angina pectoris (2) Hypertension Hypertension type: essential hypertension Qualified Code(s): I10 - Essential (primary) hypertension
[2022-03-05] MEDS: LORazepam 2 MG/1 ML VIAL IV PRN ×2 (13:18→21:20)
[2022-03-05] MEDS: WARFARIN SOD 2.5 MG TAB PO SCH (16:42)
[2022-03-05] MEDS: ALBUT/IPRATROP 3MG/0.5MG NEB 3 ML VIAL INH PRN (18:24)
[2022-03-06] MEDS: LORazepam 2 MG/1 ML VIAL IV PRN ×3 (03:15→23:09)
[2022-03-06] MEDS: LEVOTHYROXINE SODIUM 75 MCG TABLET PO SCH (06:08)
[2022-03-06] MEDS: FLUTICASONE/VILANTEROL 100/25MCG 14 PUFFS/INHALER INH SCH (08:24)
[2022-03-06] MEDS: MYCOPHENOLATE MOFETIL 250 MG CAP PO SCH ×2 (08:25→20:11)
[2022-03-06] MEDS: ASPIRIN 81 MG ECTAB PO SCH (08:25)
[2022-03-06] MEDS: FUROSEMIDE 40 MG TAB PO SCH (08:27)
[2022-03-06] MEDS: METOPROLOL SUCC 50MG EXT REL TAB PO SCH (08:28)
[2022-03-06] MEDS: IPRATROPIUM BROMIDE NASAL SPRAY 0.06% 15ML NAE SCH ×2 (08:28→21:01)
[2022-03-06] MEDS: LOVASTATIN 20 MG TAB PO SCH (08:28)
[2022-03-06] MEDS: PYRIDOSTIGMINE SUSTAINED REL 180 MG TABCR PO SCH (08:29)
[2022-03-06] MEDS: SPIRONOLACTONE 25 MG TAB PO SCH (08:29)
[2022-03-06] MEDS: INSULIN ASPART PER UNIT SC SCH ×4 (09:09→20:49)
[2022-03-06] MEDS: INSULIN GLARGINE SOLOSTAR 100 UNITS/ML 3 ML PEN SC SCH ×2 (09:09→20:50)
[2022-03-06] MEDS: AMIODARONE / D5W 360 MG/200 ML BAG IV SCH ×2 (10:18→22:29)
--- NOTE | 2022-03-06 11:51 | XRay Report ---
XR chest 1V portable HISTORY: Cough. Concern for aspiration COMPARISON: Chest 02/26/2022. FINDINGS: No pneumothorax. The heart remains enlarged. There is interstitial/vascular thickening cons istent with mild pulmonary edema. This is similar to the prior study. Trace bilateral pleural effusio ns are again noted. There is a left-sided pacemaker and poststernotomy changes. Cervical spinal fusio n hardware is again noted. Slight improved aeration within the right upper lobe compared to the prior study. No new focal lung consolidations. Stable bibasilar densities favoring atelectasis. IMPRESSION: Cardiomegaly, trace bilateral pleural effusions, and mild interstitial pulmonary edema. This is simil ar to the prior study. ACT 112: Negative or not required by law. Electronically signed by: Flaco Larson M.D. 03/06/2022 11:50 AM
--- NOTE | 2022-03-06 13:08 | Hospitalist Progress Note ---
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 Patient with history of Biventricular pacer/defibrillator in place secondary to cardiomyopathy ([employer]). Patient was seen at [facility] following multiple AICD discharges (5-6 at home then 4 in the ambulance en route to the hospital). He was given Amiodarone bolus and drip at [place] and was cardioverted x 2 (100 and 150J) for ventricular tachycardia. Patient requested to be transferred to [facility] in event that cardiac intervention was required. Additional arrhythmia en route and patient was shocked 4 more times (totaling 13-14 AICD discharges + synchronized cardioversion x 2). Presently does not want any further ICD discharges or other rescussictation. - Continue amiodarone gtt - Cardiology consultation appreciated - Added beta mary. - No further AICD discharges this admission, patient in PCU. Cardiac cath on 03/02: Summary: 1. Iatrogenic ALANIZ to first diagonal dissection 2. Chronic subtotal mid first diagonal occlusion 3. Unsuccessful attempted repair of ALANIZ dissection due to inability to reenter true lumen. 4. Unsuccessful attempted PCI of mid diagonal due to inability to pass balloon across calcified stenosis/anastomosis. Final result: PARMINDER II antegrade flow in first diagonal. Chest pain-free. ICD now turned off. No further significant PVC burden of NSVT on bedrest and IV amiodarone. Plan to continue IV amiodarone until tomorrow morning. Transition to oral at that time. If stable over 24 hours, then plan for home with hospice. (2) Cardiomyopathy: Plan: Appears to be euvolemic at the current time. - Continue metoprolol succinate 50mg PO daily (3) Afib: Plan: History of atrial fibrillation. On Coumadin anticoagulation. - Continue Coumadin - dosage confirmed with patient - 2.5mg po 6x weekly and 1.25mg on Monday - Current in paced rhythm (4) Type 2 diabetes, controlled, with neuropathy: Plan: Patient on oral agents. Last A1c on 11/30/21 was 6.7%. - Hold oral agents - Lantus 5u BID, ISS -> Last 24 hours, BSs have been 110 - 200. Acceptable given clinical situation. (5) Hypothyroidism: Plan: Chronic. TSH 4.59 with normal free T4. - Continue his usual dose of levothyroxine 75 mcg PO daily (6) Myasthenia gravis: Plan: Patient on chronic steroids. Has been decreased to 2.5mg daily. - Continue Prednisone 2.5mg po daily - Low threshold for stress dosing if patient becomes hypotensive or shows evidence of adrenal insufficiency - Continue mycophenolate mofetil 1000mg po BID - Continue home Mestinon - ER 180mg po daily and 90mg TID (7) Interstitial lung disease: Plan: No cough, SOB or wheeze. Patient follows with pulmonary. Last seen 01/10/22. Etiology of ILD is unclear. - Continue Prednisone for MG - Continue Budesonide/Formoterol BID, Albuterol and DuoNebs PRN - Patient was on amiodarone in the past which was discontinued because he didn't like how he felt on it. Unfortunately no choice but to continue IV amiodarone currently. (8) CAD (coronary artery disease): Plan: S/p CABG performed in 2013. Patient with elevation of HS-troponin to 81.7. Now up to 2926.2 this morning post cardiac cath. Suspect secondary to cardiac cath ?[place] at that time. - Continue ASA and Lovastatin (LDL 97) - Cardiology consultation appreciated (9) Hypertension: Plan: Blood pressure stable now. - Continue to monitor (10) Hyperlipidemia: Plan: Chronic. - Continue lovastatin Plan: Code - DNR/DNI. ICD deactivated. If he would go into VT, we would let him pass away. Admission and Anticipated Discharge Date Admission Date: February 26, 2022 Subjective Doing well today. No runs of NSVT overnight. He notes some coughing when he eats and continued anxiety, but other stable. Reports no fevers/chills, chest pain, shortness of breath, abdominal pain, nausea, or vomiting. Physical Exam Constitutional: WD/WN, vitals as above Eyes: EOM intact bilaterally; no conjunctival abnormality ENMT: external ear and nose normal, oropharynx normal Neck: trachea midline, no thyromegaly normal visual inspection Respiratory: normal respiratory effort, lungs clear to auscultation no respiratory distress Cardiovascular: RRR, no murmur, no edema Gastrointestinal (Abdomen): Inspection/Auscultation: abdomen normal to inspection; abdomen not distended Musculoskeletal: no cyanosis or clubbing, extremities motor strength 5/5 Skin: no rashes, warm and dry Neurologic: moves all extremities and awake Psychiatric: Orientation: alert, oriented to person and cooperative Results & Data Results & Data ([facility]) Vital Signs (Past 12 Hours) Vital Signs Temp Pulse Resp BP BP Pulse Ox 03/06/22 12:14 37 C 74 18 107/65 96 03/06/22 08:00 36.7 C 96 H 18 118/67 96 03/06/22 02:47 36.6 C 73 18 127/68 98 PG Care Time/CCT Total # of Minutes Spent Total Time Spent with Patient: Total time spent is greater than 50% in coordination of care (as documented) at patient's floor/unit and/or counseling patient: Coding Level of Care Code 99196 Subseq Hosp Care Lvl 2 Diagnoses AICD discharge Z45.02 Cardiomyopathy I42.9 Afib I48.91 Type 2 diabetes, controlled, with neuropathy E11.40 Hypothyroidism E03.9 Myasthenia gravis G70.00 Interstitial lung disease J84.9 CAD (coronary artery disease) I25.10 Coronary Disease-Associated Artery/Lesion type: [place] artery [place] vs. transplanted heart: [place] heart Associated angina: without angina Hypertension I10 Hypertension type: essential hypertension Hyperlipidemia E78.5 (1) CAD (coronary artery disease) Coronary Disease-Associated Artery/Lesion type: [place] artery [place] vs. transplanted heart: [place] heart Associated angina: without angina Qualified Code(s): I25.10 - Atherosclerotic heart disease of [place] coronary artery without angina pectoris (2) Hypertension Hypertension type: essential hypertension Qualified Code(s): I10 - Essential (primary) hypertension
[2022-03-06] MEDS: ACETAMINOPHEN 325 MG TAB PO PRN ×2 (16:01→20:09)
[2022-03-06] MEDS: WARFARIN SOD 2.5 MG TAB PO SCH (16:01)
[2022-03-06] MEDS: ALBUT/IPRATROP 3MG/0.5MG NEB 3 ML VIAL INH PRN (17:20)
[2022-03-07] MEDS: LEVOTHYROXINE SODIUM 75 MCG TABLET PO SCH (05:54)
[2022-03-07 06:28] LABS: Hematocrit (blood only) 39.2 % (42-52); Mean Corpuscular Hgb Conc 30.6 g/dL (32-36); Mean Platelet Volume 9.1 fL (7.4-10.4); Platelet Count 154 K/uL (130-400); RDW Coefficient of Variation 15.4 % (11.5-14.5); RDW Standard Deviation 47.9 fL (36.4-46.3); Red Blood Count 4.61 M/uL (4.7-6.1); White Blood Count 10.09 K/uL (4.8-10.8)
[2022-03-07 06:54] LABS: Albumin Globulin Ratio 1.4 (0.9-2); BUN Creatinine Ratio 19.1 (10-20); Bilirubin,Total 1.6 mg/dl (0.2-1.0); Calcium 8.2 mg/dl (8.5-10.1); Creatinine Clr Calc Pharmacy 46.8 ml/min; Est GFR (African American) 56.2 ml/min; Est GFR (Non-African American) 48.5 ml/min; Globulin 2.2 gm/dl (2.5-4.0); Magnesium 1.7 mg/dl (1.7-2.4); Potassium 3.8 mmol/L (3.5-5.1); Total Protein 5.2 gm/dl (6.0-8.3)
[2022-03-07 07:02] LABS: INR 3.5 (0.9-1.1); Prothrombin Time 34.9 Seconds (9.0-12.0)
[2022-03-07] MEDS: INSULIN ASPART PER UNIT SC SCH ×4 (09:04→21:29)
[2022-03-07] MEDS: SPIRONOLACTONE 25 MG TAB PO SCH (09:11)
[2022-03-07] MEDS: MYCOPHENOLATE MOFETIL 250 MG CAP PO SCH ×2 (09:11→21:30)
[2022-03-07] MEDS: METOPROLOL SUCC 50MG EXT REL TAB PO SCH (09:11)
[2022-03-07] MEDS: FUROSEMIDE 40 MG TAB PO SCH (09:12)
[2022-03-07] MEDS: IPRATROPIUM BROMIDE NASAL SPRAY 0.06% 15ML NAE SCH ×2 (09:12→21:30)
[2022-03-07] MEDS: FLUTICASONE/VILANTEROL 100/25MCG 14 PUFFS/INHALER INH SCH (09:12)
[2022-03-07] MEDS: ASPIRIN 81 MG ECTAB PO SCH (09:12)
[2022-03-07] MEDS: PYRIDOSTIGMINE SUSTAINED REL 180 MG TABCR PO SCH (09:13)
[2022-03-07] MEDS: INSULIN GLARGINE SOLOSTAR 100 UNITS/ML 3 ML PEN SC SCH ×2 (09:14→21:30)
[2022-03-07] MEDS: AMIODARONE 200 MG TAB PO SCH ×2 (10:49→17:48)
--- NOTE | 2022-03-07 12:17 | Hospitalist Progress Note ---
Date of Service March 07, 2022 Assessment & Plan (1) AICD discharge: Plan: 81yo male with complex cardiac history to include CAD s/p CABG in 2013, placement of bioprosthetic aortic and mitral valves, PFO closure. Patient with history of Biventricular pacer/defibrillator in place secondary to cardiomyopathy ([employer]). Patient was seen at [facility] following multiple AICD discharges (5-6 at home then 4 in the ambulance en route to the hospital). He was given Amiodarone bolus and drip at [place] and was cardioverted x 2 (100 and 150J) for ventricular tachycardia. Patient requested to be transferred to [facility] in event that cardiac intervention was required. Additional arrhythmia en route and patient was shocked 4 more times (totaling 13-14 AICD discharges + synchronized cardioversion x 2). Presently does not want any further ICD discharges or other rescussictation. - Continue amiodarone gtt - Cardiology consultation appreciated - Added beta mary. - No further AICD discharges this admission, patient in PCU. Cardiac cath on 03/02: Summary: 1. Iatrogenic ALANIZ to first diagonal dissection 2. Chronic subtotal mid first diagonal occlusion 3. Unsuccessful attempted repair of ALANIZ dissection due to inability to reenter true lumen. 4. Unsuccessful attempted PCI of mid diagonal due to inability to pass balloon across calcified stenosis/anastomosis. Final result: PARMINDER II antegrade flow in first diagonal. Chest pain-free. ICD now turned off. No further significant PVC burden of NSVT on bedrest and IV amiodarone. Transition to oral at that time. If stable over 24 hours, then plan for home with hospice. CM working on this. (2) Cardiomyopathy: Plan: Appears to be euvolemic at the current time. - Continue metoprolol succinate 50mg PO daily (3) Afib: Plan: History of atrial fibrillation. On Coumadin anticoagulation. - Continue Coumadin - Held today as INR is up to 3.5. Will likely need lower dose on discharge. - Current in paced rhythm (4) Type 2 diabetes, controlled, with neuropathy: Plan: Patient on oral agents. Last A1c on 11/30/21 was 6.7%. - Hold oral agents - Lantus 5u BID, ISS -> Last 24 hours, BSs have been 100 - 190. Acceptable given clinical situation. (5) Hypothyroidism: Plan: Chronic. TSH 4.59 with normal free T4. - Continue his usual dose of levothyroxine 75 mcg PO daily (6) Myasthenia gravis: Plan: Patient on chronic steroids. Has been decreased to 2.5mg daily. - Continue Prednisone 2.5mg po daily - Continue mycophenolate mofetil 1000mg po BID - Continue home Mestinon - ER 180mg po daily and 90mg TID (7) Interstitial lung disease: Plan: No cough, SOB or wheeze. Patient follows with pulmonary. Last seen 01/10/22. Etiology of ILD is unclear. - Continue Prednisone for MG - Continue Budesonide/Formoterol BID, Albuterol and DuoNebs PRN - Patient was on amiodarone in the past which was discontinued because he didn't like how he felt on it. Unfortunately no choice but to continue amiodarone currently. (8) CAD (coronary artery disease): Plan: S/p CABG performed in 2013. Patient with elevation of HS-troponin to 81.7. Now up to 2926.2 this morning post cardiac cath. Suspect secondary to cardiac cath ?[place] at that time. - Continue ASA and Lovastatin - Cardiology consultation appreciated (9) Hypertension: Plan: Blood pressure stable now. BP is 105/65 today. - Continue to monitor (10) Hyperlipidemia: Plan: Chronic. - Continue lovastatin Plan: Code - DNR/DNI. ICD deactivated. If he would go into VT, we would let him pass away. Admission and Anticipated Discharge Date Admission Date: February 26, 2022 Subjective Doing well today. Quiet night. No major issues today. Willing and ready to transition to oral amiodarone and will attempt to get out of bed some. Reports no fevers/chills, chest pain, shortness of breath, abdominal pain, nausea, or vomiting. Physical Exam Constitutional: WD/WN, vitals as above Eyes: EOM intact bilaterally; no conjunctival abnormality ENMT: external ear and nose normal, oropharynx normal Neck: trachea midline, no thyromegaly normal visual inspection Respiratory: normal respiratory effort, lungs clear to auscultation no respiratory distress Cardiovascular: RRR, no murmur, no edema Gastrointestinal (Abdomen): Inspection/Auscultation: abdomen normal to inspection; abdomen not distended Musculoskeletal: no cyanosis or clubbing, extremities motor strength 5/5 Skin: no rashes, warm and dry Neurologic: moves all extremities and awake Psychiatric: Orientation: alert, oriented to person and cooperative Results & Data Results & Data ([facility]) Vital Signs (Past 12 Hours) Vital Signs Temp Pulse Pulse Resp BP BP Pulse Ox 03/07/22 12:04 36.4 C L 75 16 105/64 100 03/07/22 08:31 36.8 C 75 16 128/69 95 03/07/22 04:20 36.9 C 74 18 122/69 100 PG Care Time/CCT Total # of Minutes Spent Total Time Spent with Patient: Total time spent is greater than 50% in coordination of care (as documented) at patient's floor/unit and/or counseling patient: Coding Level of Care Code 63109 Subseq Hosp Care Lvl 2 Diagnoses AICD discharge Z45.02 Cardiomyopathy I42.9 Afib I48.91 Type 2 diabetes, controlled, with neuropathy E11.40 Hypothyroidism E03.9 Myasthenia gravis G70.00 Interstitial lung disease J84.9 CAD (coronary artery disease) I25.10 Coronary Disease-Associated Artery/Lesion type: [place] artery [place] vs. transplanted heart: [place] heart Associated angina: without angina Hypertension I10 Hypertension type: essential hypertension Hyperlipidemia E78.5 (1) CAD (coronary artery disease) Coronary Disease-Associated Artery/Lesion type: [place] artery [place] vs. transplanted heart: [place] heart Associated angina: without angina Qualified Code(s): I25.10 - Atherosclerotic heart disease of [place] coronary artery without angina pectoris (2) Hypertension Hypertension type: essential hypertension Qualified Code(s): I10 - Essential (primary) hypertension
[2022-03-07] MEDS: ACETAMINOPHEN 325 MG TAB PO PRN ×2 (15:08→21:31)
--- NOTE | 2022-03-07 17:40 | Cardiology Progress Note ---
Date of Service March 07, 2022 Assessment & Plan (1) Ventricular tachycardia: (2) AICD discharge: (3) Acute HFrEF (heart failure with reduced ejection fraction): (4) Cardiomyopathy: (5) Complete heart block: (6) Biventricular automatic implantable cardioverter defibrillator in situ: (7) S/P MVR (mitral valve repair): (8) S/P AVR: (9) Pulmonary hypertension: (10) CAD (coronary artery disease): (11) S/P CABG x 1: (12) Atrial fibrillation, permanent: Plan: ASSESSMENT/PLAN: 1. Ventricular tachycardia : No recurrences. Very stable rhythm overall. He is on oral amiodarone again without evidence of transaminitis. Our goal was to liberalize his activity can get a better understanding with this triggers his arrhythmia. Hopefully he can do more activity now without ventricular ectopy or tachycardia. This would portend a better prognosis overall. 2. Acute heart failure with reduced EF: He seems well compensated. 3. Ischemic cardiomyopathy: Will continue metoprolol and diuresis as needed. 4. Mitral and aortic valve replacements: Bioprosthetic valves. Appear to be functionally appropriately on echo. SBE prophylaxis for dental procedures. 5. CAD s/p CABG x 1: No recurrent chest pain. He likely has completed the infarct associated with his ALANIZ dissection. With this acute ischemic event played a role in his prior BT is unclear. Again, hopefully we can liberalize his activity to get a better understanding of whether this is a trigger. 6. Permanent atrial fibrillation s/p AV rob ablation: On long-term anticoagulation therapy for stroke risk reduction. 7. Pulmonary hypertension: Chronic issue. Likely related to heart failure and interstitial lung disease. He appears to have transition to hospice. However, we will gain a better understanding of his overall prognosis once he is more active. ICD therapies have been deactivated at patient request. Admission and Anticipated Discharge Date Admission Date: February 26, 2022 Subjective I saw the patient with his in his room today. He has some left shoulder discomfort that he attributes to being moved in the bed. No chest pain. Again, he has not been ambulatory out of bed and is anxious about that. He states that his anxiety is improved since he knows his defibrillator has been turned off and he certainly will not receive any more therapies. Review of Systems Review of Systems: Per HPI. Some constipation Physical Exam Physical Exam: The patient is alert and oriented. Mood and affect appeared normal. He answered all questions appropriately. HEENT: Pupils are equal and reactive to light and accommodation. Extraocular movements are intact. The sclerae are anicteric. Neuro: Cranial nerves intact Lungs: Normal respiratory effort Cardiac: Regular rhythm Skin: I did not appreciate any rashes on examination today. Significant ecchymosis Results & Data ([facility]) Vital Signs (Past 12 Hours) Vital Signs Temp Pulse Pulse Resp BP BP Pulse Ox 03/07/22 16:00 36.7 C 75 14 100/57 L 97 03/07/22 12:04 36.4 C L 75 16 105/64 100 03/07/22 08:31 36.8 C 75 16 128/69 95 Laboratory Results Abnormal Lab Results 03/06/22 03/07/22 03/07/22 20:14 05:48 05:48 WBC 10.09 RBC 4.61 L Hgb 12.0 L Hct 39.2 L MCV 85.0 MCH 26.0 MCHC 30.6 L RDW Std Deviation 47.9 H RDW Coeff of Jonathan 15.4 H Plt Count 154 MPV 9.1 PT 34.9 H INR 3.5 H Sodium Potassium Chloride Carbon Dioxide Anion Gap BUN Creatinine Est Cr Clr Drug Dosing Est GFR ( Amer) Est GFR (Non-Af Amer) BUN/Creatinine Ratio Glucose POC Glucose 190 H Calcium Magnesium Total Bilirubin AST ALT Alkaline Phosphatase Total Protein Albumin Globulin Albumin/Globulin Ratio 03/07/22 03/07/22 03/07/22 05:48 07:46 11:28 WBC RBC Hgb Hct MCV MCH MCHC RDW Std Deviation RDW Coeff of Jonathan Plt Count MPV PT INR Sodium 140 Potassium 3.8 Chloride 102 Carbon Dioxide 33 H Anion Gap 5 BUN 26 H Creatinine 1.36 Est Cr Clr Drug Dosing 46.8 Est GFR ( Amer) 56.2 Est GFR (Non-Af Amer) 48.5 BUN/Creatinine Ratio 19.1 Glucose 104 H POC Glucose 119 H 146 H Calcium 8.2 L Magnesium 1.7 Total Bilirubin 1.6 H AST 17 ALT 19 Alkaline Phosphatase 98 Total Protein 5.2 L Albumin 3.0 L Globulin 2.2 L Albumin/Globulin Ratio 1.4 03/07/22 16:19 WBC RBC Hgb Hct MCV MCH MCHC RDW Std Deviation RDW Coeff of Jonathan Plt Count MPV PT INR Sodium Potassium Chloride Carbon Dioxide Anion Gap BUN Creatinine Est Cr Clr Drug Dosing Est GFR ( Amer) Est GFR (Non-Af Amer) BUN/Creatinine Ratio Glucose POC Glucose 112 H Calcium Magnesium Total Bilirubin AST ALT Alkaline Phosphatase Total Protein Albumin Globulin Albumin/Globulin Ratio PG Care Time/CCT Total # of Minutes Spent Total Time Spent with Patient: Total time spent is greater than 50% in coordination of care (as documented) at patient's floor/unit and/or counseling patient: Coding Level of Care Code 86094 Subseq Hosp Care Lvl 2 Diagnoses Ventricular tachycardia I47.2 AICD discharge Z45.02 Acute HFrEF (heart failure with reduced ejection fraction) I50.21 Cardiomyopathy I42.9 Complete heart block I44.2 Biventricular automatic implantable cardioverter defibrillator in situ Z95.810 S/P MVR (mitral valve repair) Z98.890 S/P AVR Z95.2 Pulmonary hypertension I27.20 CAD (coronary artery disease) I25.10 Coronary Disease-Associated Artery/Lesion type: [place] artery [place] vs. transplanted heart: [place] heart Associated angina: without angina S/P CABG x 1 Z95.1 Atrial fibrillation, permanent I48.21 (1) CAD (coronary artery disease) Coronary Disease-Associated Artery/Lesion type: [place] artery [place] vs. transplanted heart: [place] heart Associated angina: without angina Qualified Code(s): I25.10 - Atherosclerotic heart disease of [place] coronary artery without angina pectoris
[2022-03-07] MEDS: LORazepam 2 MG/1 ML VIAL IV PRN (21:31)
[2022-03-08] MEDS: LEVOTHYROXINE SODIUM 75 MCG TABLET PO SCH (06:37)
[2022-03-08] MEDS: METOPROLOL SUCC 50MG EXT REL TAB PO SCH (07:51)
[2022-03-08] MEDS: AMIODARONE 200 MG TAB PO SCH ×2 (07:51→17:23)
[2022-03-08] MEDS: MYCOPHENOLATE MOFETIL 250 MG CAP PO SCH ×2 (07:52→21:05)
[2022-03-08] MEDS: FLUTICASONE/VILANTEROL 100/25MCG 14 PUFFS/INHALER INH SCH (07:52)
[2022-03-08] MEDS: IPRATROPIUM BROMIDE NASAL SPRAY 0.06% 15ML NAE SCH ×2 (07:52→21:06)
[2022-03-08] MEDS: FUROSEMIDE 40 MG TAB PO SCH (07:53)
[2022-03-08] MEDS: ASPIRIN 81 MG ECTAB PO SCH (07:53)
[2022-03-08] MEDS: PYRIDOSTIGMINE SUSTAINED REL 180 MG TABCR PO SCH (07:53)
[2022-03-08] MEDS: SPIRONOLACTONE 25 MG TAB PO SCH (07:54)
[2022-03-08] MEDS: ACETAMINOPHEN 325 MG TAB PO PRN ×2 (08:37→18:38)
[2022-03-08] MEDS: INSULIN GLARGINE SOLOSTAR 100 UNITS/ML 3 ML PEN SC SCH ×2 (08:38→21:04)
[2022-03-08] MEDS: INSULIN ASPART PER UNIT SC SCH ×4 (08:39→21:03)
--- NOTE | 2022-03-08 15:09 | Hospitalist Progress Note ---
Date of Service March 08, 2022 Assessment & Plan (1) AICD discharge: Plan: 81yo male with complex cardiac history to include CAD s/p CABG in 2013, placement of bioprosthetic aortic and mitral valves, PFO closure. Patient with history of Biventricular pacer/defibrillator in place secondary to cardiomyopathy ([employer]). Patient was seen at [facility] following multiple AICD discharges (5-6 at home then 4 in the ambulance en route to the hospital). He was given Amiodarone bolus and drip at [place] and was cardioverted x 2 (100 and 150J) for ventricular tachycardia. Patient requested to be transferred to [facility] in event that cardiac intervention was required. Additional arrhythmia en route and patient was shocked 4 more times (totaling 13-14 AICD discharges + synchronized cardioversion x 2). Presently does not want any further ICD discharges or other rescussictation. - Continue amiodarone gtt - Cardiology consultation appreciated - Added beta mary. - No further AICD discharges this admission, patient in PCU. Cardiac cath on 03/02: Summary: 1. Iatrogenic ALANIZ to first diagonal dissection 2. Chronic subtotal mid first diagonal occlusion 3. Unsuccessful attempted repair of ALANIZ dissection due to inability to reenter true lumen. 4. Unsuccessful attempted PCI of mid diagonal due to inability to pass balloon across calcified stenosis/anastomosis. Final result: PARMIDNER II antegrade flow in first diagonal. Chest pain-free. ICD now turned off. No further significant PVC burden of NSVT on bedrest and IV amiodarone. Transitioned to oral on 03/07. No further NSVT. Plan for hospice tomorrow. (2) Cardiomyopathy: Plan: Appears to be euvolemic at the current time. - Continue metoprolol succinate 50mg PO daily (3) Afib: Plan: History of atrial fibrillation. On Coumadin anticoagulation. - Continue Coumadin - Held today as INR is up to 3.5. Will likely need lower dose on discharge. - Current in paced rhythm (4) Type 2 diabetes, controlled, with neuropathy: Plan: Patient on oral agents. Last A1c on 11/30/21 was 6.7%. - Hold oral agents - Lantus 5u BID, ISS -> Last 24 hours, BSs have been 100 - 190. Acceptable given clinical situation. (5) Hypothyroidism: Plan: Chronic. TSH 4.59 with normal free T4. - Continue his usual dose of levothyroxine 75 mcg PO daily (6) Myasthenia gravis: Plan: Patient on chronic steroids. Has been decreased to 2.5mg daily. - Continue Prednisone 2.5mg po daily - Continue mycophenolate mofetil 1000mg po BID - Continue home Mestinon - ER 180mg po daily and 90mg TID (7) Interstitial lung disease: Plan: No cough, SOB or wheeze. Patient follows with pulmonary. Last seen 01/10/22. Etiology of ILD is unclear. - Continue Prednisone for MG - Continue Budesonide/Formoterol BID, Albuterol and DuoNebs PRN - Patient was on amiodarone in the past which was discontinued because he didn't like how he felt on it. Unfortunately no choice but to continue amiodarone currently. (8) CAD (coronary artery disease): Plan: S/p CABG performed in 2013. Patient with elevation of HS-troponin to 81.7. Now up to 2926.2 this morning post cardiac cath. Suspect secondary to cardiac cath ?[place] at that time. - Continue ASA and Lovastatin - Cardiology consultation appreciated (9) Hypertension: Plan: Blood pressure stable now. BP is 105/65 today. - Continue to monitor (10) Hyperlipidemia: Plan: Chronic. - Continue lovastatin Plan: Code - DNR/DNI. ICD deactivated. If he would go into [place], we would let him pass away. Admission and Anticipated Discharge Date Admission Date: February 26, 2022 Subjective Stable today. No major issues. No [place] on monitor. Was up in a chair yesterday. Reports no fevers/chills, chest pain, shortness of breath, abdominal pain, nausea, or vomiting. Physical Exam Constitutional: WD/WN, vitals as above Eyes: EOM intact bilaterally; no conjunctival abnormality ENMT: external ear and nose normal, oropharynx normal Neck: trachea midline, no thyromegaly normal visual inspection Respiratory: normal respiratory effort, lungs clear to auscultation no respiratory distress Cardiovascular: RRR, no murmur, no edema Gastrointestinal (Abdomen): Inspection/Auscultation: abdomen normal to inspect ion; abdomen not distended Musculoskeletal: no cyanosis or clubbing, extremities motor strength 5/5 Skin: no rashes, warm and dry Neurologic: moves all extremities and awake Psychiatric: Orientation: alert, oriented to person and cooperative Results & Data Results & Data ([facility]) Vital Signs (Past 12 Hours) Vital Signs Temp Pulse Pulse Resp BP Pulse Ox 03/08/22 14:53 75 03/08/22 12:44 75 03/08/22 12:00 36.7 C 74 19 110/62 99 03/08/22 04:48 36.5 C 75 18 112/67 98 PG Care Time/CCT Total # of Minutes Spent Total Time Spent with Patient: Total time spent is greater than 50% in coordination of care (as documented) at patient's floor/unit and/or counseling patient: Coding Level of Care Code 62794 Subseq Hosp Care Lvl 2 Diagnoses AICD discharge Z45.02 Cardiomyopathy I42.9 Afib I48.91 Type 2 diabetes, controlled, with neuropathy E11.40 Hypothyroidism E03.9 Myasthenia gravis G70.00 Interstitial lung disease J84.9 CAD (coronary artery disease) I25.10 Coronary Disease-Associated Artery/Lesion type: [place] artery [place] vs. transplanted heart: [place] heart Associated angina: without angina Hypertension I10 Hypertension type: essential hypertension Hyperlipidemia E78.5 (1) CAD (coronary artery disease) Coronary Disease-Associated Artery/Lesion type: [place] artery [place] vs. transplanted heart: [place] heart Associated angina: without angina Qualified Code(s): I25.10 - Atherosclerotic heart disease of [place] coronary artery without angina pectoris (2) Hypertension Hypertension type: essential hypertension Qualified Code(s): I10 - Essential (primary) hypertension
[2022-03-08] MEDS: LORazepam 2 MG/1 ML VIAL IV PRN (21:06)
[2022-03-09] MEDS: LEVOTHYROXINE SODIUM 75 MCG TABLET PO SCH (06:07)
[2022-03-09 07:01] LABS: Hematocrit (blood only) 37.8 % (42-52); Hemoglobin 11.2 g/dL (14.0-18.0); Mean Corpuscular Hemoglobin 24.8 pg (25-34); Mean Corpuscular Hgb Conc 29.6 g/dL (32-36); Mean Corpuscular Volume 83.8 fL (80-100); Platelet Count 151 K/uL (130-400); RDW Coefficient of Variation 15.3 % (11.5-14.5); RDW Standard Deviation 46.9 fL (36.4-46.3); Red Blood Count 4.51 M/uL (4.7-6.1); White Blood Count 8.46 K/uL (4.8-10.8)
[2022-03-09 07:09] LABS: INR 2.4 (0.9-1.1); Prothrombin Time 24.5 Seconds (9.0-12.0)
[2022-03-09 07:24] LABS: BUN Creatinine Ratio 20.5 (10-20); Calcium 8.2 mg/dl (8.5-10.1); Creatinine Clr Calc Pharmacy 52.1 ml/min; Est GFR (Non-African American) 55.3 ml/min; Magnesium 1.5 mg/dl (1.7-2.4); Potassium 3.3 mmol/L (3.5-5.1)
[2022-03-09] MEDS: SPIRONOLACTONE 25 MG TAB PO SCH (08:47)
[2022-03-09] MEDS: MYCOPHENOLATE MOFETIL 250 MG CAP PO SCH (08:49)
[2022-03-09] MEDS: FUROSEMIDE 40 MG TAB PO SCH (08:49)
[2022-03-09] MEDS: PYRIDOSTIGMINE SUSTAINED REL 180 MG TABCR PO SCH (08:49)
[2022-03-09] MEDS: METOPROLOL SUCC 50MG EXT REL TAB PO SCH (08:49)
[2022-03-09] MEDS: ASPIRIN 81 MG ECTAB PO SCH (08:50)
[2022-03-09] MEDS: FLUTICASONE/VILANTEROL 100/25MCG 14 PUFFS/INHALER INH SCH (08:50)
[2022-03-09] MEDS: LOVASTATIN 20 MG TAB PO SCH (08:50)
[2022-03-09] MEDS: INSULIN GLARGINE SOLOSTAR 100 UNITS/ML 3 ML PEN SC SCH (08:51)
[2022-03-09] MEDS: AMIODARONE 200 MG TAB PO SCH (08:51)
[2022-03-09] MEDS: IPRATROPIUM BROMIDE NASAL SPRAY 0.06% 15ML NAE SCH (08:51)
[2022-03-09] MEDS: INSULIN ASPART PER UNIT SC SCH (09:04)
--- NOTE | 2022-03-09 12:22 | Discharge Summary ---
Date of Service March 09, 2022 Admission HPI Per Admitting Provider Kaiden Mendez is an 81yo male with history of CAD s/p CABG (ALANIZ to LAD), s/p bioprosthetic aortic and mitral valve replacements, PFO closure, aortic endarterectomy and intraoperative radiofrequency ablation performed 04/23/2014. Biventricular pacemaker defibrillator in place 04/2014, mixed cardiomyopathy, paroxysmal atrial fibrillation s/p AV junction ablation 11/26/2021. Also with steroid dependent myasthenia gravis, chronic interstitial lung disease and hypothyroidism. Patient reports intermittent chest pain ongoing throughout the day. Patient reports waking this AM around 12:30 and trying to walk to the bathroom. He felt very weak with difficulty standing. He also had some brief substernal chest discomfort. He then had 5-6 discharges from his AICD. His was present and called 911. Patient took 2 nitro tablets. When EMS arrived patient had another 4 discharges from his device. He was taken to [facility] and appeared to be in ventricular tachycardia with rate in low 200's. Vital signs on presentation T=36.4, IK=299, BP=70/45, RR=25, Sat=93% on RA Patient was administered Amiodarone 150mg. He had a synchronized cardioversion performed at 100 josué then again at 150 josué with improvement in heart rate to the 80's and improvement in symptoms. Workup from [place] significant for elevated BNP of 6228 as well as hypokalemia with K=2.8 and hypomagnesemia with Mg=1.2 Treatment: Amiodarone 150mg bolus, Fentanyl 50mcg Patient recently transitioned to [facility] and requested to be transferred here. En route patient had an additional 4 discharges from his AICD. Upon arrival to the ER he appeared to be in a paced rhythm, blood pressure stable. He is complaining of some chest soreness but otherwise no complaints. ER Course: Amiodarone gtt continued, Mg x 2 gm ordered, KCl 40mEq Principal Diagnosis Ventricular tachycardia Discharge Exam Constitutional WD/WN, vitals as above Eyes EOM intact bilaterally; no conjunctival abnormality ENMT external ear and nose normal, oropharynx normal Neck trachea midline, no thyromegaly normal visual inspection Respiratory normal respiratory effort, lungs clear to auscultation no respiratory distress Cardiovascular RRR, no murmur, no edema Gastrointestinal (Abdomen) Inspection/Auscultation: abdomen normal to inspection; abdomen not distended Musculoskeletal no cyanosis or clubbing, extremities motor strength 5/5 Skin no rashes, warm and dry Neurologic moves all extremities and awake Psychiatric Orientation: alert, oriented to person and cooperative Discharge Data Allergies Allergy/AdvReac Type Severity Reaction Status Date / Time gabapentin Allergy Severe CONFUSION/D Verified 01/28/22 13:47 ISORIENTATI ON heparin Allergy Severe HIT Verified 01/28/22 13:47 Iodinated Contrast Media Allergy Severe HIVES Verified 01/28/22 13:47 prednisone Allergy Intermediate NAUSEA/VOMI Verified 01/28/22 13:47 TING shellfish derived Allergy Intermediate HIVES Verified 01/28/22 13:47 iodine Allergy Unknown TOLD BC OF Verified 01/28/22 13:47 IVP ALLERGY amiodarone Allergy Unknown Verified 02/26/22 05:45 latex Allergy Unknown Verified 02/26/22 05:45 levofloxacin Allergy Unknown Verified 02/26/22 05:45 red dye Allergy Anaphylaxis Verified 02/26/22 05:45 strawberry Allergy Verified 03/06/22 11:18 Penicillins AdvReac Mild Possible Verified 01/28/22 13:47 to use this medication, see comments codeine AdvReac Unknown GI UPSET Verified 01/28/22 13:47 Consultations 02/26/22 05:23 ED Decision to Admit Stat 02/26/22 06:31 Consult Cardiology Routine Consult Network Infrastructure Architect Routine 03/04/22 13:25 Consult Palliative Care Routine Procedures Performed Operation Date: 03/02/22 12:30 Actual Procedures s Cineradiography w/Routine Exam - Marlon Martell MD p POBA SGL Vessel - Rogelio Zuluaga MD s POBA each ADDTL Vessel - Rogelio Zuluaga MD p Cath, Coronaries ONLY (no LV) - Marlon Martell MD Ordered Studies 02/26/22 09:00 US venous doppler LE LT Urgent 03/02/22 06:40 CL Cath Imgs for PACS use only Routine Hospital Course (1) AICD discharge: 81yo male with complex cardiac history to include CAD s/p CABG in 2013, placement of bioprosthetic aortic and mitral valves, PFO closure. 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 Patient was seen at [facility] following multiple AICD discharges (5-6 at home then 4 in the ambulance en route to the hospital). He was given Amiodarone bolus and drip at [place] and was cardioverted x 2 (100 and 150J) for ventricular tachycardia. Patient requested to be transferred to [facility] in event that cardiac intervention was required. Additional arrhythmia en route and patient was shocked 4 more times (totaling 13-14 AICD discharges + synchronized cardioversion x 2). Presently does not want any further ICD discharges or other rescussictation. - Continue amiodarone gtt - Cardiology consultation appreciated - Added beta mary. - No further AICD discharges this admission, patient in PCU. Cardiac cath on 03/02: Summary: 1. Iatrogenic ALANIZ to first diagonal dissection 2. Chronic subtotal mid first diagonal occlusion 3. Unsuccessful attempted repair of ALANIZ dissection due to inability to reenter true lumen. 4. Unsuccessful attempted PCI of mid diagonal due to inability to pass balloon across calcified stenosis/anastomosis. Final result: PARMINDER II antegrade flow in first diagonal. Chest pain-free. ICD now turned off. No further significant PVC burden of NSVT on bedrest and IV amiodarone. Transitioned to oral on 03/07. No further NSVT. Plan for hospice today. (2) Cardiomyopathy: Appears to be euvolemic at the current time. - Continue metoprolol succinate 50mg PO daily (3) Afib: History of atrial fibrillation. On Coumadin anticoagulation. - Continue Coumadin - Lowered dose to MWF 2.5 mg and SuTuThSat 1.25 mg - Current in paced rhythm (4) Type 2 diabetes, controlled, with neuropathy: Patient on oral agents. Last A1c on 11/30/21 was 6.7%. - Hold oral agents - Lantus 5u BID, ISS -> Last 24 hours, BSs have been 100 - 190. Acceptable given clinical situation. (5) Hypothyroidism: Chronic. TSH 4.59 with normal free T4. - Continue his usual dose of levothyroxine 75 mcg PO daily (6) Myasthenia gravis: Patient on chronic steroids. Has been decreased to 2.5mg daily. - Continue Prednisone 2.5mg po daily - Continue mycophenolate mofetil 1000mg po BID - Continue home Mestinon - ER 180mg po daily and 90mg TID (7) Interstitial lung disease: No cough, SOB or wheeze. Patient follows with pulmonary. Last seen 01/10/22. Etiology of ILD is unclear. - Continue Prednisone for MG - Continue Budesonide/Formoterol BID, Albuterol and DuoNebs PRN - Patient was on amiodarone in the past which was discontinued because he didn't like how he felt on it. Unfortunately no choice but to continue amiodarone currently. (8) CAD (coronary artery disease): S/p CABG performed in 2013. Patient with elevation of HS-troponin to 81.7. Now up to 2926.2 this morning post cardiac cath. Suspect secondary to cardiac cath ?[place] at that time. - Continue ASA and Lovastatin - Cardiology consultation appreciated (9) Hypertension: Blood pressure stable now. BP is 105/65 today. - Continue to monitor (10) Hyperlipidemia: Chronic. - Continue lovastatin Code - DNR/DNI. ICD deactivated. If he would go into VT, we would let him pass away. Total Time Total Time Spent Total Time Spent (In Minutes): 45 Discharge Plan Discharge Items Patient Disposition: Hospice - Home Reason For Visit: [place], AICD DISCHARGES Discharge Diagnosis: Ventricular tachycardia, ICD firings Activity: Per Instructions section Non-emergency contact: Primary Care Provider Call non-emergency contact if: your symptoms worsen Follow-up/Referrals: Thad Patrick MD [Primary Care Provider] - 03/16/22 11:30 am (Please follow up with Dr. Patrick on Monday03/16/22 at 11:30 am. Please arrive to the office at 11:15 am for your appointment. If you are unable to keep this appointment, please call the office to reschedule at [phone].) Diet: Carb Consistent or DM2 Addtl Attending Provider Instructions: Mr. Mendez, You were admitted to the hospital with firing from your ICD due to your heart rhythm going into ventricular tachycardia. You received many shocks and have decided not to continue getting shocked if your heart rhythm goes back into a tachycardia. The amiodarone we started has kept you out of more ventricular tachycardia, and we sending you home on it to help keep your heart in the normal rhythm as long as possible. I did lower your warfarin as it can interact with amiodarone, so you will need a lower dose. Pending Studies at Discharge: No Stand-Alone Forms: [facility] Medications and DC Order Prescriptions: New metoprolol succinate 50 mg tablet extended release 24 hr 50 mg PO DAILY Qty: 30 RF: 0 amiodarone 400 mg tablet 400 mg PO BID Qty: 30 RF: 0 lorazepam 1 mg tablet 0.5 mg PO TID PRN (Reason: anxiety) Qty: 10 RF: 0 Continued mycophenolate mofetil [CellCept] 500 mg tablet 1,000 mg PO BID Qty: 360 RF: 1 ipratropium-albuterol 0.5 mg-3 mg(2.5 mg base)/3 mL solution for nebulization 3 ml INHALATION QID PRN (Reason: shortness of breath) Qty: 15 RF: 11 albuterol sulfate 90 mcg/actuation HFA aerosol inhaler 2 inh inhalation QID PRN (Reason: shortness of breath or wheezing) Qty: 8.5 RF: 3 levothyroxine 75 mcg tablet 75 mcg PO QAM Qty: 90 RF: 3 pyridostigmine bromide [Mestinon Timespan] 180 mg tablet extended release 180 mg PO QAM Qty: 90 RF: 1 metformin 500 mg tablet extended release 24 hr 500 mg PO BID Qty: 180 RF: 3 prednisone 10 mg tablet 2.5 mg PO DAILY RF: 0 pyridostigmine bromide 60 mg tablet 90 mg PO TID 30 Days Qty: 135 RF: 3 nitroglycerin 0.4 mg tablet, sublingual 0.4 mg SL Q5M PRN (Reason: chest pain) Qty: 25 RF: 3 epinephrine [EpiPen 2-Puneet] 0.3 mg/0.3 mL auto-injector 0.3 mg IM Q10M PRN (Reason: anaphylaxis) Qty: 1 RF: 0 furosemide 20 mg tablet 40 mg PO DAILY RF: 0 ipratropium bromide 42 mcg (0.06 %) spray,non-aerosol 2 spray intranasal TID Qty: 2 RF: 6 budesonide-formoterol [Symbicort] 80-4.5 mcg/actuation HFA aerosol inhaler 2 puff inhalation BID RF: 0 lovastatin 20 mg tablet 20 mg PO .COMPLEX RF: 0 potassium chloride 10 mEq tablet,ER particles/crystals 20 meq PO DAILY RF: 0 aspirin 81 mg tablet,delayed release (DR/EC) 81 mg PO QAM RF: 0 diphenhydramine HCl 50 mg Capsule 50 mg PO Q6H PRN (Reason: ALLERGIES) RF: 0 loperamide [Imodium A-D] 2 mg tablet 2 mg PO QID PRN (Reason: loose stool) RF: 0 mupirocin 2 % ointment 1 applic topical TID PRN (Reason: skin rash) RF: 0 Changed warfarin 2.5 mg tablet See Rx Instructions mg .ROUTE .COMPLEX Qty: 0 RF: 0 Discharge Orders: Discharge Order (Routine); Ordered 03/09/22 Ordered By: Tam Flaherty Admission Data Admit Date/Time: 02/26/22 05:27 Attending Provider: Tam Flaherty Admit Provider: Yessenia Arias Primary Care Provider: Thad Patrick Other Providers: Shun Gutierrez ; George Siegel ; Sondra Mujica ; Tam Flaherty ; [facility] Other Interventions: Discharge Summary Assessment (RN) Last Done: 03/09/22 09:36 PT - Discharge Instruction Last Done: 03/08/22 16:05 Coding Level of Care Code D/C DAY MANAGEMENT >30 MINS Diagnoses AICD discharge Z45.02 Cardiomyopathy I42.9 Afib I48.91 Type 2 diabetes, controlled, with neuropathy E11.40 Hypothyroidism E03.9 Myasthenia gravis G70.00 Interstitial lung disease J84.9 CAD (coronary artery disease) I25.10 Coronary Disease-Associated Artery/Lesion type: [place] artery [place] vs. transplanted heart: [place] heart Associated angina: without angina Hypertension I10 Hypertension type: essential hypertension Hyperlipidemia E78.5
== END 2022-03-09 10:22 | disposition hospice, home (50) | DRG 286 ==
LOC: ED 04:47 → 1E 05:27 → SUATTDRO 05:27 → 1E 06:09 → 2S 02-27 13:02
PROC: CLB.CCO (2022-03-02 12:30)